=== PATIENT | female | born 1980 | race Caucasian/White ===

== ENCOUNTER 2025-02-17 16:11 | Emergency (ER) | payer SELFPAY ==
--- OUTSIDE RECORDS SUMMARY | 2023-04-16 06:55 | XMS_ITS | Continuity of Care Document ---
Author Organization [facility] Address [address] [place] [address] Phone Care Team Providers Care Salesforce Administrator Name Role Phone Gabriel Kumar MD Unavailable Unavailable Allergies, Adverse Reactions, Alerts Substance Reaction Status Criticality levofloxacin Active No Information Medications Medication Instructions Dosage Effective Dates (start - stop) Status Comments meloxicam 15 mg tablet take 1 tablet by oral route every day 15 MG - Active gabapentin 300 mg capsule - Active levothyroxine 25 mcg tablet - Active pantoprazole 40 mg tablet,delayed release - Active aspirin 81 mg tablet,delayed release - Active EMGALITY PEN (unknown strength) Not Available - Active Celexa 40 mg tablet - Active Depakote 500 mg tablet,delayed release - Active Cymbalta 30 mg capsule,delayed release - Active Seroquel 100 mg tablet - Active Procedures Procedure Date X-RAY HIP UNI W PELVIS 2-3 VIEWS 2023 RADEX SPI LUMBOSAC 2/3 VIEWS Methylprednisolone 80mg/ml inj 24 OFFICE CONSULTATION MU Reporting POSTOP FOLLOW-UP VISIT MU Reporting MU Reporting OFFICE/OUTPATIENT VISIT EST MU Reporting OFFICE CONSULTATION Advance Directives Directive Yes / No Effective Date File Name No Information Encounters Encounter Description Practice Location Reason(s) For Visit Diagnoses Date Provider Providers Copied on Encounter [facility], [address], [place], [address], [place] tel:[phone] [facility] Sacroiliac joint dysfunction of right side 4 José Rios. [address] [facility], [place], [place], [id number]. tel:[phone] OFFICE CONSULTATION [facility], [address], [address], tel:[phone] [facility] Pain, unspecifiedBo dy mass index [BMI] 39.0-39.9, adultRight hip painPrimary osteoarthriti s of right hipSacroiliac joint dysfunction of right side 4 José Gabriel. [address] [facility], [place], [place], [id number]. tel:[phone] Referring Provider: Krystal Huerta [address] [facility] [address], [place], [address]. tel:[phone] [facility], [address], [address], [place] tel:[phone] [facility] Hip labral tear 3 Boxdorfer Karla. [address], [id number]. tel:[phone] Referring Provider: Dae Serrano [address] [place] [address] [address], [place], [address] . tel:[phone] [facility], [address], [address], [place] tel:[phone] [facility] No Information 3 Box[address] Karla. [address], [id number]. tel:[phone] OFFICE/OUTPAT IENT VISIT EST [facility], [address], [address], [place] tel:[phone] [facility] hip/pelvicHyp ertension, Unspecified Nov- 3 Gilmer York. [address] [place], [place], [id number]. tel:[phone] Referring Provider: D[address], [place], [address] . tel:[phone] OFFICE CONSULTATION [facility], [address], [place], [address], [place] tel:[phone] [facility] Right hip pain (chief complaint) Hypertension, UnspecifiedHi p labral tearPain hip/pelvic Sep- [address], [place], [place], [id number]. tel:[phone] Referring Provider: D[address], [place], [address] . tel:[phone] Family History Family Member Type Diagnosis Age At Onset Mother Problem (finding) Father Problem Hypertension Mother Problem Glioblastoma Brother Problem Diabetes mellitus Father Problem Cardiovascular disease Payers Payer name Insurance type Covered libertarian ID Authornicolea lali(s) Blue Access PPO E2 OT [id number] Social History Type Description Quantity Date Captured Comments Alcohol Use Details Unknown Caffeine Use Details Unknown Tobacco Use Status No Information Smoking Status No Information Sex Female Chief Complaint And Reason For Visit No Information Reason For Referral Reason For Referral No Information Plan Of Treatment Date Type Action Status Goal Lifestyle education regardin g diet completed Referral Ordered: INJECT SACROILIAC JOINT RT sij Appointment date/timeframe: 04/23/2023 ordered Referral Ordered: X-RAY HIP UNI W PELVIS 2-3 VIEWS RT ordered Referral Ordered: FLUOROSCOPIC GUIDANCE NEEDLE PLACEMENT Appointment date/timeframe: 03/25/2023 ordered Referral Ordered: RADEX SPI LUMBOSAC BENDING 2/3 VIEWS ordered Referral Ordered: RADEX SPI LUMBOSAC 2/3 VIEWS ordered History Of Present Illness Encounter Date Complaint History Of Prese nt Illness No Information Functional Status Date Functional Assessmen t No Information Instructions Date Instruction Additional Infor mation Lifestyle education regarding di et Related to Body mass index [BMI] 39.0-39.9, adult Protective activity Discussed post-operative precaut ions Reviewed medications Assessments Type Assessment Date assessment Sacroiliac joint dysfunction of right side Patient Care Teams Name Effective Dates (start - stop) Status Members No Information
--- OUTSIDE RECORDS SUMMARY | 2025-02-16 23:59 | XMS_ITS | Continuity of Care Document ---
Author Organization [facility] Address [address] [place] [id number] Care Team Providers Care Passenger Agent Name Role Phone Krystal Huerta Primary Care Physician Encounter [facility] Financial Number [id number] Date(s): 02/16/25 - 02/16/25 [facility] [address] [place] [phone] Encounter Diagnosis Obstructive sleep apnea(Discharge Diagnosis) - 02/16/25 Encounter for adjustment and management of neurostimulator(Discharge Diagnosis) - 02/16/25 Discharge Disposition: Home or Self Care Attending Physician: Celso Peres MD Encounter Type: Clinic Allergies, Adverse Reactions, Alerts Substance Criticality Severity Reaction Reaction Severity Status Levaquin migraines Active Treatment Plan Future Appointments Appointment Date:03/25/2025 08:00:00 PM Scheduled Provider: Location:[facility] Sleep Med Appointment Type:[facility] ST[facility] Sleep Study Attended Full Appointment Date:04/07/2025 12:15:00 PM Scheduled Provider:Celso Peres MD Location:[facility] Sleep Med Appointment Type:[facility] EP Implant Medications divalproex sodium 500 mg oral tablet, extended release 750 mg, 1.5 tablet(s), Oral, daily, 30 tablet(s), Tablet CR, 0 Start Date: 09/25/24 Status: Ordered Medication Dispense Status: Completed Quantity: 30.0 Unit: Total Allowed Fills: 1 Fills Dispensed: 0 DULoxetine 60 mg oral capsule 60 mg, 1 capsule(s), Oral, daily, 30 capsule(s), Capsule(s), 0 Start Date: 09/25/24 Status: Ordered Medication Dispense Status: Completed Quantity: 30.0 Unit: Total Allowed Fills: 1 Fills Dispensed: 0 frovatriptan 2.5 mg oral tablet 2.5 mg, 1 tablet(s), Oral, as needed, 0 Start Date: 09/25/24 Status: Ordered Medication Dispense Status: Completed Total Allowed Fills: 1 Fills Dispensed: 0 levothyroxine 75 mcg (0.075 mg) oral tablet 75 mcg, 1 tablet(s), Oral, daily before breakfast, 30 tablet(s), Tablet(s), 0 Start Date: 09/25/24 Status: Ordered Medication Dispense Status: Completed Quantity: 30.0 Unit: Total Allowed Fills: 1 Fills Dispensed: 0 pantoprazole 40 mg oral delayed release tablet 40 mg, 1 tablet(s), Oral, daily before breakfast, 30 tablet(s), Tab EC, 0 Start Date: 09/25/24 Status: Ordered Medication Dispense Status: Completed Quantity: 30.0 Unit: Total Allowed Fills: 1 Fills Dispensed: 0 QUEtiapine 100 mg oral tablet 100 mg, 1 tablet(s), Oral, qhs, 180 tablet(s), Tablet(s), 0 Start Date: 09/25/24 Status: Ordered Medication Dispense Status: Completed Quantity: 180.0 Unit: Total Allowed Fills: 1 Fills Dispensed: 0 Problem List Condition Confirmation Course Effective Dates Status H ealth Status Informant Obstructive sleep apnea Confirmed Active Encounter for adjustment and management of neurostimulator Confirmed Active Procedures Procedure Date Related Diagnosis Body Site Status Appendectomy Completed Cholecystectomy Completed hysterectomy Completed nerve stimulator Complete d Vital Signs Most recent to oldest [Reference Range]: 1 Peripheral Pulse Rate [60-100 bpm] 93 bp m (02/16/25 1:54 PM) Blood Pressure [90-139/60-90 mm Hg] 118/ 70mm Hg (02/16/25 1:54 PM) Height 162.56 cm (02/16/25 1:54 PM) Weight 86.18 kg (02/16/25 1:54 PM) Social History Social History Type Response Alcohol Never alcohol user Substance Abuse Never drug user Smoking Status Never smoker;Never; Tobacco Cessation Counseling Requested N/A entered on: 09/25/24 Sex Sex Representation Female (finding) Implantable Device List Procedure Provider Procedure Date Device Type Site Hypoglossal Nerve Stimulatio n Implant In Unknown 09/25/24 Non Biological Unknown Device Identifier Serial Number Lot or Batch Number Manufacturing Date Expiration Date Distinct Identification Code MRI Safety Implantable Status Assigning Authority Unknown [id number] Unknown Unknown 03/18/27 Unknown Unknown Active Unknown Procedure Provider Procedure Date Device Type Site Hypoglossal Nerve Stimulatio n Implant In Unknown 09/25/24 Non Biological Unknown Device Identifier Serial Number Lot or Batch Number Manufacturing Date Expiration Date Distinct Identification Code MRI Safety Implantable Status Assigning Authority Unknown [id number] Unknown Unknown 04/06/27 Unknown Unknown Active Unkno wn Procedure Provider Procedure Date Device Type Site Hypoglossal Nerve Stimulatio n Implant In Unknown 09/25/24 Non Biological Unknown Device Identifier Serial Number Lot or Batch Number Manufacturing Date Expiration Date Distinct Identification Code MRI Safety Implantable Status Assigning Authority Unknown [id number] Unknown Unknown 11/03/26 Unknown Unknown Active Unkno wn Hospital Discharge Instructions Patient Education 02/16/2025 14:12:46 SLEEP APNEA, Obstructive (Adult) Obstructive??Sleep Apnea Obstructive sleep apnea is a condition caused by air passages becoming narrowed or blocked during sleep. As a result, breathing stops for short periods. Your body wakes up enough for breathing to start again.??But you don't remember it. The cycle of stopped breathing and brief awakenings can repeatdozens of times a night. This prevents the body from getting to the deeper stages of sleep that areneeded for good rest. Signs of sleep apnea include loud snoring, noisy breathing, and gasping sounds during sleep. Peoplewith sleep apnea often find they use the bathroom many times during the night. Daytime symptoms include waking up tired after a full night's sleep and??waking up with headaches. They can also includefeeling very sleepy or falling asleep during the day,??and having problems with memory or concentrat ion. Risk factors for sleep apnea include: ???Being overweight ???Being assigned male at , or being in menopause ???Smoking ???Using alcohol or sedating medicines ???Having enlarged structures in the nose or throat such as enlarged tonsils or adenoids, or extra tissue in the airway Home care Lifestyle changes that can help treat snoring and sleep apnea include: ???If you're overweight, talk with your healthcare provider about a weight-loss plan for you. ???Don't drink alcohol for 3 to 4 hours before bedtime. ???Don't take sedating medicines. Ask your healthcare provider about the medicines you take. ???If you smoke, talk to your provider about ways to quit. It's important to stay away from secondhand smoke. Don't use e-cigarettes because of their harmful side effects. ???Sleep on your side. This can help prevent gravity from pulling relaxed throat tissues into your breathing passages. ???If you have allergies or sinus problems that block your nose, ask your provider for help. ???Use positive airway pressure (PAP). Discuss with your provider the benefits of using PAP at home. And talk about the type of PAP that's best for you. Follow-up care Follow up with your healthcare provider, or as advised.??A diagnosis of sleep apnea is made with a sleep study. Your provider can tell you more about this test. When to get medical care See your healthcare provider if you have daytime symptoms of sleep apnea. These include: ???Waking up tired after a full night's sleep ???Waking up with a headache ???Feeling very sleepy or falling asleep during the day ???Having problems with memory or concentration Also talk with your provider if your partner tells you that you snore, gasp for air, or stop breathing while you sleep. Seeing your provider is important because sleep apnea can make you more likely to have certain health problems. These include high blood pressure, heart attack, stroke, and sexual dysfunction. If youhave sleep apnea, talk with your healthcare provider about the best treatments for you. ?? [id number] The [employer]. All rights reserved. This information is not intended as a substitute for professional medical care. Always follow your healthcare professional's instructions. Note * Event Display: Authorization to Treat * Event Display: Authorization to Treat Physician Outpatient Note * Celso Peres MD: PERFORM Event Display: Office/Clinic Note-Physician Authored Date: [id number] Patient Information Name:ELLA SEWELL Address: [address] [place] [phone] Sex:Female Date of :1980 Emergency Contact:JADA SEWELL Location:[facility] Registration Date and Time:02/16/2025 13:43 OXIDIZED FINISH PLATER Primary Care Physician: Krystal Huerta D.O., Attending Physician: Celso Peres MD, Chief Complaint Pt is here for an Inspire follow up. ESS: 7 History of Present Illness MANDY with PAP intolerance. Last??HSAT done 07/2023 with 4% AHI of??19.4 and an SaO2 low of??80%. She would panic with APAP and??was never??able??to tolerate??this despite??several masks??and pressure changes. She??had not tried an oral appliance.??Inspire per Dr. Belle on 09/25/2024. Activated at last visit at??range of 0.9 to 1.9??volts (A: + - +).??Using at??1.7 volts. Using??6:41 hours per??night. She??can at times fall asleep without turning this on. Pauses??at times at night but??averages 0.5??times??per night. Overall feels better. Less tired. Has not noticed snoring. Sleeps alone though.?? FOSQ and ESS Score FOSQ Ca.4 [place] Sleepiness Scale Score: 7 Vitals and Measurements Vital Signs Height: 162.56 cm Height Inches Conversion: 64 Weight: 86.18 kg Weight in Pounds (kg conversion): 189.6 Body Surface Area: 1.9727 m2 Body Mass Index: 32.61 kg/m2 Systolic Blood Pressure: 118 mm Hg Diastolic Blood Pressure: 70 mm Hg Peripheral Pulse Rate: 93 bpm Oxygen Saturation: 97 % Physical Exam CONSTITUTIONAL:??Alert and cooperative. No apparent distress.?? EARS, NOSE AND THROAT:??Nares patent.?? SKIN:??No lesions or rashes.?? EYES:??Clear conjunctivae.?? NEUROLOGY:??Alert and oriented to person, place, time. Speech clear and fluent with normal content.PERRLA. EOMI.??Face is symmetric.??Strength??5/5. Gait and station normal.?? Assessment/Plan 1.??Obstructive sleep apnea Ordered: Outpatient Visit-Level 4 Est PF, 02/16/25 14:07:00 OXIDIZED FINISH PLATER PSG - Inspire Titration, [facility], Order for Future Visit, 02/16/25 ?? 2.??Encounter for adjustment and management of neurostimulator Ordered: Outpatient Visit-Level 4 Est PF, 02/16/25 14:07:00 OXIDIZED FINISH PLATER PSG - Inspire Titration, [facility], Order for Future Visit, 02/16/25 ?? Reviewed download. Doing better with Inspire??at??0.9 to 1.9??volts (A: + - +) using at 1.7 volts. Has not tolerated further increases. Will do titration PSG with this. Follow up after PSG.??Educatedand discussed the relationship of MANDY with HTN and weight management. Discussed that the patient should not drive or engage in any other hazardous activity if excessively tired. Problem List/Past Medical History Ongoing Encounter for adjustment and management of neurostimulator Obstructive sleep apnea PatientStated Apnea, sleep Bipolar disease, chronic Chronic GERD History of insertion of nerve stimulator Hypothyroid Interstitial cystitis Migraines Historical No qualifying data Procedure/Surgical History ???Appendectomy???Cholecystectomy???hysterectomy???nerve stimulator Medications divalproex sodium 500 mg oral tablet, extended release, 750 mg= 1.5 tablet(s), Oral, daily DULoxetine 60 mg oral capsule, 60 mg= 1 capsule(s), Oral, daily frovatriptan 2.5 mg oral tablet, 2.5 mg= 1 tablet(s), Oral, as needed levothyroxine 75 mcg (0.075 mg) oral tablet, 75 mcg= 1 tablet(s), Oral, daily before breakfast pantoprazole 40 mg oral delayed release tablet, 40 mg= 1 tablet(s), Oral, daily before breakfast QUEtiapine 100 mg oral tablet, 100 mg= 1 tablet(s), Oral, qhs Allergies Levaquin??(migraines) Social History Alcohol Never alcohol user, 09/25/2024 Substance Abuse Never drug user, 09/25/2024 Tobacco Never smoker, Smokeless Tobacco use: Never. N/A Cessation Counseling., 09/25/2024 Family History ?Father ?Positive ?Hypertension ?Brother ?Positive ?Hypertension ?Mother ?Positive ?Brain cancer.. ? Voice to Text Technology Disclaimer This note may contain text inserted via Dragon or other voice to text assistive technology and campus receptionist, variances may occur. Patient Care team information Care Team Personnel Name: Krystal Huerta D.O. Position: [facility] FAX ONLY - MD NOT ON STAFF Member Role: Primary Care Physician Address: [facility] [place] [address]- Telecom: Name: Celso Peres MD Position: Physician - Sleep Medicine Med Service: Interlibrary Loan Specialist Passenger Agent Role: Attending Physician Address: [address] [place] [address] [facility] [address] Telecom: Care Team Related Persons Name: JADA SEWELL Insurance Providers Guarantor name: ELLA Anthony SEWELL Health Plan Information #: 1 Payer: [facility] [employer] [facility] Payer Identifier: [id number] Member Number: [id number] Group Number: [id number] Subscriber Identifier: [id number] Relationship to Subscriber: self Coverage Type: [employer] Managed Care Coverage Verification Date: 25 Telecom: [employer] Address: [address] [place], [place] [id number] [place]
--- OUTSIDE RECORDS SUMMARY | 2025-02-17 07:20 | XMS_ITS | Encounter Summary ---
Author Organization [facility] Address [address] [place] [address] Care Team Providers Care Solar System Designer Name Role Phone Ashley Villegas MD Unavailable [phone] Donny Mcdonough MD Unavailable [phone] Juan Daniel Mera MD Unavailable Unava ilable Randall Schrader MD Unavailable Unavailable Shaista Hathaway SPORTS COMPLEX ATTENDANT Unavailable [phone] Shaista Hathaway SPORTS COMPLEX ATTENDANT Unavailable [phone] Elda Martin MD Unavailable Krystal Huerta DO Primary Care Provider [phone] Reason for Visit * Reason Comments Follow Up Pt here for f/u on z epbound. [facility] lab Encounter Details Date Type Department Care Team (Late st Contact Info) Description 02/17/2025 7:20 AM INTERNAL SPECIALIST Office Visit [facility] Family [facility] - [place] [address], [address] [place] [address] Krystal Huerta DO [address], [place] [id number] Follow Up (Pt here for f/u on zepbound. [facility] lab ) Social History Tobacco Use Types Packs/Day Years Used Date Smoking Tobacco: Never Passive Smoke Exposure: Never Smokeless Tobacco: Never Tobacco Cessation:Counseling Given: No Comments:DO Discretion Alcohol Use Standard Drinks/Week Comments Never 0 (1 standard drink = 0.6 oz pur e alcohol) Humiliation, Afraid, Rape, and Kick questionnair e Answer Date Recorded Within the last year, have y ou been afraid of your partner or ex-partner? No 01/08/2023 Within the last year, have y ou been humiliated or emotionally abused in other ways by your partner or ex-partner? No Within the last year, have y ou been kicked, hit, slapped, or otherwise physically hurt by your partner or ex-partner? No 01/08/2023 Within the last year, have y ou been raped or forced to have any kind of sexual activity by your partner or ex-partner? No 01/08/2023 AUDIT-C Answer Date Recorded Frequency of Alcohol Consumption Never 09/04/2018 Average Number of Drinks Not on file 019 Frequency of Binge Drinking Not on file 06/2018 Overall Financial Resource Strain (CARDIA) Answe r Date Recorded How hard is it for you to pa y for the very basics like food, housing, medical care, and heating? Not hard at all 01/08/2023 PHQ-2 Answer Date Recorded Patient Health Questionnaire-2 Score 2 12/04/2024 Hunger Vital Sign Answer Date Recorded Within the past 12 months, y ou worried that your food would run out before you got the money to buy more. Never true 01/09/20 23 Within the past 12 months, t he food you bought just didn't last and you didn't have money to get more. Never true 01/08/2023 PRAPARE - Transportation Answer Date Re corded In the past 12 months, has l ack of transportation kept you from medical appointments or from getting medications? No 09/2022 In the past 12 months, has l ack of transportation kept you from meetings, work, or from getting things needed for daily living? No 01/08/2023 Housing Stability Vital Sign Answer Kevon e Recorded In the last 12 months, was t here a time when you were not able to pay the mortgage or rent on time? No 01/08/2023 In the last 12 months, how many places have you lived? 1 01/08/2023 In the last 12 months, was t here a time when you did not have a steady place to sleep or slept in a skilled nursing (including now)? 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 Not on file Not on file Not on file documented as of this encounter Last Filed Vital Signs Vital Sign Reading Time Taken Comments Blood Pressure 118/72 02/17/2025 7:18 AM INTERNAL SPECIALIST Pulse 89 02/17/2025 7:18 AM INTERNAL SPECIALIST Temperature 36.4 C (97.5 F) 02/17/2025 7:18 AM INTERNAL SPECIALIST Respiratory Rate 16 02/17/2025 7:18 AM INTERNAL SPECIALIST Oxygen Saturation 99% 02/17/2025 7:18 AM INTERNAL SPECIALIST Inhaled Oxygen Concentration - - Weight 82.3 kg (181 lb 6.4 oz) 02/17/2025 7:18 A M INTERNAL SPECIALIST Height 160 cm (5' 3) 02/17/2025 7:18 AM INTERNAL SPECIALIST Body Mass Index 32.13 02/17/2025 7:18 AM INTERNAL SPECIALIST documented in this encounter Functional Status * Are you deaf or do you have serious difficulty hearing Answer Date of Assessment Author Status No 01/08/2023 2:21 PM INTERNAL SPECIALIST Raymundo Barton RN Active * Are you blind or do you have serious difficulty seeing, even when wearing glasses? Answer Date of Assessment Author Status No 01/08/2023 2:21 PM INTERNAL SPECIALIST Raymundo Barton RN Active * Do you have serious difficulty walking or climbing stairs? Answer Date of Assessment Author Status No 01/08/2023 2:21 PM Raymundo Heck RN Active * Do you have difficulty dressing or bathing? Answer Date of Assessment Author Status No 01/08/2023 2:21 PM Raymundo Heck RN Active * Because of a physical, mental, or emotional condition, do you have difficulty doing errands alone such as visiting a doctor's office or shopping? Answer Date of Assessment Author Status No 01/08/2023 2:21 PM Raymundo Heck RN Active documented as of this encounter Mental Status * Because of a physical, mental, or emotional condition, do you have serious difficulty concentrating, remembering, or making decisions? Answer Entry Date Author Status No 01/08/2023 2:21 PM Raymundo Heck RN Active documented in this encounter Progress Notes * Krystal Huerta, DO - 02/17/2025 7:20 AM CST Follow Up (Pt here for f/u on zepbound. [facility] lab ) Assessment & Plan Obstructive sleep apnea: - She is currently on Inspire titration but has not tolerated any further titrations. - She saw her sleep doctor yesterday. - She is advised to continue with the current treatment plan. Chronic migraine: - Depakote, Vyepti, and Botox have been effective in reducing the frequency and severity of her migraines. - She should continue with her current medications. Weight management: Following reduced calorie diet Continues to exercise Denies any mood changes with the medication denies any vision changes - She has lost weight, going from 195 pounds on 01/08/2025 to 181 pounds. - Thyroid levels will be rechecked in 05/2025 due to weight changes that may affect thyroid dosing. - The dosage of Zepbound will be increased to 7.5mg . She is advised to continue her current regimen and monitor her weight. Follow up in 2-3 months If she wants a dose change will need a follow up Psychiatric issues: - She reports no changes in mood and feels that her current treatment is helping her appetite. - She is followed by a psychiatrist and a therapist, with regular appointments. - She should continue her current psychiatric care and follow up with her therapist in 2 weeks. HPI: History of Present Illness The patient is a 45-year-old female who presents for a follow-up visit. On 02/16/2025, she saw [facility] for obstructive sleep apnea and is currently on Inspire titration. However, she has not tolerated any further titrations. She saw her sleep doctor yesterday. She is currently on Zepbound 2.5 mg and reports a positive response to her medication regimen, withno adverse effects such as abdominal pain or changes in vision. Her bowel movements remain regular,and she maintains a balanced diet, including adequate protein intake. She continues to participate in CrossFit exercises. She believes the medication is beneficial for her appetite and expresses a desire to increase the dosage. She is still on folic acid 5 mg. She last consulted with her therapist on Saturday and reports no significant mood alterations. Her next therapy session is scheduled for 2 weeks from now. She is currently followed by a psychiatrist and has a history of psychiatric hospitalization, where she is regularly monitored by her psychiatristand therapist. She has a history of pancreatitis. For chronic migraine, she is on Depakote, Vyepti, Botox, and abortive agents, which are reducing the frequency and severity of her migraines. She was in the emergency room in 01/2025 for urinary retention. She is engaged in weight loss via diet and CrossFit and salima Vyvanse as well. Social History: Hobbies: CrossFit Diet: Balanced diet with adequate protein intake Relevant systems noted in HPI, all remaining systems are negative. Wt Readings from Last 3 Encounters: 02/17/25 82.3 kg (181 lb 6.4 oz) 01/19/25 84.9 kg (187 lb 3.2 oz) 01/08/25 88.5 kg (195 lb 1.7 oz) Physical Exam Constitutional: Appearance: Normal appearance. HENT: Mouth/Throat: Mucous membranes are moist. Eyes: Extraocular Movements: Extraocular movements intact. Conjunctiva/sclera: Conjunctivae normal. Pupils: Pupils are equal, round, and reactive to light. Cardiovascular: Rate and Rhythm: Normal rate and regular rhythm. Pulses: Normal pulses. Heart sounds: Normal heart sounds. Pulmonary: Effort: Pulmonary effort is normal. Breath sounds: Normal breath sounds. Musculoskeletal: Cervical back: Normal range of motion and neck supple. Neurological: Mental Status: She is alert. Psychiatric: Mood and Affect: Mood normal. Thought Content: Thought content normal. Judgment: Judgment normal. Filed Vitals: 02/17/25 0718 BP: 118/72 Pulse: 89 Resp: 16 Temp: 97.5 ??F (36.4 ??C) SpO2: 99% Weight: 82.3 kg (181 lb 6.4 oz) Height: 1.6 m (5' 3) 1. Metabolic syndrome tirzepatide (ZEPBOUND) 7.5 MG/0.5ML injection VITAMIN D, 25 OH TSH W/REFLEX HEMOGLOBIN, GLYCOSYLATED THYROXINE, FREE (FT4) COMPREHENSIVE METABOLIC PANEL 2. Morbid obesity (CMS/HCC) tirzepatide (ZEPBOUND) 7.5 MG/0.5ML injection VITAMIN D, 25 OH TSH W/REFLEX HEMOGLOBIN, GLYCOSYLATED THYROXINE, FREE (FT4) COMPREHENSIVE METABOLIC PANEL 3. MANDY (obstructive sleep apnea) tirzepatide (ZEPBOUND) 7.5 MG/0.5ML injection VITAMIN D, 25 OH TSH W/REFLEX HEMOGLOBIN, GLYCOSYLATED THYROXINE, FREE (FT4) COMPREHENSIVE METABOLIC PANEL DISCONTINUED: tirzepatide (ZEPBOUND) 5 MG/0.5ML injection 4. Dyslipidemia VITAMIN D, 25 OH TSH W/REFLEX HEMOGLOBIN, GLYCOSYLATED THYROXINE, FREE (FT4) COMPREHENSIVE METABOLIC PANEL 5. Moderate obstructive sleep apnea VITAMIN D, 25 OH TSH W/REFLEX HEMOGLOBIN, GLYCOSYLATED THYROXINE, FREE (FT4) COMPREHENSIVE METABOLIC PANEL DISCONTINUED: tirzepatide (ZEPBOUND) 5 MG/0.5ML injection This patient has a chronic medical condition that increases the inherent complexity of the evaluation and management associated with medical care services and we serve as the continuing focal point for all needed health care services pertaining to ongoing care related to the patient's single serious or complex condition. This document was created in part by using voice recognition software RNAL SPECIALIST documented in this encounter Plan of Treatment Scheduled Orders Name Type Priority Associated Diagnoses Orde r Schedule VITAMIN D, 25 OH Lab Routine Metabolic syndrome Morbid obesity (CMS/HCC) MANDY (obstructive sleep apnea) Dyslipidemia Moderate obstructive sleep apnea Expected: 05/18/2025, Expires: 05/18/2026 TSH W/REFLEX Lab Routine Metabolic syndrome Morbid obesity (CMS/HCC) MANDY (obstructive sleep apnea) Dyslipidemia Moderate obstructive sleep apnea Expected: 05/18/2025, Expires: 05/18/2026 HEMOGLOBIN, GLYCOSYLATED Lab Routine Metabolic syndrome Morbid obesity (CMS/HCC) MANDY (obstructive sleep apnea) Dyslipidemia Moderate obstructive sleep apnea Expected: 05/18/2025, Expires: 05/18/2026 THYROXINE, FREE (FT4) Lab Routine Metabolic syndrome Morbid obesity (CMS/HCC) MANDY (obstructive sleep apnea) Dyslipidemia Moderate obstructive sleep apnea Expected: 05/18/2025, Expires: 05/18/2026 COMPREHENSIVE METABOLIC PANEL Lab Routine Metabolic syndrome Morbid obesity (CMS/HCC) MANDY (obstructive sleep apnea) Dyslipidemia Moderate obstructive sleep apnea Expected: 02/17/2025, Expires: 02/17/2026 documented as of this encounter Goals Goal Patient Goal Type Associated Problems Recent Progress Patient-Stated? Author Health - patient able to perform ADLs independently Lifestyle Garcia Brown RN documented as of this encounter Visit Diagnoses Diagnosis Metabolic syndrome- Primary Dysmetabolic Syndrome X Morbid obesity (CMS/HCC) Morbid obesity MANDY (obstructive sleep apnea) Obstructive sleep apnea (adult) (pediatric) Dyslipidemia Other and unspecified hyperlipidemia Moderate obstructive sleep apnea Obstructive sleep apnea (adult) (pediatric) documented in this encounter Additional Health Concerns Assessment Noted Time PHQ-9 Depression Total Score: 14 025 11:47 AM CDT documented as of this encounter Care Teams Solar System Designer Relationship Specialty Start Date End Date Krystal Huerta DO [address] [place] [id number] PCP - General FAMILY PRACTICE 02/21/22 Ashley Villegas MD [address] [place] [id number] OBGYN 02/04/20 Donny Mcdonough MD [address] [facility] [address] [place] [address] GASTROENTEROLOGY 02/04/20 Juan Daniel Mera MD [address] [facility] [facility] [address] [place] [address] OBGYN 02/04/20 Randall Schrader MD [address] [facility] [facility] [address] [place] [address] Consulting Physician ORTHOPAEDIC SURGERY 02/04/20 Shaista Hathaway SPORTS COMPLEX ATTENDANT [address] [place] [address], [address] [place] [address] NURSE PRACTITIONER GERONTOLOGY 02/04/20 Shaista Hathaway NP [address] [place] [address], [address] [place] [address] NURSE PRACTITIONER GERONTOLOGY 04/29/20 Elda Martin MD [address] [place] [address] Psychiatry 08/31/20 documented as of this encounter
--- OUTSIDE RECORDS SUMMARY | 2025-02-17 09:30 | XMS_ITS ---
Author Organization [facility] [employer] [facility] Address [address] [facility] [address] [place] [address] Care Team Providers Care Stud Driver Name Role Phone Krystal Huerta DO Primary Care Provider Efrem Madera Unavailable [phone] Genevieve Sargent Unavailable [phone] Allergies Allergen (clinical drug ingredient) Drug/Non Drug Allergy documented on EMR Reaction Allergy Type Onset Date Status levofloxacin Levofloxacin Unknown Drug Allergy A ctive REASON FOR VISIT 2 Week Follow Up from Efrem Medications Medication SIG (Take, Route, Frequency, Duration) Notes Start Date End Date Status FLUoxetine HCl 40 MG Capsule 1 capsule Orally Once a day; Duration: 30 days 12/28/2024 Active OLANZapine 10 MG Tablet 1 tablet every night Oral Once a day; Duration: 30 days Active Pantoprazole Sodium 40 MG Tablet Delayed Release Oral; Duration: 30 Days Active Levothyroxine Sodium 75 MCG Tablet TAKE 1 TABLET BY MOUTH EVERY MORNING. Oral; Duration: 30 Days Active Frovatriptan Succinate 2.5 MG Tablet Oral; Duration: 3 Days Active Divalproex Sodium ER 250 MG Tablet Extended Release 24 Hour 1 tablet Orally daily; Duration: 30 days 02/03/2025 03/05/2025 Active Lisdexamfetamine Dimesylate 40 MG Capsule 1 capsule in the morning Orally Once a day; Duration: 7 days 02/03/2025 Active risperiDONE 3 MG Tablet 1 tablet Orally Once a day; Duration: 5 days 02/03/2025 Active Qulipta 60 MG Tablet TAKE 1 TABLET BY MOUTH DAILY Oral; Duration: 30 Days Not-Taking LORazepam 1 MG Tablet TAKE 1 TABLET BY MOUTH EVERY DAY NEEDED FOR ANXIETY Oral; Duration: 30 Days Not-Taking QUEtiapine Fumarate 200 MG Tablet 1 tablet at bedtime Oral Once a day; Duration: 30 days 12/10/2024 Not-Taking Caplyta 42 MG Capsule take 21mg x 3 days then 10.5mg x 3 days then stop Orally Once a day; Duration: 6 days 11/18/2024 Not-Taking Cholestyramine Light 4 GM/DOSE Powder Oral; Duration: 14 Days Not-Taking QUEtiapine Fumarate ER 400 MG Tablet Extended Release 24 Hour 1 tablet in the evening Orally Once a day; Duration: 30 days dose increase 12/10/2024 Not-Taking Notus Carbonate ER 300 MG Tablet Extended Release 2 tablets Orally Once a day; Duration: 30 days increase- pt has at home 12/10/2024 Not-Taking Caplyta 21 MG Capsule 2 capsules Orally Once a day; Duration: 30 days 01/20/2025 Not-Taking Lisdexamfetamine Dimesylate 40 MG Capsule 1 capsule in the morning Orally Once a day; Duration: 30 days dose increase 01/20/2025 Not-Taking Zepbound 5 MG/0.5ML Solution INJECT 2.5 MG INTO THE SKIN ONCE A WEEK Subcutaneous; Duration: 28 days Active Ondansetron HCl 4 MG Tablet Oral; Duration: 10 Days Active Social History Tobacco Use: Social History Observation Description Date Details (start date - stop date) Never Smoker NA - NA Sex Assigned At : Social History Observation Description Sex Assigned At Female Social History Social History Social Info Question Answer Notes Household: Marital Status: Single Number of Adults in household: 1 Number of Children in Household: 0 Level of Education: Finished College Drug/Alcohol: Social Info Question Answer Notes Drugs Have you used drugs other than those for medical reasons in the past 12 months? No AUDIT-C (Standard) Did you have a drink containing alcohol in the past year? No Tobacco Use: Social Info Question Answer Notes Tobacco Control (Standard) Tobacco use: Nonsmoker Section Notes: Living situation: Lives taz e Problems Problem Type SNOMED Code ICD Code Onset Dates Problem Status W/U Status Risk Notes Problem Moderate recurrent major depression (60389507) Major depressive disorder, recurrent, moderate (F33.1) Active confirmed Problem Bipolar disorder (57722740) Bipolar disorder, unspecified (F31.9) Active confirmed Problem History of psychiatric disorder (149646724) Personal history of other mental and behavioral disorders (Z86.59) Active confirmed Vital Signs Blood pressure systolic 123 mm Hg 02/18/20 25 Blood pressure diastolic 84 mm Hg 025 Heart Rate 73 /min 02/17/2025 Height 63 in 02/17/2025 Weight 183 lbs 02/17/2025 BMI 32.41 kg/m2 02/17/2025 Height-cm 160.02 cm 02/17/2025 Weight-kg 83.01 kg 02/17/2025 Encounters Encounter Location Date Provider Diagnosis [facility] [address] [place] [address] [place] [address] 02/17/2025 Genevieve Sargent Major depressive disorder, recurrent, moderate F33.1 ; Suicidal ideations R45.851 ; Bipolar disorder, unspecified F31.9 ; Generalized anxiety disorder F41.1 ; Living alone Z60.2 and Personal history of other mental and behavioral disorders Z86.59 Assessments Encounter Date Diagnosis (ICD Code) Assessment Notes Treatment Notes Treatment Clinical Notes Section Notes 02/17/2025 Major depressive disorder, recurrent, moderate (ICD-10 - F33.1) History of recurrent depression with limited response to prior treatments. Partial improvement noted with current medications. 02/17/2025 Suicidal ideations (ICD-10 - R45.851) Persistent suicidal thoughts with intent and a specific plan involving pills. Patient expressed feeling tired of living and reported ongoing ideation. Recent inpatient psychiatric stay provided only partial relief. Living alone may contribute to risk. - Admit to hospital for psychiatric evaluation and safety. 02/17/2025 Bipolar disorder, unspecified (ICD-10 - F31.9) Patient has a history of bipolar disorder. 02/17/2025 Generalized anxiety disorder (ICD-10 - F41.1) Patient has a history of generalized anxiety disorder. 02/17/2025 Living alone (ICD-10 - Z60.2) Patient lives alone, which may contribute to risk and isolation. 02/17/2025 Personal history of other mental and behavioral disorders (ICD-10 - Z86.59) Patient underwent ECT in 2013, discontinued due to anxiety and lack of benefit. Plan Of Treatment Treatment Notes Assessment Notes Major depressive disorder, r ecurrent, moderate History of recurrent depression with limited response to prior treatments. Partial improvement noted with current medications. Suicidal ideations Persistent suicidal thoughts with intent and a specific plan involving pills. Patient expressed feeling tired of living and reported ongoing ideation. Recent inpatient psychiatric stay provided only partial relief. Living alone may contribute to risk. - Admit to hospital for psychiatric evaluation and safety. Bipolar disorder, unspecified Patient hdz s a history of bipolar disorder. Generalized anxiety disorder Patient has a history of generalized anxiety disorder. Living alone Patient lives alone, which may contribute to risk and isolation. Personal history of other me ntal and behavioral disorders Patient underwent ECT in 2013, discontin ued due to anxiety and lack of benefit. Next Appt Details Follow Up: upon d/c from the hospital, Reason: Provider Name:Shannon cabrera, 03/09/2025 03:30:00 PM, [address], [place] [address], [address], Provider Name:Shannon cabrera, 03/16/2025 03:30:00 PM, [address], [place] [address] [place], [address], Provider Name:Shannon cabrera, 03/23/2025 03:30:00 PM, [address], [place] [address] [place], [address], Provider Name:Shannon cabrera, 03/30/2025 03:30:00 PM, [address], [place] [address] [place], [address], Provider Name:Shannon cabrera, 04/06/2025 03:30:00 PM, [address], [place] [address] [place], [address], Provider Name:Shannon cabrera, 04/13/2025 03:30:00 PM, [address], [place] [address] [place], [address], Provider Name:Shannon cabrera, 04/20/2025 03:30:00 PM, [address], [place] [address] [place], [address], Provider Name:Shannon cabrear, 04/27/2025 03:30:00 PM, [address], [place] [address], [place], [address], Provider Name:Shannon cabrera, 05/04/2025 03:30:00 PM, [address], [address], [address], Provider Name:Shannon cabrera, 05/11/2025 03:30:00 PM, [address], [address], [address], Provider Name:Shannon cabrera, 05/18/2025 03:30:00 PM, [address], [address], [address], Provider Name:Shannon cabrera, 05/25/2025 03:30:00 PM, [address], [address], [address], History and Physical Notes * HPI (History of Present Illness) Category Sub-Category Detail Notes Category Not es History of Presenting Problem Depression screening done Brianne Arroyo, a 45-year-old female, presented for an acute visit focused on her ongoing struggle with suicidal thoughts and intent. She described persistent suicidal ideation, with a specific plan involving pills, and shared that she feels tired of living. Despite these thoughts, she reported that she manages to make it through each day, even as she lives alone, which adds to her sense of isolation. Brianne recently had an inpatient psychiatric stay about a month ago, but the relief was only partial. In discussing her medication history, Brianne explained that she was discharged on Zyprexa and Prozac. She now takes Zyprexa as needed and Prozac daily, noting that these medications have helped her feel a little bit better, though the improvement remains limited. Her psychiatric history includes undergoing electroconvulsive therapy (ECT) in 2014, which she [facility] due to severe anxiety and lack of perceived benefit. Brianne does not recall any significant improvement from ECT and has not pursued other neuromodulation treatments. Depression screening PHQ-9 Little interest or pleasure in doing things: Nearly every day Feeling down, depressed, or hopeless: Ne siria every day Trouble falling or staying asleep, or sl eeping too much: Nearly every day Feeling tired or having little energy: N early every day Poor appetite or overeating: Nearly ever y day Feeling bad about yourself o r that you are a failure, or have let yourself or your family down: Nearly every day Trouble concentrating on thi ngs, such as reading the newspaper or watching television: Nearly every day Moving or speaking so slowly that other people could have noticed; or the opposite, being so fidgety or restless that you have been moving around a lot more than usual: Not at all Thoughts that you would be b afshan off or of hurting yourself in some way: Nearly every day (Consider Suicide Assessment Risk) Total Score: 24 Interpretation: Severe Depression Intervention Depression Screening Findings: Jayce patel Follow-Up for Depression: [facility] health care management, Psychiatric follow-up Suicide Risk Assessment Performed: 02/17 __ date Depression Screening LEA-7 (2018 Edition) Kaityin g nervous, anxious, or on edge: More than half the days Not being able to stop or control worryi ng: Nearly every day Worrying too much about different things : Nearly every day Trouble relaxing: Nearly every day Being so restless that it is hard to sit still: Several days Becoming easily annoyed or irritable: Ne siria every day Feeling afraid as if something awful richard ht happen: Not at all Total LEA-7 Score: 15 If you checked any problems, how difficult have they made it for you to do your work, take care of things at home, or get along with other people?: Extremely difficult Interpretation of Total: (15 and over) [facility] Suicide Risk (CSRS-screener) in the past one month Have you wished you were or wished you could go to sleep and not wake up?: Yes in the past one month Have y ou actually had any thoughts of killing yourself?: Yes Have you started to work out or worked out the details of how to kill yourself? Do you intend to carry out this plan?: Yes Have you had these thoughts and had some intention of acting on them?: Yes Have you been thinking about how you might do this?: Yes Progress Notes * Neo ARROYOOB:1980 ([age] yo F)Acc No.[id number]:02/17/2025 Patient: Brianne Tony Provider: Zach Sargent :1980 A ge:45 Y S ex:Female Date:02/17/2025 [facility] [id number] Pcp:Krystal Huerta DO Subjective: * Chief Complaints: * 2 Week Follow Up from [facility] * HPI: D epression Screening: LEA-7 (2018 Edition) F eeling nervous, anxious, or on edge M ore than half the days N ot being able to stop or control worrying?Nearly every day W orrying too much about different things N early every day T rouble relaxing N early every day B eing so restless that it is hard to sit still S everal days B ecoming easily annoyed or irritable N early every day F eeling afraid as if something awful might happen N ot at all T otal LEA-7 Score 1 5 I f you checked any problems, how difficult have they made it for you to do your work, take care of things at home, or get along with other people? E xtremely difficult I nterpretation of Total ( 15 and over) Severe [place]-Suicide Severity Rating Scale: Suicide Risk (CSRS-screener) i n the past one month Have you wished you were or wished you could go to sleep and not wake up? Y es i n the past one month Have you actually had any thoughts of killing yourself? Y es H ave you started to work out or worked out the details of how to kill yourself? Do you intend to carry out this plan? Y es H ave you had these thoughts and had some intention of acting on them? Y es H ave you been thinking about how you might do this? Y es D epression screening: PHQ-9 L ittle interest or pleasure in doing things?Nearly every day F eeling down, depressed, or hopeless N early every day T rouble falling or staying asleep, or sleeping too much N early every day F eeling tired or having little energy N early every day P oor appetite or overeating N early every day F eeling bad about yourself or that you are a failure, or have let yourself or your family down N early every day T rouble concentrating on things, such as reading the newspaper or watching television N early every day M oving or speaking so slowly that other people could have noticed; or the opposite, being so fidgety or restless that you have been moving around a lot more than usual N ot at all T houghts that you would be better off or of hurting yourself in some way N early every day (Consider Suicide Assessment Risk) T otal Score 2 4 I nterpretation S evere Depression Intervention D epression Screening Findings P ositve F ollow-Up for Depression M ental health care management, Psychiatric follow-up S uicide Risk Assessment Performed 1 04/20/2024 __ date H istory of Presenting Problem: Depression screening done Brianne Arroyo, a 45-year-old female, presented for an acute visit focused on her ongoing struggle with suicidal thoughts and intent. She described persistent suicidal ideation, with a specific plan involving pills, and shared that she feels tired of living. Despite these thoughts, she reported that she manages to make it through each day, even as she lives alone, which adds to her sense of isolation. Brianne recently had an inpatient psychiatric stay about a month ago, but the relief was only partial. In discussing her medication history, Brianne explained that she was discharged on Zyprexa and Prozac. She now takes Zyprexa as needed and Prozac daily, noting that these medications have helped her feel a little bit better, though the improvement remains limited. Her psychiatric history includes undergoing electroconvulsive therapy (ECT) in 2013, which she [facility] due to severe anxiety and lack of perceived benefit. Brianne does not recall any significant improvement from ECT and has not pursued other neuromodulation treatments. * Medical History: Past Psychiatric History: Anxiety Disorder,Major Depressive Episode,Bipolar Disorder abdominal aortic aneurysm: No atrial fibrillation: No chronic fatigue syndrome: No essential tremor: No hyperlipidemia: No hypertension: No Parkinson's disease: No restless leg syndrome: No stroke: No subdural hematoma: No type 1 diabetes mellitus: No type 2 diabetes mellitus: No vitamin B12 deficiency: No vitamin D deficiency: No Imported from Highlights: The patient has a history of multiple health issues including gastroesophageal reflux disease without esophagitis, left upper quadrant abdominal pain, history of cholecystectomy, history of pancreatitis, chronic insomnia, globus sensation, moderate obstructive sleep apnea, and acquired hypothyroidism. The patient has been under the care of Dr. Huerta at [facility], with multiple visits and telephone consultations. The patient also had encounters with Dr. Grimes at [facility] for pain management. The patient underwent a procedure for intractable chronic migraine without aura and without status migrainosus under the care of Shaista Hathaway NP at [facility]. The patient also had a surgery for esophageal dysphagia and gastroesophageal reflux disease under the care of Dr. Jenkins at [facility]. The patient's most recent visit was on 04/29/2024 for gastroesophageal reflux disease and left upper quadrant abdominal pain. Bipolar disorder Generalized anxiety disorder Major depressive disorder, recurrent History of ect, 2013 Medical History Verified * Surgical History: APPENDECTOMY hysterectomy nerve stimulator- inspire Cholecystectomy APPENDECTOMY hysterectomy nerve stimulator- inspire Cholecystectomy Ect (electroconvulsive therapy), [facility] due to anxiety, 2013 Surgical History verified. * Hospitalization/Major Diagno stic Procedure: Inpatient psychiatric stay, about a month ago Hospitalization Verified. * Family History: F ather: alive, None. M aternal Aunt: None. M aternal Uncle: None. P aternal Aunt: None. P aternal Uncle: None. M other: , None. P aternal Grandfather: None. P aternal Grandmother: None. M aternal Grandfather: None. M aternal Grandmother: None. B rother: None. S ister: None. S on: None. D aughter: None. 2 brother(s) . . F amily History Verified.. NO CHILDREN. * Social History: T obacco Use: T obacco Control (Standard) T obacco use: N onsmoker D rug/Alcohol: D rugs H ave you used drugs other than those for medical reasons in the past 12 months? N o AUDIT-C (Standard) D id you have a drink containing alcohol in the past year? N o S ocial History: H ousehold M arital Status: S chance N umber of Adults in household: 1 N umber of Children in Household: 0 L evel of Education: F inished College S ocial History Verified. L iving situation: Lives alone. * Medications: T akingFrovatriptan Succinate 2.5 MG Tablet Oral Levothyroxine Sodium 75 MCG Tablet TAKE 1 TABLET BY MOUTH EVERY MORNING. Oral Pantoprazole Sodium 40 MG Tablet Delayed Release Oral Ondansetron HCl 4 MG Tablet Oral Zepbound 5 MG/0.5ML Solution INJECT 2.5 MG INTO THE SKIN ONCE A WEEK Subcutaneous risperiDONE 3 MG Tablet 1 tablet Orally Once a day Lisdexamfetamine Dimesylate 40 MG Capsule 1 capsule in the morning Orally Once a day Divalproex Sodium ER 250 MG Tablet Extended Release 24 Hour 1 tablet Orally daily , stop date 03/05/2025OLANZapine 10 MG Tablet 1 tablet every night Oral Once a day FLUoxetine HCl 40 MG Capsule 1 capsule Orally Once a day Taking Frovatriptan Succinate 2.5 MG Tablet Oral Taking Levothyroxine Sodium 75 MCG Tablet TAKE 1 TABLET BY MOUTH EVERY MORNING. Oral Taking Pantoprazole Sodium 40 MG Tablet Delayed Release Oral Taking Ondansetron HCl 4 MG Tablet Oral Taking Zepbound 5 MG/0.5ML Solution INJECT 2.5 MG INTO THE SKIN ONCE A WEEK Subcutaneous Taking risperiDONE 3 MG Tablet 1 tablet Orally Once a day Taking Lisdexamfetamine Dimesylate 40 MG Capsule 1 capsule in the morning Orally Once a day Taking Divalproex Sodium ER 250 MG Tablet Extended Release 24 Hour 1 tablet Orally daily , stop date 03/05/2025Taking OLANZapine 10 MG Tablet 1 tablet every night Oral Once a day Taking FLUoxetine HCl 40 MG Capsule 1 capsule Orally Once a day Not- TakingLisdexamfetamine Dimesylate 40 MG Capsule 1 capsule in the morning Orally Once a day , Notes to Pharmacist: dose increaseCaplyta 21 MG Capsule 2 capsules Orally Once a day Cholestyramine Light 4 GM/DOSE Powder Oral Caplyta 42 MG Capsule take 21mg x 3 days then 10.5mg x 3 days then stop Orally Once a day QUEtiapine Fumarate 200 MG Tablet 1 tablet at bedtime Oral Once a day Notus Carbonate ER 300 MG Tablet Extended Release 2 tablets Orally Once a day , Notes to Pharmacist: increase- pt has at homeQUEtiapine Fumarate ER 400 MG Tablet Extended Release 24 Hour 1 tablet in the evening Orally Once a day , Notes to Pharmacist: dose increaseLORazepam 1 MG Tablet TAKE 1 TABLET BY MOUTH EVERY DAY NEEDED FOR ANXIETY Oral Qulipta 60 MG Tablet TAKE 1 TABLET BY MOUTH DAILY Oral Medication List reviewed and reconciled with the patientNot- Taking Lisdexamfetamine Dimesylate 40 MG Capsule 1 capsule in the morning Orally Once a day , Notes to Pharmacist: dose increaseNot-Taking Caplyta 21 MG Capsule 2 capsules Orally Once a day Not-Taking Cholestyramine Light 4 GM/DOSE Powder Oral Not- Taking Caplyta 42 MG Capsule take 21mg x 3 days then 10.5mg x 3 days then stop Orally Once a day Not-Taking QUEtiapine Fumarate 200 MG Tablet 1 tablet at bedtime Oral Once a day Not-Taking Notus Carbonate ER 300 MG Tablet Extended Release 2 tablets Orally Once a day , Notes to Pharmacist: increase- pt has at homeNot-Taking QUEtiapine Fumarate ER 400 MG Tablet Extended Release 24 Hour 1 tablet in the evening Orally Once a day , Notes to Pharmacist: dose increaseNot-Taking LORazepam 1 MG Tablet TAKE 1 TABLET BY MOUTH EVERY DAY NEEDED FOR ANXIETY Oral Not-Taking Qulipta 60 MG Tablet TAKE 1 TABLET BY MOUTH DAILY Oral Medication List reviewed and reconciled with the patient * Allergies: L evofloxacinyesAllergies Verified. Objective: * Vitals: B P:123/84mm Hg, HR:73/min, Wt:183lbs, Wt-k.01 kg, Ht: 63 in, Ht-cm: 160.02 cm, BMI:32.41Index, Body Surface Area: 1.92. Assessment: * Assessment: 1. M ajor depressive disorder, recurrent, moderate - F33.1 2 . S uicidal ideations - R45.851 3 . B ipolar disorder, unspecified - F31.9 4 .?Generalized anxiety disorder - F41.1 5 . L iving alone - Z60.2 6. P ersonal history of other mental and behavioral disorders - Z86.59 Plan: * Treatment: 2. S uicidal ideations Notes: Persistent suicidal thoughts with intent and a specific plan involving pills. Patient expressed feeling tired of living and reported ongoing ideation. Recent inpatient psychiatric stay provided only partial relief. Living alone may contribute to risk. - Admit to hospital for psychiatric evaluation and safety. 3. B ipolar disorder, unspecified Notes: Patient has a history of bipolar disorder. 4. G eneralized anxiety disorder Notes: Patient has a history of generalized anxiety disorder. 5. L iving alone Notes: Patient lives alone, which may contribute to risk and isolation. 6. P ersonal history of other mental and behavioral disorders Notes: Patient underwent ECT in 2013, discontinued due to anxiety and lack of benefit. * Procedure Codes: 9 6127 BEHAV ASSMT W/SCORE & DOCD/STAND [id number] TOBACCO NON-USER * Preventive Medicine: Screenings: D epression screening Have you had a recent depression screening? Y es * Follow Up: u capri d/c from the hospital Billing Information: * Visit Code: 88096 OFFICE OUTPATIENT VISIT 25 MINUTES DETAILED HISTORY AND EXAM/MODERATE MEDICAL DECISION MAKING. * Procedure Codes: 24687 BEHAV ASSMT W/SCORE & DOCD/STAND INSTRUMENT. 1036F TOBACCO NON-USER. * ALER Sign off status: Completed true * Provider: Zach Sargent Date: 04/20/2024 Generated for Anuj Barnett/Johanne on: 04/20/2024 06:15 PM ANNEALER
[2025-02-17 16:12] VITALS: BP 130/80; PULSE 82; RESP 16; TEMP 36.8; O2SAT 97
[2025-02-17 17:51] LABS: Hematocrit 40.8 % (37.0-47.0); Hemoglobin 13.9 g/dL (12.0-15.0); Immature Granulocyte Percent A 0.2 % (0-0.5); Lymphocytes Absolute Auto 3.07 K/mm3 (0.9-3.2); Mean Corpuscular HGB Conc 34.1 g/dl (32-36); Mean Corpuscular Hemoglobin 30.6 pg (26-34); Mean Corpuscular Volume 89.9 fl (80-100); Nucleated Red Blood Cells Absolute Auto 0.000 K/mm3 (0.0-0.012); Nucleated Red Blood Cells Perc 0.0 % (0.0-0.2); Platelet Count Result 374 k/mm3 (150-375); Red Blood Count 4.54 M/mm3 (4.2-5.4); White Blood Count 8.4 K/mm3 (4.5-10.0)
[2025-02-17 17:51] LABS: Alanine Aminotransferase 31 U/L (6-35); Albumin Level 4.8 g/dL (3.5-5.1); Alkaline Phosphatase 86 U/L (38-126); Anion Gap 12 mmol/L (4-12); Aspartate Amino Transferase 29 U/L (14-36); Bilirubin,Total 0.6 mg/dL (0.2-1.3); Blood Urea Nitrogen 20 mg/dL (7-17); Calcium 9.4 mg/dL (8.4-10.2); Carbon Dioxide 16 mmol/L (22-30); Chloride 109 mmol/L (98-107); Estimated CRCL calculation 86 ml/min; Estimated Glomerular Filt Rate > 60; Glucose 100 mg/dL (65-110); Potassium 3.7 mmol/L (3.4-5.0); Sodium 137 mmol/L (137-145); Total Protein 8.8 g/dL (6.3-8.2)
--- NOTE | 2025-02-17 17:55 | PC.NURSE ---
pt still unable to provide a urine sample at this time
[2025-02-17 18:02] LABS: Influenza A QL RT-PCR Negative (Negative); Influenza B QL RT-PCR Negative (Negative); RSV RNA, RT-PCR Negative (Negative); SARS-CoV-2 RNA PCR Negative (Negative)
--- OUTSIDE RECORDS SUMMARY | 2025-02-17 18:14 | XMS_ITS | Clinical Summary ---
Author Organization [facility] [employer] Address [address] [place] [address] Care Team Providers Care Lead Radiation Therapist Name Role Phone Dae Emerson DO Unavailable [phone] Krystal Huerta DO Primary Care Provider [phone] Source Comments [facility],non-owned Affiliates and Associated Physician Practices is amultiple site organization consisting of ambulatory clinics and hospital sitesin [place], [place], [place] and [place]. This disclosure is being madepursuant to the Care Everywhere program and may not contain all information available regarding this patient. Last updated 17.[facility] [employer] Allergies Active Allergy Reactions Criticality Noted Date Comments Levofloxacin Headache 07/13/2022 Medications * Be aware that medications may not be up to date on this document. Alwaysverify current medications with the patient. QUEtiapine (SEROQUEL) 100 MG tablet Take 1 (one) tablet by mouth once daily Active pantoprazole EC (PROTONIX) 40 MG tablet Take 1 (one) tablet by mouth once daily [address] (Depakote) 500 MG tablet Take 2 (two) tablets by mouth 3 Active ondansetron (Zofran) 4 MG tablet 3 Active citalopram (CeleXA) 40 MG tablet Take by mouth once daily 3 Active Aspirin Low Dose 81 MG tablet Take 1 (one) tablet by mouth once daily 3 Active acetaminophen (Tylenol) 325 MG tablet Take 3 (three) tablets by mouth every 6 hours as needed for Fever or Pain Maximum allowable Acetaminophen amount = 4 Grams (4000 mg) / 24 hours. 80 tablet 1 4 Active eptinezumab-jj mr (Vyepti) injection 300 (three hundred) mg by Intravenous route Every 90 days 4 Active DULoxetine (Cymbalta) 60 MG capsule Take 1 (one) capsule by mouth once daily 4 Active levothyroxine (Synthroid) 75 MCG tablet Take 1 (one) tablet by mouth every morning 4 Active tiZANidine (Zanaflex) 2 MG tablet TAKE 1 TABLET BY MOUTH EVERY 8 HOURS NEEDED FOR MUSCLE SPASMS 15 tablet 5 Active methocarbamol (Robaxin) 750 MG tablet TAKE 1 TABLET BY MOUTH EVERY 6 HOURS NEEDED FOR MUSCLE SPASMS 30 tablet 5 Active Active Problems Problem Noted Date Diagnosed Date Pain in joint involving pelvic region and thigh 05/31/2023 Musculoskeletal pain 05/31/2023 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 Urinary retention 08/23/2021 Nephrolithiasis 08/23/2021 Immunizations Immunization Administration Dates Next Due INFLUENZA VACCINE 02/15/2018 Family History Medical History Relation Name Comments Hypertension Brother CAD (Coronary Artery Disease) Father Hypercholesterolemia Father Hypertension Father Cancer Mother brain Hypertension Mother Relation Name Status Comments Brother Father Mother Social History Tobacco Use Types Packs/Day Years Used Date Smoking Tobacco: Never Smokeless Tobacco: Never Tobacco Cessation:Counseling Given: Not Answered Alcohol Use Standard Drinks/Week Comments No 0 (1 standard drink = 0.6 oz pur e alcohol) AUDIT-C Answer Date Recorded Q1: How often do you have a drink containing alcohol? Never 01/03/2023 Q2: How many drinks containi ng alcohol do you have on a typical day when you are drinking? Patient does not drink 3 Q3: How often do you have si x or more drinks on one occasion? Never 01/03/2023 PHQ-2 Answer Date Recorded Patient Health Questionnaire-2 Score 0 10/02/2024 Hunger Vital Sign Answer Date Recorded Within the past 12 months, y ou worried that your food would run out before you got the money to buy more. Never true 08/25/19 22 Within the past 12 months, t he food you bought just didn't last and you didn't have money to get more. Never true 08/24/2021 Comments No Sex and Gender Information Value Date Recorded Sex Assigned at Not on file Legal Sex Female 9:45 AM SYSTEM SUPPORT ADMINISTRATOR Gender Identity Not on file Sexual Orientation Not on file Last Filed Vital Signs Vital Sign Reading Time Taken Comments Blood Pressure 118/86 10/02/2024 12:07 PM CDT Pulse 88 03/24/2024 3:30 PM SYSTEM SUPPORT ADMINISTRATOR Temperature 36.2 C (97.2 F) 10/02/2024 12:07 PM CDT Respiratory Rate 16 03/24/2024 3:30 PM SYSTEM SUPPORT ADMINISTRATOR Oxygen Saturation 95% 03/24/2024 3:30 PM SYSTEM SUPPORT ADMINISTRATOR Inhaled Oxygen Concentration - - Weight 84.1 kg (185 lb 6.4 oz) 10/02/2024 12:07 PM CDT Height 160 cm (5' 3) 10/02/2024 12:07 PM CDT Body Mass Index 32.84 10/02/2024 12:07 PM CDT Plan of Treatment Health Maintenance Due Date Last Done Comments HIV SCREENING 02/05/1996 HEPATITIS C SCREENING 01/31/1999 DTAP/TDAP/TD VACCINES (1 - Tdap) 02/05/2000 HEPATITIS B VACCINE (1 of 3 - 19+ 3-dose series) 02/05/2000 PAP SMEAR 2002 HPV VACCINE (1 - 3-dose SCDM series) 02/05/2008 SCREENING FOR DIABETES 08/27/2024 , 08/26/2021, 08/25/2021, Additional history exists COVID-19 VACCINE ( season) 2024 01/04/2021, 05/22/2020, 04/26/2020 MAMMOGRAM 09/10/2026 09/10/2024, 09/01, 09/09/2023, Additional history exists LIPID TESTING 07/16/2029 07/16/2024, 08/0 03/2023, 01/09/2023, Additional history exists ZOSTER VACCINE (1 of 2) 2031 DEPRESSION SCREENING Completed 10/02/2024, 09/06/19 INFLUENZA VACCINE Completed 12/23/2024, , 12/04/2022, Additional history exists HIB VACCINE Aged Out No longer eligi ble based on patient's age to complete this topic MENINGOCOCCAL (Group B) VACCINE SHARED DECISION-MAKING Aged Out No longer eligible based on patient's age to complete this topic MENINGOCOCCAL GROUPS A/C/Y/W VACCINE Aged Out No longer eligible based on patient's age to complete this topic PNEUMOCOCCAL VACCINE Aged Out No long er eligible based on patient's age to complete this topic Medical Devices Implanted Type Area Architectural Manager Device Identifier Shelf Expiration Date Model / Serial / Lot Ld Nrstm Intstm 4.32mm Spc L28 Cm Qdpl Implanted:Qty: 1 on 06/02/2021 by Karl Gallegos MD at [facility] Left: Sacrum [employer] 12/05/2022 [id number] / / [id number] Interstim X Implanted:Qty: 1 on 06/02/2021 by Karl Gallegos MD at [facility] Right: Back [employer] 07/15/2022 [id number] / [id number] / Env Absb Med 2.7x2.5in Polyarylate Implanted:Qty: 1 on 06/02/2021 by Karl Gallegos MD at [facility] Right: Back [employer] 01/28/2022 [id number] / / [id number] Explanted Type Area Architectural Manager Device Identifier Shelf Expiration Date Model / Serial / Lot Lead Kit Implanted:Qty: 1 on 02/12/2013 by Angelina Barrios MD at [facility] Explanted:Qty: 1 on 06/02/2021 by Karl Gallegos MD at [facility] Back 12/26/2016 [id number] SNS LEAD / / [id number] Lead Nrstm 28cm Intstm Qdpl Implanted:Qty: 1 on 02/23/2016 by Juan Daniel Mera MD at [facility] Explanted:Qty: 1 on 06/02/2021 by Karl Gallegos MD at [facility] Buttocks [employer] 01/09/2020 [id number] / / [id number] Nrstm Impl 2inx1.7in Intstm Ii Thk.3in - [id number] Implanted:Qty: 1 on 04/16/2018 by Juan Daniel Mera MD at [facility] Explanted:Qty: 1 on 06/02/2021 by Karl Gallegos MD at [facility] Right: Back [employer] 06/30/2019 [id number] / [id number] / Procedures Procedure Name Priority Date/Time Associated Diagnosis Comments COMPREHENSIVE METABOLIC PANEL AM Draw 08/27/2021 4:32 AM CDT from Last 3 Months or Most Recently Relevant to Health Maintenance Results * (ABNORMAL) COMPREHENSIVE METABOLIC PANEL (08/27/2021 4:32 AM CDT) Glucose 96 70 - 105 mg/dL 08/27/2021 5:15 AM CDT [facility] Sodium 135(L) 136 - 145 mmol/L 08/27/2021 5:15 AM CDT [facility] Potassium 3.9 3.5 - 5.1 mmol/L 08/27/2021 5:15 AM CDT [facility] Chloride 107 98 - 107 mmol/L 08/27/2021 5:15 AM CDT [facility] CO2 19(L) 23 - 31 mmol/L 08/27/2021 5:15 AM CDT [facility] Calcium 8.4 8.4 - 10.4 mg/dL 08/27/2021 5:15 AM CDT [facility] Anion Gap 9 8 - 18 mmol/L 08/27/2021 5:15 AM CDT [facility] BUN 6(L) 7 - 18.7 mg/dL 08/27/2021 5:15 AM CDT [facility] Creatinine 0.75 0.57 - 1.11 mg/dL 08/27/2021 5:15 AM CDT [facility] Alkaline Phosphatase 57 40 - 150 U/L 08/27/2021 5:15 AM CDT [facility] ALT 21 0 - 61 U/L 08/27/2021 5:15 AM CDT [facility] AST 18 5 - 34 U/L 08/27/2021 5:15 AM CDT [facility] Protein Total 6.3(L) 6.4 - 8.3 gm/dL 08/27/2021 5:15 AM CDT [facility] Albumin 3.3(L) 3.5 - 5.2 gm/dL 08/27/2021 5:15 AM CDT [facility] Bilirubin Total 0.3 0.2 - 1.2 mg/dL 08/27/2021 5:15 AM CDT [facility] eGFR by CKD-EPI >90 >=90 mL/min/1.7 3 m2 08/27/2021 5:15 AM CDT [facility] Blood BLOOD SPECIMEN / Unknown Lab Venipuncture / Unknown 08/27/2021 4:32 AM CDT 08/27/2021 4:47 AM CDT Jorge A Curiel MD LAB - CHEMISTRY ORDERABLES Massiel fair Result Performing Organization Address City/State/[facility] Co de Phone Number [facility] [address] [place] [address] from Last 3 Months or Most Recently Relevant to Health Maintenance Insurance MARY Advance Directives * Full Code (Latest Code Status on File) Date Activated Date Inactivated Comments 08/24/2021 12:04 AM 08/27/2021 3:35 PM * FULL RESUSCITATION Date Activated Date Inactivated Comments 05/02/2011 6:42 AM 05/02/2011 11:18 PM Care Teams Lead Radiation Therapist Relationship Specialty Start Date End Date Krystal Huerta DO [address] [place] [address] PCP - General Family Medicine 01/03/23 Dae Emerson DO [address] [place] [phone] Family Medicine 04/22/19
--- OUTSIDE RECORDS SUMMARY | 2025-02-17 18:14 | XMS_ITS | Encounter Summary ---
Author Organization [facility] Address [address] [place] [address] Care Team Providers Care Photo Journalist Name Role Phone Dae Emerson DO Primary Care Provider + Dae Emerson DO Unavailable [phone] Dae Berrios DO Primary Care Provider [phone] Krystal Huerta DO Primary Care Provider [phone] Encounter Details Date Type Department Care Team (Late st Contact Info) Description 04/23/2019 Lab Requisition [facility] [address] [facility] [place] [address] Ratna Swift DO [address] [facility] [address] [place] [address] Social History Tobacco Use Types Packs/Day Years Used Date Smoking Tobacco: Never Smokeless Tobacco: Never Alcohol Use Standard Drinks/Week Comments No 0 (1 standard drink = 0.6 oz pur e alcohol) Comments No Sex and Gender Information Value Date Recorded Sex Assigned at Not on file Legal Sex Female 9:45 AM DIRECT MARKETING MANAGER Gender Identity Not on file Sexual Orientation Not on file documented as of this encounter Functional Status * Is person deaf or have serious hearing difficulty? Answer Date of Assessment Author No 02/23/2016 7:00 AM DIRECT MARKETING MANAGER Serena Agustin RN * Is person blind or have serious difficulty seeing? Answer Date of Assessment Author No 02/23/2016 7:00 AM DIRECT MARKETING MANAGER Serena Agustin RN * Does person have serious difficulty walking/climbing stairs? Answer Date of Assessment Author No 02/23/2016 7:00 AM DIRECT MARKETING MANAGER Serena Agustin RN * Does person have difficulty dressing/bathing? Answer Date of Assessment Author No 02/23/2016 7:00 AM Serena Redd RN * Does person have difficulty doing errands alone? Answer Date of Assessment Author No 02/23/2016 7:00 AM Serena Redd RN documented as of this encounter Mental Status * Does person have difficulty concentrating/remembering/making decisions? Answer Entry Date Author No 02/23/2016 7:00 AM Serena Redd RN documented in this encounter Plan of Treatment Not on file documented as of this encounter Procedures Procedure Name Priority Date/Time Associated Diagnosis Comments DERMATOPATHOLOGY Routine 04/22/2019 12:0 0 AM DIRECT MARKETING MANAGER documented in this encounter Results * DERMATOPATHOLOGY (04/22/2019 12:00 AM DIRECT MARKETING MANAGER) Case Report Dermatopathology Report Case: [id number] Authorizing Provider: Ratna Swift DO Collected: 04/22/2019 12:00 AM Ordering Location: [facility] Received: 04/23/2019 07:05 AM Pathologist: Johann Hutton MD Specimen: Skin, left cheek 0 11:52 AM [facility] Final Diagnosis Specimen A. 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 0 11:52 AM [facility] Gross Description Specimen A: Received is one formalin filled container labeled with the patient's name and designated left cheek. The specimen consists of a shave measuring [id number]. Jar 0. 0 11:52 AM [facility] Microscopic Description Specimen A. SKIN, left cheek: There is alternating orthokeratosis and parakeratosis. Along the undersurface of the epidermis, there are buds of atypical keratinocytes in a disorderly arrangement. There is prominent pigmentation in some of the keratinocytes. An immunostain for Mib-1 highlights increased proliferating keratinocytes confined to the lower half of the epidermis. 0 11:52 AM [facility] Disclaimer An external and internal positive and negative controls are appropriate for the histochemical, immunohistochemical and immunofluorescence stain(s) in this case (if any), except where stated explicitly. The performance characteristics of the stain(s) cited in this report were developed and its performance characteristic determined by the Dermatopathology Laboratory at [facility], directed by Dr. Aiden Hutton. These tests need not be, and therefore are not, approved by the [place] Food and Drug Administration. The tests are used for clinical purposes. Billing Codes Specimen Charges Stain Charges 87048 1 77973 1 0 11:52 AM [facility] Embedded Images 0 11:52 AM [facility] Pathology/Cytolog y TISSUE SPECIMEN FROM SKIN / Unknown 04/22/2019 04/23/2019 7:05 AM [facility] Ratna Swift DO LAB - PATHOLOGY/CYTOLOGY ORDERABLES Final Result DERMATOPATHOLOGY LABORATORY [facility] - Department of Dermatology [address] [place] [address] 5th Floor Lab [address] [phone] documented in this encounter Visit Diagnoses Not on filedocumented in this encounter Care Teams Photo Journalist Relationship Specialty Start Date End Date Dae Emerson DO [address] [place] [address] [place] [phone] PCP - General 04/22/19 06/01/21 Dae Berrios DO [address] [place] [address] [place] [phone] PCP - General Family Medicine 06/02/21 06/02/21 Krystal Huerta DO [address] [place] [address] PCP - General Family Medicine 01/03/23 Dae Emerson DO [address] [place] [phone] Family Medicine 04/22/19 documented as of this encounter
--- OUTSIDE RECORDS SUMMARY | 2025-02-17 18:14 | XMS_ITS | Encounter Summary ---
Author Organization [facility] Address [address] [place] [address] Care Team Providers Care Intern Product Marketing Manager Name Role Phone Dae Emerson Raymundo DO Unavailable [phone] Krystal Huerta DO Primary Care Provider [phone] Reason for Visit * Reason Onset Date Comments Insurance Issue/question 05/07/2022 Encounter Details Date Type Department Care Team (Late st Contact Info) Description 05/07/2022 Telephone [facility] [address] [place] [address] Subha Doan MD [address] [facility] [address] [place] [address] Insurance Issue/question Social History Tobacco Use Types Packs/Day Years Used Date Smoking Tobacco: Never Smokeless Tobacco: Never Alcohol Use Standard Drinks/Week Comments No 0 (1 standard drink = 0.6 oz pur e alcohol) AUDIT-C Answer Date Recorded Q1: How often do you have a drink containing alc ohol? Patient declined 08/24/2021 Q2: How many drinks containi ng alcohol do you have on a typical day when you are drinking? Patient declined 08/24/2021 Q3: How often do you have si x or more drinks on one occasion? Patient declined 08/24/2021 Hunger Vital Sign Answer Date Recorded Within [...] on file Legal Sex Female 9:45 AM FIBERGLASS FINISHER Gender Identity Not on file Sexual Orientation Not on file documented as of this encounter Functional Status * Is person deaf or have serious hearing difficulty? Answer Date of Assessment Author No 08/27/2021 2:27 PM CDT Jessica Green RN * Is person blind or have serious difficulty seeing? Answer Date of Assessment Author No 08/27/2021 2:27 PM CDT Jessica Green RN * Does person have serious difficulty walking/climbing stairs? Answer Date of Assessment Author No 08/27/2021 2:27 PM CDT Jessica Green RN * Does person have difficulty dressing/bathing? Answer Date of Assessment Author No 08/27/2021 2:27 PM CDT Jessica Green RN * Does person have difficulty doing errands alone? Answer Date of Assessment Author No 08/27/2021 2:27 PM CDT Jessica Green RN documented as of this encounter Mental Status * Does person have difficulty concentrating/remembering/making decisions? Answer Entry Date Author No 08/27/2021 2:27 PM CDT Jessica Green RN documented in this encounter Miscellaneous Notes * Telephone Encounter - T[place] RN - 05/15/2022 3:58 PM CDT RN called [facility] [place] for appeal update on botox appeal #[id number] that was submitted 05/04/22. RN spoke to Abebe and was told the appeal decision was upheld on 05/10/22 as the medication was considered investigational or experimental for pt condition * Telephone Encounter - Pat Sheikh - 05/07/2022 10:48 AM CST Pt's insurance called to inform the office they received the appeal and they should have a responsewithin the next few days. RGLASS FINISHER documented in this encounter Plan of Treatment Not on file documented as of this encounter Visit Diagnoses Not on filedocumented in this encounter Care Teams Intern Product Marketing Manager Relationship Specialty Start Date End Date Krystal Huerta DO [address] [place] [address] PCP - General Family Medicine 01/03/23 Dae Emerson DO [facility] [facility] [place] [phone] Family Medicine 04/22/19 documented as of this encounter
--- OUTSIDE RECORDS SUMMARY | 2025-02-17 18:14 | XMS_ITS | Encounter Summary ---
Author Organization [facility] Address [address] [facility] [place] [address] Care Team Providers Care Licensing Services Clerk Name Role Phone Dae Emerson DO Unavailable [phone] Kyrstal Huerta DO Primary Care Provider [phone] Reason for Visit * Reason Onset Date Comments Question 08/23/2021 Encounter Details Date Type Department Care Team (Late Contact Info) Description 08/23/2021 Telephone [facility] [address] [facility] [address] [place] [address] Karl Gallegos MD [address] [facility] [address] [place] [address] Question Social History Tobacco Use Types Packs/Day Years [...] on file Legal Sex Female 9:45 AM LEAD PRESS OPERATOR Gender Identity Not on file Sexual Orientation Not on file documented as of this encounter Functional Status * Question Answer Date of Assessment Author Q1: How often do you have a drink containing alcohol? Patient declined 08/24/2021 1:45 AM Jody Mccrary R N Q2: How many drinks containing alcohol do you have on a typical day when you are drinking? Patient declined 08/24/2021 1:45 AM Jody Mccrary R N Q3: How often do you have six or more drinks on one occasion? Patient declined 08/24/2021 1:45 AM Jody Mccrary R N * AUDIT-C Score Answer Date of Assessment Author -1 08/24/2021 1:45 AM Jody Mccrary RN * Is person deaf or have serious hearing difficulty? Answer Date of Assessment Author No 02/23/2016 7:00 AM Serena Redd RN * Is person blind or have serious difficulty seeing? Answer Date of Assessment Author No 02/23/2016 7:00 AM Serena Redd RN * Does person have serious difficulty walking/climbing stairs? Answer Date of Assessment Author No 02/23/2016 7:00 AM Serena Redd RN * Does person have difficulty dressing/bathing? [...] Serena Redd RN documented in this encounter Miscellaneous Notes * Telephone Encounter - Brennen Tony, RN - 08/23/2021 10:49 AM CDT C/o last time she voided was yesterday at 430p. She has been having problems for while, but thought it was indigestion problem. When she can't empty her bladder she sits in warm water and can urinate. This didn't work for her today. She is having a lot of pain. Advised: need to come to office now so we can drain your bladder or go to an urgent care. She agrees to come to office. She doesn't have her controller with her at work, but will pass by her house on the way to this office and turn it off. She has interstim replaced in June. Hasn't changed any program since then. Gave her an appt on nurse schedule now. Note: recently diagnosed w/ stones. * Telephone Encounter - Kaitlyn Bagley - 08/23/2021 9:53 AM CDT Pt would like someone to call her back, she is having unrianry retention ( she cant go to the bathroom) and want to know do next CB# [phone] documented in this encounter Plan of Treatment Not on file documented as of this encounter Visit Diagnoses Not on filedocumented in this encounter Care Teams Licensing Services Clerk Relationship Specialty Start Date End Date Krystal Huerta DO [facility] [place] [address] PCP - General Family Medicine 01/03/23 Dae Emerson DO [address] [facility] [place] [phone] Family Medicine 04/22/19 documented as of this encounter
--- OUTSIDE RECORDS SUMMARY | 2025-02-17 18:14 | XMS_ITS | Encounter Summary ---
Author Organization [facility] Address [address] [place] [address] Care Team Providers Care Plant Guard Name Role Phone Dae Emerson DO Primary Care Provider + Dae Emerson DO Primary Care Provider + Dae Emerson DO Unavailable Dae Berrios DO Primary Care Provider [phone] Krystal Huerta DO Primary Care Provider [phone] Reason for Visit * Reason Onset Date Comments Appointment 04/17/2018 Encounter Details Date Type Department Care Team (Late Contact [facility]) Description 04/17/2018 Telephone [facility] [address] [place], [place] [id number] Juan Daniel Mera MD [address] [facility] [address] [place] [address] Appointment Social History Tobacco Use Types Packs/Day Years Used Date Smoking Tobacco: Never Smokeless Tobacco: Never Alcohol Use Standard Drinks/Week Comments No 0 (1 standard drink = 0.6 oz pur e alcohol) Comments No Sex and Gender Information Value Date Recorded Sex Assigned at Not on file Legal Sex Female 9:45 AM CERTIFIED WELLNESS PROGRAM COORDINATOR Gender Identity Not on file Sexual Orientation [...] encounter Miscellaneous Notes * Telephone Encounter - Dalila Pinzon - 04/17/2018 11:37 AM CST Pt is needing to schedule a post op appt w/ Dr. Mera. Pt is to be seen between 1-2 weeks after surgery date (04/16/2018). Soonest available is 05/06/2018 which exceeds the 1-2 week window. CB#: [phone] IFIED WELLNESS PROGRAM COORDINATOR documented in this encounter Plan of Treatment Not on file documented as of this encounter Visit Diagnoses Not on filedocumented in this encounter Care Teams Plant Guard Relationship Specialty Start Date End Date Dae Emerson DO [address] [facility] [place] [address] PCP - General Family Medicine 02/11/13 04/21/19 Dae Emerson DO [address] [facility] [address] [place] [address] PCP - General 04/22/19 06/01/21 Dae Berrios DO [address] [facility] [address] [place] [address] PCP - General Family Medicine 06/02/21 06/02/21 Krystal Huerta DO [address] [place] [address] PCP - General Family Medicine 01/03/23 Dae Emerson DO [address] [facility] [place] [address] Family Medicine 04/22/19 documented as of this encounter
--- OUTSIDE RECORDS SUMMARY | 2025-02-17 18:14 | XMS_ITS | Encounter Summary ---
Author Organization [facility] Facility Care Team Providers Care Acreage Reporter Name Role Phone Dae Emerson DO Primary Care Provider + Darian Molina MD Primary Care Provider [phone] Dae Emerson DO Primary Care Provider + Darian Molina MD Primary Care Provider [phone] Kamila Craft NP Primary Care Provider [phone] Dae Berrios DO Primary Care Provider [phone] Krystal Huerta DO Primary Care Provider [phone] Efrem Blair RFID STRATEGIST Unavailable [phone] Encounter Details Date Type Department Care Team (Latest Contact Info) Description 06/06/2015 Orders Only [facility]INCON[facility] ProviderLex MD [address] [place] [address] Social History Tobacco Use Types Packs/Day Years Used Date Smoking Tobacco: Never Assessed Comments Unknown Sex and Gender Information Value Date Recorded Sex Assigned at Not on file 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 Historical Provider Final Res ult * SCAN - LABS (06/07/2015 12:00 AM CDT) Narrative 06/07/2015 12:00 AM CDT Ordered by an unspecified provider. Historical Provider Final Res ult * SCAN - LABS (06/07/2015 12:00 AM CDT) Narrative 06/07/2015 12:00 AM CDT Ordered by an unspecified provider. Historical Provider Final Res ult documented in this encounter Visit Diagnoses Not on filedocumented in this encounter Care Teams Acreage Reporter Relationship Specialty Start Date End Date Dae Emerson DO PCP - General Family Medicine 05/27/18 12/14/19 Darian Molina MD PCP - General 12/15/19 12/15/19 Dae Emerson DO PCP - General 12/16/19 12/28/19 Darian Molina MD PCP - General Family Practice 12/29/19 05/12/20 Kamila Craft NP PCP - General 05/13/20 06/10/20 Dae Berrios DO PCP - General Family Medicine 08/15/21 02/10/24 Krystal Huerta DO [facility] [place] [address] PCP - General Family Medicine 02/11/24 Efrem Blair NP [address] [place] [address] Nurse Practitioner Nurse Practitioner 12/16/24 documented as of this encounter
--- OUTSIDE RECORDS SUMMARY | 2025-02-17 18:14 | XMS_ITS | Encounter Summary ---
Author Organization [facility] Facility Care Team Providers Care Radiology Interventional Physician Name Role Phone Dae Emerson DO Primary Care Provider + Darian Molina MD Primary Care Provider [phone] Dae Emerson DO Primary Care Provider + Darian Molina MD Primary Care Provider [phone] Kamila Craft NP Primary Care Provider [phone] Dae Berrios DO Primary Care Provider [phone] Krystal Huerta DO Primary Care Provider [phone] Efrem Blair THEATER PROJECTIONIST Unavailable [phone] Encounter Details Date Type Department Care Team (Latest Contact Info) Description 07/20/2017 Orders Only [facility]INCON[facility] ProviderLex MD [address] [place] [address] Social History Tobacco Use Types Packs/Day Years Used Date Smoking Tobacco: Never Assessed Comments Unknown Sex and Gender Information Value Date Recorded Sex Assigned at Not on file 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 us Historical Provider Final Res ult documented in this encounter Visit Diagnoses Not on filedocumented in this encounter Care Teams Radiology Interventional Physician Relationship Specialty Start Date End Date Dae Emerson DO PCP - General Family Medicine 05/27/18 12/14/19 Darian Molina MD PCP - General 12/15/19 12/15/19 Dae Emerson DO PCP - General 12/16/19 12/28/19 Darian Molina MD PCP - General Family Practice 12/29/19 05/12/20 Kamila Craft NP PCP - General 05/13/20 06/10/20 Dae Berrios DO PCP - General Family Medicine 08/15/21 02/10/24 Krystal Huerta DO [address] [place] [address] PCP - General Family Medicine 02/11/24 Efrem Blair NP [address] [place] [address] [address] [place] [address] Nurse Practitioner Nurse Practitioner 12/16/24 documented as of this encounter
--- OUTSIDE RECORDS SUMMARY | 2025-02-17 18:15 | XMS_ITS | Patient Health Record ---
Author Organization [facility] As [employer] [facility] Address [address] [place] [address] Care Team Providers Care Packer Dried Beef Name Role Phone Deanna Krystal ALVARADO Primary Care Provider Efrem Madera Unavailable [phone] Genevieve Sargent Unavailable [phone] Allergies Allergen (clinical drug ingredient) Drug/Non Drug Allergy documented on EMR Reaction Allergy Type Onset Date Status levofloxacin Levofloxacin Unknown Drug Allergy A ctive Results Component Value Reference Range Flag Notes TSH+FREE T4 (54396) Reviewed date:06/30/2024 09:50:10 AM Interpretation: Performing Lab:SRINIVASAN, [facility]-[id number] Joselin Khan, [id number] Nicholas Jeffrey MD Notes/Report: FASTING:YES FASTING: YES TSH 4.49 N Reference Range > or = 20 Years 0.40-4.50 Ranges First trimester 0.26-2.66 Second trimester 0.55-2.73 Third trimester 0.43-2.91 T4, FREE 1.0 0.8-1.8 ng/dL N VALPROIC ACID, TOTAL & FREE (6651) Reviewed date:06/30/2024 09:49:58 AM Interpretation: Performing Lab:GHADA [facility]/Paulo Cash [id number] Prudence Caraballo, [id number] Rodolfo Stinson M.D.,PhD Notes/Report: FASTING:YES FASTING: YES VALPROIC ACID, FREE 7.5 4.8-17.3 mg/L Note: Non-linear drug binding properties result in the fraction of Free Valproic Acid increasing as total drug increases. The free fraction may range from 5% to 25% for the total drug range of 30-160 mg/L. VALPROIC ACID 61.8 50.0-100.0 mg/L COMPREHENSIVE METABOLIC PANE L (28487) Reviewed date:06/30/2024 09:49:47 AM Interpretation: Performing Lab:SRINIVASAN [facility]-[id number] Joselin Khan, [id number] Nicholas Jeffrey MD Notes/Report: FASTING:YES FASTING: YES GLUCOSE 73 65-99 mg/dL N Fasting reference interval UREA NITROGEN (BUN) 17 7-25 mg/dL N CREATININE 0.90 0.50-0.99 mg/dL N EGFR 81 > OR = 60 mL/min/1.73m2 N BUN/CREATININE RATIO SEE NOTE: 6-22 (calc) Not Reported: BUN and Creatinine are within reference range. SODIUM 139 135-146 mmol/L N POTASSIUM 4.4 3.5-5.3 mmol/L N CHLORIDE 106 98-110 mmol/L N CARBON DIOXIDE 22 20-32 mmol/L N CALCIUM 9.8 8.6-10.2 mg/dL N PROTEIN, TOTAL 7.2 6.1-8.1 g/dL N ALBUMIN 4.5 3.6-5.1 g/dL N GLOBULIN 2.7 1.9-3.7 g/dL (calc) N ALBUMIN/GLOBULIN RATIO 1.7 1.0-2.5 (calc) N BILIRUBIN, TOTAL 0.4 0.2-1.2 mg/dL N ALKALINE PHOSPHATASE 51 31-125 U/L N AST 20 10-30 U/L N ALT 21 6-29 U/L N CBC (INCLUDES DIFF/PLT) (639 9) Reviewed date:06/30/2024 09:50:30 AM Interpretation: Performing Lab:SRINIVASAN [employer] [facility]-[id number] Joselin Khan, [id number] Nicholas Jeffrey MD Notes/Report: FASTING:YES FASTING: YES WHITE BLOOD CELL COUNT 7.0 3.8-10.8 Thousand/uL N RED BLOOD CELL COUNT 4.62 3.80-5.10 Million/uL N HEMOGLOBIN 12.9 11.7-15.5 g/dL N HEMATOCRIT 41.1 35.0-45.0 % N MCV 89.0 80.0-100.0 fL N MCH 27.9 27.0-33.0 pg N MCHC 31.4 32.0-36.0 g/dL L For adults, a slight decrease in the calculated MCHC value (in the range of 30 to 32 g/dL) is most likely not clinically significant; however, it should be interpreted with caution in correlation with other red cell parameters and the patient's clinical condition. RDW 14.1 11.0-15.0 % N PLATELET COUNT 529 140-400 Thousand/uL H MPV 9.2 7.5-12.5 fL N ABSOLUTE NEUTROPHILS 3864 7936-8255 cells/uL N ABSOLUTE LYMPHOCYTES 2100 850-3900 cells/uL N ABSOLUTE MONOCYTES 658 200-950 cells/uL N ABSOLUTE EOSINOPHILS 287 15-500 cells/uL N ABSOLUTE BASOPHILS 91 0-200 cells/uL N NEUTROPHILS 55.2 N LYMPHOCYTES 30.0 N MONOCYTES 9.4 N EOSINOPHILS 4.1 N BASOPHILS 1.3 N VITAMIN B12/FOLATE, SERUM PA ROSALIO (7065) Reviewed date:06/30/2024 09:50:20 AM Interpretation: Performing Lab:KS, [employer] [facility]-[id number] Joselin Khan, [id number] Nicholas Jeffrey MD Notes/Report: FASTING:YES FASTING: YES VITAMIN B12 103 642-9988 pg/mL N FOLATE, SERUM 5.1 L Reference Range Low: <3.4 Borderline: 3.4-5.4 Normal: >5.4 Reason For Referral Reason IOP REFERALL FOR [facility] Diagnosis 1 Bipolar disorder, cu rrent episode depressed, moderate (F31.32) Diagnosis 2 Generalized anxiety disorder (F41.1) [facility] Referring Provider First Name Efrem Referring Provider Last Name Johnnie Referring Provider Speciality Nurse Judy giordano Referred Provider Specialty Mental healt h counseling service General Notes Efrem Blair 02:38:49 PM CDT >Pt has persistent depression symptoms, persistent suicidal ideations Referral Priority Routine Medications Medication SIG (Take, Route, Frequency, Duration) Notes Start Date End Date Status QUEtiapine Fumarate 200 MG Tablet 1 tablet at bedtime Oral Once a day; Duration: 30 days 12/10/2024 Not-Taking Caplyta 42 MG Capsule take 21mg x 3 days then 10.5mg x 3 days then stop Orally Once a day; Duration: 6 days 11/18/2024 Not-Taking Cholestyramine Light 4 GM/DOSE Powder Oral; Duration: 14 Days Not-Taking FLUoxetine HCl 40 MG Capsule 1 capsule Orally Once a day; Duration: 30 days 12/28/2024 Active Caplyta 21 MG Capsule 2 capsules Orally Once a day; Duration: 30 days 01/20/2025 Not-Taking OLANZapine 10 MG Tablet 1 tablet every night Oral Once a day; Duration: 30 days Active Divalproex Sodium ER 250 MG Tablet Extended Release 24 Hour 1 tablet Orally daily; Duration: 30 days 02/03/2025 03/05/2025 Active Lisdexamfetamine Dimesylate 40 MG Capsule 1 capsule in the morning Orally Once a day; Duration: 30 days dose increase 01/20/2025 Not-Taking Zepbound 5 MG/0.5ML Solution INJECT 2.5 MG INTO THE SKIN ONCE A WEEK Subcutaneous; Duration: 28 days Active Lisdexamfetamine Dimesylate 40 MG Capsule 1 capsule in the morning Orally Once a day; Duration: 7 days 02/03/2025 Active Ondansetron HCl 4 MG Tablet Oral; Duration: 10 Days Active risperiDONE 3 MG Tablet 1 tablet Orally Once a day; Duration: 5 days 02/03/2025 Active Pantoprazole Sodium 40 MG Tablet Delayed Release Oral; Duration: 30 Days Active Qulipta 60 MG Tablet TAKE 1 TABLET BY MOUTH DAILY Oral; Duration: 30 Days Not-Taking Levothyroxine Sodium 75 MCG Tablet TAKE 1 TABLET BY MOUTH EVERY MORNING. Oral; Duration: 30 Days Active LORazepam 1 MG Tablet TAKE 1 TABLET BY MOUTH EVERY DAY NEEDED FOR ANXIETY Oral; Duration: 30 Days Not-Taking Frovatriptan Succinate 2.5 MG Tablet Oral; Duration: 3 Days Active QUEtiapine Fumarate ER 400 MG Tablet Extended Release 24 Hour 1 tablet in the evening Orally Once a day; Duration: 30 days dose increase 12/10/2024 Not-Taking Packwaukee Carbonate ER 300 MG Tablet Extended Release 2 tablets Orally Once a day; Duration: 30 days increase- pt has at home 12/10/2024 Not-Taking Social History Tobacco Use: Social History Observation [...] Problem Status W/U Status Risk Notes Problem Bipolar affective disorder, currently depressed, moderate (811417206) Bipolar disorder, current episode depressed, moderate (F31.32) Active confirmed Problem Bipolar disorder ([id number]) Bipolar disorder, unspecified (F31.9) Active confirmed Problem Moderate recurrent major depression (95172137) Major depressive disorder, recurrent, moderate (F33.1) Active confirmed Problem Generalized anxiety disorder (54746779) Generalized anxiety disorder (F41.1) Active confirmed Problem Attention deficit hyperactivity disorder, predominantly inattentive type (disorder) (13144384) Attention and concentration deficit (R41.840) Active confirmed Problem History of psychiatric disorder (596186621) Personal history of other mental and behavioral disorders (Z86.59) Active confirmed Vital Signs Heart Rate 73 /min 02/17/2025 Height-cm 160.02 cm 02/17/2025 Blood pressure diastolic 84 mm Hg 02/17/2025 Weight-kg 83.01 kg 02/17/2025 Height 63 in 02/17/2025 Blood pressure systolic 123 mm Hg 02/17/2025 Weight 183 lbs 02/17/2025 BMI 32.41 kg/m2 02/17/2025 Encounters Encounter Location Date Provider Diagnosis [email or web address] [address] [place] [address] 06/05/2024 Efrem Blair Bipolar disorder, current episode depressed, moderate F31.32 ; Generalized anxiety disorder F41.1 ; Encounter for screening for depression Z13.31 ; Encounter for screening for cardiovascular disorders Z13.6 ; Other skilled nursing (current) drug therapy Z79.899 and Attention and concentration deficit R41.840 [email or web address] [address] [place] [address] 07/06/2024 Efrem Blair Encounter for screen ing for depression Z13.31 ; Encounter for screening for cardiovascular disorders Z13.6 ; Bipolar disorder, current episode depressed, moderate F31.32 ; Generalized anxiety disorder F41.1 ; Other skilled nursing (current) drug therapy Z79.899 and Attention and concentration deficit R41.840 [email or web address], [place] [address] [facility] [address] [place] [address] 08/10/2024 Efrem Blair Encounter for screen ing for depression Z13.31 ; Encounter for screening for cardiovascular disorders Z13.6 ; Bipolar disorder, current episode depressed, moderate F31.32 ; Generalized anxiety disorder F41.1 ; Other slotter operator helper (current) drug therapy Z79.899 and Attention and concentration deficit R41.840 [email or web address], [place] [address] [facility] [address] [facility] [address] [place] [address] 08/26/2024 Efrem Blair Encounter for screen ing for depression Z13.31 ; Encounter for screening for cardiovascular disorders Z13.6 ; Bipolar disorder, current episode depressed, moderate F31.32 ; Generalized anxiety disorder F41.1 ; Other slotter operator helper (current) drug therapy Z79.899 and Attention and concentration deficit R41.840 [email or web address], [place] [address] [place] [address] 09/17/2024 Efrem Blair Bipolar disorder, current episode depressed, moderate F31.32 ; Generalized anxiety disorder F41.1 ; Other slotter operator helper (current) drug therapy Z79.899 and Attention and concentration deficit R41.840 [email or web address], [address] [place] [address] 10/08/2024 Efrem Blair Bipolar disorder, current episode depressed, moderate F31.32 ; Generalized anxiety disorder F41.1 ; Other skilled nursing (current) drug therapy Z79.899 and Attention and concentration deficit R41.840 [email or web address], [place] [address] [facility] [address] [place] [address] 10/22/2024 Efrem Blair Bipolar disorder, current episode depressed, moderate F31.32 ; Generalized anxiety disorder F41.1 ; Other skilled nursing (current) drug therapy Z79.899 and Attention and concentration deficit R41.840 [email or web address] [address] [place] [address] 10/29/2024 Efrem Blair Bipolar disorder, current episode depressed, moderate F31.32 ; Generalized anxiety disorder F41.1 ; Other slotter operator helper (current) drug therapy Z79.899 and Attention and concentration deficit R41.840 [email or web address], [facility] [address] [place] [address] 11/05/2024 Efrem Blair Bipolar disorder, current episode depressed, moderate F31.32 ; Generalized anxiety disorder F41.1 ; Other skilled nursing (current) drug therapy Z79.899 and Attention and concentration deficit R41.840 [facility] [email or web address], [facility] [address] [place] [address] 11/12/2024 Efrem Blair Bipolar disorder, current episode depressed, moderate F31.32 ; Generalized anxiety disorder F41.1 ; Other slotter operator helper (current) drug therapy Z79.899 and Attention and concentration deficit R41.840 [facility] [email or web address], [place] [address] [place] [address] 11/18/2024 Efrem Blair Bipolar disorder, current episode depressed, moderate F31.32 ; Generalized anxiety disorder F41.1 ; Other skilled nursing (current) drug therapy Z79.899 and Attention and concentration deficit R41.840 [facility] [email or web address], [facility] [address] [place] [address] 11/25/2024 Efrem Blair Bipolar disorder, current episode depressed, moderate F31.32 ; Generalized anxiety disorder F41.1 ; Other skilled nursing (current) drug therapy Z79.899 and Attention and concentration deficit R41.840 [facility] [email or web address], [facility] [address] [place] [address] 12/10/2024 Efrem Blair Bipolar disorder, current episode depressed, moderate F31.32 ; Generalized anxiety disorder F41.1 ; Other slotter operator helper (current) drug therapy Z79.899 and Attention and concentration deficit R41.840 [facility] [email or web address], [facility] [address] [place] [address] 12/23/2024 Efrem Blair Bipolar disorder, current episode depressed, moderate F31.32 ; Generalized anxiety disorder F41.1 ; Other skilled nursing (current) drug therapy Z79.899 and Attention and concentration deficit R41.840 [facility], [facility] [address] [place] [address] 01/05/2025 Efrem Blair Bipolar disorder, current episode depressed, moderate F31.32 ; Generalized anxiety disorder F41.1 ; Other slotter operator helper (current) drug therapy Z79.899 and Attention and concentration deficit R41.840 [facility], [facility] [address] [place] [address] 01/19/2025 Efrem Blair Bipolar disorder, current episode depressed, moderate F31.32 ; Generalized anxiety disorder F41.1 ; Other skilled nursing (current) drug therapy Z79.899 and Attention and concentration deficit R41.840 [place] [address] [place] [address] 02/03/2025 Efrem Blair Bipolar disorder, current episode depressed, moderate F31.32 ; Generalized anxiety disorder F41.1 ; Other skilled nursing (current) drug therapy Z79.899 and Attention and concentration deficit R41.840 [facility], [facility] [address] [place] [address] 02/17/2025 Genevieve Sargent Major depressive disorder, recurrent, moderate F33.1 ; Suicidal ideations R45.851 ; Bipolar disorder, unspecified F31.9 ; Generalized anxiety disorder F41.1 ; Living alone Z60.2 and Personal history of other mental and behavioral disorders Z86.59 [facility], [place] [address] [place] [address] 01/20/20[facility], [place] [address] [place] [address] 10/29/2024 [facility], [facility] [address] [place] [address] 11/11/2024 [facility], [facility] [address] [place] [address] 11/26/2024 Efrem Blair [facility], [facility] [address] [place] [address] 01/05/2025 [facility] [address] [place] [address] 01/19/2025 [facility] [address] [place] [address] 06/22/2024 [facility] [address] [place] [address] 06/22/2024 [facility] [address] [place] [address] 06/29/2024 [facility] [address] [place] [address] 06/30/2024 [facility] [address] [place] [address] 07/07/2024 [facility] [address] [place] [address] 08/04/2024 [facility] [address] [place] [address] 08/04/2024 [facility] [address] [place] [address] 08/04/2024 [facility] [address] [place] [address] 08/04/2024 Efrem Blair Bipolar disorder, current episode depressed, moderate F31.32 [facility], [facility] [address] [place] [address] 08/26/2024 [facility] [address] [place] [address] 10/09/2024 [facility] [address] [place] [address] 11/05/2024 [facility] [address] [place] [address] 11/12/2024 Efrem Blair Bipolar disorder, current episode depressed, moderate F31.32 [facility], [facility] [address] [place] [address] 12/10/2024 Efrem Blair [facility], [facility] [address] [place] [address] 12/10/2024 Efremcarrillo Quinonesoza [facility] [address] [place] [address] 12/13/2024 Efremcarrillo Quinonesoza Bipolar disorder, current episode depressed, moderate F31.32 [facility] [address] [place] [address] 12/26/2024 Efermcarrillo Raineya Generalized anxiety disorder F41.1 [place] [address] [place] [address] 01/11/2025 Efrem Blair [facility] [address] [place] [address] 01/11/2025 Efremcarrillo Raineya Bipolar disorder, current episode depressed, moderate F31.32 [place] [address] [facility] [address] [place] [address] 01/19/2025 Efremcarrillo Raineya Bipolar disorder, current episode depressed, moderate F31.32 [place] [address] [place] [address] 01/25/2025 Efremcarrillo Quinonesoza [facility] [address] [place] [address] 01/25/2025 Efrem Blair Assessments Encounter Date Diagnosis (ICD Code) Assessment Notes Treatment Notes Treatment Clinical Notes Section Notes 12/13/2024 Bipolar disorder, current episode depressed, moderate (ICD-10 - F31.32) 12/26/2024 Generalized anxiety disorder (ICD-10 - F41.1) 01/11/2025 Bipolar disorder, current episode depressed, moderate (ICD-10 - F31.32) 01/19/2025 Bipolar disorder, current episode depressed, moderate (ICD-10 - F31.32) Medication considered [id number] Escitalopram (Lexapro), DUH9U28 Sertraline (Zoloft), WDG1M19, CYP2D6 Amitriptyline (Elavil), WMO7G71, CYP2D6 Doxepin (Sinequan), CYP2D5 Aripiprazole (Abilify), CYP2D6 Brexpiprazole (Rexulti ), CYP2D6 Clozapine (Clozaril ), CYP2D6 Iloperidone (Fanapt ), HLA-A3101, HLA-B1502 Carbamazepine (Tegretol ) and HLA-B*1502 Oxcarbazepine (Trileptal ) 01/05/2025 Bipolar disorder, current episode depressed, moderate (ICD-10 - F31.32) Medication considered [id number] Escitalopram (Lexapro), VNK1V80 Sertraline (Zoloft), ARC9O33, CYP2D6 Amitriptyline (Elavil), XRD5T75, CYP2D6 Doxepin (Sinequan), CYP2D5 Aripiprazole (Abilify), CYP2D6 Brexpiprazole (Rexulti ), CYP2D6 Clozapine (Clozaril ), CYP2D6 Iloperidone (Fanapt ), HLA-A3101, HLA-B1502 Carbamazepine (Tegretol ) and HLA-B*1502 Oxcarbazepine (Trileptal ) 12/23/2024 Bipolar disorder, current episode depressed, moderate (ICD-10 - F31.32) Medication considered YSA7R02 Escitalopram (Lexapro), MHE9G13 Sertraline (Zoloft), PHO6Q12, CYP2D6 Amitriptyline (Elavil), CLH4C24, CYP2D6 Doxepin (Sinequan), CYP2D5 Aripiprazole (Abilify), CYP2D6 Brexpiprazole (Rexulti ), CYP2D6 Clozapine (Clozaril ), CYP2D6 Iloperidone (Fanapt ), HLA-A3101, HLA-B1502 Carbamazepine (Tegretol ) and HLA-B*1502 Oxcarbazepine (Trileptal ) 12/23/2024 Generalized anxiety disorder (ICD-10 - F41.1) persists 12/10/2024 Bipolar disorder, current episode depressed, moderate (ICD-10 - F31.32) 10/29/2024 Bipolar disorder, current episode depressed, moderate (ICD-10 - F31.32) 11/05/2024 Bipolar disorder, current episode depressed, moderate (ICD-10 - F31.32) 11/12/2024 Bipolar disorder, current episode depressed, moderate (ICD-10 - F31.32) 11/12/2024 Bipolar disorder, current episode depressed, moderate (ICD-10 - F31.32) 11/18/2024 Bipolar disorder, current episode depressed, moderate (ICD-10 - F31.32) 11/25/2024 Bipolar disorder, current episode depressed, moderate (ICD-10 - F31.32) 06/05/2024 Bipolar disorder, current episode depressed, moderate (ICD-10 - F31.32) states if she doesn't take quetiapine she wont sleep 07/06/2024 Encounter for screening for depression (ICD-10 - Z13.31) 08/04/2024 Bipolar disorder, current episode depressed, moderate (ICD-10 - F31.32) 08/10/2024 Encounter for screening for depression (ICD-10 - Z13.31) 08/26/2024 Encounter for screening for depression (ICD-10 - Z13.31) 09/17/2024 Bipolar disorder, current episode depressed, moderate (ICD-10 - F31.32) states if she doesn't take quetiapine she wont sleep 09/17/2024 Generalized anxiety disorder (ICD-10 - F41.1) 10/08/2024 Bipolar disorder, current episode depressed, moderate (ICD-10 - F31.32) states if she doesn't take quetiapine she wont sleep Electronic Prior Authorization was requested for Caplyta 21 MG Capsule. Provider can order medication once approval received. 10/22/2024 Bipolar disorder, current episode depressed, moderate (ICD-10 - F31.32) states if she doesn't take quetiapine she wont sleep Electronic Prior Authorization was requested for Caplyta 21 MG Capsule. Provider can order medication once approval received. 01/19/2025 Bipolar disorder, current episode depressed, moderate (ICD-10 - F31.32) 02/03/2025 Bipolar disorder, current episode depressed, moderate (ICD-10 - F31.32) Medication considered [id number] Escitalopram (Lexapro), BHO8F16 Sertraline (Zoloft), MJH8C98, CYP2D6 Amitriptyline (Elavil), NFQ7U23, CYP2D6 Doxepin (Sinequan), CYP2D5 Aripiprazole (Abilify), CYP2D6 Brexpiprazole (Rexulti ), CYP2D6 Clozapine (Clozaril ), CYP2D6 Iloperidone (Fanapt ), HLA-A3101, HLA-B1502 Carbamazepine (Tegretol ) and HLA-B*1502 Oxcarbazepine (Trileptal ) 02/17/2025 Major depressive disorder, recurrent, moderate (ICD-10 [...] to hospital for psychiatric evaluation and safety. 02/03/2025 Generalized anxiety disorder (ICD-10 - F41.1) persists 12/23/2024 Other slotter operator helper (current) drug therapy (ICD-10 - Z79.899) 10/22/2024 Generalized anxiety disorder (ICD-10 - F41.1) 09/17/2024 Other skilled nursing (current) drug therapy (ICD-10 - Z79.899) 10/08/2024 Generalized anxiety disorder (ICD-10 - F41.1) 08/26/2024 Encounter for screening for cardiovascular disorders (ICD-10 - Z13.6) 07/06/2024 Encounter for screening for cardiovascular disorders (ICD-10 - Z13.6) 08/10/2024 Encounter for screening for cardiovascular disorders (ICD-10 - Z13.6) 06/05/2024 Generalized anxiety disorder (ICD-10 - F41.1) 11/25/2024 Generalized anxiety disorder (ICD-10 - F41.1) persists 11/18/2024 Generalized anxiety disorder (ICD-10 - F41.1) persists 11/12/2024 Generalized anxiety disorder (ICD-10 - F41.1) 11/05/2024 Generalized anxiety disorder (ICD-10 - F41.1) 10/29/2024 Generalized anxiety disorder (ICD-10 - F41.1) 12/10/2024 Generalized anxiety disorder (ICD-10 - F41.1) persists 01/05/2025 Generalized anxiety disorder (ICD-10 - F41.1) persists 01/19/2025 Generalized anxiety disorder (ICD-10 - F41.1) persists 11/18/2024 Other skilled nursing (current) drug therapy (ICD-10 - Z79.899) 11/25/2024 Other slotter operator helper (current) drug therapy (ICD-10 - Z79.899) 12/23/2024 Attention and concentration deficit (ICD-10 - R41.840) 10/22/2024 Other slotter operator helper (current) drug therapy (ICD-10 - Z79.899) 10/29/2024 Other skilled nursing (current) drug therapy (ICD-10 - Z79.899) 11/05/2024 Other slotter operator helper (current) drug therapy (ICD-10 - Z79.899) 11/12/2024 Other slotter operator helper (current) drug therapy (ICD-10 - Z79.899) 06/05/2024 Encounter for screening for depression (ICD-10 - Z13.31) 07/06/2024 Bipolar disorder, current episode depressed, moderate (ICD-10 - F31.32) states if she doesn't take quetiapine she wont sleep 08/10/2024 Bipolar disorder, current episode depressed, moderate (ICD-10 - F31.32) states if she doesn't take quetiapine she wont sleep 10/08/2024 Other slotter operator helper (current) drug therapy (ICD-10 - Z79.899) 09/17/2024 Attention and concentration deficit (ICD-10 - R41.840) 08/26/2024 Bipolar disorder, current episode depressed, moderate (ICD-10 - F31.32) states if she doesn't take quetiapine she wont sleep 12/10/2024 Other skilled nursing (current) drug therapy (ICD-10 - Z79.899) 01/05/2025 Other skilled nursing (current) drug therapy (ICD-10 - Z79.899) 01/19/2025 Other slotter operator helper (current) drug therapy (ICD-10 - Z79.899) 02/03/2025 Other slotter operator helper (current) drug therapy (ICD-10 - Z79.899) 02/17/2025 Bipolar disorder, unspecified (ICD-10 - F31.9) Patient has a history of bipolar disorder. 02/17/2025 Generalized anxiety disorder (ICD-10 - F41.1) Patient has a history of generalized anxiety disorder. 02/03/2025 Attention and concentration deficit (ICD-10 - R41.840) 08/26/2024 Generalized anxiety disorder (ICD-10 - F41.1) 10/22/2024 Attention and concentration deficit (ICD-10 - R41.840) 10/08/2024 Attention and concentration deficit (ICD-10 - R41.840) 08/10/2024 Generalized anxiety disorder (ICD-10 - F41.1) 07/06/2024 Generalized anxiety disorder (ICD-10 - F41.1) 06/05/2024 Encounter for screening for cardiovascular disorders (ICD-10 - Z13.6) 11/25/2024 Attention and concentration deficit (ICD-10 - R41.840) 11/18/2024 Attention and concentration deficit (ICD-10 - R41.840) 10/29/2024 Attention and concentration deficit (ICD-10 - R41.840) 11/05/2024 Attention and concentration deficit (ICD-10 - R41.840) 11/12/2024 Attention and concentration deficit (ICD-10 - R41.840) 12/10/2024 Attention and concentration deficit (ICD-10 - R41.840) 01/19/2025 Attention and concentration deficit (ICD-10 - R41.840) 01/05/2025 Attention and concentration deficit (ICD-10 - R41.840) 06/05/2024 Other skilled nursing (current) drug therapy (ICD-10 - Z79.899) 08/10/2024 Other slotter operator helper (current) drug therapy (ICD-10 - Z79.899) 07/06/2024 Other slotter operator helper (current) drug therapy (ICD-10 - Z79.899) 08/26/2024 Other skilled nursing (current) drug therapy (ICD-10 - Z79.899) 02/17/2025 Living alone (ICD-10 - Z60.2) Patient lives alone, which may contribute to risk and isolation. 02/17/2025 Personal history of other mental and behavioral disorders (ICD-10 - Z86.59) Patient underwent ECT in 2013, discontinued due to anxiety and lack of benefit. 08/26/2024 Attention and concentration deficit (ICD-10 - R41.840) 08/10/2024 Attention and concentration deficit (ICD-10 - R41.840) 06/05/2024 Attention and concentration deficit (ICD-10 - R41.840) 07/06/2024 Attention and concentration deficit (ICD-10 - R41.840) 06/05/2024 Kevin Arroyo is a female patient with a history of bipolar disorder, anxiety, and depression since high school, presenting with ongoing depressive symptoms, anxiety, and recent concentration difficulties. Bipolar Disorder Assessment: Patient has a history of bipolar disorder with depressive and hypomanic episodes. Depressive symptoms include sadness, isolation, and past suicidal ideation and attempts. Hypomanic symptoms include elevated mood, increased energy, and decreased need for sleep, lasting at least 4 days. No family history of bipolar disorder reported. Current medications include Depakote, quetiapine, Loxitane, and citalopram. Recent increase in citalopram dosage may be contributing to current symptoms. Plan: - Decrease citalopram: 20 mg PO daily for 1 week, then 10 mg PO daily for 1 week, then discontinue - Continue Depakote: 2 tablets PO at bedtime - Continue quetiapine 100 mg PO at bedtime - Start Vraylar 1.5 mg PO daily - Obtain blood work: Depakote level, thyroid function, CBC, comprehensive metabolic panel, cholesterol panel - Follow up in 1 month Depression Assessment: Patient reports ongoing depressive symptoms since high school, including sadness, isolation, and past suicidal ideation. Multiple past suicide attempts by pill overdose. History of self-harm (cutting) when angry. Currently functioning at work but experiencing social isolation and anhedonia. Plan: - Continue duloxetine 60 mg PO daily - Encourage continuation of weekly therapy sessions with [facility] - Monitor for worsening of depressive symptoms with medication changes Anxiety Assessment: Patient reports being super anxious, particularly in social situations. Past history of panic attacks, though none recent. Previous trial of lorazepam was ineffective. Plan: - Monitor anxiety symptoms with medication changes - Encourage continuation of stress-reduction techniques, such as exercise (gym) Concentration and Focus Difficulties Assessment: Patient reports concentration and focus problems for the past 4-5 months, impacting work performance. Symptoms may be related to recent increase in citalopram dosage or combination of current medications. Plan: - Monitor concentration and focus with medication changes - Reassess at follow-up appointment in 1 month History of Substance Use Assessment: Patient reports past use of pain pills and completion of rehabilitation. No recent relapses, but acknowledges cravings when stressed or depressed. Plan: - Continue to monitor for cravings and potential relapse - Encourage use of coping strategies learned in rehabilitation the note is transcribed using speech recognition software. It is a reflection of a visit with the patient. It might have some inaccuracy, including medication names and transcribing errors, though efforts have been made to correct them. 07/06/2024 Kevin Arroyo, a patient with a history of mood disorder, presents with ongoing sleep disturbances and mood instability, exacerbated by recent medication changes. Mood Disorder with Sleep Disturbance Assessment: Patient reports worsening insomnia since increasing Vraylar dose, sleeping only 1-2 hours per night. This sleep disturbance is negatively impacting mood stability. Previous medications include citalopram (being tapered), Depakote (level 61.8), quetiapine, and duloxetine. Patient denies improvement in mood with Vraylar. Recent labs showed low folate and elevated platelets, suggesting possible anemia, which was addressed by PCP with recommendation for multivitamin supplementation. Plan: - Discontinue Vraylar due to insomnia side effect - Increase quetiapine: - Add quetiapine XR 50 mg PO daily at 4-5 PM - Continue quetiapine IR 100 mg PO at bedtime - Continue Depakote (current dose) - Continue duloxetine 60 mg (current regimen) - Follow up in one month the note is transcribed using speech recognition software. It is a reflection of a visit with the patient. It might have some inaccuracy, including medication names and transcribing errors, though efforts have been made to correct them. 08/10/2024 Kevin Arroyo presents with worsening depression symptoms, including suicidal ideation with a plan for self-harm, and reports difficulty sleeping due to racing thoughts. Major Depressive Disorder with Suicidal Ideation Assessment: Patient reports feeling pretty shitty with worsening depression symptoms, including thoughts of self-harm and suicidal ideation. She has a plan for self-harm by cutting. Work-related stress, including losing animals at both jobs, has contributed to her depressed mood. Patient denies any manic-type symptoms. Current medications include duloxetine, quetiapine XR 50 mg, and Depakote, which have not provided significant relief. Sleep disturbances persist due to racing thoughts and anxiety. Plan: - Increase quetiapine XR: - 150 mg PO qhs for 3 days - Then increase to 300 mg PO qhs - Intended to address bipolar depression, anxiety, and racing thoughts - Follow-up appointment in 2 weeks - Continue current medications: - Duloxetine - Depakote Insomnia Assessment: Patient reports persistent difficulty sleeping despite current medications (Depakote and quetiapine at bedtime). She attributes this to racing thoughts and an overactive mind, stating My brain's too busy to sleep. Plan: - Increase quetiapine XR as noted above, which may also help with sleep the note is transcribed using speech recognition software. It is a reflection of a visit with the patient. It might have some inaccuracy, including medication names and transcribing errors, though efforts have been made to correct them. 08/26/2024 Kevin Arroyo, a patient with a history of depression and possible bipolar disorder, presents for follow-up after medication adjustments, reporting improvement in symptoms. Mood Disorder (Depression with possible Bipolar features) Assessment: Patient reports improvement in depressive symptoms following recent medication adjustments. Quetiapine was increased to 300 mg, which has led to better sleep and overall mood. Racing thoughts have decreased, and there are no current manic or hypomanic symptoms. The patient denies any thoughts of self-harm. Anxiety levels have also improved. The patient is tolerating work better and is more engaged in activities. Plan: - Continue current medication regimen: - Quetiapine 300 mg daily (increased dose) - Divalproex 500 mg BID - Duloxetine 60 mg daily - Quetiapine 100 mg at bedtime - Follow-up appointment in 2-3 weeks the note is transcribed using speech recognition software. It is a reflection of a visit with the patient. It might have some inaccuracy, including medication names and transcribing errors, though efforts have been made to correct them. 09/17/2024 Kevin Arroyo, a patient with a history of mood disorder, presents for follow-up with concerns about medication side effects and weight gain. Mood Disorder Assessment: Patient reports stopping quetiapine ER 300 mg due to increased appetite and weight gain concerns. Mood appears stable with no current racing thoughts or manic symptoms. Patient denies current self-harm behaviors but acknowledges presence of self-harm thoughts. Sleep pattern reported as sleeping a lot. Weight has decreased by 2 pounds since last visit. Patient appears restless during the visit and reports feeling anxious today. Functioning at home is reported as adequate. Plan: - Decrease Depakote: - Reduce to 750 mg at bedtime (250 mg + 500 mg) - Monitor for changes in mood - Continue duloxetine - Continue quetiapine 100 mg at bedtime - Refill medications: - Depakote 500 mg - Depakote 250 mg - Quetiapine 100 mg - Duloxetine - Follow-up appointment in 3 weeks Anxiety Assessment: Patient reports feeling anxious today and appears restless during the visit. This restlessness is reported to vary depending on the day. Plan: - Continue current medication regimen - Monitor anxiety symptoms at follow-up Weight Management Assessment: Patient expresses concern about weight gain, which led to discontinuation of quetiapine ER 300 mg. Current weight is down 2 pounds from the previous visit on August 26. Patient reports exercising about 5 times recently. Plan: - Encourage continuation of exercise routine - Monitor weight at follow-up appointments 10/08/2024 Other Brianne Gain presents with ongoing depression, anxiety, and occasional suicidal thoughts. Recent medication adjustments include decreasing Depakote, with concerns about weight gain and effectiveness of current regimen. Major Depressive Disorder with Anxiety Assessment: Patient reports ongoing depressive symptoms including anhedonia, anxiety without clear triggers, and occasional racing thoughts. Sleep is reported as good, likely aided by quetiapine. Patient endorses thoughts of self-harm and suicidal ideation with occasional plans, managed by inducing sleep. Recent weight loss noted (191 to 180 lbs), though unclear if related to appetite changes or recent surgery. Current medications, including Depakote and duloxetine, appear to be suboptimal in managing symptoms. Plan: - Decrease Depakote to 500 mg at bedtime - Decrease duloxetine (Cymbalta) to 30 mg daily - Start Caplyta 21 mg daily for bipolar depression - Continue quetiapine for sleep (dose not specified) - Follow up in approximately 2 weeks Suicidal Ideation Assessment: Patient reports occasional suicidal thoughts with sometimes having a plan. Current coping strategy involves inducing sleep to manage these thoughts. No immediate plan or intent expressed during the session, but ongoing monitoring is warranted given the persistent nature of these thoughts. Plan: - Continue to monitor suicidal ideation - Patient to use sleep as a coping mechanism as needed - Assess effectiveness of medication changes on mood and suicidal thoughts at follow-up Iron Deficiency Assessment: Patient reports recent iron infusions for low ferritin levels. Unclear when infusions were administered or current iron status. Plan: - Continue monitoring iron levels with primary care provider the note is transcribed using speech recognition software. It is a reflection of a visit with the patient. It might have some inaccuracy, including medication names and transcribing errors, though efforts have been made to correct them. 10/22/2024 Kevin Arroyo, a female patient with a history of suicidal ideation, presents with ongoing suicidal thoughts, irritability, and work absenteeism. Suicidal Ideation Assessment: Patient reports ongoing suicidal thoughts occurring almost daily, with plans involving taking pills and using a vacant corner. The intensity of these thoughts fluctuates, with some days being worse than others. Patient acknowledges that intention to act on these thoughts depends on the day. This represents a significant risk and requires immediate attention. Plan: - Initiate lithium extended-release 300 mg PO at bedtime - Decrease Depakote to 250 mg daily - Continue quetiapine 100 mg at bedtime - Continue duloxetine 30 mg daily - Continue Caplyta 21 mg daily - Provide additional Caplyta samples - Follow-up appointment scheduled in 1 week Mood Instability and Irritability Assessment: Patient reports getting angry quickly and experiencing difficulty dealing with people. This has led to significant work absenteeism, with the patient missing a semester of work in the last two weeks. The current medication regimen, including Caplyta, quetiapine, duloxetine, and Depakote, does not appear to be providing adequate symptom control. Plan: - Medication adjustments as noted in the Suicidal Ideation plan - Encourage continued engagement in therapy Weight Gain Assessment: Patient reports significant weight gain, which has been attributed to medications, particularly Depakote and potentially quetiapine. This side effect has prompted previous attempts to reduce Depakote dosage. Plan: - Decrease Depakote to 250 mg daily - Monitor weight and metabolic parameters the note is transcribed using speech recognition software. It is a reflection of a visit with the patient. It might have some inaccuracy, including medication names and transcribing errors, though efforts have been made to correct them. 10/29/2024 Kevin Arroyo, a patient with a history of bipolar disorder, presents with ongoing suicidal thoughts, self-harm behaviors, and irritability, while experiencing difficulty maintaining employment. Bipolar Disorder Assessment: Patient continues to experience symptoms consistent with bipolar disorder, including irritability and possible manic-type symptoms. She reports engaging in increased activities such as working in the kitchen, going to the gym, and visiting the hospital, with minimal sleep. The patient expresses concerns about weight gain and depression associated with current medication regimen, particularly Depakote. Plan: - Discontinue Depakote - Increase lithium to 600 mg PO at bedtime - Continue quetiapine 100 mg at bedtime - Continue duloxetine 30 mg - Continue cariprazine 21 mg - Follow up in one week Suicidal Ideation and Self-Harm Assessment: Patient reports ongoing suicidal thoughts and has engaged in self-harm behaviors, specifically cutting. The frequency and severity of these symptoms are not explicitly stated, but they appear to be a significant concern. Plan: - Refer to Intensive Outpatient Program (IOP) at [facility] for therapy and counseling - Continue current medication regimen as adjusted for bipolar disorder management - Monitor for changes in suicidal ideation and self-harm behaviors Occupational Functioning Assessment: Patient reports difficulty maintaining attendance at her primary job, while still managing to perform her other two jobs. This suggests a decline in occupational functioning, possibly related to her mental health symptoms. Plan: - Encourage participation in IOP to address functional impairments - Reassess occupational functioning at follow-up appointment the note is transcribed using speech recognition software. It is a reflection of a visit with the patient. It might have some inaccuracy, including medication names and transcribing errors, though efforts have been made to correct them. 11/05/2024 Kevin Arroyo, a patient with bipolar disorder, recently discharged herself against medical advice from an inpatient psychiatric facility after a suicide attempt. Bipolar Disorder with Recent Suicidal Ideation Assessment: Patient was recently hospitalized for suicidal ideation with a plan. She reports feeling better now and denies current suicidal thoughts. Medication adjustments were made during the inpatient stay, including an increase in Caplyta dosage from 21mg to 42mg, which the patient reports has been helpful. The inpatient team also restarted Seroquel (quetiapine) for sleep issues. Patient denies ever experiencing hallucinations, contrary to what was documented during her inpatient stay. Plan: - Continue Caplyta 42mg daily - Continue lithium ER 600mg at bedtime - Continue quetiapine 100mg at bedtime - Discontinue duloxetine (Cymbalta) for now - Monitor for return of suicidal ideation - Consider referral to Intensive Outpatient Program (IOP) Medication Management Assessment: Patient reports compliance with prescribed medications prior to hospitalization. Recent lithium level was reported as normal. The inpatient team made adjustments to the medication regimen, which appears to be effective in managing the patient's symptoms. Plan: - Continue current medication regimen as adjusted during inpatient stay - Assess need for medication refills (lithium and quetiapine) - Monitor for side effects and efficacy of current medication regimen the note is transcribed using speech recognition software. It is a reflection of a visit with the patient. It might have some inaccuracy, including medication names and transcribing errors, though efforts have been made to correct them. 11/12/2024 Other 11/03/24 lithium level 0.6 Brianne Gain presents with worsening suicidal ideation and depression, reporting a particularly severe episode in the past week. Suicidal Ideation and Depression Assessment: Patient reports persistent suicidal thoughts, which were particularly severe one day in the past week. The thoughts have decreased in intensity since then but are still present. Current medication regimen includes lithium ER 600 mg and cariprazine 42 mg. Patient has a history of responding well to quetiapine in the past, which was discontinued by a previous psychiatrist for unknown reasons. Recent lithium level on 11/03 was 0.6 on the current dose. Plan: - Increase quetiapine immediate release to 200 mg PO at bedtime - Informed patient this may help with anxiety, depression, and suicidal thoughts - Discussed potential for daytime improvement depending on metabolism, with possibility of adding daytime dose in the future - Continue lithium ER 600 mg - Continue cariprazine 42 mg - Advised patient on coping strategies for severe suicidal thoughts: - Engage in calming activities - Do something that makes them happy - Use grounding techniques - Redirect thoughts - Follow-up appointment scheduled in 1 week the note is transcribed using speech recognition software. It is a reflection of a visit with the patient. It might have some inaccuracy, including medication names and transcribing errors, though efforts have been made to correct them. 11/18/2024 Other Local Crisis and Support Services [facility] ([facility]24/09 Crisis Line: [facility] centerProvide s crisis intervention, mobile crisis response, and mental health support for adults and youth in [facility]. [facility]24/09 Crisis Line: [facility].orgOffers crisis intervention, counseling, and substance use services in [facility] and surrounding areas .[address] Text LineText TALK to 382201 (or HABLAR for [place])Free, anonymous support from a local mental health professional .[facility] Behavioral HealthPhone: [facility]/saleem mariano/service s/behavioral-healt h/Outpatient behavioral health services, counseling, and psychiatric care in [place], [place]. [facility] Behavioral HealthPhone: [facility] centerOutright.[facility]/se rvices/behavioral- health/Inpatient and outpatient mental health services in [place], [place]. Local Support Groups and Community ResourcesUNC Health Blue RidgePhone: [email or web address].orgFree support groups, education, and advocacy for individuals and families affected by mental illness in [facility], and surrounding counties .[facility] Health [place].[facility]/departments /mental_health_[address]/Information on local mental health providers, crisis services, and community resources. [facility] (for students)Phone: [facility] .[facility] [place]/counseling/[place] counseling and crisis support for [facility] students. Local Law Enforcement Crisis Intervention [place] [employer]: [place] [employer]: (Both departments have officers trained in crisis intervention and can assist in mental health emergencies.) Brianne Gain presents with worsening anger, suicidal thoughts, and mood instability despite current medication regimen including lithium, cariprazine, and quetiapine. Bipolar Disorder with Anger and Suicidal Ideation Assessment: Patient reports increased anger and irritability, with suicidal thoughts persisting despite medication adjustments. Current regimen includes lithium ER 600 mg, cariprazine (Caplyta) 42 mg, and quetiapine 200 mg at bedtime. Recent increase in quetiapine dose has not yielded desired improvement. Patient denies current intent to act on suicidal thoughts and acknowledges protective factors (pets). Anger is generalized and not directed at specific individuals. Sleep disturbances are noted. Previous trials of Depakote resulted in side effects of fatigue and weight gain. Patient reports difficulty managing work responsibilities and stress. Plan: - Initiate quetiapine ER 150 mg PO daily in the evening - Continue lithium ER 600 mg PO daily - Continue quetiapine 200 mg PO at bedtime - Discontinue cariprazine (Caplyta) 42 mg - Provide samples of lower doses of quetiapine ER - Follow up in 1 week to assess response to medication changes - Discussed potential for intensive outpatient program, patient expressed willingness to consider [facility] Occupational Stress Assessment: Patient reports work-related stress due to being the sole person capable of performing her job duties. Recent week-long break did not alleviate symptoms. Patient expresses concern about additional time off leading to increased workload upon return. Plan: - Encourage stress-reduction techniques - Discuss potential for additional time off work, weighing benefits against patient's concerns the note is transcribed using speech recognition software. It is a reflection of a visit with the patient. It might have some inaccuracy, including medication names and transcribing errors, though efforts have been made to correct them. 11/25/2024 Kevin Arroyo, a patient with a history of suicidal thoughts and anger issues, presents for follow-up with improved suicidal ideation but persistent sleep disturbances and anger management difficulties. Mood Disorder with Suicidal Ideation Assessment: Patient reports improvement in suicidal thoughts since last week's visit. She is currently functioning and able to attend work. The patient has signed up for an Intensive Outpatient Program (IOP) starting tomorrow, which is expected to be beneficial for her treatment. Current medication regimen includes [place] ER 600 mg daily, Seroquel XR 300 mg daily, and immediate-release Seroquel 200 mg at bedtime. Plan: - Increase Seroquel XR to 400 mg PO daily in the evening - Continue [place] ER 600 mg PO daily - Continue immediate-release Seroquel 200 mg PO at bedtime - Patient to start IOP tomorrow - Request IOP to send progress information for ongoing monitoring - Follow up after completion of IOP program Insomnia Assessment: Patient reports difficulty staying asleep despite taking immediate-release Seroquel 200 mg at bedtime. The sleep disturbances persist even with the current medication regimen. Plan: - Continue immediate-release Seroquel 200 mg PO at bedtime - Monitor sleep patterns during IOP treatment Anger Management Issues Assessment: Patient reports persistent anger issues, which have not improved with the addition of Seroquel to her medication regimen. She mentions getting really up at work due to anger. Plan: - Increase Seroquel XR to 400 mg PO daily in the evening to potentially address anger symptoms - Monitor anger management progress during IOP treatment the note is transcribed using speech recognition software. It is a reflection of a visit with the patient. It might have some inaccuracy, including medication names and transcribing errors, though efforts have been made to correct them. 12/23/2024 Kevin Arroyo presents with returning depression symptoms, anger, irritability, and sleep issues despite recent hospitalization and medication adjustments. Depression symptoms returning Patient reports depression symptoms are coming back after doing well at last visit. She was recently hospitalized approximately 2 weeks ago on the and had all previous medications discontinued during that admission. Currently experiencing anger, irritability, and sleepiness. Patient acknowledges not being successful at managing symptoms and reports snapping at people. Plan: - Consider pharmacogenetic testing (gene site test) via cheek swab to evaluate medication metabolism and guide treatment decisions - Patient expressed interest in genetic testing Sleep difficulties Patient reports ongoing sleep issues and is using multiple substances on rotating nights including Trazodone, ZQuil, and THC. She obtained Trazodone 300mg from a friend, which is higher than recommended dosing. Started at 50mg and worked up to current dose. Uses different substances on different nights to avoid tolerance. Medication management Patient was taken off all previous medications during recent hospitalization including potassium supplements. Currently on risperidone 2mg twice daily without missing doses. Risperidone appeared to help during hospitalization but patient continues to experience anger and irritability. No current hallucinations reported. Plan: - Continue risperidone 2mg twice daily - Patient not missing doses of current medication the note is transcribed using speech recognition software. It is a reflection of a visit with the patient. It might have some inaccuracy, including medication names and transcribing errors, though efforts have been made to correct them. 01/05/2025 Other patient currently on risperidone 6 mg daily with ongoing psychiatric symptoms and sleep difficulties despite multiple previous medication trials. Psychiatric condition with inadequate response Patient reports unchanged symptoms despite current treatment with risperidone 6 mg daily. Previous medication trials include lamotrigine, carbamazepine, lorazepam, and benzodiazepines without adequate response. Patient denies current thoughts of self-harm. Pharmacogenetic testing results indicate normal folic acid metabolism and [id number] category for medications. Current symptoms appear to involve racing thoughts that interfere with sleep and overall functioning. Plan: - Trial vyvanse 30 mg for one week supply to assess potential benefit for racing thoughts and sleep difficulties - Patient informed that stimulants can calm thoughts in some individuals, similar to ADHD treatment, which may improve sleep - Continue risperidone 6 mg daily - Follow-up in 2 weeks Sleep difficulties Patient reports constant sleep problems that appear related to racing thoughts. Current risperidone dose does not appear to worsen sleep issues but has not provided adequate improvement. Plan: - Trial vyvanse as above, with potential for improved sleep if thoughts are calmed the note is transcribed using speech recognition software. It is a reflection of a visit with the patient. It might have some inaccuracy, including medication names and transcribing errors, though efforts have been made to correct them. 01/19/2025 Kevin Arroyo presents with increased anger and irritability over the past few days, reporting difficulty managing symptoms despite current psychiatric medications. Anger and irritability Patient reports experiencing significant anger directed at everything over the past few days, representing a change from her baseline over the previous 2 weeks which she described as okay. She expresses feeling like she is not managing it well. The anger appears to have emerged during a vacation period when she was just chilling and spending time with family. Patient has been compliant with current medications including what appears to be an antipsychotic at 40mg and another medication at 5mg. She denies suicidal ideation, plan, or intent. Current therapy attendance is weekly but patient reports it is not okay. Previous medication trials have included Abilify, lithium, and Depakote, with Depakote previously dosed at 250mg. Plan: - Consider adding Depakote for anger management - Depakote to be started at 250mg - Referral for VNS to be sent with patient consent, as patient remains a candidate despite having an Inspire device - Follow-up appointment scheduled in 2 weeks the note is transcribed using speech recognition software. It is a reflection of a visit with the patient. It might have some inaccuracy, including medication names and transcribing errors, though efforts have been made to correct them. 02/03/2025 Kevin Arroyo is a patient with psychiatric conditions who was recently hospitalized and is currently experiencing suicidal ideation with a plan involving overdosing on pills, following a difficult week that included putting down two dogs. Suicidal ideation with plan Patient continues to experience active suicidal thoughts with a specific plan involving overdosing on pills. Recent hospitalization occurred, though duration and specific interventions during admission are unclear from the discussion. Patient reports having a particularly difficult week, which included the emotional stress of euthanizing two dogs. Current medication regimen includes risperidone, Depakote, fluoxetine, and Zyprexa as needed, with recent medication increases made during hospitalization that reportedly made the patient more aggressive. Plan: - decrease risperidone to 3mg daily x 5 days then stop at the same time increase Olanzapine to 10mg at bedtime - Continue Zyprexa as needed - Increase medication dosage as discussed - Consider IOP (Intensive Outpatient Program) - staff will contact program and have them call patient - Patient has done lithium in the past - Patient has completed IOP program previously Medication management Patient is currently on multiple psychiatric medications. Recent hospitalization resulted in medication adjustment. Patient reports the medications are helping, and specifically notes that Zyprexa is effective when used. Patient acknowledges missing doses during the recent difficult week. Plan: - decrease risperidone to 3mg daily x 5 days then stop at the same time increase Olanzapine to 10mg at bedtime - Continue Zyprexa as needed counseling given recent missed doses VNS - referral for VNS has been initiated. Pt has been contacted by [facility]. the note is transcribed using speech recognition software. It is a reflection of a visit with the patient. It might have some inaccuracy, including medication names and transcribing errors, though efforts have been made to correct them. 11/11/2024 Other Electronic Prio r Authorization was requested for Caplyta 21 MG Capsule. Provider can order medication once approval received. Plan Of Treatment Future Test Test Name Order Date TSH+FREE T4 (11524) 06/05/2024 VALPROIC ACID, TOTAL & FREE (6651) 06/05 COMPREHENSIVE METABOLIC PANEL (57504) CBC (INCLUDES DIFF/PLT) (6399) VITAMIN B12/FOLATE, SERUM PANEL (7065) 0 06/05/2024 Next Appt Details Provider Name:Shannon cabrera, 03/09/2025 03:30:00 PM, [address], [address], [address], Provider Name:Shannon cabrera, 03/16/2025 03:30:00 PM, [address], [facility] [address], [address], Provider Name:Shannon cabrera, 03/23/2025 03:30:00 PM, [address], [facility] [address], [address], Provider Name:Shannon cabrera, 03/30/2025 03:30:00 PM, [address], [address], [place], [address], Provider Name:Shannon Pettitjunior cabrera, 04/06/2025 03:30:00 PM, [address], [facility] [address], [place], [address], Provider Name:Shannontamie Pettitjunior cabrera, 04/13/2025 03:30:00 PM, [facility], [facility] [address], [place], [address], Provider Name:Shannon Lahsawn cabrera, 04/20/2025 03:30:00 PM, [facility], [place] [address], [place], [address], Provider Name:Shannon Lashawn cabrera, 04/27/2025 03:30:00 PM, [facility] [address], [address], [address], Provider Name:Shannon Lashawn cabrera, 05/04/2025 03:30:00 PM, [facility] [address], [address], [address], Provider Name:Shannontamie Pettitjunior cabrera, 05/11/2025 03:30:00 PM, [facility] [address], [address], [address], Provider Name:Shannon Lashawn cabrera, 05/18/2025 03:30:00 PM, [facility] [address], [address], [address], Provider Name:Shannontamie Pettitjunior cabrera, 05/25/2025 03:30:00 PM, [facility] [address], [address], [address], Insurance Providers Payer Name Payer Address Payer Phone Subscriber Number Group Number Insured Name Patient Relationship to Insured Coverage Start Date Coverage End Date [facility] [address] [place] [address] [id number] Brianne Arroyo Self - patient is the insured Medical (General) History Medical History History ICD Code Past Psychiatric History: An xiety Disorder,Major Depressive Episode,Bipolar Disorder abdominal aortic aneurysm: No undefined atrial fibrillation: No chronic fatigue syndrome: No essential tremor: No hyperlipidemia: No hypertension: No Parkinson's disease: No restless leg syndrome: No stroke: No subdural hematoma: No type 1 diabetes mellitus: No type 2 diabetes mellitus: No vitamin B12 deficiency: No vitamin D deficiency: No Imported from Highlights: Th e patient has a history of multiple health issues including gastroesophageal reflux disease without esophagitis, left upper quadrant abdominal pain, history of cholecystectomy, history of pancreatitis, chronic insomnia, globus sensation, moderate obstructive sleep apnea, and acquired hypothyroidism. The patient has been under the care of Dr. Huerta at [facility], with multiple visits and telephone consultations. The patient also had encounters with Dr. Grimes at [facility] for pain management. The patient underwent a procedure for intractable chronic migraine without aura and without status migrainosus under the care of Shaista Hathaway NP at [facility]. The patient also had a surgery for esophageal dysphagia and gastroesophageal reflux disease under the care of Dr. Jenkins at [facility]. The patient's most recent visit was on 04/29/2024 for gastroesophageal reflux disease and left upper quadrant abdominal pain. Bipolar disorder Generalized anxiety disorder Major depressive disorder, recurrent History of ect, 2013 Surgical History Surgery Date(Month/Year) APPENDECTOMY hysterectomy nerve stimulator- inspire Cholecystectomy APPENDECTOMY hysterectomy nerve stimulator- inspire Cholecystectomy Ect (electroconvulsive thera py), discontinued chcf due to anxiety, 2013 Hospitalization History Reason Date(Month/Year) Inpatient psychiatric stay, about a eder h ago
--- OUTSIDE RECORDS SUMMARY | 2025-02-17 18:15 | XMS_ITS | Encounter Summary ---
Author Organization [facility] Address [address] [place] [address] Phone Care Team Providers Care Distribution Tech Name Role Phone Krystal Huerta DO Primary Care Provider [phone] Encounter Details Date Type Department Care Team (Late st Contact Info) Description 12/06/2023 Telephone [facility] [address] [address] Arya Price MD [address] [address] Social History Tobacco Use Types Packs/Day Years Used Date Smoking Tobacco: Never Smokeless Tobacco: Never Alcohol Use Standard Drinks/Week Comments Never 0 (1 standard drink = 0.6 oz pur e alcohol) Comments Unknown Sex and Gender Information Value Date Recorded Sex Assigned at Female 10/23/2022 1:51 PM CDT Legal Sex Female 1:50 PM CDT Gender Identity Female 10/23/2022 1:51 PM CDT Sexual Orientation Not on file documented as of this encounter Miscellaneous Notes * Telephone Encounter - Dipika Falk - 12/06/2023 11:36 AM CDT Spoke with patient about missed appointment patient stated she will call back next week to . documented in this encounter Plan of Treatment Upcoming Encounters Date Type Department Care Team (Late st Contact Info) Description 02/19/2025 8:15 AM MANAGER OF TRAINING AND DEVELOPMENT Office Visit [facility] [address] [place] [address] Arya Price MD [address] [place] [address] documented as of this encounter Visit Diagnoses Not on filedocumented in this encounter Care Teams Distribution Tech Relationship Specialty Start Date End Date Krystal Huerta DO [address] [place] [address] PCP - General Family Medicine 10/23/22 documented as of this encounter
--- OUTSIDE RECORDS SUMMARY | 2025-02-17 18:15 | XMS_ITS | Clinical Summary ---
Author Organization [facility] Address [address], [facility] [address] [place] [address] Phone Care Team Providers Care Women Designer Name Role Phone Krystal Huerta DO Primary Care Provider [phone] Allergies Active Allergy Reactions Criticality Noted Date Comments Levofloxacin Other (see Comments) Low 07/13/2022 Medications pantoprazole (PROTONIX) 40 MG Tablet Delayed Response 10/27/2022 Active levothyroxine (SYNTHROID) 75 MCG Tablet 11/18/2024 Active QUEtiapine (SEROquel) 200 MG Tablet take 1 tablet by mouth daily at bedtime Active folic acid (FOLVITE) 1 MG Tablet Take 1,000 mcg by mouth daily. 10/20/2024 Active QUEtiapine Fumarate 300 MG TABLET SR 24 HR Take 300 mg by mouth daily. Active lithium (LITHOBID) 300 MG Tablet Controlled Release Take 600 mg by mouth daily. 11/13/2024 Active Active Problems Problem Noted Date Diagnosed Date Iron deficiency anemia 08/26/2024 Thrombocytosis 08/21/2024 Elevated d-dimer 11/23/2022 Encounters Date Type Department Care Team Description 11/20/2024 9:20 AM CDT Lab [facility] [address] [address] Lab, [facility] [place] Iron deficiency anemia, unspecified iron deficiency anemia type; Thrombocytosis 11/20/2024 8:15 AM CDT Office Visit [facility] [address] [place] [address] Gayle Thacker, TIMBER FRAMER HELPER, SALON STYLIST Iron deficiency anemia, unspecified iron deficiency anemia type (Primary Dx); Thrombocytosis 11/20/2024 Travel from Last 3 Months Family History Medical History Relation Name Comments Heart Disease Brother 2 Heart Disease Father Relation Name Status Comments Brother 1 Alive Brother 2 Alive TIA Father Alive Mother glioblastoma Social History Tobacco Use Types Packs/Day Years Used Date Smoking Tobacco: Never Smokeless Tobacco: Never Tobacco Cessation:Counseling Given: Not Answered Alcohol Use Standard Drinks/Week Comments Never 0 (1 standard drink = 0.6 oz pur e alcohol) Comments Unknown Sex and Gender Information Value Date Recorded Sex Assigned at Female 10/23/2022 1:51 PM CDT Legal Sex Female 1:50 PM CDT Gender Identity Female 10/23/2022 1:51 PM CDT Sexual Orientation Not on file Last Filed Vital Signs Vital Sign Reading Time Taken Comments Blood Pressure 110/80 11/20/2024 8:17 AM CDT Pulse 99 11/20/2024 8:17 AM CDT Temperature 36.8 C (98.2 F) 11/20/2024 8:17 AM CDT Respiratory Rate 18 11/20/2024 8:17 AM CDT Oxygen Saturation 95% 11/20/2024 8:17 AM CDT Inhaled Oxygen Concentration - - Weight 87 kg (191 lb 14.4 oz) 11/20/2024 8:17 AM CDT Height 160 cm (5' 3) 11/20/2024 8:17 AM CDT Body Mass Index 33.99 11/20/2024 8:17 AM CDT Plan of Treatment Upcoming Encounters Date Type Department Care Team (Late st Contact Info) Description 02/19/2025 8:15 AM MERCHANDISING STOCK ASSOCIATE Office Visit [facility] [address] [address] Arya Price MD [address] [place] [address] [place] [address] Health Maintenance Due Date Last Done Comments TdaP Immunization 1981 Varicella Immunization (2 of 2 - 2-dose childhood series) 12/02/1991 09/09/1991 Hepatitis B Immunization (1 of 3 - 19+ 3-dose series) 02/05/2000 Influenza Immunization (#1) 11/02/202412/02, 12/04/2022, 12/09/2021, Additional history exists SARS-COV-2 Immunization ( season) 2024 12/16/2022, 12/04/2022, 01/04/2021, Additional history exists Mammogram 09/10/2025 09/10/2024, 09/01, 09/09/2023, Additional history exists Respiratory Syncytial Virus (RSV) Immunization (Adult) (1 - 1-dose 75+ series) 02/05/2056 DTaP/Tdap/Td Immunization Discontinued 02/17/2020 Hepatitis C Virus (HCV) Screening Completed 02/13/2023 Discussion re Starting/Frequency of Mammograms Completed 09/10/2024, 09/09/2023, 08/31/2022, Additional history exists Human Papillomavirus (HPV) Immunization (No Doses Required) Completed Meningococcal Immunization (ACWY) Aged Out No longer eligible based on patient's age to complete this topic Pneumococcal Immunization Combined Aged Out No longer eligible based on patient's age to complete this topic Rotavirus Immunization Aged Out No lo nger eligible based on patient's age to complete this topic Procedures Procedure Name Priority Date/Time Associated Diagnosis Comments CBC WITH AUTO DIFF OH Routine 11/20/2024 8:58 AM CDT CMP (COMPREHENSIVE METABOLIC PANEL) Routine 11/20/2024 8:58 AM CDT Iron deficiency anemia, unspecified iron deficiency anemia type Thrombocytosis FERRITIN Routine 11/20/2024 8:58 AM CDT Iron deficiency anemia, unspecified iron deficiency anemia type Thrombocytosis IRON W/ IRON BINDING CAPACITY OH Routine 11/20/2024 8:58 AM CDT Iron deficiency anemia, unspecified iron deficiency anemia type Thrombocytosis from Last 3 Months Results * IRON W/ IRON BINDING CAPACITY OH (11/20/2024 8:58 AM CDT) IRON 95 50 - 212 ug/dL [facility] UIBC 281 155 - 355 ug/dL [facility] TIBC 376 261 - 478 ug/dl [facility] % Saturation 25 20 - 50 % [facility] 11/20/2024 8:58 AM CDT Narrative [facility] - 11/20/2024 9:42 AM CDT Release to patient->Immediate Gayle Thacker TIMBER FRAMER HELPER, SALON STYLIST LAB SEND OUTS Final Result [facility] [place] [place] [address], * (ABNORMAL) CBC WITH AUTO DIFF [place] (11/20/2024 8:58 AM CDT) WBC 8.2 4.0 - 10.0 10*3/uL [facility] HGB 13.5 11.2 - 15.7 g/dL [facility] HCT 40.5 34.1 - 44.9 % [facility] PLT 375(H) 163 - 369 10*3/uL [facility] MPV 8.5(L) 9.4 - 12.4 fL [facility] RBC 4.41 3.93 - 5.22 10*6/uL [facility] MCV 92 79 - 95 fL [facility] MCH 30.6 25.6 - 32.2 pg [facility] MCHC 33.3 32.2 - 36.5 g/dL [facility] RDW 14.3 11.6 - 14.4 % [facility] Neutrophils % 61.5 36.0 - 66.0 % [facility] Lymphocytes % 23.4 19.0 - 40.0 % [facility] Monocytes % 8.7 4.1 - 12.1 % [facility] Eosinophils % 4.9(H) 0.0 - 3.5 % [facility] Basophils % 1.1(H) 0.0 - 1.0 % [facility] Absolute Neutrophils 5.0 1.4 - 6.6 10*3/uL [facility] Absolute Lymphocytes 1.9 0.8 - 4.0 10*3/uL [facility] Absolute Monocytes 0.7 0.2 - 1.2 10*3/uL [facility] Absolute Eosinophils 0.4 0.0 - 0.4 10*3/uL [facility] Absolute Basophils 0.1 0.0 - 0.1 10*3/uL [facility] 11/20/2024 8:58 AM CDT us Gayle Thacker APRN, RADHA LAB SEND OUTS Final Result Performing Organization Address City/[facility]/ZIP Co de Phone Number [facility] [address] [place] [address], [place] [phone] * FERRITIN (11/20/2024 8:58 AM CDT) Ferritin 160 11 - 307 ng/mL [facility] Blood 11/20/2024 8:58 AM CDT Narrative [facility] - 11/20/2024 2:38 PM CDT Release to patient->Immediate us Gayle Thacker APRN, SALON STYLIST CHEMISTRY ORDERABLES Final Result Performing Organization Address City/[facility]/ZIP Co de Phone Number [facility] [address] [place] [address], [place] [phone] * (ABNORMAL) CMP (COMPREHENSIVE METABOLIC PANEL) (11/20/2024 8:58 AM CDT) Glucose 103 70 - 105 mg/dL [facility] Blood Urea Nitrogen 22 7 - 25 mg/dL [facility] Creatinine 0.8 0.6 - 1.2 mg/dL [facility] Sodium 138 136 - 145 mEq/L [facility] Potassium 4.3 3.5 - 5.1 mEq/L [facility] Chloride 104 98 - 107 mEq/L [facility] Bicarbonate 23 21 - 31 mEq/L [facility] Total Bilirubin 0.4 0.3 - 1.0 mg/dL [facility] Alk. Phosphatase 106(H) 34 - 104 U/L [facility] Aspartate Aminotransferase 18 13 - 39 U/L [facility] Alanine Aminotransferase 40 7 - 52 U/L [facility] Total Protein 7.3 6.4 - 8.9 g/dL [facility] Albumin 4.3 3.5 - 5.7 g/dL [facility] Calcium 9.9 8.6 - 10.3 mg/dL [facility] Anion Gap 15.3(H) 7.0 - 15.0 mEq/L [facility] Globulin 3.0 2.0 - 3.5 g/dL [facility] EGFR 93 >60 ml/min/1. 73m2 [facility] Comment: This eGFR is calculated using 2020 CKD-EPI Creatinine equation without race modifier based on the NKF-ASN task force recommendations Equation: kWQR=897*min(SCr/k,1)a*max(SCr/k,1)-1.200*0.9938Age*1.012 (if female), where SCr is serum creatinine, k is 0.7 for females and 0.9 for males, and a is -0.241 for females and -0.302 for males Blood 11/20/2024 8:58 AM CDT Narrative [facility] - 11/20/2024 9:42 AM CDT Release to patient->Immediate IS THE PATIENT REQUIRED TO BE FASTING FOR 8 HOURS?->No Gayle Thacker APRN, SALON STYLIST CHEMISTRY ORDERABLES Final Result [facility] [place] [address], from Last 3 Months Insurance Care Teams Women Designer Relationship Specialty Start Date End Date Krystal Huerta DO [address] [place] [id number] PCP - General Family Medicine 10/23/22
--- OUTSIDE RECORDS SUMMARY | 2025-02-17 18:15 | XMS_ITS | Encounter Summary ---
Author Organization [facility] Address [address] [place] [address] Care Team Providers Care Displayer Merchandise Name Role Phone Dea Emerson Raymundo DO Unavailable [phone] Krystal Huerta DO Primary Care Provider [phone] Reason for Visit * Reason Onset Date Comments Medication Clarification 12/13/2022 Encounter Details Date Type Department Care Team (Late st Contact Info) Description 12/13/2022 Telephone [facility] BUSINESS INTELLIGENCE DEVELOPER [address] [facility] [address] [place] [address] Subha Doan MD [address] [facility] [address] [place] [address] Medication Clarification Social History Tobacco Use Types Packs/Day Years Used Date Smoking Tobacco: Never Smokeless Tobacco: Never Alcohol Use Standard Drinks/Week Comments No 0 (1 standard drink = 0.6 oz pur e alcohol) AUDIT-C Answer Date Recorded Q1: How often do you have a drink containing alcohol? Never 10/09/2022 Q2: How many drinks containi ng alcohol do you have on a typical day when you are drinking? Patient does not drink Q3: How often do you have si x or more drinks on one occasion? Never 10/09/2022 PHQ-2 Answer Date Recorded PHQ2 TOTAL SCORE 2 08/30/2022 Hunger Vital Sign Answer Date Recorded Within [...] on file Legal Sex Female 9:45 AM ARTS EDUCATION TEACHER Gender Identity Not on file Sexual Orientation [...] Date Author No 08/27/2021 2:27 PM CDT Jesisca Green RN documented in this encounter Miscellaneous Notes * Telephone Encounter - [place] RN - 12/13/2022 12:23 PM CDT RN returned call to [facility] and spoke to Hina Santamaria spoke to pt. Botox will be shipped overnight and delivered to office tomorrow 12/14/22. * Telephone Encounter - Arely Peres - 12/13/2022 12:07 PM CDT [facility] is delivering pt's Botox. They need to verify a few things regarding Rx before sending it out. When calling back, just let agent know pt's name and when calling. documented in this encounter Plan of Treatment Not on file documented as of this encounter Visit Diagnoses Not on filedocumented in this encounter Care Teams Displayer Merchandise Relationship Specialty Start Date End Date Krystal Huerta DO [address] [place] [id number] PCP - General Family Medicine 01/03/23 Dae Emerson DO [address] [phone] Family Medicine 04/22/19 documented as of this encounter
--- OUTSIDE RECORDS SUMMARY | 2025-02-17 18:15 | XMS_ITS | Clinical Summary ---
Author Organization [facility] Office Center Address [address] [place] [address] Care Team Providers Care Heel Burnisher Name Role Phone Krystal Huerta DO Primary Care Provider [phone] Efrem Blair COLUMNIST Unavailable [phone] Allergies Active Allergy Reactions Criticality Noted Date Comments Levofloxacin Headache,Other (See comments) Low 07/[address] (PROTONIX) 40 mg EC tablet Take 1 tablet (40 mg total) by mouth daily 90 tablet 1 09/27/19 19 Active ondansetron (ZOFRAN) 4 mg tablet 02/21/20 20 Active cholecalciferol (VITAMIN D-3) 50,000 unit capsule TAKE 1 CAPSULE BY MOUTH 1 TIME A WEEK 10/06/19 21 Active QUEtiapine (SEROquel) 50 mg tablet Take 100 mg by mouth nightly 10/15/19 21 Active levothyroxine (SYNTHROID) 25 mcg tablet Take 1 tablet (25 mcg total) by mouth daily 01/12/20 21 Active cyclobenzaprine (FLEXERIL) 10 mg tablet Take 10 mg by mouth 3 (three) times a day as needed for muscle spasms Active divalproex ER (DEPAKOTE ER) 500 mg 24 hr tablet Take 2 tablets (1,000 mg total) by mouth daily 60 tablet 5 02/02/20 22 Active Additional Information Patient not taking.Reported on 12/16/2024 aspirin 81 mg enteric coated tablet Take 1 tablet (81 mg total) by mouth daily 10/13/19 23 Active cefdinir (OMNICEF) 300 mg capsule TAKE 1 CAPSULE BY MOUTH EVERY 12 HOURS FOR 10 DAYS 09/02/19 23 Active ciprofloxacin (CIPRO) 500 mg tablet Take 1 tablet (500 mg total) by mouth 2 (two) times a day 07/24/19 23 Active docusate sodium (COLACE) 100 mg capsule Take 1 capsule (100 mg total) by mouth 2 (two) times a day 10/10/[address] (CYMBALTA) 30 mg capsule Take 1 capsule (30 mg total) by mouth daily 05/30/19 23 Active ketorolac (TORADOL) 10 mg tablet Take 1 tablet (10 mg total) by mouth every 8 (eight) hours 10/10/19 23 Active meclizine (ANTIVERT) 25 mg tablet Take 1 tablet (25 mg total) by mouth 3 (three) times a day as needed 10/13/19 23 Active nitrofurantoin (MACRODANTIN) 100 mg capsule Take 1 capsule (100 mg total) by mouth daily Active nitrofurantoin monohydrate (MACROBID) 100 mg capsule Take 1 capsule (100 mg total) by mouth Active phenazopyridine (PYRIDIUM) 200 mg tablet Take 1 tablet (200 mg total) by mouth every 8 (eight) hours as needed 07/13/19 23 Active sulfamethoxazole-tr imethoprim (BACTRIM DS) 800-160 mg per tablet Take 1 tablet by mouth 2 (two) times a day 08/02/19 23 Active tiZANidine (ZANAFLEX) 2 mg tablet Take 1 tablet (2 mg total) by mouth every 8 (eight) hours as needed 02/28/20 22 Active citalopram (CeleXA) 40 mg tablet Take 1 tablet (40 mg total) by mouth daily 10/09/[address] (DEPAKOTE) 500 mg EC tablet 10/19/19 23 Active QUEtiapine (SEROquel) 100 mg tablet Take 1 tablet (100 mg total) by mouth daily 10/09/19 23 Active prochlorperazine (COMPAZINE) 10 mg tablet Take 1 tablet (10 mg total) by mouth 3 (three) times a day as needed for nausea 60 tablet 1 10/19/19 23 Active Additional Information Patient not taking.Reported on 11/28/2022 gabapentin (NEURONTIN) 100 mg capsule 02/12/20 23 Active ibuprofen (ADVIL,MOTRIN) 600 mg tablet Take by mouth every 6 (six) hours as needed 01/04/20 23 Active methocarbamoL (ROBAXIN) 500 mg tablet Take 2 tablets (1,000 mg total) by mouth every 8 (eight) hours 01/04/20 23 Active rimegepant (Nurtec ODT) tablet,disintegrati ng Take 1 tablet (75 mg total) by mouth daily as needed (migraine) 8 tablet 5 05/13/19 24 Active acetaminophen (TYLENOL) 325 mg tablet 03/29/19 24 Active meloxicam (MOBIC) 15 mg tablet Take 1 tablet (15 mg total) by mouth daily 03/25/19 24 Active metFORMIN (GLUCOPHAGE) 500 mg tablet TAKE 1 TABLET BY MOUTH DAILY FOR 1 WEEK. THEN TAKE 1 TABLET BY MOUTH TWICE DAILY FOR WEEKS 2-4 04/02/19 24 Active Rybelsus 3 mg tablet Take 1 tablet (3 mg total) by mouth daily 05/01/19 24 Active semaglutide (Wegovy) 0.25 mg/0.5 mL auto-injector Inject 0.5 mL (0.25 mg total) under the skin once a week 06/04/19 24 Active LORazepam (ATIVAN) 0.5 mg tablet Take 1 tablet (0.5 mg total) by mouth daily as needed 08/13/19 24 Active fenofibrate nanocrystallized (TRICOR) 145 mg tablet Take 1 tablet (145 mg total) by mouth daily 08/15/19 24 Active cetirizine (ZyrTEC) 10 mg tablet Take 1 tablet (10 mg total) by mouth daily 08/13/19 24 Active baclofen (LIORESAL) 5 mg tablet Take 1 tablet (5 mg total) by mouth 2 (two) times a day 08/05/19 24 Active ezetimibe (ZETIA) 10 mg tablet Take 1 tablet (10 mg total) by mouth daily 11/03/19 24 Active gabapentin (NEURONTIN) 300 mg capsule Take 1 capsule (300 mg total) by mouth 3 (three) times a day 08/19/19 24 Active levothyroxine (SYNTHROID) 75 mcg tablet Take 1 tablet (75 mcg total) by mouth 11/11/19 24 Active methylPREDNISolone (MEDROL DOSEPACK) 4 mg Dosepack FOLLOW PACKAGE DIRECTIONS 12/17/19 24 Active naloxone (NARCAN) 4 mg/actuation spray,non-aerosol Administer 1 spray into affected nostril(s) as needed 12/08/19 24 Active lidocaine 2 % solution PLACE 5ML ON COTTONBALL AND PLACE ON TOOTH NEEDED FOR PAIN 12/08/19 24 Active carBAMazepine (TEGretol) 100 mg chewable tabletIndications:I ntractable chronic migraine without aura and without status migrainosus Take 1 tablet (100 mg total) by mouth 2 (two) times a day 180 tablet 12/26/19 24 Active frovatriptan (FROVA) 2.5 mg tabletIndications:M igraine Take 1 tablet (2.5 mg total) by mouth once as needed for migraine May repeat in 2 hours if unresolved. Do not exceed 7.5 mg in 24 hours. 9 tablet 3 04/22/19 25 Active SUMAtriptan succinate 6 mg/0.5 mL syringe Inject 6 mg under the skin 2 (two) times a day as needed (migraine) May use up to 2 times per day, by 2 hours. 3 mL 1 08/11/19 25 Active FLUoxetine (PROzac) 20 mg capsule Take 1 capsule (20 mg total) by mouth daily 12/01/19 25 Active risperiDONE (RisperDAL) 2 mg tablet 12/15/19 25 Active eptinezumab-jjmr (Vyepti) Infuse 3 mL (300 mg total) IV every 3 (three) months 3 mL 3 02/17/20 25 Active eptinezumab-jjmr (Vyepti) Infuse 3 mL (300 mg total) into a venous catheter every 3 (three) months 3 mL 3 02/10/20 24 025 Discontin u([facility]) [facility], or Other Facility Administered Medication Ordered Dose Route Frequency Start Date End Date Status onabotulinumtoxin A (BOTOX) 200 unit injection 200 UnitsIndications:Intractabl e chronic migraine without aura and without status migrainosus 200 Units IM Once 02/08/2025 02/08/2025 Ended Active Problems Problem Noted Date Diagnosed Date Esophageal dysphagia 06/11/2023 Globus sensation 06/11/2023 Musculoskeletal pain 05/31/2023 Pain in joint involving pelvic region and thigh 05/31/2023 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 Chest pain in adult 01/08/2023 Acute intractable headache 10/26/2022 Dizziness and giddiness 10/18/2022 Therapeutic drug monitoring 10/18/2022 History of cholecystectomy 10/12/2022 Positive D-dimer 10/12/2022 Nephrolithiasis 08/23/2021 Urinary retention 08/23/2021 Vitamin D deficiency 02/10/2020 Overview (04/08/2020): 11; started vit d 50,000 weekly History of kidney stones 2020 Overview (04/08/2020): Passed on her own History of opioid abuse 2020 Overview (04/08/2020): Hx of pain med addiction (2015) Migraine 01/27/2020 Interstitial cystitis 10/16/2018 Pancreatitis 09/25/2018 Assessment & Plan (09/25/2018 10:52 AM CDT): resolved Acute pain of right shoulder due to trauma 06/20 Assessment & Plan (06/20/2018 11:24 AM CDT): CT unable to do mri Fatigue 06/20/2018 Assessment & Plan (06/20/2018 11:25 AM CDT): Sleep study Bipolar disorder 07/24/2017 Assessment & Plan (09/25/2018 10:53 AM CDT): Patient is well controlled. Continue current treatment. Dyslipidemia 07/24/2017 GERD (gastroesophageal reflux disease) 8 HTN (hypertension) 07/24/2017 Assessment & Plan (09/25/2018 10:53 AM CDT): Patient is well controlled. Continue current treatment. Assessment & Plan (06/20/2018 11:23 AM CDT): Patient is well controlled. Continue current treatment. Hypothyroidism 07/24/2017 Abnormal CBC 05/02/2016 Encounters Date Type Department Care Team Description 02/08/2025 2:00 PM HADOOP INFRASTRUCTURE ARCHITECT Procedure visit [facility] [address] [place] [address] [address] [place] [address] Shaista Hathaway NP Intractable chronic migraine without aura and without status migrainosus 12/16/2024 2:00 PM CDT Office Visit [facility] [address] [place] [address] [address] [place] [address] Shaista Hathaway NP Intractable chronic migraine without aura and without status migrainosus (Primary Dx); Dizziness and giddiness from Last 3 Months Immunizations Immunization Administration Dates Next Due DTaP, Unspecified 02/17/2020 Influenza, Quadrivalent, Spl it, Preservative Free, Intramuscular 12/18/2019,01/16/2019,12/10/2018 Influenza, Trivalent, IM (MDV) 11/15/2012 Influenza, Trivalent, Preser vative Free, Intramuscular 12/22/2016,12/17/2015 Influenza, Unspecified 12/18/2019,02/15/2018 MMR 09/09/1991 Surgical History Surgery Date Site/Laterality Comments APPENDECTOMY CHOLECYSTECTOMY BACK SURGERY nerve stimulator TUBAL LIGATION SHOULDER SURGERY Right HYSTERECTOMY FL FLUORO GUIDED LUMBAR PUNCTURE 06/30/2013 Right KNEE ARTHROSCOPY W/ LATERAL RELEASE Medical History Medical History Date Comments Hypertension GERD (gastroesophageal reflux disease) Hypothyroidism Dyslipidemia Bipolar disorder Fatigue Migraine Anxiety Depression Dysmenorrhea Substance abuse (HCC) Kidney stone Menstrual problem Family History Medical History Relation Name Comments Diabetes Brother 1 Richi Gain Jr Hypertension Brother 1 Richi Gain Jr Obesity Brother 1 Richi Gain Jr Stroke Brother 1 Richi Gain Jr Obesity Brother 2 Col[place] Gain Heart attack Father Richi Gain Heart disease Father Richi Gain Hypertension Father Richi Gain Obesity Father Richi Gain Cancer Mother Deirdre Gain Hypertension Mother Deirdre Gain Miscarriages / Stillbirths Mother Deirdre Gain Relation Name Status Comments Brother 1 Richi Gain Jr Brother 2 [place]ain Father Richi Gain Mother Deirdre Gain Social History Tobacco Use Types Packs/Day Years Used Date Smoking Tobacco: Never Cigarettes Smokeless Tobacco: Never Tobacco Cessation:Counseling Given: Not Answered Alcohol Use Standard Drinks/Week Comments Never 0 (1 standard drink = 0.6 oz pur e alcohol) AUDIT-C Answer Date Recorded Q1: How often do you have a drink containing alc ohol? Never 12/25/2023 Average Number of Drinks Not on file 024 Q3: How often do you have si x or more drinks on one occasion? Never 12/25/2023 PHQ-2 Answer Date Recorded PHQ-2 Score 0 10/24/2018 Comments No Sex and Gender Information Value Date Recorded Sex Assigned at Not on file Legal Sex Female 1:05 AM HADOOP INFRASTRUCTURE ARCHITECT Gender Identity Not on file Sexual Orientation Not on file Last Filed Vital Signs Vital Sign Reading Time Taken Comments Blood Pressure 114/68 12/16/2024 2:03 PM CDT Pulse 68 12/16/2024 2:03 PM CDT Temperature 36.5 C (97.7 F) 05/01/2022 3:45 PM HADOOP INFRASTRUCTURE ARCHITECT Respiratory Rate 20 05/01/2022 3:45 PM HADOOP INFRASTRUCTURE ARCHITECT Oxygen Saturation 100% 12/16/2024 2:03 PM CDT Inhaled Oxygen Concentration - - Weight 86.2 kg (190 lb) 02/08/2025 1:59 PM HADOOP INFRASTRUCTURE ARCHITECT Height 157.5 cm (5' 2) 02/08/2025 1:59 PM HADOOP INFRASTRUCTURE ARCHITECT Body Mass Index 34.75 02/08/2025 1:59 PM HADOOP INFRASTRUCTURE ARCHITECT Plan of Treatment Health Maintenance Due Date Last Done Comments Varicella Vaccines (1 of 2 - 13+ 2-dose series) 1994 Regular Well Visit/Exam 18-64 1999 HPV Vaccines (1 - 3-dose SCDM series) 02/05/2008 Depression Screening 06/21/2019 06/20/2018 Breast Cancer Screening-Mammogram 09/10/2025 09/10/2024, 09/10/2024, 09/09/2023, Additional history exists DTaP/Tdap/Td Vaccine (2 - Tdap) 02/16/2030 02/17/2020 Hepatitis B Screening Completed 05/28/2018 Hepatitis C Screening Completed 05/28/2018 Influenza Vaccine Completed 12/23/2024, , 12/04/2022, Additional history exists Pneumococcal vaccine <65 Aged Out No longer eligible based on patient's age to complete this topic Procedures Procedure Name Priority Date/Time Associated Diagnosis Comments BOTOX INJECTION Routine 02/08/2025 2:00 PM HADOOP INFRASTRUCTURE ARCHITECT Intractable chronic migraine without aura and without status migrainosus HEPATITIS PANEL, ACUTE Routine 05/28/2018 6:51 AM CDT from Last 3 Months or Most Recently Relevant to Health Maintenance Results * Botox Injection (02/08/2025 2:00 PM HADOOP INFRASTRUCTURE ARCHITECT) Narrative [place] - 02/08/2025 2:00 PM HADOOP INFRASTRUCTURE ARCHITECT [place] 02/10/2025 12:43 PM Botox Injection Performed by: Shaista Hathaway NP Authorized by: Shaista Hathaway NP [place] Protocol: Consent Given by: Patient Timeout: prior to procedure the correct patient, procedure, and site was verified Procedure Details - Botox Injection: Procedure Details: See Botox flow sheet for details on injection sites and amounts. This can be found in Media and labeled BLVLE [email or web address].[email or web address].PROCEDURE NOTES. INJECTED: 200 WASTED: 0 Procedure Note [place] - 02/08/2025 2:00 PM CST Botox Injection Performed by: Shaista Hathaway NP Authorized by: Shaista Hathaway NP [place] Protocol: Consent Given by: Patient Timeout: prior to procedure the correct patient, procedure, and site wasverified Procedure Details - Botox Injection: Procedure Details: See Botox flow sheet for details on injection sitesand amounts. This can be found in Media and labeled [email or web address].PROCEDURE NOTES. INJECTED: 200 WASTED: 0 Shaista Hathaway NP IN CLINIC/BEDSIDE ORDERABLES Final Result * Hepatitis panel, acute (05/28/2018 6:51 AM CDT) HepBsAg NONREACT NONREACTIVE Comment: Siemens [employer]XP using POWER (chemiluminescent immunoassay) technology. NONREACTIVE: IgM antibodies to Hepatitis B Surface antigen not detected. REACTIVE: IgM antibodies to Hepatitis B Surface antigen detected. Reactive results will be confirmed by neutralization testing. HBsAb qn 4.10 mIU/mL Comment: Siemens CentaurXP using POWER (chemiluminescent immunoassay) technology. 9.99 IU/L or less.....NONREACTIVE: IgM antibodies to Hepatitis B Surface antibody are not detected. 10.00 IU/L or greater..REACTIVE: IgM antibodies to Hepatitis B Surface antibody are detected. Hep B core IgM NONREACT NONREACTIVE 9 3:01 PM CDT [facility] HISTORICAL RESULTS Comment: Siemens CentaurXP using POWER (chemiluminescent immunoassay) technology. NONREACTIVE: IgM antibodies to Hepatitis B Core antigen not detected. EQUIVOCAL: IgM antibodies to Hepatitis B Core antigen may or may not be present. Obtain a new specimen and retest. REACTIVE: IgM antibodies to Hepatitis B Core antigen detected. Hep A IgM NONREACT NONREACTIVE Comment: Siemens CentaurXP using POWER (chemiluminescent immunoassay) technology. NONREACTIVE: IgM antibodies to Hepatitis A not detected. This does not exclude possibility of exposure to Hepatitis A or early acute infection. EQUIVOCAL:IgM antibodies to Hepatitis A may or may not be present. Suggest recollection and retest. REACTIVE: Antibodies to Hepatitis A detected. Hep C Ab NONREACT NONREACTIVE Comment: Siemens CentaurXP using POWER (chemiluminescent immunoassay) technology. NONREACTIVE: Antibodies to Hepatitis C not detected. This does not exclude early acute Hepatitis C infection, possibility of exposure to Hepatitis C, antibodies below detection limit, or to lack of antibody reactivity to the antigen used in this assay. EQUIVOCAL: Antibodies to Hepatitis C may or may not be present. Sample to be confirmed by real-time PCR method. REACTIVE: Antibodies to Hepatitis C detected.Sample to be confirmed by real-time PCR method. 05/28/2018 6:51 AM CDT 05/28/2018 7:05 AM CDT Dae Emerson DO LAB MICROBIOLOGY - GENER AL ORDERABLES Final Result [facility] HISTORICAL RESULTS from Last 3 Months or Most Recently Relevant to Health Maintenance Insurance [place] Care Teams Heel Burnisher Relationship Specialty Start Date End Date Krystal Huerta DO [facility] [place] [address] PCP - General Family Medicine 02/11/24 Efrem Blair NP [address] [place] [address] Nurse Practitioner Nurse Practitioner 12/16/24
--- OUTSIDE RECORDS SUMMARY | 2025-02-17 18:15 | XMS_ITS | Encounter Summary ---
Author Organization [facility] Address [address] [place] [address] Care Team Providers Care Slasher Tender Helper Name Role Phone Dae Emerson DO Primary Care Provider + Dae Emerson DO Primary Care Provider + Dae Emerson DO Unavailable [phone] Dae Berrios DO Primary Care Provider [phone] Krystal Huerta DO Primary Care Provider [phone] Reason for Visit * Reason Onset Date Comments General 03/12/2018 interstim proble ms Encounter Details Date Type Department Care Team (Late st Contact Info) Description 03/12/2018 Telephone [facility] [address] [place], [place] [id number] Juan Daniel Mera MD [address] [address] General (interstim problems) Social History Tobacco Use Types Packs/Day Years Used Date Smoking Tobacco: Never Smokeless Tobacco: Never Alcohol Use Standard Drinks/Week Comments No 0 (1 standard drink = 0.6 oz pur e alcohol) Comments No Sex and Gender Information Value Date Recorded Sex Assigned at Not on file Legal Sex Female 9:45 AM ASSISTANT SUPERINTENDENT FOR CURRICULUM Gender Identity Not on file Sexual Orientation Not on file documented as of this encounter Functional Status * Is person deaf or have serious hearing difficulty? Answer Date of Assessment Author No 02/23/2016 7:00 AM Sernea Redd RN * Is person blind or have serious difficulty seeing? Answer Date of Assessment Author No 02/23/2016 7:00 AM Serena Redd RN * Does person have serious difficulty walking/climbing stairs? Answer Date of Assessment Author No 02/23/2016 7:00 AM Serena Redd RN * Does person have difficulty dressing/bathing? Answer Date of Assessment Author No 02/23/2016 7:00 AM eSrena Redd RN * Does person have difficulty doing errands alone? Answer Date of Assessment Author No 02/23/2016 7:00 AM Serena Redd RN documented as of this encounter Mental Status * Does person have difficulty concentrating/remembering/making decisions? Answer Entry Date Author No 02/23/2016 7:00 AM Serena Redd RN documented in this encounter Miscellaneous Notes * Telephone Encounter - Angelina Duran RN - 03/15/2018 1:25 PM ASSISTANT SUPERINTENDENT FOR CURRICULUM MY Chart message to patient, sent 03/15/18: Rosa Maria Decker! Our office closed early yesterday (crazy snow!) but I wanted to let you know I did hear from Dr Mera He said an office visit with him at the [place] location ([address] [place] [address] [address], where the interstim equipment is located) would be best and he would like the [employer] rep to be there as well So we will be in touch with an appointment date and time for you when we know we can get the [employer] Rep there Thank you! STANT SUPERINTENDENT FOR CURRICULUM * Telephone Encounter - Angelina Duran RN - 03/12/2018 3:01 PM ASSISTANT SUPERINTENDENT FOR [employer]UM Patient has been experiencing changes with the interstim Might have settings she can feel ie,5.2 But when ups it 5.5 does not feel anything Then at 5.6 really feels it Will discuss with Dr Samaria oconnell. May be that patient is to be seen in office when [employer] Rep here to assess interstim unit STANT SUPERINTENDENT FOR CURRICULUM * Telephone Encounter - Padmaja Petres - 03/12/2018 2:57 PM CST Patient stated she is having with her Interstim turning off and on. STANT SUPERINTENDENT FOR [employer]UM documented in this encounter Plan of Treatment Not on file documented as of this encounter Visit Diagnoses Not on filedocumented in this encounter Care Teams Slasher Tender Helper Relationship Specialty Start Date End Date Dae Emerson DO [address] [place] [address] PCP - General Family Medicine 02/11/13 04/21/19 Dae Emerson DO [address] [place] [address] PCP - General 04/22/19 06/01/21 Dae Berrios DO [facility] [place] [address] PCP - General Family Medicine 06/02/21 06/02/21 Krystal Huerta DO [address] [place] [id number] PCP - General Family Medicine 01/03/23 Dae Emerson DO [address] [place] [address] Family Medicine 04/22/19 documented as of this encounter
[2025-02-17 18:21] LABS: Thyroid Stimulating Hormone Reflex 4.920 uIU/mL (0.465-4.68)
--- NOTE | 2025-02-17 18:29 | PC.NURSE ---
pt still unable to provide a urine sample at this time
--- NOTE | 2025-02-17 18:40 | PC.NURSE ---
pt said she could not provide a urine sample. this RN advised the pt that we would have to straight cath her. pt agreed. straight cath performed by this RN
[2025-02-17 18:47] LABS: Free T4 Free Thyroxine Reflex 0.85 ng/dL (0.78-2.19)
--- OUTSIDE RECORDS SUMMARY | 2025-02-17 18:50 | XMS_ITS | Encounter Summary ---
Author Organization [facility] Address [address] [place] [address] Care Team Providers Care Flavoring Machine Operator Name Role Phone Dae Brennan DO Primary Care Provider [phone] Darian Molina MD Primary Care Provider [phone] Kamila Craft [facility] Primary Care Provider [phone] Ashley Villegas MD Unavailable [phone] Donny Mcdonough MD Unavailable [phone] Misha Padilla DO Unavailable [phone] Juan Daniel Mera MD Unavailable Unava ilable Randall Schrader MD Unavailable Unavailable Shaista Hathaway NP Unavailable [phone] Shaista Hathaway NP Unavailable + [phone] Dae Berrios DO Primary Care Provider [phone] Elda Martin MD Unavailable Dae Berrios DO Primary Care Provider [phone] Krystal Huerta DO Primary Care Provider + [phone] Encounter Details Date Type Department Care Team (Late st Contact Info) Description 09/15/2018 Hospital Follow-up Call [facility] [place] [address] Sonja Soria Social History Tobacco Use Types Packs/Day Years Used Date Smoking Tobacco: Never Smokeless Tobacco: Never Alcohol Use Standard Drinks/Week Comments No 0 (1 standard drink = 0.6 oz pur e alcohol) AUDIT-C Answer Date Recorded Frequency of Alcohol Consumption Never 09/04/2018 Average Number of Drinks Not on file 019 Frequency of Binge Drinking Not on file 06/2018 Comments No Sex and Gender Information Value Date Recorded Sex Assigned at Female 04/27/2024 1:02 PM RECEIPT AND REPORT CLERK Legal Sex Female 10:46 PM CDT Gender Identity Female 05/07/2024 1:56 PM RECEIPT AND REPORT CLERK Sexual Orientation Not on file documented as of this encounter Functional Status * RETIRED Are you deaf or do you have serious difficulty hearing Answer Date of Assessment Author Status No 09/10/2018 8:06 AM CDT Activ e * RETIRED Are you blind or do you have serious difficulty seeing, even when wearing glasses? Answer Date of Assessment Author Status No 09/10/2018 8:06 AM CDT Activ e * Do you have serious difficulty walking or climbing stairs? Answer Date of Assessment Author Status No 09/10/2018 8:06 AM Jie Wagner RN Active * Do you have difficulty dressing or bathing? Answer Date of Assessment Author Status No 09/10/2018 8:06 AM Jie Wagner RN Active * Because of a physical, mental, or emotional condition, do you have difficulty doing errands alone such as visiting a doctor's office or shopping? Answer Date of Assessment Author Status No 09/10/2018 8:06 AM Jie Wagner RN Active documented as of this encounter Mental Status * Because of a physical, mental, or emotional condition, do you have serious difficulty concentrating, remembering, or making decisions? Answer Entry Date Author Status No 09/10/2018 8:06 AM Jie Wagner RN Active documented in this encounter Plan of Treatment Not on file documented as of this encounter Visit Diagnoses Not on filedocumented in this encounter Additional Health Concerns Infection Onset Date Last Indicated Resolved Time COVID-19 Rule Out 01/15/2020 01/15/2020 01/16/2020 10:25 PM RECEIPT AND REPORT CLERK documented as of this encounter Care Teams Flavoring Machine Operator Relationship Specialty Start Date End Date Dae Brennan DO PCP - General 11/22/15 10/14/18 Darian Molina MD PCP - General FAMILY PRACTICE 10/15/18 01/25/20 Kamila Craft [facility] PCP - General NURSE PRACTITIONER 01/26/20 07/17/20 Dae Berrios DO [address] [place] [address], [address] [place] [address] PCP - General FAMILY PRACTICE 07/18/20 08/30/20 Dae Berrios DO [address] [place] [address], [address] [place], [place] [id number] PCP - General FAMILY PRACTICE 08/31/20 02/20/22 Krystal Huerta DO [facility] [place] [address] PCP - General FAMILY PRACTICE 02/21/22 Ashley Villegas MD [facility] [place], [place] [id number] OBGYN 02/04/20 Donny Mcdonough MD [address] [facility] [address] [place], [place] [address] GASTROENTEROLOGY 02/04/20 Misha Padilla DO [address] [address] Psychiatry 02/04/20 08/30/20 Juan Daniel Mera MD [address] [facility] [address] [place] [address] OBGYN 02/04/20 Randall Schrader MD [address] [address] Consulting Physician ORTHOPAEDIC SURGERY 02/04/20 Shaista Hathaway NP [address] [place] [address], [address] [place] [address] NURSE PRACTITIONER GERONTOLOGY 02/04/20 Shaista Hathaway NP [address] [place] [address], [address] [place] [address] NURSE PRACTITIONER GERONTOLOGY 04/29/20 Elda Martin MD [address] [facility] [address] [address] Psychiatry 08/31/20 documented as of this encounter
--- OUTSIDE RECORDS SUMMARY | 2025-02-17 18:50 | XMS_ITS | Encounter Summary ---
Author Organization [facility] Address [address] [place] [address] Care Team Providers Care Director Channel Name Role Phone Ashley Villegas MD Unavailable [phone] Donny Mcdonough MD Unavailable [phone] Juan Daniel Mera MD Unavailable Unava ilable Randall Schrader MD Unavailable Unavailable Shaista Hathaway PROGRAMMING MANAGER Unavailable [phone] Shaista Hathaway PROGRAMMING MANAGER Unavailable [phone] Elda Martin MD Unavailable Krystal Huerta DO Primary Care Provider [phone] Encounter Details Date Type Department Care Team (Late st Contact Info) Description 12/03/2023 MyChart Message Enc [facility] Family Medicine - [place] [address] [facility], [address] [place] [address] Krystal Huerta DO [address] [place] [address] Choking feeling Social History Tobacco Use Types Packs/Day Years Used Date Smoking Tobacco: Never Passive Smoke Exposure: Never Smokeless Tobacco: Never Comments:DO Discretion Alcohol Use Standard Drinks/Week Comments [...] Date Recorded Patient Health Questionnaire-2 Score 0 10/31/2023 Hunger Vital Sign Answer Date Recorded Within [...] place to sleep or slept in a mcc (including now)? 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 Answer Date of Assessment Author Status No 01/08/2023 2:21 PM Raymundo Heck RN Active * Do you have serious [...] Heck RN Active documented in this encounter Plan of Treatment Not on file documented as of this encounter Goals Goal Patient Goal Type Associated Problems Recent Progress Patient-Stated? Author Health - patient able to perform ADLs independently Lifestyle No Garcia Borges RN documented as of this encounter Visit Diagnoses Not on filedocumented in this encounter Additional Health Concerns Assessment Noted Time PHQ-9 Depression Total Score: 0 10/07/19 2:49 PM CDT documented as of this encounter Care Teams Director Channel Relationship Specialty Start Date End Date Krystal Huerta DO [address] [place] [address] PCP - General FAMILY PRACTICE 02/21/22 Ashley Villegas MD [facility] [place] [address] OBGYN 02/04/20 Donny Mcdonough MD [address] [facility] [address] [place] [address] GASTROENTEROLOGY 02/04/20 Juan Daniel Mera MD [address] [facility] [address] [place] [address] OBGYN 02/04/20 Randall Schrader MD [address] [facility] [address] [place] [address] Consulting Physician ORTHOPAEDIC SURGERY 02/04/20 Shaista Hathaway NP [address] [place] [address], [address] [place] [address] NURSE PRACTITIONER GERONTOLOGY 02/04/20 Shaista Hathaway NP [address] [place] [address], [address] [place] [address] NURSE PRACTITIONER GERONTOLOGY 04/29/20 Elda Martin MD [address] [facility] [address] [address] Psychiatry 08/31/20 documented as of this encounter
--- OUTSIDE RECORDS SUMMARY | 2025-02-17 18:50 | XMS_ITS | Encounter Summary ---
Author Organization [facility] Address [address] [place] [address] Care Team Providers Care Parcel Post Order Clerk Name Role Phone Ashley Villegas MD Unavailable [phone] Donny Mcdonough MD Unavailable [phone] Juan Daniel Mera MD Unavailable Unava ilable Randall Schrader MD Unavailable Unavailable Shaista Hathaway NETWORK ENGINEER Unavailable [phone] Shaista Hathaway NETWORK ENGINEER Unavailable [phone] Elda Martin MD Unavailable Krystal Huerta DO Primary Care Provider [phone] Encounter Details Date Type Department Care Team (Latest Contact Info) Description 05/05/2024 [email or web address] Message Enc [facility] Multispecialty Care - [facility] [address] [facility], [address] [place] [id number] Macey Flores NP [address] [facility] [address] [place] [address] Pain/Appointment Social History Tobacco Use Types Packs/Day Years [...] Date Recorded Patient Health Questionnaire-2 Score 0 05/07/2024 Hunger Vital Sign Answer Date Recorded Within [...] place to sleep or slept in a penitentiary (including now)? 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 Question Answer Date of Assessment Author Status Little interest or pleasure in doing things Not at all 05/07/2024 1:55 PM Raquel Mccauley MA Active Feeling down, depressed, or hopeless Not at all 05/07/2024 1:55 PM Sarah Mccauley MA Active Patient Health Questionnaire-2 Score 0 05/07/2024 1:55 PM Emmanuelle Mccauley MA Active documented as of this encounter Mental [...] Noted Time PHQ-9 Depression Total Score: 0 12/09/19 24 10:54 AM CDT documented as of this encounter Care Teams Parcel Post Order Clerk Relationship Specialty Start Date End Date Krystal Huerta DO [address] [place] [address] PCP - General FAMILY PRACTICE 02/21/22 Ashley Villegas MD [address] [place] [address] OBGYN 02/04/20 Donny Mcdonough MD [address] [place] [address] GASTROENTEROLOGY 02/04/20 Juan Daniel Mera MD [address] [place] [address] [address] [place] [address] OBGYN 02/04/20 Randall Schrader MD [address] [place] [address] Consulting Physician ORTHOPAEDIC SURGERY 02/04/20 Shaista Hathaway NP [address] [place] [address], [address] [address] NURSE PRACTITIONER GERONTOLOGY 02/04/20 Shaista Hathaway NETWORK ENGINEER [address] [place] [address], [facility] [address] [place] [address] NURSE PRACTITIONER GERONTOLOGY 04/29/20 Elda Martin MD [address] [facility] [address] [address] Psychiatry 08/31/20 documented as of this encounter
--- OUTSIDE RECORDS SUMMARY | 2025-02-17 18:50 | XMS_ITS | Encounter Summary ---
Author Organization [facility] Address [address] [place] [address] Care Team Providers Care Banquet Cook Name Role Phone Ashley Villegas MD Unavailable [phone] Donny Mcdonough MD Unavailable [phone] Juan Daniel Mera MD Unavailable Unava ilable Randall Schrader MD Unavailable Unavailable Shaista Hathaway SOFT SUGAR OPERATOR HEAD Unavailable [phone] Shaista Hathaway SOFT SUGAR OPERATOR HEAD Unavailable [phone] Elda Martin MD Unavailable Krystal Huerta DO Primary Care Provider [phone] Encounter Details Date Type Department Care Team (Late st Contact Info) Description 05/07/2024 MyChart Message Enc [facility] Multispecialty Care - [facility] [address] [facility] [place] [id number] Macey Flores NP [address] [facility] [address] [place] [address] Sorry Social History Tobacco Use Types Packs/Day Years [...] place to sleep or slept in a prison (including now)? 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 Not on file Not [...] documented as of this encounter Care Teams Banquet Cook Relationship Specialty Start Date End Date Krystal Huerta DO [address] [place] [address] PCP - General FAMILY PRACTICE 02/21/22 Ashley Villegas MD [address] [place] [address] OBGYN 02/04/20 Donny Mcdonough MD [address] [place] [address] GASTROENTEROLOGY 02/04/20 Juan Daniel Mera MD [address] [place] [address] [address] [place] [address] OBGYN 02/04/20 Randall Schrader MD [address] [place] [address] Consulting Physician ORTHOPAEDIC SURGERY 02/04/20 Shaista Hathaway NP [address] [place] [address], [address] [address] NURSE PRACTITIONER GERONTOLOGY 02/04/20 Shaista Hathwaay SOFT SUGAR OPERATOR HEAD [address] [place] [address], [facility] [address] [place] [address] NURSE PRACTITIONER GERONTOLOGY 04/29/20 Elda Martin MD [address] [facility] [address] [address] Psychiatry 08/31/20 documented as of this encounter
--- OUTSIDE RECORDS SUMMARY | 2025-02-17 18:50 | XMS_ITS | Encounter Summary ---
Author Organization [facility] Address [address] [place] [address] Care Team Providers Care Chemical Processing Equipment Repairer Name Role Phone Ashley Villegas MD Unavailable [phone] Donny Mcdonough MD Unavailable [phone] Juan Daniel Mera MD Unavailable Unava ilable Randall Schrader MD Unavailable Unavailable Shaista Hathaway STRATEGIC PLANNING DIRECTOR Unavailable [phone] Shaista Hathaway STRATEGIC PLANNING DIRECTOR Unavailable [phone] Elda Martin MD Unavailable Krystal Huerta DO Primary Care Provider Encounter Details Date Type Department Care Team (Late st Contact Info) Description 04/27/2024 MyChart Message Enc [facility] Family Medicine - [address], [address] [place] [address] Krystal Huerta DO [address] [place] [address] Left upper abdominal pain Social History Tobacco Use Types Packs/Day Years [...] Date Recorded Patient Health Questionnaire-2 Score 0 12/09/2023 Hunger Vital Sign Answer Date Recorded Within [...] place to sleep or slept in a custodial (including now)? 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 on file [...] documented as of this encounter Care Teams Chemical Processing Equipment Repairer Relationship Specialty Start Date End Date Krystal Huerta DO [address] [place] [address] PCP - General FAMILY PRACTICE 02/21/22 Ashley Villegas MD [address] [place] [address] OBGYN 02/04/20 Donny Mcdonough MD [address] [facility] [address] [place] [address] GASTROENTEROLOGY 02/04/20 Juan Daniel Mera MD [address] [facility] [address] [place] [address] OBGYN 02/04/20 Randall Schrader MD [address] [facility] [address] [place] [address] Consulting Physician ORTHOPAEDIC SURGERY 02/04/20 Shaista Hathaway NP [address] [place] [address], [address] [place] [address] NURSE PRACTITIONER GERONTOLOGY 02/04/20 Shaista Hathaway NP [address] [place] [address], [address] [place] [address] NURSE PRACTITIONER GERONTOLOGY 04/29/20 Elda Martin MD [address] [address] Psychiatry 08/31/20 documented as of this encounter
--- OUTSIDE RECORDS SUMMARY | 2025-02-17 18:50 | XMS_ITS | Encounter Summary ---
Author Organization [facility] Address [address] [place] [address] Care Team Providers Care Air Conditioning Equipment Mechanic Name Role Phone Ashley Villegas MD Unavailable [phone] Donny Mcdonough MD Unavailable [phone] Juan Daniel Mera MD Unavailable Unava ilable Randall Schrader MD Unavailable Unavailable Shaista Hathaway SHIRRING MACHINE OPERATOR Unavailable [phone] Shaista Hathaway SHIRRING MACHINE OPERATOR Unavailable [phone] Elda Martin MD Unavailable Krystal Huerta DO Primary Care Provider [phone] Encounter Details Date Type Department Care Team (Late st Contact Info) Description 09/15/2023 MyChart Message [facility] Family Medicine - [place] [address] [place] [address] [place] [address] [address] [address] Weight loss medicine Social History Tobacco Use Types Packs/Day Years [...] Date Recorded Patient Health Questionnaire-2 Score 0 06/11/2023 Hunger Vital Sign Answer Date Recorded Within [...] place to sleep or slept in a jail (including now)? 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 Not on file Not [...] Assessment Noted Time PHQ-9 Depression Total Score: 12 024 2:38 PM BUSINESS DEVELOPMENT REPRESENTATIVE documented as of this encounter Care Teams Air Conditioning Equipment Mechanic Relationship Specialty Start Date End Date Krystal Huerta DO [address] [place] [address] PCP - General FAMILY PRACTICE 02/21/22 Ashley Villegas MD [address] [place] [address] OBGYN 02/04/20 Donny Mcdonough MD [address] [facility] [address] [place] [address] GASTROENTEROLOGY 02/04/20 Juan Daniel Mera MD [address] [facility] [address] [place] [address] OBGYN 02/04/20 Randall Schrader MD [address] [facility] [address] [place] [address] Consulting Physician ORTHOPAEDIC SURGERY 02/04/20 Shaista Hathaway NP [address] [place] [address], [address] [place] [address] NURSE PRACTITIONER GERONTOLOGY 02/04/20 Shaista Hathaway NP [address] [place] [address], [address] [place] [address] NURSE PRACTITIONER GERONTOLOGY 04/29/20 Elda Martin MD [address] [facility] [address] [address] Psychiatry 08/31/20 documented as of this encounter
--- OUTSIDE RECORDS SUMMARY | 2025-02-17 18:51 | XMS_ITS | Encounter Summary ---
Author Organization [facility] Address [address] [place] [address] Care Team Providers Care City Driver Name Role Phone Ashley Villegas MD Unavailable [phone] Donny Mcdonough MD Unavailable Juan Daniel Mera MD Unavailable Unava ilable Randall Schrader MD Unavailable Unavailable Shaista Hathaway BLOCK STACKER Unavailable [phone] Shaista Hathaway BLOCK STACKER Unavailable [phone] Elda Martin MD Unavailable Krystal Huerta DO Primary Care Provider [phone] Encounter Details Date Type Department Care Team (Late st Contact Info) Description 12/08/2024 MyChart Message Enc [facility] Family Medicine - [place] [address] [facility], [address] [place] [address] Krystal Huerta DO [address] [place] [address] Weight loss medication Social History Tobacco Use Types Packs/Day Years [...] place to sleep or slept in a [facility] (including now)? 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 on file [...] documented as of this encounter Care Teams City Driver Relationship Specialty Start [place] [address] [place] [address] PCP - General FAMILY PRACTICE 02/21/22 Ashley Villegas MD [facility] [place] [address] OBGYN 02/04/20 Donny Mcdonough MD [address] [facility] [address] [place] [address] GASTROENTEROLOGY 02/04/20 Juan Daniel Mera MD [address] [facility] [address] [place] [address] OBGYN 02/04/20 Randall Schrader MD [address] [facility] [address] [place] [address] Consulting Physician ORTHOPAEDIC SURGERY 02/04/20 Shaista Hathaway NP [address] [place] [address], [address] [place] [address] NURSE PRACTITIONER GERONTOLOGY 02/04/20 Shaista Hathaway NP [address] [place] [address], [address] [place] [address] NURSE PRACTITIONER GERONTOLOGY 04/29/20 Elda Martin MD [address] [facility] [address] [address] Psychiatry 08/31/20 documented as of this encounter
--- OUTSIDE RECORDS SUMMARY | 2025-02-17 18:51 | XMS_ITS | Encounter Summary ---
Author Organization [facility] Address [address] [place] [address] Care Team Providers Care Assistant Education Director Name Role Phone Ashley Villegas MD Unavailable [phone] Donny Mcdonough MD Unavailable Juan Daniel Mera MD Unavailable Unava ilable Randall Schrader MD Unavailable Unavailable Shaista Hathaway TOOL SETTER Unavailable [phone] Shaista Hathaway TOOL SETTER Unavailable [phone] Elda Martin MD Unavailable Krystal Huerta DO Primary Care Provider [phone] Encounter Details Date Type Department Care Team (Late st Contact Info) Description 08/22/2022 CrowdSling Message Enc [facility] [address] [place] [address] Aleksey Lara MD Three [facility] [address] [place] [address] Heart fluttering Social History Tobacco Use Types Packs/Day Years Used Date Smoking Tobacco: Never Passive Smoke Exposure: Never Smokeless Tobacco: Never Comments:DO Discretion Alcohol Use Standard Drinks/Week Comments Never 0 (1 standard drink = 0.6 oz pur e alcohol) AUDIT-C Answer Date Recorded Frequency of Alcohol Consumption Never 09/04/2018 Average Number of Drinks Not on file 019 Frequency of Binge Drinking Not on file 06/2018 PHQ-2 Answer Date Recorded Patient Health Questionnaire-2 Score 0 03/21/2022 Comments No Sex and Gender Information Value Date Recorded Sex Assigned at Female 04/27/2024 1:02 PM SERVER SECURITY ADMINISTRATOR Legal Sex Female 10:46 PM CDT Gender Identity Female 05/07/2024 1:56 PM SERVER SECURITY ADMINISTRATOR Sexual Orientation Not on file 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 No / Unsure 07/23/2022 7:09 AM CDT documented as of this encounter Functional Status [...] Author Status No 09/10/2018 8:06 AM CDT Jie Saxena RN Active * Do you have difficulty dressing or bathing? Answer Date of Assessment Author Status No 09/10/2018 8:06 AM CDT Jie Saxena RN Active * Because of a physical, mental, or emotional condition, do you have difficulty doing errands alone such as visiting a doctor's office or shopping? Answer Date of Assessment Author Status No 09/10/2018 8:06 AM CDT Jie Saxena RN Active documented as of this encounter Mental Status * Because of a physical, mental, or emotional condition, do you have serious difficulty concentrating, remembering, or making decisions? Answer Entry Date Author Status No 09/10/2018 8:06 AM Jie Wagner RN Active documented in this encounter Progress Notes * Ratna Cano RN - 08/31/2022 11:01 AM CDT . * Ratna Cano RN - 08/22/2022 12:51 PM CDT This pt will be in im hoping 3:00 for EKG. Will also need 48 hour monitor please. * Ratna Cano RN - 08/22/2022 9:40 AM CDT . documented in this encounter Plan of Treatment Not on file documented as of this encounter Visit Diagnoses Not on filedocumented in this encounter Additional Health Concerns Assessment Noted Time PHQ-9 Depression Total Score: 23 022 1:17 PM SERVER SECURITY ADMINISTRATOR documented as of this encounter Care Teams Assistant Education Director Relationship Specialty Start Date End Date Krystal Huerta DO [address] [place] [address] PCP - General FAMILY PRACTICE 02/21/22 Ashley Villegas MD [address] [place] [address] OBGYN 02/04/20 Donny Mcdonough MD [address] [place] [address] 536780 GASTROENTEROLOGY 02/04/20 Juan Daniel Mera MD [address] [place] [address] [address] [place] [address] OBGYN 02/04/20 Randall Schrader MD [address] [facility] [address] [place] [address] Consulting Physician ORTHOPAEDIC SURGERY 02/04/20 DunShaista malin NP [address] [place] [address], [address] [place] [address] NURSE PRACTITIONER GERONTOLOGY 02/04/20 Shaista Hathaway NP [address] [place] [address], [address] [place] [address] NURSE PRACTITIONER GERONTOLOGY 04/29/20 Elda Martin MD [address] [facility] [address] [address] Psychiatry 08/31/20 documented as of this encounter
--- OUTSIDE RECORDS SUMMARY | 2025-02-17 18:51 | XMS_ITS | Encounter Summary ---
Author Organization [facility] Address [address] [place] [address] Care Team Providers Care Ultrasound Spec Name Role Phone Ashley Villegas MD Unavailable [phone] Donny Mcdonough MD Unavailable [phone] Juan Daniel Mera MD Unavailable Unava ilable Randall Schrader MD Unavailable Unavailable Shaista Hathaway CUFF KNITTER Unavailable [phone] Shaista Hathaway NP Unavailable [phone] Elda Martin MD Unavailable Krystal Huerta DO Primary Care Provider [phone] Encounter Details Date Type Department Care Team (Late st Contact Info) Description 08/10/2024 SMT Research [employer] Development Message Enc [facility] Medical [facility] [address] [address] [facility] Provider pantoprazole Social History Tobacco Use Types Packs/Day Years [...] Answer Date Recorded Patient Health Questionnaire-2 Score 6 07/14/2024 Hunger Vital Sign Answer Date Recorded Within [...] place to sleep or slept in a fpc (including now)? 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 [address] [place] [address] Consulting Physician ORTHOPAEDIC SURGERY 02/04/20 Shaista Hathaway CUFF KNITTER [address] [place] [address], [address] [place] [address] NURSE PRACTITIONER GERONTOLOGY 02/04/20 Shaista Hathaway CUFF KNITTER [address] [place] [address], [address] [place] [address] NURSE PRACTITIONER GERONTOLOGY 04/29/20 Elda Martin MD [address] [facility] [place] [address] Psychiatry 08/31/20 documented as of this encounter
--- OUTSIDE RECORDS SUMMARY | 2025-02-17 18:51 | XMS_ITS | Encounter Summary ---
Author Organization [facility] Address [address] [place] [address] Care Team Providers Care Outpatient Coder Name Role Phone Ashley Villegas MD Unavailable [phone] Donny Mcdonough MD Unavailable [phone] Juan Daniel Mera MD Unavailable Unava ilable Randall Schrader MD Unavailable Unavailable Shaista Hathaway LEAD MASSAGE THERAPIST Unavailable [phone] Shaista Hathaway LEAD MASSAGE THERAPIST Unavailable [phone] Elda Martin MD Unavailable Krystal Huerta DO Primary Care Provider Encounter Details Date Type Department Care Team (Late st Contact Info) Description 12/24/2024 Ink361 Message Enc [facility] Medical Group Family Medicine - [place] [address] [facility], [address] [place] [address] Clarence, [facility] Provider Zepbound Social History Tobacco Use Types Packs/Day Years [...] place to sleep or slept in a half-way (including now)? 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 Not on file [...] documented as of this encounter Care Teams Outpatient Coder Relationship Specialty Start Date End Date Krystal Huerta DO [address] [place] [address] PCP - General FAMILY PRACTICE 02/21/22 Ashley Villegas MD [facility] [place] [address] OBGYN 02/04/20 Donny Mcdonough MD [address] [facility] [address] [place] [address] GASTROENTEROLOGY 02/04/20 Juan Daniel Mera MD [address] [facility] [address] [place] [address] OBGYN 02/04/20 Randall Schrader MD [address] [facility] [address] [place] [address] Consulting Physician ORTHOPAEDIC SURGERY 02/04/20 Shaista Hathaway NP [address] [place] [address], [address] [place] [address] NURSE PRACTITIONER GERONTOLOGY 02/04/20 Shaista Hathaway NP [address] [place] [address], [address] [place] [address] NURSE PRACTITIONER GERONTOLOGY 04/29/20 Elda Martin MD [address] [address] Psychiatry 08/31/20 documented as of this encounter
--- OUTSIDE RECORDS SUMMARY | 2025-02-17 18:51 | XMS_ITS | Encounter Summary ---
Author Organization [facility] Address [address] [place] [address] Care Team Providers Care Plant Inspector Name Role Phone Ashley Villegas MD Unavailable [phone] Donny Mcdonough MD Unavailable Juan Daniel Mera MD Unavailable Unava ilable Randall Schrader MD Unavailable Unavailable Shaista Hathaway STUDY ABROAD COORDINATOR Unavailable [phone] Shaista Hathaway STUDY ABROAD COORDINATOR Unavailable [phone] Elda Martin MD Unavailable Krystal Huerta DO Primary Care Provider [phone] Encounter Details Date Type Department Care Team (Late st Contact Info) Description 07/01/2024 MyChart Message Enc [facility] Medical Group Family Medicine - [address], [address] [place] [address] Krystal Huerta DO [address] [place] [address] Blood work Social History Tobacco Use Types Packs/Day Years [...] place to sleep or slept in a usp (including now)? 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 on file [...] documented as of this encounter Care Teams Plant Inspector Relationship Specialty Start [place] [address] [place] [address] PCP - General FAMILY PRACTICE 02/21/22 Ashley Villegas MD [facility] [place] [address] OBGYN 02/04/20 Donny Mcdonough MD [address] [facility] [address] [place] [address] GASTROENTEROLOGY 02/04/20 Juan Daniel Mera MD [address] [facility] [address] [place] [address] OBGYN 02/04/20 Randall Schrader MD [address] [facility] [address] [place] [address] Consulting Physician ORTHOPAEDIC SURGERY 02/04/20 Shaista Hathaway NP [address] [place] [address], [address] [place] [address] NURSE PRACTITIONER GERONTOLOGY 02/04/20 Shaista Hathaway NP [address] [place] [address], [address] [place] [address] NURSE PRACTITIONER GERONTOLOGY 04/29/20 Elda Martin MD [address] [facility] [address] [address] Psychiatry 08/31/20 documented as of this encounter
--- OUTSIDE RECORDS SUMMARY | 2025-02-17 18:51 | XMS_ITS | Encounter Summary ---
Author Organization [facility] Address [address] [place] [address] Care Team Providers Care Hospice Clinical Supervisor Name Role Phone Ashley Villegas MD Unavailable [phone] Donny Mcdonough MD Unavailable [phone] Juan Daniel Mera MD Unavailable Unava ilable Randall Schrader MD Unavailable Unavailable Shaista Hathaway SKINNING MACHINE FEEDER Unavailable [phone] Shaista Hathaway SKINNING MACHINE FEEDER Unavailable [phone] Elda Martin MD Unavailable Krystal Huerta DO Primary Care Provider [phone] Encounter Details Date Type Department Care Team (Late st Contact Info) Description 01/07/2025 MyChart Message Enc [facility] Medical Group Family Medicine - [address], [address] [place] [address] Krystal Huerta DO [address] [place] [address] Uti Social History Tobacco Use Types Packs/Day Years [...] place to sleep or slept in a group home (including now)? 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 Wish to be (Past 1 Month) No 01/08/2025 10:21 AM Mine Escobedo RN Ac tive 2. Non-Specific Active Suicidal Thoughts (Past 1 Month) No 01/08/2025 10:21 AM Mine Escobedo RN Ac tive 6. Suicidal Behavior (Lifetime) No 01/08/2025 10:21 AM Mine Escobedo RN Ac tidereck documented as of this encounter Mental Status * Because of a physical, mental, or emotional condition, do you have serious difficulty concentrating, remembering, or making decisions? Answer Entry Date Author Status No 01/08/2023 2:21 PM SHEET MUSIC SALESPERSON Raymundo Barton RN Active documented in this encounter Plan [...] documented as of this encounter Care Teams Hospice Clinical Supervisor Relationship Specialty Start Date End Date Krystal Huerta DO [facility] [place] [address] PCP - General FAMILY PRACTICE 02/21/22 Ashley Villegas MD [address] [place] [address] OBGYN 02/04/20 Donny Mcdonough MD [address] [place] [address] GASTROENTEROLOGY 02/04/20 Juan Daniel Mera MD [address] [place] [address] OBGYN 02/04/20 Randall Schrader MD [address] [place] [address] [address] [place] [address] Consulting Physician ORTHOPAEDIC SURGERY 02/04/20 Shaista Hathaway NP [address] [place] [address], [address] [place] [address] NURSE PRACTITIONER GERONTOLOGY 02/04/20 Shaista Hathaway SKINNING MACHINE FEEDER [address] [place] [address], [address] [place] [address] NURSE PRACTITIONER GERONTOLOGY 04/29/20 Elda Martin MD [address] [address] Psychiatry 08/31/20 documented as of this encounter
--- OUTSIDE RECORDS SUMMARY | 2025-02-17 18:51 | XMS_ITS | Encounter Summary ---
Author Organization [facility] Address [address] [place] [address] Care Team Providers Care Director Patient Accounting Name Role Phone Ashley Villegas MD Unavailable [phone] Donny Mcdonough MD Unavailable [phone] Juan Daniel Mera MD Unavailable Unava ilable Randall Schrader MD Unavailable Unavailable Shaista Hathaway NP Unavailable [phone] Shaista Hathaway NP Unavailable [phone] Elda Martin MD Unavailable Krystal Huerta DO Primary Care Provider [phone] Encounter Details Date Type Department Care Team (Latest Contact Info) Description 02/17/2025 Travel Social History Tobacco Use Types Packs/Day Years [...] place to sleep or slept in a retirement (including now)? 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 Not on file Not [...] as of this encounter Care Teams Director Patient Accounting Relationship Specialty Start Date End Date Krystal Huerta DO [facility] [place] [address] PCP - General FAMILY PRACTICE 02/21/22 Ashley Villegas MD [address] [place] [address] OBGYN 02/04/20 Donny Mcdonough MD [address] [facility] [address] [place] [address] GASTROENTEROLOGY 02/04/20 Juan Daniel Mera MD [address] [facility] [address] [place] [address] OBGYN 02/04/20 Randall Schrader MD [address] [facility] [address] [place] [address] Consulting Physician ORTHOPAEDIC SURGERY 02/04/20 Shaista Hathaway NP [address] [place] [address], [address] [address] NURSE PRACTITIONER GERONTOLOGY 02/04/20 Shaista Hathaway NP [address] [place] [address], [address] [place] [address] NURSE PRACTITIONER GERONTOLOGY 04/29/20 Elda Martin MD [address] [place] [address] Psychiatry 08/31/20 documented as of this encounter
--- OUTSIDE RECORDS SUMMARY | 2025-02-17 18:51 | XMS_ITS | Encounter Summary ---
Author Organization [facility] Address [address] [place] [address] Care Team Providers Care Automotive Machinist Apprentice Name Role Phone Ashley Villegas MD Unavailable [phone] Donny Mcdonough MD Unavailable [phone] Juan Daniel Mera MD Unavailable Unava ilable Randall Schrader MD Unavailable Unavailable Shaista Hathaway ORTHOPEDICS TEACHER Unavailable [phone] Shaista Hathaway ORTHOPEDICS TEACHER Unavailable [phone] Elda Martin MD Unavailable Krystal Huerta DO Primary Care Provider [phone] Encounter Details Date Type Department Care Team (Latest Contact Info) Description 02/13/2025 Results Follow-Up [facility] Medical Group Family Medicine - [place] [address] [facility], [address] [place] [address] Krystal Huerta DO [address] [place] [address] COMPREHENSIVE METABOLIC PANEL, LIPASE, TSH W/REFLEX Social History Tobacco Use Types Packs/Day Years [...] place to sleep or slept in a detention (including now)? 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 Not on file [...] documented as of this encounter Care Teams Automotive Machinist Apprentice Relationship Specialty Start Date End Date Krystal Huerta DO [address] [place] [address] PCP - General FAMILY PRACTICE 02/21/22 Ashley Villegas MD [address] [place] [address] OBGYN 02/04/20 Donny Mcdonough MD [address] [facility] [address] [place] [address] GASTROENTEROLOGY 02/04/20 Juan Daniel Mera MD [address] [facility] [address] [place] [address] OBGYN 02/04/20 Randall Schrader MD [address] [facility] [address] [place] [address] Consulting Physician ORTHOPAEDIC SURGERY 02/04/20 Shaista Hathaway NP [address] [place] [address], [address] [place] [address] NURSE PRACTITIONER GERONTOLOGY 02/04/20 Shaista Hathaway NP [address] [place] [address], [address] [place] [address] NURSE PRACTITIONER GERONTOLOGY 04/29/20 Elda Martin MD [address] [place] [address] [address] Psychiatry 08/31/20 documented as of this encounter
--- OUTSIDE RECORDS SUMMARY | 2025-02-17 18:51 | XMS_ITS | Encounter Summary ---
Author Organization [facility] Address [address] [place] [address] Care Team Providers Care Short Goods Drier Name Role Phone Ashley Villegas MD Unavailable [phone] Donny Mcdonough MD Unavailable [phone] Juan Daniel Mera MD Unavailable Unava ilable Randall Schrader MD Unavailable Unavailable Shaista Hathaway DIETARY ASSISTANT Unavailable [phone] Shaista Hathaway DIETARY ASSISTANT Unavailable [phone] Elda Martin MD Unavailable Krystal Huerta DO Primary Care Provider [phone] Encounter Details Date Type Department Care Team (Late st Contact Info) Description 08/05/2023 MyChart Message Enc [facility] Medical Group Family Medicine - [place] [address] [facility], [address] [place] [address] Krystal Huerta DO [address] [place] [address] Feeling in throat Social History Tobacco Use Types Packs/Day Years [...] Sex Assigned at Female 04/27/2024 1:02 PM STAFF ELECTRONIC WARFARE OFFICER Legal Sex Female 10:46 PM CDT Gender Identity Female 05/07/2024 1:56 PM STAFF ELECTRONIC WARFARE OFFICER Sexual Orientation Not on file 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 Not on file [...] Depression Total Score: 12 024 2:38 PM STAFF ELECTRONIC WARFARE OFFICER documented as of this encounter Care Teams Short Goods Drier Relationship Specialty [place] [address] [place] [address] PCP - General FAMILY PRACTICE 02/21/22 Ashley Villegas MD [facility] [place] [address] OBGYN 02/04/20 Donny Mcdonough MD [address] [facility] [address] [place] [address] GASTROENTEROLOGY 02/04/20 Juan Daniel Mera MD [address] [facility] [address] [place] [address] OBGYN 02/04/20 Randall Schrader MD [address] [facility] [address] [place] [address] Consulting Physician ORTHOPAEDIC SURGERY 02/04/20 Shaista Hathaway NP [address] [place] [address], [address] [place] [address] NURSE PRACTITIONER GERONTOLOGY 02/04/20 Shaista Hathaway NP [address] [place] [address], [address] [place] [address] NURSE PRACTITIONER GERONTOLOGY 04/29/20 Elda Martin MD [address] [facility] [address] [address] Psychiatry 08/31/20 documented as of this encounter
--- OUTSIDE RECORDS SUMMARY | 2025-02-17 18:51 | XMS_ITS | Encounter Summary ---
Author Organization [facility] Address [address] [place] [address] Care Team Providers Care Senior Account Clerk Name Role Phone Ashley Villegas MD Unavailable [phone] Donny Mcdonough MD Unavailable Juan Daniel Mera MD Unavailable Unava ilable Randall Schrader MD Unavailable Unavailable Shaista Hathaway WOMEN'S SWIM COACH Unavailable [phone] Shaista Hathaway WOMEN'S SWIM COACH Unavailable [phone] Elda Martin MD Unavailable Krystal Huerta DO Primary Care Provider [phone] Encounter Details Date Type Department Care Team (Late st Contact Info) Description 10/12/2022 MyChart Message Enc [facility] Medical Group Family Medicine - [place] [address] [facility], [address] [place] [address] Krystal Huerta DO [address] [place] [address] Todays appt Social History Tobacco Use Types Packs/Day Years [...] Sex Assigned at Female 04/27/2024 1:02 PM RAKE OPERATOR Legal Sex Female 10:46 PM CDT Gender Identity Female 05/07/2024 1:56 PM RAKE OPERATOR Sexual Orientation Not on file 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 [address] [place] [address] GASTROENTEROLOGY 02/04/20 Juan Daniel Mera MD [address] [facility] [address] [place] [address] OBGYN 02/04/20 Randall Schrader MD [address] [facility] [address] [place] [address] Consulting Physician ORTHOPAEDIC SURGERY 02/04/20 Shaista Hathaway NP [address] [place] [address], [address] [place] [address] NURSE PRACTITIONER GERONTOLOGY 02/04/20 Shaista Hathaway NP [address] [place] [address], [address] [place] [address] NURSE PRACTITIONER GERONTOLOGY 04/29/20 Elda Martin MD [address] [facility] [address] [address] Psychiatry 08/31/20 documented as of this encounter
--- OUTSIDE RECORDS SUMMARY | 2025-02-17 18:52 | XMS_ITS | Encounter Summary ---
Author Organization [facility] Address [address] [place] [address] Care Team Providers Care Mumps Developer Name Role Phone Dae Emerson DO Primary Care Provider + Dae Emerson DO Primary Care Provider + Dae Emerson DO Unavailable [phone] Dae Berrios DO Primary Care Provider [phone] Krystal Huerta DO Primary Care Provider [phone] Reason for Visit * Reason Onset Date Comments Appointment 04/17/2018 Encounter Details Date Type Department Care Team (Late Contact [facility]) Description 04/17/2018 Telephone [facility] Ob[facility]'s [facility] [address] [place], [place] [address] Juan Daniel Mera MD [address] [facility] [address] [place] [address] Appointment Social History Tobacco Use Types Packs/Day Years Used Date Smoking Tobacco: Never Smokeless Tobacco: Never Alcohol Use Standard Drinks/Week Comments No 0 (1 standard drink = 0.6 oz pur e alcohol) Comments No Sex and Gender Information Value Date Recorded Sex Assigned at Not on file Legal Sex Female 9:45 AM DIRECTOR EMPLOYEE COMMUNICATIONS Gender Identity Not on file Sexual Orientation [...] which exceeds the 1-2 week window. CB#: [phone] CTOR EMPLOYEE COMMUNICATIONS documented in this encounter Plan of Treatment Not on file documented as of this encounter Visit Diagnoses Not on filedocumented in this encounter Care Teams Mumps Developer Relationship Specialty Start Date End Date Dae Emerson DO [address] [facility] [place] [address] PCP - General Family Medicine 02/11/13 04/21/19 Dae Emerson DO [address] [facility] [place] [address] PCP - General 04/22/19 06/01/21 Dae Berrios DO [address] [facility] [place] [address] PCP - General Family Medicine 06/02/21 06/02/21 Krystal Huerta DO [address] [place] [address] PCP - General Family Medicine 01/03/23 Dae Emerson DO [address] [facility] [place] [address] Family Medicine 04/22/19 documented as of this encounter
--- OUTSIDE RECORDS SUMMARY | 2025-02-17 18:52 | XMS_ITS | Encounter Summary ---
Author Organization [facility] Address [address] [place] [address] Care Team Providers Care Panel Wirer Name Role Phone Ashley Villegas MD Unavailable [phone] Donny Mcdonough MD Unavailable [phone] Juan Daniel Mera MD Unavailable Unava ilable Randall Schrader MD Unavailable Unavailable Shaista Hathaway ENRICHMENT DIRECTOR Unavailable [phone] Shaista Hathaway ENRICHMENT DIRECTOR Unavailable [phone] Elda Martin MD Unavailable Krystal Huerta DO Primary Care Provider [phone] Reason for Visit * Reason Onset Date Comments Chest Pain 01/08/2023 Encounter Details Date Type Department Care Team (Late st Contact Info) Description 01/08/2023 [facility] Message Enc [facility] THREE [facility], [address] [place] [address] Aleksey Lara MD Three [facility], [address] [place] [address] Chest pain Social History Tobacco Use Types Packs/Day [...] Recorded Patient Health Questionnaire-2 Score 0 03/21/2022 Hunger Vital Sign Answer Date Recorded Within [...] Sex Assigned at Female 04/27/2024 1:02 PM BILLBOARD INSTALLER Legal Sex Female 10:46 PM CDT Gender Identity Female 05/07/2024 1:56 PM BILLBOARD INSTALLER Sexual Orientation Not on file 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 No 01/08/2023 2:21 PM Raymundo Heck RN Ac tive * Question Answer Date of Assessment Author Status Do you have difficulty dressing or bathing? No 01/08/2023 2:21 PM Raymundo Heck R N Active Because of a physical, mental, or emotional condition, do you have difficulty doing errands alone such as visiting a doctor's office or shopping? No 01/08/2023 2:21 PM Raymundo Heck RN Act blanquita * Are you deaf or do you [...] 2:21 PM Raymundo Heck RN Active * Question Answer Date of Assessment Author Status Are you deaf or do you have serious difficulty hearing No 01/08/2023 2:21 PM Raymundo Heck RN Act blanquita Are you blind or do you have serious difficulty seeing, even when wearing glasses? No 01/08/2023 2:21 PM Raymundo Heck RN Act blanquita * Calculated C-SSRS Risk Score (Lifetime/Recent) Answer Date of Assessment Author Status No Risk Indicated 01/08/2023 9:51 AM Lauren Chan RN Active * [place] Suicide Severity Rating Scale (Screener/Recent Self-Report) Question Answer Date of Assessment Author Status 1. Wish to be (Past 1 Month) No 01/08/2023 9:51 AM Lauren Chan RN Active 2. Non-Specific Active Suicidal Thoughts (Past 1 Month) No 01/08/2023 9:51 AM Lauren Chan RN Active 6. Suicidal Behavior (Lifetime) No 01/08/2023 9:51 AM Lauren Chan RN Active documented as of this encounter Mental Status * Question Answer Entry Date Author Status Because of a physical, mental, or emotional condition, do you have serious difficulty concentrating, remembering, or making decisions? No 01/08/2023 2:21 PM Raymundo Heck R N Active * Because of a physical, mental, or emotional condition, do you have serious difficulty concentrating, remembering, or making decisions? Answer Entry Date Author Status No 01/08/2023 2:21 PM Raymundo Heck RN Active documented in this encounter Progress Notes * Shannan Donaldson RN - 01/08/2023 9:13 AM CST I called the patient to follow up on her chest pain. The patient states that she is on her way to [facility]. Message to Dr. Lara'. BOARD INSTALLER documented in this encounter Plan of Treatment [...] Depression Total Score: 23 022 1:17 PM BILLBOARD INSTALLER documented as of this encounter Care Teams Panel Wirer Relationship Specialty Start Date End Date Krystal Huerta DO [facility] [place] [address] PCP - General FAMILY PRACTICE 02/21/22 Ashley Villegas MD [address] [place] [address] OBGYN 02/04/20 Donny Mcdonough MD [address] [facility] [address] [place] [address] GASTROENTEROLOGY 02/04/20 Juan Daniel Mera MD [address] [facility] [address] [place] [address] OBGYN 02/04/20 Randall Schrader MD [address] [facility] [address] [place] [address] Consulting Physician ORTHOPAEDIC SURGERY 02/04/20 Shaista Hathaway, ARASH [address] [place] [address], [address] [place] [address] NURSE PRACTITIONER GERONTOLOGY 02/04/20 Shaista Hathaway ENRICHMENT DIRECTOR [address] [place] [address], [address] [place] [address] NURSE PRACTITIONER GERONTOLOGY 04/29/20 Elda Martin MD [address] [address] Psychiatry 08/31/20 documented as of this encounter
--- OUTSIDE RECORDS SUMMARY | 2025-02-17 18:52 | XMS_ITS | Encounter Summary ---
Author Organization [facility] Address [address] [place] [address] Care Team Providers Care Vp Talent Management Name Role Phone Ashley Villegas MD Unavailable [phone] Donny Mcdonough MD Unavailable [phone] Juan Daniel Mera MD Unavailable Unava ilable Randall Schrader MD Unavailable Unavailable Shaista Hathaway FROZEN YOGURT MAKER Unavailable [phone] Shaista Hathaway FROZEN YOGURT MAKER Unavailable [phone] Elda Martin MD Unavailable Dae Berrios DO Primary Care Provider [phone] Krystal Huerta DO Primary Care Provider [phone] Encounter Details Date Type Department Care Team (Late st Contact Info) Description 06/30/2021 MyChart Message Enc [facility] Family Medicine - [place] [address] [facility] [address], [address] [place] [address] Dae Berrios DO [address] [facility] [address] [place] [address] Medication question Social History Tobacco Use Types Packs/Day Years Used Date Smoking Tobacco: Never Smokeless Tobacco: Never Comments:DO Discretion Alcohol Use Standard Drinks/Week Comments No 0 (1 standard drink = 0.6 oz pur e alcohol) AUDIT-C Answer Date Recorded Frequency of Alcohol Consumption Never 09/04/2018 Average Number of Drinks Not on file 019 Frequency of Binge Drinking Not on file 06/2018 PHQ-2 Answer Date Recorded PHQ-2 Score - If the patient scores above 3, please move on to questions 3-9 6 05/12/2021 Comments No Sex and Gender Information Value Date Recorded Sex Assigned at Female 04/27/2024 1:02 PM IT RISK ANALYST Legal Sex Female 10:46 PM CDT Gender Identity Female 05/07/2024 1:56 PM IT RISK ANALYST Sexual Orientation Not on file 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 Not on file [...] Depression Total Score: 23 022 1:17 PM IT RISK ANALYST documented as of this encounter Care Teams Vp Talent Management Relationship Specialty Start Date End Date Dae Berrios, DO [address] [place] [address] PCP - General FAMILY PRACTICE 08/31/20 02/20/22 Krystal Huerta DO [address] [place] [address] PCP - General FAMILY PRACTICE 02/21/22 Ashley Villegas MD [address] [place] [address] OBGYN 02/04/20 Donny Mcdonough MD [address] [facility] [address] [place] [address] GASTROENTEROLOGY 02/04/20 Juan Daniel Mera MD [address] [place] [address] [address] [place] [address] OBGYN 02/04/20 Randall Schrader MD [address] [place] [address] [address] [place] [address] Consulting Physician ORTHOPAEDIC SURGERY 02/04/20 Shaista Hathaway NP [address] [place] [address], [facility] [address] [place] [address] NURSE PRACTITIONER GERONTOLOGY 02/04/20 Shaista Hathaway FROZEN YOGURT MAKER [address] [place] [address], [facility] [address] [place] [address] NURSE PRACTITIONER GERONTOLOGY 04/29/20 Elda Martin MD [address] [place] [address] Psychiatry 08/31/20 documented as of this encounter
--- OUTSIDE RECORDS SUMMARY | 2025-02-17 18:52 | XMS_ITS | Encounter Summary ---
Author Organization [facility] Care Team Providers Care Sports Manager Name Role Phone Dae Emerson DO Primary Care Provider + Darian Molina MD Primary Care Provider [phone] Dae Emerson DO Primary Care Provider + Darian Molina MD Primary Care Provider [phone] Kamila Craft NP Primary Care Provider [phone] Dae Berrios DO Primary Care Provider [phone] Krystal Huerta DO Primary Care Provider [phone] Efrem Blair AUDIO VIDEO TECH Unavailable [phone] Encounter Details Date Type Department Care Team (Latest Contact Info) Description 07/20/2017 Orders Only [facility]IN[facility] ProviderLex MD [address] [place] [address] Social History Tobacco Use Types Packs/Day Years Used Date Smoking Tobacco: Never Assessed Comments Unknown Sex and Gender Information Value Date Recorded Sex Assigned at Not on file Legal Sex Female 1:05 AM MIDDLE SCHOOL TUTOR Gender Identity Not on file Sexual Orientation [...] on filedocumented in this encounter Care Teams Sports Manager Relationship Specialty Start Date End Date Dae [...] Medicine 08/15/21 02/10/24 Krystal Huerta DO [address] [place] [address] PCP - General Family Medicine 02/11/24 Efrem Blair NP [address] [place] [address] [address] [place] [address] Nurse Practitioner Nurse Practitioner 12/16/24 documented as of this encounter
--- OUTSIDE RECORDS SUMMARY | 2025-02-17 18:52 | XMS_ITS | Encounter Summary ---
Author Organization [facility] Address [address] [facility] [place] [address] Care Team Providers Care Assistant Superintendent Name Role Phone Dae Emerson DO Primary Care Provider + Dae Emerson DO Unavailable [phone] Dae Berrios DO Primary Care Provider [phone] Krystal Huerta DO Primary Care Provider [phone] Encounter Details Date Type Department Care Team (Late st Contact Info) Description 04/23/2019 Lab Requisition [facility] [address] [facility], [place] [address] Ratna Swift DO [address] [facility] [address]L [place] [address] Social History Tobacco Use Types Packs/Day Years Used Date Smoking Tobacco: Never Smokeless Tobacco: Never Alcohol Use Standard Drinks/Week Comments No 0 (1 standard drink = 0.6 oz pur e alcohol) Comments No Sex and Gender Information Value Date Recorded Sex Assigned at Not on file Legal Sex Female 9:45 AM PRINT PRODUCER Gender Identity Not on file Sexual Orientation Not on file documented as of this encounter Functional Status * Is person deaf or have serious hearing difficulty? Answer Date of Assessment Author No 02/23/2016 7:00 AM PRINT PRODUCER Serena Agustin RN * Is person blind or have serious difficulty seeing? Answer Date of Assessment Author No 02/23/2016 7:00 AM PRINT PRODUCER Serena Agustin RN * Does person have serious difficulty walking/climbing stairs? Answer Date of Assessment Author No 02/23/2016 7:00 AM PRINT PRODUCER Serena Agustin RN * Does person have [...] Comments DERMATOPATHOLOGY Routine 04/22/2019 12:0 0 AM PRINT PRODUCER documented in this encounter Results * DERMATOPATHOLOGY (04/22/2019 12:00 AM PRINT PRODUCER) Case Report Dermatopathology Report Case: [id number] Authorizing Provider: Ratna Swift DO Collected: 04/22/2019 12:00 AM Ordering Location: [facility] Received: 04/23/2019 07:05 AM Pathologist: Johann Hutton MD Specimen: Skin, left cheek 0 11:52 AM [facility] Final Diagnosis Specimen A. SKIN, left cheek: ACTINIC KERATOSIS, PIGMENTED (L57.0) (see microscopic description) 0 11:52 AM [facility] at [address] PRINT PRODUCER Clinical History R/O lentigo R/O LM, growing. 0 11:52 AM [facility] Gross Description Specimen A: Received is one formalin filled container labeled with the patient's name and designated left cheek. The specimen consists of a shave measuring [id number]. Jar 0. 0 11:52 AM [facility] Microscopic Description Specimen A. SKIN, left cheek: There is alternating orthokeratosis and parakeratosis. Along the undersurface of the epidermis, there are buds of atypical keratinocytes in a disorderly arrangement. There is prominent pigmentation in some of the keratinocytes. An immunostain for Mib-1 highlights increased proliferating keratinocytes confined to the lower half of the epidermis. 0 11:52 AM [facility] Disclaimer An external and internal positive and negative controls are appropriate for the histochemical, immunohistochemical and immunofluorescence stain(s) in this case (if any), except where stated explicitly. The performance characteristics of the stain(s) cited in this report were developed and its performance characteristic determined by the Dermatopathology Laboratory at [facility], directed by Dr. Aiden Hutton. These tests need not be, and therefore are not, approved by the [place] Food and Drug Administration. The tests are used for clinical purposes. Billing Codes Specimen Charges Stain Charges 83637 1 47411 1 0 11:52 AM [facility] Embedded Images 0 11:52 AM [facility] Pathology/Cytolog y TISSUE SPECIMEN FROM SKIN / Unknown 04/22/2019 04/23/2019 7:05 AM [facility] Ratna Swift DO LAB - PATHOLOGY/CYTOLOGY ORDERABLES Final Result DERMATOPATHOLOGY LABORATORY [facility] - Department of Dermatology [address] [place] [address] 5th Floor Lab [address] [phone] documented in this encounter Visit Diagnoses Not on filedocumented in this encounter Care Teams Assistant Superintendent Relationship Specialty Start Date End Date Dea Emerson DO [address] [facility] [address] [place] [address] PCP - General 04/22/19 06/01/21 Dae Berrios DO [address] [facility] [address] [place] [address] PCP - General Family Medicine 06/02/21 06/02/21 Krystal Huerta DO [address] [place] [address] PCP - General Family Medicine 01/03/23 Dae Emerson DO [address] [facility] [address] Family Medicine 04/22/19 documented as of this encounter
--- OUTSIDE RECORDS SUMMARY | 2025-02-17 18:52 | XMS_ITS | Encounter Summary ---
Author Organization [facility] Address [address] [facility] [place] [address] Care Team Providers Care Orthopedic Physician Assistant Name Role Phone Dae Emerson Raymundo DO Unavailable [phone] Krystal Huerta DO Primary Care Provider [phone] Reason for Visit * Reason Onset Date Comments Insurance Issue/question 05/07/2022 Encounter Details Date Type Department Care Team (Late st Contact Info) Description 05/07/2022 Telephone [facility] Obst[facility]s Gyne[facility] and Women's [facility] [address] [place] [address] Subha Doan MD [address] [facility] [address] [place] [address] Insurance Issue/question Social History Tobacco [...] on file Legal Sex Female 9:45 AM ELIGIBILITY SERVICES REPRESENTATIVE Gender Identity Not on file Sexual Orientation [...] - 05/15/2022 3:58 PM CDT RN called [facility] [place] for appeal update on botox appeal #[id number] that was submitted 05/04/22. RN spoke to Abebe and was told the appeal decision was upheld on 05/10/22 as the medication was considered investigational or experimental for pt condition * Telephone Encounter - Pat Sheikh - 05/07/2022 10:48 AM CST Pt's insurance called to inform the office they received the appeal and they should have a responsewithin the next few days. IBILITY SERVICES REPRESENTATIVE documented in this encounter Plan of Treatment Not on file documented as of this encounter Visit Diagnoses Not on filedocumented in this encounter Care Teams Orthopedic Physician Assistant Relationship Specialty Start Date End Date Krystal Huerta DO [address] [place] [address] PCP - General Family Medicine 01/03/23 Dae Emerson DO [facility] [facility] [place] [address] Family Medicine 04/22/19 documented as of this encounter
--- OUTSIDE RECORDS SUMMARY | 2025-02-17 18:52 | XMS_ITS | Encounter Summary ---
Author Organization [facility] Address [address] [place] [address] Care Team Providers Care Multimedia Technician Name Role Phone Ashley Villegas MD Unavailable [phone] Donny Mcdonough MD Unavailable Juan Daniel Mera MD Unavailable Unava ilable Randall Schrader MD Unavailable Unavailable Shaista Hathaway CONVEYOR MONITOR Unavailable [phone] Shaista Hathaway CONVEYOR MONITOR Unavailable [phone] Elda Martin MD Unavailable Krystal Huerta DO Primary Care Provider [phone] Encounter Details Date Type Department Care Team (Late st Contact Info) Description 06/27/2022 MyChart Message Enc [facility] Family Medicine - [address], [address] [place] [address] Krystal Huerta DO [address] [place] [address] Urinalysis Social History Tobacco Use Types Packs/Day Years [...] Sex Assigned at Female 04/27/2024 1:02 PM LEAD APPLICATIONS DEVELOPER Legal Sex Female 10:46 PM CDT Gender Identity Female 05/07/2024 1:56 PM LEAD APPLICATIONS DEVELOPER Sexual Orientation Not on file 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 No / Unsure 06/27/2022 10:44 AM CDT documented as of this encounter [...] Depression Total Score: 23 022 1:17 PM LEAD APPLICATIONS DEVELOPER documented as of this encounter Care Teams Multimedia Technician Relationship Specialty Start Date End Date Krystal Huerta DO [facility] [place] [address] PCP - General FAMILY PRACTICE 02/21/22 Ashley Villegas MD [address] [place] [address] OBGYN 02/04/20 Donny Mcdonough MD [address] [facility] [address] [place] [address] GASTROENTEROLOGY 02/04/20 Juan Daniel Mera MD [address] [facility] [address] [place] [address] OBGYN 02/04/20 Randall Schrader MD [address] [facility] [address] [place] [address] Consulting Physician ORTHOPAEDIC SURGERY 02/04/20 Shaista Hathaway NP [address] [place] [address], [address] [address] NURSE PRACTITIONER GERONTOLOGY 02/04/20 Shaista Hathaway CONVEYOR MONITOR [address] [place] [address], [address] [place] [address] NURSE PRACTITIONER GERONTOLOGY 04/29/20 Elda Martin MD [address] [facility] [address] [address] Psychiatry 08/31/20 documented as of this encounter
--- OUTSIDE RECORDS SUMMARY | 2025-02-17 18:52 | XMS_ITS | Encounter Summary ---
Author Organization [facility] Facility Care Team Providers Care Sand Screener Name Role Phone Dae Emerson DO Primary Care Provider + Darian Molina MD Primary Care Provider [phone] Dea Emerson DO Primary Care Provider + Darian Molina MD Primary Care Provider [phone] Kamila Craft NP Primary Care Provider [phone] Dae Berrios DO Primary Care Provider [phone] Krystal Huerta DO Primary Care Provider [phone] Efrem Balir CIGARETTE MAKER Unavailable [phone] Encounter Details Date Type Department Care Team (Latest Contact Info) Description 06/06/2015 Orders Only [facility] CLINCONV ProviderLex MD [address] [place] [address] Social History Tobacco Use Types Packs/Day Years Used Date Smoking Tobacco: Never Assessed Comments Unknown Sex and Gender Information Value Date Recorded Sex Assigned at Not on file Legal Sex Female 1:05 AM CASHIER CLERK Gender Identity Not on file Sexual Orientation [...] on filedocumented in this encounter Care Teams Sand Screener Relationship Specialty Start Date End Date Dae Emerson DO PCP - General Family Medicine 05/27/18 12/14/19 Darian Molina MD PCP - General 12/15/19 12/15/19 Dae Emerson DO PCP - General 12/16/19 12/28/19 Darian Molina MD PCP - General Family Practice 12/29/19 05/12/20 Kamila Craft NP PCP - General 05/13/20 06/10/20 Dae Berrios DO PCP - General Family Medicine 08/15/21 02/10/24 Krystal Huerta DO [facility] [place] [address] PCP - General Family Medicine 02/11/24 Efrem Blair NP [address] [place] [address] Nurse Practitioner Nurse Practitioner 12/16/24 documented as of this encounter
--- OUTSIDE RECORDS SUMMARY | 2025-02-17 18:52 | XMS_ITS | Encounter Summary ---
Author Organization [facility] Address [address] [place] [address] Care Team Providers Care Fleet Assistant Name Role Phone Ashley Villegas MD Unavailable [phone] Donny Mcdonough MD Unavailable [phone] Juan Daniel Mera MD Unavailable Unava ilable Randall Schrader MD Unavailable Unavailable Shaista Hathaway ACTIVITIES DIRECTOR SCOUTING Unavailable [phone] Shaista Hathaway ACTIVITIES DIRECTOR SCOUTING Unavailable [phone] Elda Martin MD Unavailable Krystal Huerta DO Primary Care Provider [phone] Encounter Details Date Type Department Care Team (Latest Contact Info) Description 06/04/2023 RollUp Mediat Message Enc [facility] Medical Group Multispecialty Care - [facility] [address] [facility] [place] [id number] Macey Flores NP [address] [facility] [address] [place] [address] Feeling in throat Social History [...] Answer Date Recorded Patient Health Questionnaire-2 Score 3 04/01/2023 Hunger Vital Sign Answer Date Recorded Within [...] Sex Assigned at Female 04/27/2024 1:02 PM POLICE WORKER Legal Sex Female 10:46 PM CDT Gender Identity Female 05/07/2024 1:56 PM POLICE WORKER Sexual Orientation Not on file 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 [place] [address] OBGYN 02/04/20 Donny Mcdonough MD [address] [facility] [address] [place] [address] GASTROENTEROLOGY 02/04/20 Juan Daniel Mera MD [address] [facility] [address] [place] [address] OBGYN 02/04/20 Randall Schrader MD [address] [facility] [address] [place] [address] Consulting Physician ORTHOPAEDIC SURGERY 02/04/20 Shaista Hathaway NP [address] [place] [address], [address] [place] [address] NURSE PRACTITIONER GERONTOLOGY 02/04/20 Shaista Hathaway ACTIVITIES DIRECTOR SCOUTING [address] [place] [address], [address] [place] [address] NURSE PRACTITIONER GERONTOLOGY 04/29/20 Elda Martin MD [address] [address] Psychiatry 08/31/20 documented as of this encounter
--- OUTSIDE RECORDS SUMMARY | 2025-02-17 18:52 | XMS_ITS | Encounter Summary ---
Author Organization [facility] Address [address] [place] [address] Care Team Providers Care Lotus Notes Administrator Name Role Phone Ashley Villegas MD Unavailable [phone] Donny Mcdonough MD Unavailable [phone] Juan Daniel Mera MD Unavailable Unava ilable Randall Schrader MD Unavailable Unavailable Shaista Hathaway BUCKLE STRINGER Unavailable [phone] Shaista Hathaway BUCKLE STRINGER Unavailable [phone] Elda Martin MD Unavailable Krystal Huerta DO Primary Care Provider [phone] Encounter Details Date Type Department Care Team (Late st Contact Info) Description 07/10/2023 MyChart Message Enc [facility] Medical Group Family Medicine - [place] [address] [facility] [address] [place] [address] [place] [address] [address] Medicine Social History Tobacco Use Types Packs/Day Years [...] place to sleep or slept in a nursing home (including now)? 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 Not on file [...] Depression Total Score: 12 024 2:38 PM ENAMEL BUFFER documented as of this encounter Care Teams Lotus Notes Administrator Relationship Specialty Start Date End Date Krystal Huerta DO [address] [place] [address] PCP - General FAMILY PRACTICE 02/21/22 Ashley Villegas MD [facility] [place] [address] OBGYN 02/04/20 Donny Mcdonough MD [address] [facility] [address] [place] [address] GASTROENTEROLOGY 02/04/20 Juan Daniel Mera MD [address] [facility] [address] [place] [address] OBGYN 02/04/20 Randall Schrader MD [address] [facility] [address] [place] [address] Consulting Physician ORTHOPAEDIC SURGERY 02/04/20 Shaista Hathaway NP [address] [place] [address], [address] [place] [address] NURSE PRACTITIONER GERONTOLOGY 02/04/20 Shaista Hathaway NP [address] [place] [address], [address] [place] [address] NURSE PRACTITIONER GERONTOLOGY 04/29/20 Elda Martin MD [address] [facility] [address] [address] Psychiatry 08/31/20 documented as of this encounter
--- OUTSIDE RECORDS SUMMARY | 2025-02-17 18:52 | XMS_ITS | Encounter Summary ---
Author Organization [facility] Address [address] [place] [address] Care Team Providers Care Commercial Shrimping Captain Name Role Phone Ashley Villegas MD Unavailable [phone] Donny Mcdonough MD Unavailable [phone] Juan Daniel Mera MD Unavailable Unava ilable Randall Schrader MD Unavailable Unavailable Shaista Hathaway SERVICES ENGINEER Unavailable [phone] Shaista Hathaway SERVICES ENGINEER Unavailable [phone] Elda Martin MD Unavailable Krystal Huerta DO Primary Care Provider [phone] Encounter Details Date Type Department Care Team (Late st Contact Info) Description 03/01/2023 MyCBlue Ant Media Message Enc [facility] Medical Group Family Medicine - [place] [address] [facility] [place] [address] Cla[place], [facility] Provider Pantoprazole Social History Tobacco Use Types Packs/Day Years [...] place to sleep or slept in a assisted (including now)? 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 Not on file [...] Depression Total Score: 23 022 1:17 PM LIBRARIAN HEAD documented as of this encounter Care Teams Commercial Shrimping Captain Relationship Specialty [place] [address] [place] [address] PCP - General FAMILY PRACTICE 02/21/22 Ashley Villegas MD [address] [place] [address] OBGYN 02/04/20 Donny Mcdonough MD [address] [facility] [address] [place] [address] GASTROENTEROLOGY 02/04/20 Juan Daniel Mera MD [address] [facility] [address] [place] [address] OBGYN 02/04/20 Randall Schrader MD [address] [facility] [address] [place] [address] Consulting Physician ORTHOPAEDIC SURGERY 02/04/20 Shaista Hathaway NP [address] [place] [address], [address] [place] [address] NURSE PRACTITIONER GERONTOLOGY 02/04/20 Shaista Hathaway NP [address] [place] [address], [address] [place] [address] NURSE PRACTITIONER GERONTOLOGY 04/29/20 Elda Martin MD [address] [address] Psychiatry 08/31/20 documented as of this encounter
--- OUTSIDE RECORDS SUMMARY | 2025-02-17 18:52 | XMS_ITS | Encounter Summary ---
Author Organization [facility] Address [address] [place] [address] Phone Care Team Providers Care Mechanical Engineering Teacher Name Role Phone Krystal Huerta DO Primary Care Provider [phone] Encounter Details Date Type Department Care Team (Late st Contact Info) Description 12/06/2023 Telephone [facility] [address] [address] Arya Price MD [address] [address] Social History Tobacco Use Types [...] st Contact Info) Description 02/19/2025 8:15 AM HISTOLOGY AIDE Office Visit [facility] [address] [place] [address] Arya Price MD [address] [place] [address] documented as of this encounter Visit Diagnoses Not on filedocumented in this encounter Care Teams Mechanical Engineering Teacher Relationship Specialty Start Date End Date Krystal Huerta DO [address] [place] [address] PCP - General Family Medicine 10/23/22 documented as of this encounter
--- OUTSIDE RECORDS SUMMARY | 2025-02-17 18:52 | XMS_ITS | Encounter Summary ---
Author Organization [facility] Address [address] [place] [address] Care Team Providers Care Arch Support Technician Name Role Phone Ashley Villegas MD Unavailable [phone] Donny Mcdonough MD Unavailable [phone] Juan Daniel Mera MD Unavailable Unava ilable Randall Schrader MD Unavailable Unavailable Shaista Hathaway CHIEF SECURITY AND SAFETY OFFICER Unavailable [phone] Shaista Hathaway CHIEF SECURITY AND SAFETY OFFICER Unavailable [phone] Elda Martin MD Unavailable Krystal Huerta DO Primary Care Provider [phone] Encounter Details Date Type Department Care Team (Late st Contact Info) Description 07/27/2022 MyChart Message Enc [facility] Medical Group Family Medicine - [address], [address] [place] [address] Krystal Huerta DO [address] [place] [address] Follow up on appt Social History Tobacco Use Types Packs/Day [...] Sex Assigned at Female 04/27/2024 1:02 PM STEEL CHECKER Legal Sex Female 10:46 PM CDT Gender Identity Female 05/07/2024 1:56 PM STEEL CHECKER Sexual Orientation Not on file 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 Not on file [...] Depression Total Score: 23 022 1:17 PM STEEL CHECKER documented as of this encounter Care Teams Arch Support Technician Relationship Specialty Start Date End Date Krystal Huerta DO [facility] [place] [address] PCP - General FAMILY PRACTICE 02/21/22 Ashley Villegas MD [address] [place] [address] OBGYN 02/04/20 Donny Mcdonough MD [address] [facility] [address] [place] [address] GASTROENTEROLOGY 02/04/20 Juan Daniel Mera MD [address] [facility] [address] [place] [address] OBGYN 02/04/20 Randall Schrader MD [address] [facility] [address] [place] [address] Consulting Physician ORTHOPAEDIC SURGERY 02/04/20 Shaista Hathaway NP [address] [place] [address], [address] [place] [address] NURSE PRACTITIONER GERONTOLOGY 02/04/20 Shaista Hathaway CHIEF SECURITY AND SAFETY OFFICER [address] [place] [address], [address] [place] [address] NURSE PRACTITIONER GERONTOLOGY 04/29/20 Elda Martin MD [address] [facility] [address] [address] Psychiatry 08/31/20 documented as of this encounter
--- OUTSIDE RECORDS SUMMARY | 2025-02-17 18:52 | XMS_ITS | Encounter Summary ---
Author Organization [facility] Address [address] [place] [address] Care Team Providers Care Studio Designer Name Role Phone Ashley Villegas MD Unavailable [phone] Donny Mcdonough MD Unavailable Juan Daniel Mera MD Unavailable Unava ilable Randall Schrader MD Unavailable Unavailable Shaista Hathaway CONTACT ACID PLANT OPERATOR HELPER Unavailable [phone] Shaista Hathaway CONTACT ACID PLANT OPERATOR HELPER Unavailable [phone] Elda Martin MD Unavailable Krystal Huerta DO Primary Care Provider [phone] Encounter Details Date Type Department Care Team (Late st Contact Info) Description 12/26/2022 MyChart Message Enc [facility] Medical Group Family Medicine - [address], [address] [place] [address] Krystal Huerta DO [address] [place] [address] Aspirin/medical marijuana Social History Tobacco Use Types Packs/Day Years [...] Sex Assigned at Female 04/27/2024 1:02 PM PRINTER SMALL PRINT SHOP Legal Sex Female 10:46 PM CDT Gender Identity Female 05/07/2024 1:56 PM PRINTER SMALL PRINT SHOP Sexual Orientation Not on file 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 Not on file Not [...] Depression Total Score: 23 022 1:17 PM PRINTER SMALL PRINT SHOP documented as of this encounter Care Teams Studio Designer Relationship Specialty Start Date End Date Krystal Huerta DO [address] [place] [address] PCP - General FAMILY PRACTICE 02/21/22 Ashley Villegas MD [facility] [place] [address] OBGYN 02/04/20 Donny Mcdonough MD [address] [facility] [address] [place] [address] GASTROENTEROLOGY 02/04/20 Juan Daniel Mera MD [address] [facility] [address] [place] [address] OBGYN 02/04/20 Randall Schrader MD [address] [facility] [address] [place] [address] Consulting Physician ORTHOPAEDIC SURGERY 02/04/20 Shaista Hathaway NP [address] [place] [address], [address] [place] [address] NURSE PRACTITIONER GERONTOLOGY 02/04/20 Shaista Hathaway NP [address] [place] [address], [address] [place] [address] NURSE PRACTITIONER GERONTOLOGY 04/29/20 Elda Martin MD [address] [facility] [address] [address] Psychiatry 08/31/20 documented as of this encounter
--- OUTSIDE RECORDS SUMMARY | 2025-02-17 18:52 | XMS_ITS | Clinical Summary ---
Author Organization [facility] Address [address] [facility] [address] [place] [address] Phone Care Team Providers Care Line Appliance Assembler Name Role Phone Krystal Huerta DO Primary Care Provider [phone] Allergies Active Allergy Reactions Criticality Noted Date [...] AM CDT Lab [facility] [address] [address] Lab, Cc [place] Iron deficiency anemia, unspecified iron deficiency anemia type; Thrombocytosis 11/20/2024 8:15 AM CDT Office Visit [facility] [address] [place] [address] Gayle Thacker, PULMONOLOGIST/INTENSIVIST, METAL DRILLING MACHINE OPERATOR Iron deficiency anemia, unspecified iron deficiency anemia [...] st Contact Info) Description 02/19/2025 8:15 AM ART LIBRARIAN Office Visit [facility] [address] [address] Arya Price MD [address] [place] [address] Health Maintenance Due Date Last [...] IRON 95 50 - 212 ug/dL CANCER FINANCIAL EXAMINER [facility] UIBC 281 155 - 355 ug/dL [facility] FINANCIAL EXAMINER OF [facility] TIBC 376 261 - 478 ug/dl [facility]CER FINANCIAL EXAMINER [facility] % Saturation 25 20 - 50 % [facility] FINANCIAL EXAMINER [facility] 11/20/2024 8:58 AM CDT Narrative [facility] FINANCIAL EXAMINER [facility] - 11/20/2024 9:42 AM CDT Release to patient->Immediate Gayle Thacker PULMONOLOGIST/INTENSIVIST, METAL DRILLING MACHINE OPERATOR LAB SEND OUTS Final Result [facility] FINANCIAL EXAMINER [facility] [place] [address], * (ABNORMAL) CBC WITH AUTO DIFF [place] (11/20/2024 8:58 AM CDT) WBC 8.2 4.0 - 10.0 10*3/uL CANCER FINANCIAL EXAMINER [facility] HGB 13.5 11.2 - 15.7 g/dL CANCER FINANCIAL EXAMINER [facility] HCT 40.5 34.1 - 44.9 % CANCER FINANCIAL EXAMINER [facility] PLT 375(H) 163 - 369 10*3/uL CANCER FINANCIAL EXAMINER [facility] MPV 8.5(L) 9.4 - 12.4 fL CANCER FINANCIAL EXAMINER [facility] RBC 4.41 3.93 - 5.22 10*6/uL CANCER FINANCIAL EXAMINER [facility] MCV 92 79 - 95 fL [facility] CE NTER SPECIALISTS [facility] MCH 30.6 25.6 - 32.2 pg CANCER FINANCIAL EXAMINER [facility] MCHC 33.3 32.2 - 36.5 g/dL CANCER FINANCIAL EXAMINER [facility] RDW 14.3 11.6 - 14.4 % CAN[facility]ER FINANCIAL EXAMINER OF [facility] Neutrophils % 61.5 36.0 - 66.0 % CANCER FINANCIAL EXAMINER OF [facility] Lymphocytes % 23.4 19.0 - 40.0 % CANCER FINANCIAL EXAMINER OF [facility] Monocytes % 8.7 4.1 - 12.1 % CAN[facility]ER FINANCIAL EXAMINER OF [facility] Eosinophils % 4.9(H) 0.0 - 3.5 % CAN[facility]ER FINANCIAL EXAMINER OF [facility] Basophils % 1.1(H) 0.0 - 1.0 % [facility] FINANCIAL EXAMINER [facility] Absolute Neutrophils 5.0 1.4 - 6.6 10*3/uL [facility] FINANCIAL EXAMINER [facility] Absolute Lymphocytes 1.9 0.8 - 4.0 10*3/uL CANCER FINANCIAL EXAMINER [facility] Absolute Monocytes 0.7 0.2 - 1.2 10*3/uL [facility] FINANCIAL EXAMINER [facility] Absolute Eosinophils 0.4 0.0 - 0.4 10*3/uL [facility] FINANCIAL EXAMINER [facility] Absolute Basophils 0.1 0.0 - 0.1 10*3/uL [facility] FINANCIAL EXAMINER [facility] 11/20/2024 8:58 AM CDT us Gayle Thacker APRN, RADHA LAB SEND OUTS Final Result Performing Organization Address City/[facility]/ZIP Co de Phone Number [facility] [address] [place] [address], [place] [phone] * FERRITIN (11/20/2024 8:58 AM CDT) Ferritin 160 11 - 307 ng/mL [facility] Blood 11/20/2024 8:58 AM CDT Narrative [facility] - 11/20/2024 2:38 PM CDT Release to patient->Immediate us Gayle Thacker APRN, METAL DRILLING MACHINE OPERATOR CHEMISTRY ORDERABLES Final Result Performing Organization Address City/[facility]/ZIP Co de Phone Number [facility] [address] [place] [address], [place] [phone] * (ABNORMAL) CMP (COMPREHENSIVE METABOLIC PANEL) (11/20/2024 8:58 AM CDT) Glucose 103 70 - 105 mg/dL [facility] Blood Urea Nitrogen 22 7 - 25 mg/dL [facility] Creatinine 0.8 0.6 - 1.2 mg/dL [facility] Sodium 138 136 - 145 mEq/L [facility] Potassium 4.3 3.5 - 5.1 mEq/L [facility] Chloride 104 98 - 107 mEq/L [facility] Bicarbonate 23 21 - 31 mEq/L [facility] Total Bilirubin 0.4 0.3 - 1.0 mg/dL [facility] Alk. Phosphatase 106(H) 34 - 104 U/L [facility] Aspartate Aminotransferase 18 13 - 39 U/L [facility] Alanine Aminotransferase 40 7 - 52 U/L [facility] Total Protein 7.3 6.4 - 8.9 g/dL [facility] Albumin 4.3 3.5 - 5.7 g/dL [facility] Calcium 9.9 8.6 - 10.3 mg/dL [facility] Anion Gap 15.3(H) 7.0 - 15.0 mEq/L [facility] Globulin 3.0 2.0 - 3.5 g/dL [facility] EGFR 93 >60 ml/min/1. 73m2 [facility] Comment: This eGFR is calculated using 2020 CKD-EPI Creatinine equation without race modifier based on the NKF-ASN task force recommendations Equation: hBRN=409*min(SCr/k,1)a*max(SCr/k,1)-1.200*0.9938Age*1.012 (if female), where SCr is serum creatinine, k is 0.7 for females and 0.9 for males, and a is -0.241 for females and -0.302 for males Blood 11/20/2024 8:58 AM CDT Narrative [facility] - 11/20/2024 9:42 AM CDT Release to patient->Immediate IS THE PATIENT REQUIRED TO BE FASTING FOR 8 HOURS?->No Gayle Thacker APRN, METAL DRILLING MACHINE OPERATOR CHEMISTRY ORDERABLES Final Result CANCER FINANCIAL EXAMINER [facility] [place] [place] [address], from Last 3 Months Insurance Care Teams Line Appliance Assembler Relationship Specialty Start Date End Date Krystal Huerta DO [address] [place] [id number] PCP - General Family Medicine 10/23/22
--- OUTSIDE RECORDS SUMMARY | 2025-02-17 18:52 | XMS_ITS | Encounter Summary ---
Author Organization [facility] Address [address] [place] [address] Care Team Providers Care Sales Representative Meats Name Role Phone Dae Emerson DO Unavailable [phone] Krystal Huerta DO Primary Care Provider [phone] Reason for Visit * Reason Onset Date Comments Question 08/23/2021 Encounter Details Date Type Department Care Team (Late Contact Info) Description 08/23/2021 Telephone [facility] [address] [facility] [address] [place] [address] Karl Gallegos MD [address] [facility] [address] [place] [address] Question Social History Tobacco Use [...] on file Legal Sex Female 9:45 AM EGG BREAKING MACHINE OPERATOR Gender Identity Not on file Sexual [...] and want to know do next CB# [phone] documented in this encounter Plan of Treatment Not on file documented as of this encounter Visit Diagnoses Not on filedocumented in this encounter Care Teams Sales Representative Meats Relationship Specialty Start Date End Date Krystal Huerta DO [facility] [place] [address] PCP - General Family Medicine 01/03/23 Dae Emerson DO [address] [facility] [place] [address] Family Medicine 04/22/19 documented as of this encounter
--- OUTSIDE RECORDS SUMMARY | 2025-02-17 18:52 | XMS_ITS | Encounter Summary ---
Author Organization [facility] Address [address] [place] [address] Care Team Providers Care Applications Engineering Manager Name Role Phone Ashley Villegas MD Unavailable [phone] Donny Mcdonough MD Unavailable [phone] Juan Daniel Mera MD Unavailable Unava ilable Randall Schrader MD Unavailable Unavailable Shaista Hathaway FAMILY DINNER SERVICE SPECIALIST Unavailable [phone] Shaista Hathaway FAMILY DINNER SERVICE SPECIALIST Unavailable [phone] Elda Martin MD Unavailable Krystal Huerta DO Primary Care Provider [phone] Encounter Details Date Type Department Care Team (Late st Contact Info) Description 06/25/2022 MyChart Message Enc [facility] Medical Group Family Medicine - [place] [id number] [facility], [address] [place] [address] Krystal Huerta DO [address] [place] [address] UTI again? 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 Not on file [...] Depression Total Score: 23 022 1:17 PM MACHINE PLATE STACKER documented as of this encounter Care Teams Applications Engineering Manager Relationship Specialty Start Date End Date Krystal Huerta DO [facility] [place] [address] PCP - General FAMILY PRACTICE 02/21/22 Ashley Villegas MD [address] [place] [address] OBGYN 02/04/20 Donny Mcdonough MD [address] [facility] [address] [place] [address] GASTROENTEROLOGY 02/04/20 Juan Daniel Mera MD [address] [facility] [address] [place] [address] OBGYN 02/04/20 Randall Schrader MD [address] [facility] [address] [place] [address] Consulting Physician ORTHOPAEDIC SURGERY 02/04/20 Shaista Hathaway NP [address] [place] [address], [address] [address] NURSE PRACTITIONER GERONTOLOGY 02/04/20 Shaista Hathaway FAMILY DINNER SERVICE SPECIALIST [address] [place] [address], [address] [place] [address] NURSE PRACTITIONER GERONTOLOGY 04/29/20 Elda Martin MD [address] [facility] [address] [address] Psychiatry 08/31/20 documented as of this encounter
--- OUTSIDE RECORDS SUMMARY | 2025-02-17 18:52 | XMS_ITS | Encounter Summary ---
Author Organization [facility] Address [address] [place] [address] Care Team Providers Care Financial Analyst Name Role Phone Ashley Villegas MD Unavailable [phone] Donny Mcdonough MD Unavailable Juan Daniel Mera MD Unavailable Unava ilable Randall Schrader MD Unavailable Unavailable Shaista Hathaway NET DEVELOPER WITH WCF Unavailable [phone] Shaista Hathaway NET DEVELOPER WITH WCF Unavailable [phone] Elda Martin MD Unavailable Krystal Huerta DO Primary Care Provider [phone] Encounter Details Date Type Department Care Team (Late st Contact Info) Description 03/26/2023 MyChart Message Enc [facility] Family Medicine - [place] [id number] [facility], [address] [place] [address] Krystal Huerta DO [address] [place] [address] Weight Loss Medicine Social History Tobacco Use Types Packs/Day [...] place to sleep or slept in a snf (including now)? 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 Not on file [...] Total Score: 23 022 1:17 PM SERVER ADMINISTRATOR documented as of this encounter Care Teams Financial Analyst Relationship Specialty [place] [address] [place] [address] PCP - General FAMILY PRACTICE 02/21/22 Ashley Villegas MD [facility] [place] [address] OBGYN 02/04/20 Donny Mcdonough MD [address] [facility] [address] [place] [address] GASTROENTEROLOGY 02/04/20 Juan Daniel Mera MD [address] [facility] [address] [place] [address] OBGYN 02/04/20 Randall Schrader MD [address] [facility] [address] [place] [address] Consulting Physician ORTHOPAEDIC SURGERY 02/04/20 Shaista Hathaway NP [address] [place] [address], [address] [place] [address] NURSE PRACTITIONER GERONTOLOGY 02/04/20 Shaista Hathaway NP [address] [place] [address], [address] [place] [address] NURSE PRACTITIONER GERONTOLOGY 04/29/20 Elda Martin MD [address] [facility] [address] [address] Psychiatry 08/31/20 documented as of this encounter
--- OUTSIDE RECORDS SUMMARY | 2025-02-17 18:54 | XMS_ITS | Clinical Summary ---
Author Organization [email or web address] Address [address] [facility] [place] [address] Care Team Providers Care Nurse Sitter Name Role Phone Dae Emerson DO Unavailable [phone] Krystal Huerta DO Primary Care Provider [phone] Source Comments [facility],non-owned Affiliates and Associated Physician Practices is amultiple site organization consisting of ambulatory clinics and hospital sitesin [place], [place], [place] and [place]. This disclosure is being madepursuant to the Care Everywhere program and may not contain all information available regarding this patient. Last updated 17.[email or web address] Allergies Active Allergy Reactions Criticality Noted Date [...] on file Legal Sex Female 9:45 AM FISHING VESSEL OPERATOR Gender Identity Not on file Sexual Orientation Not on file Last Filed Vital Signs Vital Sign Reading Time Taken Comments Blood Pressure 118/86 10/02/2024 12:07 PM CDT Pulse 88 03/24/2024 3:30 PM FISHING VESSEL OPERATOR Temperature 36.2 C (97.2 F) 10/02/2024 12:07 PM CDT Respiratory Rate 16 03/24/2024 3:30 PM FISHING VESSEL OPERATOR Oxygen Saturation 95% 03/24/2024 3:30 PM FISHING VESSEL OPERATOR Inhaled Oxygen Concentration - - Weight 84.1 [...] this topic Medical Devices Implanted Type Area Order Picker Device Identifier Shelf Expiration Date Model / Serial / Lot Ld Nrstm Intstm 4.32mm Spc L28 Cm Qdpl Implanted:Qty: 1 on 06/02/2021 by Karl Gallegos MD at [facility] Left: Sacrum [employer] Neu[employer] 12/05/2022 [id number] / / [id number] Interstim X Implanted:Qty: 1 on 06/02/2021 by Karl Gallegos MD at [facility] Right: Back [employer] Inc 07/15/2022 [id number] / [id number] / Env Absb Med 2.7x2.5in Polyarylate Implanted:Qty: 1 on 06/02/2021 by Karl Gallegos MD at [facility] Right: Back [employer] 01/28/2022 [id number] / / [id number] Explanted Type Area Order Picker Device Identifier Shelf Expiration Date Model / Serial / Lot Lead Kit Implanted:Qty: 1 on 02/12/2013 by Angelina Barrios MD at [facility] Explanted:Qty: 1 on 06/02/2021 by Karl Gallegos MD at [facility] Back 12/26/2016 [id number] SNS LEAD / / [id number] Lead Nrstm 28cm Intstm Qdpl Implanted:Qty: 1 on 02/23/2016 by Juan Daniel Mera MD at [facility] Explanted:Qty: 1 on 06/02/2021 by Karl Gallegos MD at [facility] Buttocks [employer] Neu[employer] 01/09/2020 [id number] / / [id number] Nrstm Impl 2inx1.7in Intstm Ii Thk.3in - [id number] Implanted:Qty: 1 on 04/16/2018 by Juan Daniel Mera MD at [facility] Explanted:Qty: 1 on 06/02/2021 by Karl Gallegos MD at [facility] Right: Back [employer] Neu[employer] 06/30/2019 [id number] / [id number] / Procedures Procedure Name Priority Date/Time Associated [...] - 1.11 mg/dL 08/27/2021 5:15 AM CDT [facility] Alkaline Phosphatase 57 40 - 150 U/L 08/27/2021 5:15 AM CDT [facility] ALT 21 0 - 61 U/L 08/27/2021 5:15 AM CDT [facility] AST 18 5 - 34 U/L 08/27/2021 5:15 AM CDT [facility] Protein Total 6.3(L) 6.4 - 8.3 gm/dL 08/27/2021 5:15 AM CDT [facility] Albumin 3.3(L) 3.5 - 5.2 gm/dL 08/27/2021 5:15 AM CDT [facility] Bilirubin Total 0.3 0.2 - 1.2 mg/dL 08/27/2021 5:15 AM CDT [facility] eGFR by CKD-EPI >90 >=90 mL/min/1.7 3 m2 08/27/2021 5:15 AM CDT [facility] Blood BLOOD SPECIMEN / Unknown Lab Venipuncture / Unknown 08/27/2021 4:32 AM CDT 08/27/2021 4:47 AM CDT Jorge A Curiel MD LAB - CHEMISTRY ORDERABLES Massiel fair Result Performing Organization Address City/State/[facility] Co de Phone Number [facility] [address] [place] [address] from Last 3 Months or Most Recently Relevant to Health Maintenance Insurance MARY Advance Directives * Full Code (Latest Code Status on File) Date Activated Date Inactivated Comments 08/24/2021 12:04 AM 08/27/2021 3:35 PM * FULL RESUSCITATION Date Activated Date Inactivated Comments 05/02/2011 6:42 AM 05/02/2011 11:18 PM Care Teams Nurse Sitter Relationship Specialty Start Date End Date Krystal Huerta DO [address] [place] [address] PCP - General Family Medicine 01/03/23 Dae Emerson DO [address] [facility] [place] [address] Family Medicine 04/22/19
--- OUTSIDE RECORDS SUMMARY | 2025-02-17 18:54 | XMS_ITS | Encounter Summary ---
Author Organization [facility] Address [address] [place] [address] Care Team Providers Care Category Consultant Name Role Phone Ashley Villegas MD Unavailable [phone] Donny Mcdonough MD Unavailable [phone] Juan Daniel Mera MD Unavailable Unava ilable Randall Schrader MD Unavailable Unavailable Shaista Hathaway FISHER EEL SPEAR Unavailable [phone] Shaista Hathaway FISHER EEL SPEAR Unavailable [phone] Elda Martin MD Unavailable Krystal Huerta DO Primary Care Provider [phone] Encounter Details Date Type Department Care Team (Late st Contact Info) Description 05/23/2022 MyCSmallaat Message Enc [facility] Multispecialty Care - [facility] [address] [facility], [address] [place] [id number] Macey Flores NP [address] [facility] [address] [place] [address] Medication Social History Tobacco Use Types Packs/Day Years [...] Sex Assigned at Female 04/27/2024 1:02 PM MANAGER SHOP Legal Sex Female 10:46 PM CDT Gender Identity Female 05/07/2024 1:56 PM MANAGER SHOP Sexual Orientation Not on file 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 No / Unsure 05/22/2022 8:31 AM CDT documented as of this encounter [...] Depression Total Score: 23 022 1:17 PM MANAGER SHOP documented as of this encounter Care Teams Category Consultant Relationship Specialty Start Date End Date Krystal Huerta DO [facility] [place] [address] PCP - General FAMILY PRACTICE 02/21/22 Ashley Villegas MD [address] [place] [address] OBGYN 02/04/20 Donny Mcdonough MD [address] [facility] [address] [place] [address] GASTROENTEROLOGY 02/04/20 Juan Daniel Mera MD [address] [facility] [address] [place] [address] OBGYN 02/04/20 Randall Schrader MD [address] [facility] [address] [place] [address] Consulting Physician ORTHOPAEDIC SURGERY 02/04/20 Shaista Hathaway NP [address] [place] [address], [address] [place] [address] NURSE PRACTITIONER GERONTOLOGY 02/04/20 Shaista Hathaway FISHER EEL SPEAR [address] [place] [address], [address] [place] [address] NURSE PRACTITIONER GERONTOLOGY 04/29/20 Elda Martin MD [address] [facility] [address] [address] Psychiatry 08/31/20 documented as of this encounter
--- OUTSIDE RECORDS SUMMARY | 2025-02-17 18:54 | XMS_ITS | Encounter Summary ---
Author Organization [facility] Address [address] [place] [address] Care Team Providers Care Juke Box Mechanic Name Role Phone Ashley Villegas MD Unavailable [phone] Donny Mcdonough MD Unavailable [phone] Juan Daniel Mera MD Unavailable Unava ilable Randall Schrader MD Unavailable Unavailable Shaista Hathaway PALLETIZER OPERATOR Unavailable [phone] Shaista Hathaway PALLETIZER OPERATOR Unavailable [phone] Elda Martin MD Unavailable Dae Berrios DO Primary Care Provider [phone] Krystal Huerta DO Primary Care Provider [phone] Encounter Details Date Type Department Care Team (Late st Contact Info) Description 08/23/2021 MyChart Message Enc [facility] Family Medicine - [place] [address] [place] [address] Dae Berrios DO [address] [place] [address] Follow up from phone call Social History Tobacco Use Types Packs/Day Years [...] Sex Assigned at Female 04/27/2024 1:02 PM CANE WEIGHER Legal Sex Female 10:46 PM CDT Gender Identity Female 05/07/2024 1:56 PM CANE WEIGHER Sexual Orientation Not on file 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 No / Unsure 08/22/2021 2:03 PM CDT documented as of this encounter Functional [...] Depression Total Score: 23 022 1:17 PM CANE WEIGHER documented as of this encounter Care Teams Juke Box Mechanic Relationship Specialty Start Date End Date Dae Berrios DO [address] [place] [address] PCP - General FAMILY PRACTICE 08/31/20 02/20/22 Krystal Huerta DO [address] [place], [place] [address] PCP - General FAMILY PRACTICE 02/21/22 Ashley Villegas MD [address] [place] [address] OBGYN 02/04/20 Donny Mcdonough MD [address] [facility] [address] [place] [address] GASTROENTEROLOGY 02/04/20 Juan Daniel Mera MD [address] [facility] [address] [place] [address] OBGYN 02/04/20 Randall Schrader MD [address] [facility] [address] [place] [address] Consulting Physician ORTHOPAEDIC SURGERY 02/04/20 Shaista Hathaway, PALLETIZER OPERATOR [address] [place] [address], [address] [place] [address] NURSE PRACTITIONER GERONTOLOGY 02/04/20 Shaista Hathaway, PALLETIZER OPERATOR [address] [place] [address], [address] [place] [address] NURSE PRACTITIONER GERONTOLOGY 04/29/20 Elda Martin MD [address] [place] [address] Psychiatry 08/31/20 documented as of this encounter
--- OUTSIDE RECORDS SUMMARY | 2025-02-17 18:54 | XMS_ITS | Encounter Summary ---
Author Organization [facility] Address [address] [place] [address] Care Team Providers Care Marketing Recruiter Name Role Phone Kamila Craft [facility] Primary Care Provider [phone] Ashley Villegas MD Unavailable [phone] Donny Mcdonough MD Unavailable [phone] Misha Padilla DO Unavailable [phone] Juan Daniel Mera MD Unavailable Unava ilable Randall Schrader MD Unavailable Unavailable Shaista Hathaway FLIGHT OPERATIONS SPECIALIST Unavailable [phone] Shaista Hathaway FLIGHT OPERATIONS SPECIALIST Unavailable [phone] Dae Berrios DO Primary Care Provider [phone] Elda Martin MD Unavailable Dae Berrios DO Primary Care Provider [phone] Krystal Huerta DO Primary Care Provider [phone] Encounter Details Date Type Department Care Team (Late st Contact Info) Description 06/10/2020 Integrity Trackinghart Message Enc [facility] Family Medicine [address] [address] Kamila Craft [address] [address] RE: Medication Questions Social History Tobacco Use Types Packs/Day Years [...] 3, please move on to questions 3-9 0 2020 Comments No Sex and Gender Information Value Date Recorded Sex Assigned at Female 04/27/2024 1:02 PM BAR WAITER/WAITRESS Legal Sex Female 10:46 PM CDT Gender Identity Female 05/07/2024 1:56 PM BAR WAITER/WAITRESS Sexual Orientation Not on file documented as [...] on filedocumented in this encounter Care Teams Marketing Recruiter Relationship Specialty Start Date End Date Kamila Craft, [facility] PCP - General NURSE PRACTITIONER 01/26/20 07/17/20 Dae Berrios DO [address] [place] [address], [address] [place] [address] PCP - General FAMILY PRACTICE 07/18/20 08/30/20 Dae Berrios DO [address] [place] [address], [address] [place] [address] PCP - General FAMILY PRACTICE 08/31/20 02/20/22 Krystal Huerta DO [address] [place] [id number] PCP - General FAMILY PRACTICE 02/21/22 Ashley Villegas MD [address] [place], [place] [address] OBGYN 02/04/20 Donny Mcdonough MD [address] [facility] [address] [place], [place] [address] GASTROENTEROLOGY 02/04/20 Misha Padilla DO [address] [facility] [address] [address] Psychiatry 02/04/20 08/30/20 Juan Daniel Mera MD [address] [facility] [address] [place] [address] OBGYN 02/04/20 Randall Schrader MD [address] [facility] [address] [place] [address] Consulting Physician ORTHOPAEDIC SURGERY 02/04/20 Shaista Hathaway NP [address] [place] [address], [address] [place] [address] NURSE PRACTITIONER GERONTOLOGY 02/04/20 Shaista Hathaway NP [address] [place] [address], [address] [place] [address] NURSE PRACTITIONER GERONTOLOGY 04/29/20 Elda Martin MD [address] [facility] [place] [address] Psychiatry 08/31/20 documented as of this encounter
--- OUTSIDE RECORDS SUMMARY | 2025-02-17 18:54 | XMS_ITS | Encounter Summary ---
Author Organization [facility] Address [address] [place] [address] Care Team Providers Care Oil Field Technician Name Role Phone Ashley Villegas MD Unavailable [phone] Donny Mcdonough MD Unavailable [phone] Juan Daniel Mera MD Unavailable Unava ilable Randall Schrader MD Unavailable Unavailable Shaista Hathaway ROUND BONER Unavailable [phone] Shaista Hathaway ROUND BONER Unavailable [phone] Elda Martin MD Unavailable Dae Berrios DO Primary Care Provider [phone] Krystal Huerta DO Primary Care Provider [phone] Encounter Details Date Type Department Care Team (Late st Contact Info) Description 12/27/2021 MyChart Message Enc [facility] Family Medicine - [place] [address], [address] [place] [address] Dae Berrios, DO [address] [place] [address] [place] Social History Tobacco Use Types Packs/Day Years [...] please move on to questions 3-9 0 09/22/2021 Comments No Sex and Gender Information Value Date Recorded Sex Assigned at Female 04/27/2024 1:02 PM CIVIL ENGINEER'S AIDE Legal Sex Female 10:46 PM CDT Gender Identity Female 05/07/2024 1:56 PM CIVIL ENGINEER'S AIDE Sexual Orientation Not on file 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 No / Unsure 11/30/2021 4:14 PM CDT documented as of this encounter [...] Depression Total Score: 23 022 1:17 PM CIVIL ENGINEER'S AIDE documented as of this encounter Care Teams Oil Field Technician Relationship Specialty Start Date End Date Dae Berrios DO [address] [place] [address] PCP - General FAMILY PRACTICE 08/31/20 02/20/22 Krystal Huerta DO [address] [place] [address] PCP - General FAMILY PRACTICE 02/21/22 Ashley Villegas MD [address] [place] [address] OBGYN 02/04/20 Donny Mcdonough MD [address] [facility] [address] [place] [address] GASTROENTEROLOGY 02/04/20 Juan Daniel Mera MD [address] [facility] [address] [place] [address] OBGYN 02/04/20 Randlal Schrader MD [address] [facility] [address] [place] [address] Consulting Physician ORTHOPAEDIC SURGERY 02/04/20 Shaista Hathaway, ROUND BONER [address] [place] [address], [address] [place] [address] NURSE PRACTITIONER GERONTOLOGY 02/04/20 Shaista Hathaway, ROUND BONER [address] [place] [address], [address] [place] [address] NURSE PRACTITIONER GERONTOLOGY 04/29/20 Elda Martin MD [address] [place] [address] Psychiatry 08/31/20 documented as of this encounter
--- OUTSIDE RECORDS SUMMARY | 2025-02-17 18:54 | XMS_ITS | Encounter Summary ---
Author Organization [facility] Address [address] [place] [address] Care Team Providers Care Furnace Operator And Tender Name Role Phone Kamila Craft [facility] Primary Care Provider [phone] Ashley Villegas MD Unavailable [phone] Donny Mcdonough MD Unavailable [phone] Misha Padilla DO Unavailable [phone] Juan Daniel Mera MD Unavailable Unava ilable Randall Schrader MD Unavailable Unavailable Shaista Hathaway CAR CARDER Unavailable [phone] Shaista Hathaway CAR CARDER Unavailable [phone] Dae Berrios DO Primary Care Provider [phone] Elda Martin MD Unavailable Dae Berrios DO Primary Care Provider [phone] Krystal Huerta DO Primary Care Provider [phone] Encounter Details Date Type Department Care Team (Late st Contact Info) Description 02/23/2020 [place] Message Enc [facility] Family Medicine [address] [address] Kamila Craft [address] [address] RE: Question Social History Tobacco Use Types Packs/Day [...] Sex Assigned at Female 04/27/2024 1:02 PM SOFTWARE APPLICATIONS ENGINEER Legal Sex Female 10:46 PM CDT Gender Identity Female 05/07/2024 1:56 PM SOFTWARE APPLICATIONS ENGINEER Sexual Orientation Not on file COVID-19 Exposure Response Date Recorded In the last month, have you been in contact with someone who was confirmed or suspected to have Coronavirus / COVID-19? No / Unsure 02/23/2020 2:13 PM SOFTWARE APPLICATIONS ENGINEER documented as of this encounter Functional Status [...] Date Author Status No 09/10/2018 8:06 AM CDT iJe Saxena RN Active documented in this encounter Plan of Treatment Not on file documented as of this encounter Visit Diagnoses Not on filedocumented in this encounter Care Teams Furnace Operator And Tender Relationship Specialty Start Date End Date Kamila Craft [facility] PCP - General NURSE PRACTITIONER 01/26/20 07/17/20 Dae Berrios DO [address] [place] [address], [address] [address] PCP - General FAMILY PRACTICE 07/18/20 08/30/20 Dae Berrios DO [address] [place] [address], [address] [address] PCP - General FAMILY PRACTICE 08/31/20 02/20/22 Krystal Huerta DO [address] [place] [address] PCP - General FAMILY PRACTICE 02/21/22 Ashley Villegas MD [address] [place] [address] OBGYN 02/04/20 Donny Mcdonough MD [address] [facility] [address] [place] [address] GASTROENTEROLOGY 02/04/20 Misha Padilla DO [address] [address] Psychiatry 02/04/20 08/30/20 Juan Daniel Mera MD [address] [facility] [address] [place] [address] OBGYN 02/04/20 Randall Schrader MD [address] [facility] [address] [place] [address] Consulting Physician ORTHOPAEDIC SURGERY 02/04/20 Shaista Hathaway NP [address] [place] [address], [address] [place] [address] NURSE PRACTITIONER GERONTOLOGY 02/04/20 Shaista Hathaway NP [address] [place] [address], [address] [place] [address] NURSE PRACTITIONER GERONTOLOGY 04/29/20 Elda Martin MD [address] [facility] [address] [address] Psychiatry 08/31/20 documented as of this encounter
--- OUTSIDE RECORDS SUMMARY | 2025-02-17 18:54 | XMS_ITS | Encounter Summary ---
Author Organization [facility] Address [address] [place] [address] Care Team Providers Care Publications Manager Name Role Phone Kamila Craft [facility] Primary Care Provider [phone] Ashley Villegas MD Unavailable [phone] Donny Mcdonough MD Unavailable [phone] Misha Padilla DO Unavailable [phone] Juan Daniel Mera MD Unavailable Unava ilable Randall Schrader MD Unavailable Unavailable Shaista Hathaway [employer] Unavailable [phone] Shaista Hathaway [employer] Unavailable [phone] Dae Berrios DO Primary Care Provider [phone] Elda Martin MD Unavailable Dae Berrios DO Primary Care Provider [phone] Krystal Huerta DO Primary Care Provider [phone] Encounter Details Date Type Department Care Team (Late st Contact Info) Description 02/12/2020 MyChart Message Enc [facility] Mult[facility]pec[facility] - [address], [address] [place] [address] Randall Schrader MD RE: Question Social History Tobacco Use Types [...] Sex Assigned at Female 04/27/2024 1:02 PM [employer] Legal Sex Female 10:46 PM CDT Gender Identity Female 05/07/2024 1:56 PM [employer] Sexual Orientation Not on file COVID-19 Exposure Response Date Recorded In the last month, have you been in contact with someone who was confirmed or suspected to have Coronavirus / COVID-19? No / Unsure 02/03/2020 7:16 PM [employer] documented as of this encounter Functional Status [...] on filedocumented in this encounter Care Teams Publications Manager Relationship Specialty Start Date End Date Kamila Craft [facility] PCP - General NURSE PRACTITIONER 01/26/20 07/17/20 Dae Berrios DO [address] [place] [address], [address] [place] [address] PCP - General FAMILY PRACTICE 07/18/20 08/30/20 Dae Berrios DO [address] [place] [address], [address] [place] [address] PCP - General FAMILY PRACTICE 08/31/20 02/20/22 Krystal Huerta DO [address] [place] [id number] PCP - General FAMILY PRACTICE 02/21/22 Ashley Villegas MD [address] [place] [id number] OBGYN 02/04/20 Donny Mcdonough MD [address] [facility] [address] [place] [address] GASTROENTEROLOGY 02/04/20 Misha Padilla DO [address] [facility] [address] [place] [address] Psychiatry 02/04/20 08/30/20 Juan Daniel Mera MD [address] [facility] [address] [place] [address] OBGYN 02/04/20 Randall Schrader MD [address] [facility] [address] [place] [address] Consulting Physician ORTHOPAEDIC SURGERY 02/04/20 Shaista Hathaway NP [address] [place] [address], [address] [place] [address] NURSE PRACTITIONER GERONTOLOGY 02/04/20 Shaista Hathaway NP [address] [place] [address], [address] [place] [address] NURSE PRACTITIONER GERONTOLOGY 04/29/20 Elda Martin MD [address] [facility] [address] [facility] [address] [place] [address] Psychiatry 08/31/20 documented as of this encounter
--- OUTSIDE RECORDS SUMMARY | 2025-02-17 18:54 | XMS_ITS | Clinical Summary ---
Author Organization [facility] Address [address] [place] [address] Care Team Providers Care Protective Signal Repairer Helper Name Role Phone Ashley Villegas MD Unavailable [phone] Donny Mcdonough MD Unavailable [phone] Juan Daniel Mera MD Unavailable Unava ilable Randall Schrader MD Unavailable Unavailable Shaista Hathaway NP Unavailable [phone] Shaista Hathaway NP Unavailable [phone] Elda Martin MD Unavailable Damian Duarte DO Primary Care Provider [phone] Allergies Active Allergy Reactions Criticality Noted Date Comments Levofloxacin Headache 07/13/2022 Medications eptinezumab-jjmr (VYEPTI) 100 MG/ML Solution injection Inject 3 mLs (300 mg total) into the vein every 3 (three) months. 02/10/20 24 Active levothyroxine (SYNTHROID) 75 MCG tabletIndication s:Encounter for well adult exam with abnormal findings,Elevate d platelet count,Folic acid deficiency,Acqui red hypothyroidism,S creening mammogram for breast cancer,Moderate obstructive sleep apnea,Dyslipidem ia Take 1 tablet (75 mcg total) by mouth every morning. 90 tablet 2 07/15/19 25 Active pantoprazole EC (PROTONIX) 40 MG tabletIndication s:Gastroesophage al reflux disease, unspecified whether esophagitis present Take 1 tablet (40 mg total) by mouth daily. 90 tablet 2 08/18/19 25 Active folic acid (FOLVITE) 1 MG tabletIndication s:Encounter for well adult exam with abnormal findings,Elevate d platelet count,Folic acid deficiency,Acqui red hypothyroidism,S creening mammogram for breast cancer,Moderate obstructive sleep apnea,Dyslipidem ia TAKE 1 TABLET BY MOUTH EVERY DAY 30 tablet 2 01/27/20 25 Active FLUoxetine (PROZAC) 40 MG capsule Take 1 capsule (40 mg total) by mouth daily. Active OLANZapine (ZYPREXA) 10 MG tablet daily. Active tirzepatide (ZEPBOUND) 7.5 MG/0.5ML injectionIndicat ions:Weight Loss Inject 7.5 mg into the skin once a week. Indications : Weight Loss 3 mL 1 02/18/20 25 Active ondansetron (ZOFRAN) 4 MG tabletIndication s:Chronic nausea Take 1 tablet (4 mg total) by mouth every 8 (eight) hours as needed for Nausea. 90 tablet 1 10/08/19 24 025 Discontinued( erapy completed) folic acid (FOLVITE) 1 MG tabletIndication s:Encounter for well adult exam with abnormal findings,Elevate d platelet count,Folic acid deficiency,Acqui red hypothyroidism,S creening mammogram for breast cancer,Moderate obstructive sleep apnea,Dyslipidem ia TAKE 1 TABLET BY MOUTH EVERY DAY 30 tablet 2 10/21/19 25 025 Discontinued risperiDONE (RISPERDAL) 1 MG tablet Take 1 tablet (1 mg total) by mouth 2 (two) times daily. 11/30/19 25 025 Discontinued( erapy completed) FLUoxetine (PROZAC) 20 MG capsule Take 1 capsule (20 mg total) by mouth daily. 12/01/19 025 Discontinued( erapy completed) tirzepatide (ZEPBOUND) 2.5 MG/0.5ML injectionIndicat ions:Weight Loss Inject 2.5 mg into the skin once a week. Indications : Weight Loss 3 mL 12/24/19 25 025 Discontinued(Do se adjustment) tirzepatide (ZEPBOUND) 5 MG/0.5ML injectionIndicat ions:Weight Loss Inject 5 mg into the skin once a week. Indications : Weight Loss 3 mL 1 01/20/20 25 025 Discontinued(Re order) tirzepatide (ZEPBOUND) 5 MG/0.5ML injectionIndicat ions:Weight Loss Inject 5 mg into the skin once a week. Indications : Weight Loss 3 mL 1 02/18/20 25 025 Discontinued(Do se adjustment) Active Problems Problem Noted Date Diagnosed Date Esophageal dysphagia 06/11/2023 Globus sensation 06/11/2023 Chest pain in adult 01/08/2023 Acute intractable headache, unspecified headache type 10/26/2022 History of cholecystectomy 10/12/2022 Positive D dimer 10/12/2022 Nephrolithiasis 08/23/2021 Chronic nausea 07/18/2020 Vitamin D deficiency 02/10/2020 Overview (04/29/2020): 11; started vit d 50,000 weekly History of opioid abuse 2020 Overview (2020): Hx of pain med addiction (2014) Migraine 01/27/2020 Urinary retention 10/16/2018 Interstitial cystitis 10/16/2018 Acute pain of right shoulder due to trauma 06/20 Overview (04/29/2020): Last Assessment & Plan: CT unable to do mri Fatigue 06/20/2018 Overview (04/29/2020): Last Assessment & Plan: Sleep study Bipolar disorder 07/24/2017 Overview (10/16/2018): Last Assessment & Plan: Patient is well controlled. Continue current treatment. Dyslipidemia 07/24/2017 GERD (gastroesophageal reflux disease) 8 Obesity Medication overuse headache Resolved Problems Problem Noted Date Diagnosed Date Resolved Date Ureteral stone with hydronephrosis 09/01/2021 09/22/2021 Vitamin D deficiency 02/10/2020 021 Overview (02/10/2020): 11; started vit d 50,000 weekly History of kidney stones 2020 Overview (2020): Passed on her own History of kidney stones 2020 Overview (04/29/2020): Passed on her own History of opioid abuse 02/04/202007/02 Overview (04/29/2020): Hx of pain med addiction (2014) Pancreatitis 09/25/2018 07/18/2020 Overview (04/29/2020): Last Assessment & Plan: resolved Pancreatitis 09/08/2018 07/18/2020 Overview (10/16/2018): Last Assessment & Plan: resolved HTN (hypertension) 07/24/2017 0 Overview (09/08/2018): Last Assessment & Plan: Patient is well controlled. Continue current treatment. Hypothyroidism 07/24/2017 2020 Bipolar disorder 07/24/2017 09/22/2021 Overview (04/29/2020): Last Assessment & Plan: Patient is well controlled. Continue current treatment. HTN (hypertension) 07/24/2017 1 Overview (04/29/2020): Last Assessment & Plan: Patient is well controlled. Continue current treatment. Encounters Date Type Department Care Team Description 02/17/2025 7:20 AM BUSINESS PROCESS EXPERT Office Visit [facility] Family [facility] - [place] [address], [address] [place] [phone] Damian Duarte DO Follow Up (Pt here for f/u on zepbound. [facility] lab ) 02/17/2025 Travel 02/13/2025 Results Follow-Up [facility] [address] [facility], [address] [place] [phone] Damian Duarte DO COMPREHENSIVE METABOLIC PANEL, LIPASE, TSH W/REFLEX 02/12/2025 6:47 AM BUSINESS PROCESS EXPERT - 02/12/2025 11:59 PM BUSINESS PROCESS EXPERT Hospital Encounter [facility] [place] [address] Damian Duarte DO Discharge Disposition: Home or Self Care (Routine Discharge) 02/12/2025 Travel 01/19/2025 7:20 AM BUSINESS PROCESS EXPERT Office Visit [facility] [address] [facility], [address] [place] [address] [phone] Damian Duarte DO Follow Up (Weight loss follow up ([facility] lab)) 01/19/2025 Travel 01/08/2025 10:28 AM BUSINESS PROCESS EXPERT - 01/08/2025 12:56 PM BUSINESS PROCESS EXPERT Emergency [facility] [place] [address] Rocio Moreno PA Urinary Symptoms Discharge Disposition: Home or Self Care (Routine Discharge) 01/08/2025 Travel 01/07/2025 MyChart Message Enc [facility] [address] [facility], [address] [place] [address] [phone] Damian Duarte DO Uti 12/24/2024 MyChart Message Enc [facility] [address] [facility], [address] [place] [phone] [facility] Provider Zepbound 12/23/2024 2:20 PM CDT Office Visit [facility] [address] [facility] [address], [address] [place] [address] Damian Duarte DO Medication (Pt interested in weight loss medication) 12/23/2024 Travel 12/08/2024 MyChart Message Enc [facility] [address] [facility] [address], [address] [place], [place] [phone] Damian Duarte DO Weight loss medication 12/07/2024 Results Follow-Up [facility] [address] [facility] [address], [address] [place] [address] Damian Duarte DO THYROID STIM HORMONE TSH, THYROXINE, FREE (FT4) 12/04/2024 11:20 AM CDT Office Visit [facility] [address] [facility] [address], [address] [place], [place] [phone] Damian Duarte DO TCM (Depression d/c 11/27/24 from [facility] ([facility] lab)) 12/04/2024 Travel 11/29/2024 Scan Versly INFO SRVCS Scanned, [facility] 11/27/2024 Telephone [facility] [address] [facility], [address] [place] [phone] Damian Duarte DO TCM from Last 3 Months Immunizations Immunization Administration Dates Next Due Dtap (Generic) 02/17/2020 Fluarix (IIV4) 12/18/2019,12/10/2018 Fluzone (IIV3, Trivalent, 0. 5 ML Prefilled Syringe) 12/23/2024 Fluzone 6 Months+ Quad (0.5 mL Prefilled Syringe) 01/16/2019 Influenza (Generic) 12/04/2020, 8,12/22/2016,2015,11/15/2012 Influenza Adult (Generic) 12/16/2022,05/2022,12/09/2021,2019,12/10/2018,12/22/2016,12/17/2015,0 11/15/2012 MMR 09/09/1991 MMR (Generic) 09/09/1991 PFIZER COVID-19 (12+) MRNA, LNP-S, PF, PENNIE-SUCROSE, 30 MCG/0.3 ML (COMIRNATY) 12/16/2022,12/04/2022 Family History Medical History Relation Comments Hypertension Brother 1 Diabetes Brother 2 Heart Attack Brother 2 Heart Disease Brother 2 Hypertension Brother 2 Stroke Brother 2 Heart Attack Father Heart Disease Father Hypertension Father Heart Attack Maternal Grandfather Cancer Mother Glioblastoma Miscarriages / Stillbirths Mother Heart Attack Paternal Grandfather Relation Status Comments Brother 1 Alive Brother 2 Alive Father Alive Maternal Grandfather Maternal Grandmother Mother (Age 54) of brain cancer Paternal Grandfather Paternal Grandmother Social History Tobacco Use Types Packs/Day Years [...] place to sleep or slept in a senior care (including now)? 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 on file Not on file Not on file Last Filed Vital Signs Vital Sign Reading Time Taken Comments Blood Pressure 118/72 02/17/2025 7:18 AM BUSINESS PROCESS EXPERT Pulse 89 02/17/2025 7:18 AM BUSINESS PROCESS EXPERT Temperature 36.4 C (97.5 F) 02/17/2025 7:18 AM BUSINESS PROCESS EXPERT Respiratory Rate 16 02/17/2025 7:18 AM BUSINESS PROCESS EXPERT Oxygen Saturation 99% 02/17/2025 7:18 AM BUSINESS PROCESS EXPERT Inhaled Oxygen Concentration - - Weight 82.3 kg (181 lb 6.4 oz) 02/17/2025 7:18 A M BUSINESS PROCESS EXPERT Height 160 cm (5' 3) 02/17/2025 7:18 AM BUSINESS PROCESS EXPERT Body Mass Index 32.13 02/17/2025 7:18 AM BUSINESS PROCESS EXPERT Plan of Treatment Health Maintenance Due Date Last Done Comments Hepatitis B Vaccines (1 of 3 - 19+ 3-dose series) 02/05/2000 HPV Vaccines (1 - 3-dose SCDM series) 02/05/2008 COVID-19 Vaccine (2024- season) 2024 12/16/2022, 12/04/2022, 01/04/2021, Additional history exists Annual Physical 01/19/2026 01/19/2025, 07/03, 07/21/2021, Additional history exists Mammogram Screening 09/10/2026 09/10/2024, 09/09/2023, 08/31/2022, Additional history exists DTaP, Tdap and Td Vaccines (2 - Tdap) 02/16/2030 02/17/2020 Hepatitis C Completed 02/13/2023, 2020 PHQ-2 (Physician [place]) Completed 12/04/2024 Influenza Adult Completed 12/23/2024, 12/02, 12/04/2022, Additional history exists Hepatitis A Vaccines Aged Out No long er eligible based on patient's age to complete this topic Meningococcal B Vaccine Aged Out No l onger eligible based on patient's age to complete this topic Meningococcal Vaccine Aged Out No kevin luiz eligible based on patient's age to complete this topic Pneumococcal Vaccine: Pediatrics (0 to 5 Years) and At-Risk Patients (6 to 49 Years) Aged Out No longer eligible based on patient's age to complete this topic RSV Immunizations Under 20 Months Aged Out No longer eligible based on patient's age to complete this topic Goals Goal Patient Goal Type Associated Problems Recent Progress Patient-Stated? Author Health - patient able to perform ADLs independently Lifestyle No Garcia Borges, RN Medical Devices Implanted Type Area Dental Technician Instructor Device Identifier Shelf Expiration Date Model / Serial / Lot Implant Arthrex Biocomposite Distal Biceps Repair - [id number] Implanted:Qty: 1 on 01/18/2020 by Randall Schrader MD at [facility] [employer] Screw Right: Shoulder [employer] [id number] 11/01/2021 [id number] / / [id number] Stimulator Implant-06/03/19 22 Implanted:Qty: 1 on 06/02/2021 Stimulator Implant Abdomen [employer] [id number] / [id number] / Description:MR CONDITIONAL A T 1.5 T OR 3 T, SHOULD BE FULL BODY ELIGIBLE (CHECK WITH REMOTE), NEED REMOTE TO TURN OFF STIMULATION, NORMAL DENNY Panalok [employer]c Quickanchor Plus Implanted:Qty: 1 on 01/18/2020 by Randall Schrader MD at [facility] Right: Shoulder [employer]PU[employer] [id number] 10/01/2021 212.130 / / [id number] Explanted Type Area Dental Technician Instructor Device Identifier Shelf Expiration Date Model / Serial / Lot Panalok Rc Quickanchor Plus Explanted:Qty: 2 on 01/18/2020 by Randall Schrader MD at [facility] Right: Shoulder [employer] [id number] 10/01/2021 212.130 / / [id number] Pan[employer] Quickanchor Plus Implanted:Qty: 1 Explanted:Qty: 1 on 01/18/2020 by Randall Schrader MD at [facility] Right: Shoulder DEPUY 01/01/2021 212.132 / / [id number] Procedures Procedure Name Priority Date/Time Associated Diagnosis Comments TSH W/REFLEX Routine 02/12/2025 6:54 AM BUSINESS PROCESS EXPERT MANDY (obstructive sleep apnea) Moderate obstructive sleep apnea LIPASE Routine 02/12/2025 6:54 AM BUSINESS PROCESS EXPERT MANDY (obstructive sleep apnea) Moderate obstructive sleep apnea COMPREHENSIVE METABOLIC PANEL Routine 02/12/2025 6:54 AM BUSINESS PROCESS EXPERT MANDY (obstructive sleep apnea) Moderate obstructive sleep apnea URINE BACTERIA CULTURE STAT 01/08/2025 11:16 AM BUSINESS PROCESS EXPERT URINALYSIS STAT 01/08/2025 11:16 AM BUSINESS PROCESS EXPERT BASIC METABOLIC PANEL STAT 01/08/2025 10:58 AM BUSINESS PROCESS EXPERT CBC W/DIFF AUTOMATED STAT 01/08/2025 10:[address] ABD+PEL WO CON STAT 01/08/2025 10: 38 AM BUSINESS PROCESS EXPERT COLLECTION VENOUS BLOOD VENIPUNCTURE Routine 12/04/2024 11:55 AM CDT Severe episode of recurrent major depressive disorder, without psychotic features (CMS/HCC HHS/HCC) Acquired hypothyroidism Gastroesophageal reflux disease, unspecified whether esophagitis present THYROXINE, FREE (FT4) Routine 12/04/2024 11:48 AM CDT Acquired hypothyroidism THYROID STIM HORMONE TSH Routine 12/04/2024 11:48 AM CDT Acquired hypothyroidism MG SCREENING W HANSEL CHAVA DIGI Routine 09/10/2024 2:14 PM CDT Encounter for well adult exam with abnormal findings Elevated platelet count Folic acid deficiency Acquired hypothyroidism Screening mammogram for breast cancer Moderate obstructive sleep apnea Dyslipidemia HEPATITIS PANEL,ACUTE Routine 02/13/2023 6:54 AM BUSINESS PROCESS EXPERT Positive D dimer Elevated LFTs from Last 3 Months or Most Recently Relevant to Health Maintenance Results * LIPASE (02/12/2025 6:54 AM BUSINESS PROCESS EXPERT) LIPASE 70 13 - 75 UNITS/L 02/12/2025 7:59 AM BUSINESS PROCESS EXPERT [facility] BLOOD VENOUS BLOOD SPECIMEN / Unknown 02/12/2025 6:54 AM BUSINESS PROCESS EXPERT us Damian Deanna DO LABORATORY Final Result [facility] [address] [place] [address], [place] [phone] * (ABNORMAL) COMPREHENSIVE METABOLIC PANEL (02/12/2025 6:54 AM BUSINESS PROCESS EXPERT) GLUCOSE 98 70 - 99 MG/DL 02/12/2025 7:59 AM BUSINESS PROCESS EXPERT [facility] BUN 9 7 - 18 MG/DL 02/12/2025 7:59 AM [facility] CREATININE S/P/B 0.77 0.55 - 1.02 MG/DL 02/12/2025 7:59 AM [facility] SODIUM S/P/B 139 136 - 145 MMOL/L 02/12/2025 7:59 AM [facility] POTASSIUM S/P/B 3.8 3.5 - 5.1 MMOL/L 02/12/2025 7:59 AM [facility] CHLORIDE S/P/B 108 97 - 115 MMOL/L 02/12/2025 7:59 AM [facility] CO2 24.5 21 - 32 MMOL/L 02/12/2025 7:59 AM [facility] CALCIUM S/P/B 9.3 8.5 - 10.1 MG/DL 02/12/2025 7:59 AM [facility] BILIRUBIN TOTAL S/P/B 0.5 0.2 - 1.2 MG/DL 02/12/2025 7:59 AM [facility] Comment: THIS ASSAY IS NOT RECOMMENDED FOR PATIENTS UNDERGOING TREATMENT WITH ELTROMBOPAG DUE TO THE POTENTIAL FOR FALSELY ELEVATED RESULTS. TOTAL PROTEIN S/P/B 7.4 6.4 - 8.2 G/DL 02/12/2025 7:59 AM [facility] ALBUMIN S/P/B 3.5 3.4 - 5.0 G/DL 02/12/2025 7:59 AM [facility] AST 18 15 - 37 U/L 02/12/2025 7:59 AM [facility] ALT 29 14 - 55 U/L 02/12/2025 7:59 AM [facility] ALKALINE PHOSPHATASE S/P/B 104 50 - 136 U/L 02/12/2025 7:59 AM BUSINESS PROCESS EXPERT [facility] ANION GAP 6.5 2 - 10 MMOL/L 02/12/2025 7:59 AM BUSINESS PROCESS EXPERT [facility] BUN CREATININE RATIO 11.7 6 - 26 02/12/2025 7:59 AM [facility] A/G RATIO 0.9(L) 1.0 - 2.0 RATIO 02/12/2025 7:59 AM [facility] GFR ESTIMATE >90 >90 ML/MIN/1.7 3 M2 02/12/2025 7:59 AM [facility] Comment: NOTE: eGFR is not calculated for patients <18 years of age or gender unknown. This is an estimated GFR calculation using the new CKD EPI creatinine equation without race and so does not require a correction factor for race. This estimated GFR should not be used for calculating drug doses. BLOOD VENOUS BLOOD SPECIMEN / Unknown 02/12/2025 6:54 AM BUSINESS PROCESS EXPERT us Damian Deanna DO LABORATORY Final Result [facility] [address] [place] [address], * TSH W/REFLEX (02/12/2025 6:54 AM BUSINESS PROCESS EXPERT) TSH 3.110 0.358 - 3.74 uIU/ML 02/12/2025 7:59 AM BUSINESS PROCESS EXPERT [facility] Comment: HIGH DOSES OF BIOTIN MAY INTERFERE WITH THIS TEST RESULT. CORRELATION TO CLINICAL HISTORY AND PRESENTATION RECOMMENDED. FREE T4 NOT INDICATED BLOOD VENOUS BLOOD SPECIMEN / Unknown 02/12/2025 6:54 AM BUSINESS PROCESS EXPERT us Damian Deanna DO LABORATORY Final Result [facility] [address] [place] [id number], * URINALYSIS (01/08/2025 11:16 AM BUSINESS PROCESS EXPERT) SPECIMEN TYPE URINE CLEAN CATCH 01/08/2025 11:14 AM [facility] COLOR (U) LIGHT YELLOW 01/08/2025 11:34 AM [facility] TRANSPARENCY CLEAR 01/08/2025 11:34 AM [facility] SPECIFIC GRAVITY (U) 1.014 1.001 - 1.030 01/08/2025 11:34 AM [facility] U PH 5.5 5.0 - 9.0 01/08/2025 11:34 AM [facility] LEUKOCYTES (U) NEGATIVE NEGATIVE 01/08/2025 11:34 AM [facility] NITRITES NEGATIVE NEGATIVE 01/08/2025 11:34 AM [facility] PROTEIN RANDOM (U) NEGATIVE <30 MG/DL 01/08/2025 11:34 AM [facility] GLUCOSE (U) NORMAL NORMAL MG/DL 01/08/2025 11:34 AM [facility] KETONES MG/DL (U) NEGATIVE NEGATIVE MG/DL 01/08/2025 11:34 AM [facility] UROBILINOGEN NORMAL NORMAL MG/DL 01/08/2025 11:34 AM [facility] BILIRUBIN (U) NEGATIVE NEGATIVE MG/DL 01/08/2025 11:34 AM [facility] BLOOD (U) NEGATIVE NEGATIVE 01/08/2025 11:34 AM [facility] URINE SPECIMEN OBTAINED BY CLEAN CATCH PROCEDURE / Unknown 01/08/2025 11:16 AM BUSINESS PROCESS EXPERT Rocio HERNADEZ URINE ORDERABLES Final Result Performing Organization Address [facility] [[email or web address]] Co de Phone Number [facility] [address] [place] [address], * URINE BACTERIA CULTURE (01/08/2025 11:16 AM BUSINESS PROCESS EXPERT) SPEC DESCRIPTION URINE CLEAN CATCH 01/08/2025 11:14 AM BUSINESS PROCESS EXPERT [facility] SPECIAL REQUESTS NO SPECIAL REQUEST 01/08/2025 11:14 AM BUSINESS PROCESS EXPERT [facility] CULTURE RESULT NO GROWTH 2 DAYS 01/10/2025 8:13 AM BUSINESS PROCESS EXPERT [facility] URINE SPECIMEN OBTAINED BY CLEAN CATCH PROCEDURE / Unknown 01/08/2025 11:16 AM BUSINESS PROCESS EXPERT 01/08/2025 11:21 AM BUSINESS PROCESS EXPERT Rocio HERNADEZ MICROBIOLOGY - GENERAL ORDERA BLES Final Result Performing Organization Address [facility] Co de Phone Number [facility] [address] [place] [id number], * (ABNORMAL) BASIC METABOLIC PANEL (01/08/2025 10:58 AM BUSINESS PROCESS EXPERT) GLUCOSE 85 70 - 99 MG/DL 01/08/2025 11:40 AM BUSINESS PROCESS EXPERT [facility] BUN 21(H) 7 - 18 MG/DL 01/08/2025 11:40 AM BUSINESS PROCESS EXPERT [facility] CREATININE S/P/B 0.91 0.55 - 1.02 MG/DL 01/08/2025 11:40 AM [facility] SODIUM S/P/B 135(L) 136 - 145 MMOL/L 01/08/2025 11:40 AM BUSINESS PROCESS EXPERT [facility] POTASSIUM S/P/B 4.3 3.5 - 5.1 MMOL/L 01/08/2025 11:40 AM [facility] Comment:SLIGHT HEMOLYSIS, RE SULT MAY BE AFFECTED. CHLORIDE S/P/B 104 97 - 115 MMOL/L 01/08/2025 11:40 AM [facility] CO2 26.5 21 - 32 MMOL/L 01/08/2025 11:40 AM [facility] CALCIUM S/P/B 9.6 8.5 - 10.1 MG/DL 01/08/2025 11:40 AM [facility] ANION GAP 4.5 2 - 10 MMOL/L 01/08/2025 11:40 AM [facility] BUN CREATININE RATIO 23.1 6 - 26 01/08/2025 11:40 AM [facility] GFR ESTIMATE 80(L) >90 ML/MIN/1.7 3 M2 01/08/2025 11:40 AM [facility] Comment: NOTE: eGFR is not calculated for patients <18 years of age or gender unknown. This is an estimated GFR calculation using the new CKD EPI creatinine equation without race and so does not require a correction factor for race. This estimated GFR should not be used for calculating drug doses. 01/08/2025 10:5 8 AM BUSINESS PROCESS EXPERT Rocio HERNADEZ LABORATORY Final Result [facility] [address] [place] [address], [place] [phone] * (ABNORMAL) CBC W/DIFF AUTOMATED (01/08/2025 10:58 AM BUSINESS PROCESS EXPERT) WBC 7.35 4.5 - 11.0 x10'3/uL 01/08/2025 11:09 AM BUSINESS PROCESS EXPERT [facility] RBC 4.66 4.20 - 5.40 x10'6/uL 01/08/2025 11:09 AM [facility] HGB 14.7 12.0 - 16.0 G/DL 01/08/2025 11:09 AM [facility] HCT 41.9 38.0 - 48.0 % 01/08/2025 11:09 AM [facility] MCV 89.9 81.0 - 99.0 FL 01/08/2025 11:09 AM [facility] MCH 31.5(H) 27.0 - 31.0 PG 01/08/2025 11:09 AM [facility] MCHC 35.1 32.0 - 36.0 G/DL 01/08/2025 11:09 AM [facility] RDW 12.3 11.5 - 14.5 % 01/08/2025 11:09 AM [facility] PLT 370 130 - 400 x10'3/uL 01/08/2025 11:09 AM [facility] MPV 9.9 9.3 - 12.2 FL 01/08/2025 11:09 AM [facility] DIFFERENTIAL TYPE AUTOMATED DIFFERENTIAL 01/08/2025 11:09 AM [facility] NEUTROPHILS % 60.1 % 01/08/2025 11:09 AM [facility] LYMPHOCYTES % 27.1 % 01/08/2025 11:09 AM [facility] MONOCYTES % 8.0 % 01/08/2025 11:09 AM [facility] EOSINOPHILS 3.4 % 01/08/2025 11:09 AM [facility] BASOPHILS 1.0 % 01/08/2025 11:09 AM [facility] IMMATURE GRANS % 0.4 % 01/09/20 11:09 AM BUSINESS PROCESS EXPERT [facility] ABS. NEUTROPHILS 4.42 1.80 - 7.70 x10'3/uL 01/08/2025 11:09 AM BUSINESS PROCESS EXPERT [facility] ABS. LYMPHOCYTES 1.99 1.00 - 4.80 x10'3/uL 01/08/2025 11:09 AM BUSINESS PROCESS EXPERT [facility] ABS. MONOCYTES 0.59 0.24 - 0.86 x10'3/uL 01/08/2025 11:09 AM BUSINESS PROCESS EXPERT [facility] ABS. EOSINOPHILS 0.25 0.04 - 0.36 x10'3/uL 01/08/2025 11:09 AM BUSINESS PROCESS EXPERT [facility] ABS. BASOPHILS 0.07 0.01 - 0.08 x10'3/uL 01/08/2025 11:09 AM [facility] ABS. IMMATURE GRANULOCYTES 0.03 0.00 - 0.49 x10'3/uL 01/08/2025 11:09 AM [facility] 01/08/2025 10:5 8 AM BUSINESS PROCESS EXPERT Rocio HERNADEZ LABORATORY Final Result [facility] [address] [place] [address], * CT ABD+PEL WO CON (01/08/2025 10:38 AM BUSINESS PROCESS EXPERT) Anatomical Region Laterality Modality Abdomen Computed Tomogra phy 01/08/2025 11:1 7 AM BUSINESS PROCESS EXPERT Impressions 01/08/2025 11:43 AM BUSINESS PROCESS EXPERT IMPRESSION: 1) No acute inflammatory change, abscess nor ascites. 2. No evidence of ureteral stone nor hydronephrosis on either side. 3. Nonspecific distention of urinary bladder. No focal bladder abnormality demonstrated. 4. No evidence of mechanical bowel obstruction or perforation. Ordered By: ROCIO MORENO Interpreted By: Lamonte Malik MD, 01/08/2025 11:17 AM Narrative 01/08/2025 11:43 AM BUSINESS PROCESS EXPERT [address] [address] Examination: CT ABD+PEL WO CON Exam time: 01/08/2025 10:36 AM Clinical history: Urinary retention Comparison: 08/07/2024 Technique: Axial images obtained from xiphoid process to pubic symphysis without contrast using low-dose CT technique. Sagittal and coronal reconstruction. Findings: CT ABDOMEN: Visualized portions of the lung bases demonstrate no acute abnormality. No significant hiatal hernia. The liver is normal in size. No significant focal intrahepatic lesions are demonstrated. The gallbladder has been removed. There is no evidence of choledocholithiasis. The spleen, pancreas, and the adrenal glands are unremarkable. There is no acute perirenal inflammatory stranding or fluid. 5 mm nonobstructing calcification left kidney. No evidence of ureteral stone nor hydronephrosis on either side. No evidence to suggest significant solid renal mass lesion. There is no acute inflammatory change, abscess nor ascites. No evidence of mechanical bowel obstruction or perforation. No significant lymphadenopathy. There is a normal variant retroaortic left renal vein. Abdominal aorta and IVC are unremarkable. CT PELVIS: The urinary bladder is distended. No focal bladder abnormalities are demonstrated. The uterus is surgically absent. There is no pelvic mass or adenopathy. No acute inflammatory change, abscess nor ascites. Procedure Note Lamonte Malik MD - 01/08/2025 [facility] [address] [place], [place] [address] Examination: CT ABD+PEL WO CON Exam time: 01/08/2025 10:36 AM Clinical history: Urinary retention Comparison: 08/07/2024 Technique: Axial images obtained from xiphoid process to pubic symphysiswithout contrast using low-dose CT technique. Sagittal and coronalreconstruction. Findings: CT ABDOMEN: Visualized portions of the lung bases demonstrate no acuteabnormality. No significant hiatal hernia. The liver is normal in size. No significant focal intrahepatic lesions aredemonstrated. The gallbladder has been removed. There is no evidence ofcholedocholithiasis. The spleen, pancreas, and the adrenal glands are unremarkable. There is noacute perirenal inflammatory stranding or fluid. 5 mm nonobstructingcalcification left kidney. No evidence of ureteral stone norhydronephrosis on either side. No evidence to suggest significant solidrenal mass lesion. There is no acute inflammatory change, abscess nor ascites. No evidence ofmechanical bowel obstruction or perforation. No significantlymphadenopathy. There is a normal variant retroaortic left renal vein.Abdominal aorta and IVC are unremarkable. CT PELVIS: The urinary bladder is distended. No focal bladderabnormalities are demonstrated. The uterus is surgically absent. There isno pelvic mass or adenopathy. No acute inflammatory change, abscess norascites. IMPRESSION: 1) No acute inflammatory change, abscess nor ascites. 2. No evidence of ureteral stone nor hydronephrosis on either side. 3. Nonspecific distention of urinary bladder. No focal bladder abnormalitydemonstrated. 4. No evidence of mechanical bowel obstruction or perforation. Ordered By: ROCIO MORENO Interpreted By: Lamonte Malik MD, 01/08/2025 11:17 AM Rocio Moreno [place] CT Final Result * THYROXINE, FREE (FT4) (12/04/2024 11:48 AM CDT) FREE T4 1.05 0.76 - 1.46 NG/DL 12/05/2024 10:18 AM CDT -[facility] 12/04/2024 11:4 8 AM CDT Damian Deanna DO LABORATORY Final Result -[facility] [address] [facility] [place] [address], [place] [phone] * THYROID STIM HORMONE TSH (12/04/2024 11:48 AM CDT) TSH 2.810 0.358 - 3.740 uIU/ML 12/05/2024 10:18 AM CDT -[facility] 12/04/2024 11:4 8 AM CDT Damian Duarte DO LABORATORY Final Result [facility] [address] [place] [address], * MG SCREENING W HANSEL CHAVA DIGI (09/10/2024 2:14 PM CDT) Anatomical Region Laterality Modality Breast Bilateral Mammography 09/10/2024 4:31 PM CDT Impressions 09/10/2024 4:36 PM CDT ===== IMPRESSION: ===== 1. Stable mammographic appearance with no new findings to suggest malignancy in either breast. Assessment: ACR BI-RADS 2 - BENIGN FINDING(S) Recommendation: 1:Routine Screening Bilateral Comments: Ordered By: DAMIAN DUARTE Interpreted By: Ciera Brady, 09/10/2024 4:31 PM Narrative 09/10/2024 4:36 PM CDT [facility] [address] [address] EXAMINATION: Digital bilateral screening mammogram with 3-D tomosynthesis EXAM DATE/TIME: 09/10/2024 2:05 PM REASON FOR EXAM: screening mammogram COMPARISON: 08/31/2022. 09/09/2023 Technique: Digital screening mammography of both breasts was performed in addition to 3-D Tomosynthesis technique. This study was read with the assistance of a computer-aided detection system. Tissue density: There are scattered areas of fibroglandular density. Findings: There is no new focal asymmetry, dominant mass lesion, area of skin thickening, or cluster of suspicious appearing calcifications in either breast to suggest malignancy. us Damian Deanna DO MAMMO Final Result * HEPATITIS PANEL,ACUTE (02/13/2023 6:54 AM BUSINESS PROCESS EXPERT) HEPATITIS B SURFACE AG NON-REACTI VE NON-REACTI VE 02/13/2023 9:02 AM BUSINESS PROCESS EXPERT [facility] HEP B CORE IGM NON-REACTI VE NON-REACTI VE 02/13/2023 9:10 AM BUSINESS PROCESS EXPERT [facility] HAV IGM NON-REACTI VE NON-REACTI VE 02/13/2023 9:11 AM BUSINESS PROCESS EXPERT [facility] HEPATITIS C AB NON-REACTI VE NON-REACTI VE 02/13/2023 9:09 AM BUSINESS PROCESS EXPERT [facility] 02/13/2023 6:54 AM BUSINESS PROCESS EXPERT us Damian Deanna DO LABORATORY Final Result [facility] [address] [place] [address], from Last 3 Months or Most Recently Relevant to Health Maintenance [place] [address] [place] [address] Advance Directives * Full Code (Latest Code Status on File) Date Activated Date Inactivated Comments 01/08/2023 3:51 PM 01/09/2023 4:56 PM * Full Code Date Activated Date Inactivated Comments 09/08/2018 4:58 PM 09/13/2018 1:46 PM Care Teams Protective Signal Repairer Helper Relationship Specialty Start Date End Date Damian Duarte DO [address] [place] [address] PCP - General FAMILY PRACTICE 02/21/22 Ashley Villegas MD [address] [place] [address] OBGYN 02/04/20 Donny Mcdonough MD [address] [place] [address] GASTROENTEROLOGY 02/04/20 Juan Daniel Mera MD [address] [place] [address] [address] [place] [address] OBGYN 02/04/20 Randall Schrader MD [address] [place] [address] Consulting Physician ORTHOPAEDIC SURGERY 02/04/20 Shaista Hathaway NP [address] [place] [address], [facility] [address] [place] [address] NURSE PRACTITIONER GERONTOLOGY 02/04/20 Shaista Hathaway COLOR RECEIVER [address] [place] [address], [address] [place] [address] NURSE PRACTITIONER GERONTOLOGY 04/29/20 Elda Martin MD [address] [place] [address] Psychiatry 08/31/20
--- OUTSIDE RECORDS SUMMARY | 2025-02-17 18:54 | XMS_ITS | Encounter Summary ---
Author Organization [facility] Address [address] [place] [address] Care Team Providers Care Metal Ceiling Builder Name Role Phone Kamila Craft [facility] Primary Care Provider [phone] Ashley Villegas MD Unavailable [phone] Donny Mcdonough MD Unavailable [phone] Misha Padilla DO Unavailable [phone] Juan Daniel Mera MD Unavailable Unava ilable Randall Schrader MD Unavailable Unavailable Shaista Hathaway CARE ADVOCATE Unavailable [phone] Shaista Hathaway CARE ADVOCATE Unavailable [phone] Dae Berrios DO Primary Care Provider [phone] Elda Martin MD Unavailable Dae Berrios DO Primary Care Provider [phone] Krystal Huerta DO Primary Care Provider [phone] Encounter Details Date Type Department Care Team (Late st Contact Info) Description 05/27/2020 kajeethart Message Enc [facility] Family Medicine [address] [address] Kamila Craft [address] [address] RE: ct head Social History Tobacco Use Types Packs/Day Years [...] Sex Assigned at Female 04/27/2024 1:02 PM WINE FERMENTER Legal Sex Female 10:46 PM CDT Gender Identity Female 05/07/2024 1:56 PM WINE FERMENTER Sexual Orientation Not on file COVID-19 Exposure Response Date Recorded In the last month, have you been in contact with someone who was confirmed or suspected to have Coronavirus / COVID-19? No / Unsure 04/28/2020 5:18 PM WINE FERMENTER documented as of this encounter Functional Status [...] AM CDT Jie Saxena RN Active documented in this encounter Plan of Treatment Not on file documented as of this encounter Visit Diagnoses Not on filedocumented in this encounter Care Teams Metal Ceiling Builder Relationship Specialty Start Date End Date Kamila Craft [facility] PCP - General NURSE PRACTITIONER 01/26/20 07/17/20 Dae Berrios DO [address] [place] [address], [address] [place] [address] PCP - General FAMILY PRACTICE 07/18/20 08/30/20 Dae Berrios DO [address] [place] [address], [address] [address] PCP - General FAMILY PRACTICE 08/31/20 02/20/22 Krystal Huerta DO [facility] [place] [address] PCP - General FAMILY PRACTICE 02/21/22 Ashley Villegas MD [address] [place] [address] OBGYN 02/04/20 Donny Mcdonough MD [address] [facility] [address] [place] [address] GASTROENTEROLOGY 02/04/20 Misha Padilla DO [address] [place] [address] Psychiatry 02/04/20 08/30/20 Juan Daniel Mera MD [address] [place] [address] OBGYN 02/04/20 Randall Schrader MD [address] [facility] [address] [place] [address] Consulting Physician ORTHOPAEDIC SURGERY 02/04/20 Shaista Hathaway NP [address] [place] [address], [address] [place] [address] NURSE PRACTITIONER GERONTOLOGY 02/04/20 Shaista Hathaway CARE ADVOCATE [address] [place] [address], [address] [place] [address] NURSE PRACTITIONER GERONTOLOGY 04/29/20 Elda Martin MD [address] [facility] [address] [address] Psychiatry 08/31/20 documented as of this encounter
--- OUTSIDE RECORDS SUMMARY | 2025-02-17 18:54 | XMS_ITS | Encounter Summary ---
Author Organization [facility] Address [address] [place] [address] Care Team Providers Care Journeyman Painter Name Role Phone Ashley Villegas MD Unavailable [phone] Donny Mcdonough MD Unavailable [phone] Juan Daniel Mera MD Unavailable Unava ilable Randall Schrader MD Unavailable Unavailable Shaista Hathaway VETERINARY LABORATORY DIAGNOSTICIAN Unavailable [phone] Shaista Hathaway VETERINARY LABORATORY DIAGNOSTICIAN Unavailable [phone] Elda Martin MD Unavailable Dae Berrios DO Primary Care Provider [phone] Krystal Huerta DO Primary Care Provider [phone] Encounter Details Date Type Department Care Team (Late st Contact Info) Description 09/11/2021 MyChart Message Enc [facility] Medical Group Multispecialty Care - [facility] [address] [place] [address] Demetri Mosquera MD [address] [place] [address] TYESHA ENCINAS [address] Ultrasound Social History Tobacco Use Types Packs/Day Years [...] please move on to questions 3-9 0 09/06/2021 Comments No Sex and Gender Information Value Date Recorded Sex Assigned at Female 04/27/2024 1:02 PM ACCOUNTS RECEIVABLE SUPERVISOR Legal Sex Female 10:46 PM CDT Gender Identity Female 05/07/2024 1:56 PM ACCOUNTS RECEIVABLE SUPERVISOR Sexual Orientation Not on file 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 No / Unsure 09/13/2021 6:49 AM CDT documented as of this encounter [...] documented in this encounter Progress Notes * IMTIAZ Simon 09/11/2021 12:23 PM CDT Called and advised pt to keep 10/13 appt. Pt states understanding. documented in this encounter Plan of Treatment Not on file documented as of this encounter Visit Diagnoses Not on filedocumented in this encounter Additional Health Concerns Assessment Noted Time PHQ-9 Depression Total Score: 23 022 1:17 PM ACCOUNTS RECEIVABLE SUPERVISOR documented as of this encounter Care Teams Journeyman Painter Relationship Specialty Start Date End Date Dae Berrios DO [address] [facility] [address] [facility] [address] [place] [address] PCP - General FAMILY PRACTICE 08/31/20 02/20/22 Krystal Huerta DO [facility] [place], [place] [id number] PCP - General FAMILY PRACTICE 02/21/22 Ashley Villegas MD [address] [place] [id number] OBGYN 02/04/20 Donny Mcdonough MD [address] [facility] [address] [place] [address] GASTROENTEROLOGY 02/04/20 Juan Daniel Mera MD [address] [facility] [address] [place] [address] OBGYN 02/04/20 Randall Schrader MD [address] [facility] [address] [place] [address] Consulting Physician ORTHOPAEDIC SURGERY 02/04/20 Shaista Hathaway VETERINARY LABORATORY DIAGNOSTICIAN [address] [place] [address], [address] [place] [address] NURSE PRACTITIONER GERONTOLOGY 02/04/20 Shaista Hathaway NP [address] [place] [address], [address] [place] [address] NURSE PRACTITIONER GERONTOLOGY 04/29/20 Elda Martin MD [address] [place] [address] Psychiatry 08/31/20 documented as of this encounter
--- OUTSIDE RECORDS SUMMARY | 2025-02-17 18:54 | XMS_ITS | Encounter Summary ---
Author Organization [facility] Address [address] [place] [address] Care Team Providers Care Surgery Specialist Name Role Phone Ashley Villegas MD Unavailable [phone] Donny Mcdonough MD Unavailable [phone] Juan Daniel Mera MD Unavailable Unava ilable Randall Schrader MD Unavailable Unavailable Shaista Hathaway CAUSE ANALYST Unavailable [phone] Shaista Hathaway CAUSE ANALYST Unavailable [phone] Elda Martin MD Unavailable Dae Berrios DO Primary Care Provider [phone] Krystal Huerta DO Primary Care Provider [phone] Encounter Details Date Type Department Care Team (Late st Contact Info) Description 09/20/2020 MyChart Message Enc [facility] Family Medicine - [place] [address] [place] [address] Dae Berrios DO [address] [place] [address] Question Social History Tobacco Use Types Packs/Day [...] 3, please move on to questions 3-9 5 07/18/2020 Comments No Sex and Gender Information Value Date Recorded Sex Assigned at Female 04/27/2024 1:02 PM DIE MAKER ELECTRONIC Legal Sex Female 10:46 PM CDT Gender Identity Female 05/07/2024 1:56 PM DIE MAKER ELECTRONIC Sexual Orientation Not on file COVID-19 Exposure Response Date Recorded In the last month, have you been in contact with someone who was confirmed or suspected to have Coronavirus / COVID-19? No / Unsure 08/31/2020 8:05 AM CDT documented as of this encounter [...] Assessment Author Status No 09/10/2018 8:06 AM YANIRAT Jie Saxena RN Active * Do you [...] Assessment Noted Time PHQ-9 Depression Total Score: 18 021 8:10 AM CDT documented as of this encounter Care Teams Surgery Specialist Relationship Specialty Start Date End Date Dae Berrios DO [address] [place] [address] PCP - General FAMILY PRACTICE 08/31/20 02/20/22 Krystal Huerta DO [facility] [place] [address] PCP - General FAMILY PRACTICE 02/21/22 Ashley Villegas MD [address] [place] [address] OBGYN 02/04/20 Donny Mcdonough MD [address] [facility] [address] [place] [address] GASTROENTEROLOGY 02/04/20 Juan Daniel Mera MD [address] [facility] [address] [place] [address] OBGYN 02/04/20 Randall Schrader MD [address] [facility] [address] [place] [address] Consulting Physician ORTHOPAEDIC SURGERY 02/04/20 Shaista Hathaway CAUSE ANALYST [address] [place] [address], [address] [place] [address] NURSE PRACTITIONER GERONTOLOGY 02/04/20 Shaista Hathaway CAUSE ANALYST [address] [place] [address], [address] [place] [address] NURSE PRACTITIONER GERONTOLOGY 04/29/20 Elda Martin MD [address] [facility] [address] [place] [address] Psychiatry 08/31/20 documented as of this encounter
--- OUTSIDE RECORDS SUMMARY | 2025-02-17 18:54 | XMS_ITS | Encounter Summary ---
Author Organization [facility] Address [address] [place] [address] Care Team Providers Care Graphics Manager Name Role Phone Kamila Craft [facility] Primary Care Provider [phone] Ashley Villegas MD Unavailable [phone] Donny Mcdonough MD Unavailable [phone] Misha Padilla DO Unavailable [phone] Juan Daniel Mera MD Unavailable Unava ilable Randall Schrader MD Unavailable Unavailable Shaista Hathaway SHUTTLE REPAIRER Unavailable [phone] Shaista Hathaway SHUTTLE REPAIRER Unavailable [phone] Dae Berrios DO Primary Care Provider [phone] Elda Martin MD Unavailable Dae Berrios DO Primary Care Provider [phone] Krystal Huerta DO Primary Care Provider [phone] Encounter Details Date Type Department Care Team (Late st Contact Info) Description 02/01/2020 MyChart Message Enc [facility] Medical Group Multispecialty Care - [address], [address] [place] [address] Randall Schrader MD RE: Question [...] Sex Assigned at Female 04/27/2024 1:02 PM SEISMIC INTERPRETER Legal Sex Female 10:46 PM CDT Gender Identity Female 05/07/2024 1:56 PM SEISMIC INTERPRETER Sexual Orientation Not on file COVID-19 Exposure Response Date Recorded In the last month, have you been in contact with someone who was confirmed or suspected to have Coronavirus / COVID-19? No / Unsure 02/03/2020 7:16 PM SEISMIC INTERPRETER documented as of this encounter Functional Status [...] on filedocumented in this encounter Care Teams Graphics Manager Relationship Specialty Start Date End Date Kamila Craft [facility] PCP - General NURSE PRACTITIONER 01/26/20 07/17/20 Dae Berrios DO [address] [place] [address], [address] [place] [address] PCP - General FAMILY PRACTICE 07/18/20 08/30/20 Dae Berrios DO [address] [place] [address], [address] [place] [address] PCP - General FAMILY PRACTICE 08/31/20 02/20/22 Krystal Huerta DO [address] [place] [address] PCP - General FAMILY PRACTICE 02/21/22 Ashley Villegas MD [address] [place] [address] OBGYN 02/04/20 Donny Mcdonough MD [address] [facility] [address] [place] [address] GASTROENTEROLOGY 02/04/20 Misha Padilla DO [address] [facility] [address] [place] [address] Psychiatry 02/04/20 08/30/20 Juan Daniel Mera MD [address] [facility] [address] [place] [address] OBGYN 02/04/20 Ranadll Schrader MD [address] [facility] [address] [place] [address] Consulting Physician ORTHOPAEDIC SURGERY 02/04/20 Shaista Hathaway NP [address] [place] [address], [address] [place] [address] NURSE PRACTITIONER GERONTOLOGY 02/04/20 Shaista Hathaway NP [address] [place] [address], [address] [place] [address] NURSE PRACTITIONER GERONTOLOGY 04/29/20 Elda Martin MD [address] [facility] [address] [facility] [address] [place] [address] Psychiatry 08/31/20 documented as of this encounter
--- OUTSIDE RECORDS SUMMARY | 2025-02-17 18:54 | XMS_ITS | Encounter Summary ---
Author Organization [facility] Address [address] [facility] [place] [address] Care Team Providers Care Nursing Informatics Clinical Analyst Name Role Phone Dae Emerson DO Primary Care Provider + Dae Emerson DO Primary Care Provider + Dae Emerson DO Unavailable [phone] Dae Berrios DO Primary Care Provider Krystal Huerta DO Primary Care Provider [phone] Reason for Visit * Reason Onset Date Comments General 03/12/2018 interstim proble ms Encounter Details Date Type Department Care Team (Late st Contact Info) Description 03/12/2018 Telephone [facility] [address] [place], [place] [id number] Juan Daniel Mera MD [address] [address] General (interstim problems) Social History Tobacco Use Types Packs/Day Years Used Date Smoking Tobacco: Never Smokeless Tobacco: Never Alcohol Use Standard Drinks/Week Comments No 0 (1 standard drink = 0.6 oz pur e alcohol) Comments No Sex and Gender Information Value Date Recorded Sex Assigned at Not on file Legal Sex Female 9:45 AM FILE KEEPER Gender Identity Not on file Sexual Orientation [...] Angelina Duran RN - 03/15/2018 1:25 PM FILE KEEPER MY Chart message to patient, sent 03/15/18: Rosa Maria Decker! Our office closed early yesterday (crazy snow!) but I wanted to let you know I did hear from Dr Mera He said an office visit with him at the [facility] location ([address] [place] [address] [address], where the interstim equipment is located) would be best and he would like the [employer] rep to be there as well So we will be in touch with an appointment date and time for you when we know we can get the [employer] Rep there Thank you! KEEPER * Telephone Encounter - Angelina Duran RN - 03/12/2018 3:01 PM FILE KEEPER Patient has been experiencing changes with the interstim Might have settings she can feel ie,5.2 But when ups it 5.5 does not feel anything Then at 5.6 really feels it Will discuss with Dr Samaria oconnell. May be that patient is to be seen in office when [employer] Rep here to assess interstim unit KEEPER * Telephone Encounter - Padmaja Peters - 03/12/2018 2:57 PM CST Patient stated she is having with her Interstim turning off and on. KEEPER documented in this encounter Plan of Treatment Not on file documented as of this encounter Visit Diagnoses Not on filedocumented in this encounter Care Teams Nursing Informatics Clinical Analyst Relationship Specialty Start Date End Date Dae Emerson DO [address] [facility] [place] [address] PCP - General Family Medicine 02/11/13 04/21/19 Dae Emerson DO [address] [facility] [place] [address] PCP - General 04/22/19 06/01/21 Dae Berrios DO [facility] [facility] [place] [address] PCP - General Family Medicine 06/02/21 06/02/21 Krystal Huerta DO [address] [place] [address] PCP - General Family Medicine 01/03/23 Dae Emerson DO [address] [facility] [place] [address] Family Medicine 04/22/19 documented as of this encounter
--- OUTSIDE RECORDS SUMMARY | 2025-02-17 18:54 | XMS_ITS | Encounter Summary ---
Author Organization [facility] Address [address] [place] [address] Care Team Providers Care Paper Twister Name Role Phone Ashley Villegas MD Unavailable [phone] Donny Mcdonough MD Unavailable [phone] Juan Daniel Mera MD Unavailable Unava ilable Randall Schrader MD Unavailable Unavailable Shaista Hathaway CAFE ASSISTANT Unavailable [phone] Shaista Hathaway CAFE ASSISTANT Unavailable [phone] Elda Martin MD Unavailable Dae Berrios DO Primary Care Provider [phone] Krystal Huerta DO Primary Care Provider [phone] Encounter Details Date Type Department Care Team (Late st Contact Info) Description 09/13/2021 MyChart Message Enc [facility] Medical Group Multispecialty Care - [facility] [address] [place] [address] Demetri Mosquera MD [address] [place] [address] TYESHA ENCINAS [address] Can t urinate Social History Tobacco Use Types Packs/Day Years [...] Sex Assigned at Female 04/27/2024 1:02 PM UNIFORMS SALES REPRESENTATIVE Legal Sex Female 10:46 PM CDT Gender Identity Female 05/07/2024 1:56 PM UNIFORMS SALES REPRESENTATIVE Sexual Orientation Not on file 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 Pt informed to come to the office immediately for bladder scan and straight cath. documented in this encounter Plan of Treatment Not on file documented as of this encounter Visit Diagnoses Not on filedocumented in this encounter Additional Health Concerns Assessment Noted Time PHQ-9 Depression Total Score: 23 022 1:17 PM UNIFORMS SALES REPRESENTATIVE documented as of this encounter Care Teams Paper Twister Relationship Specialty Start Date End Date Dae Berrios DO [address] [place] [address] PCP - General FAMILY PRACTICE 08/31/20 02/20/22 Krystal Huerta DO [address] [place] [address] [id number] PCP - General FAMILY PRACTICE 02/21/22 Ashley Villegas MD [address] [place] [address] [id number] OBGYN 02/04/20 Donny Mcdonough MD [address] [facility] [address] [place], [place] [address] GASTROENTEROLOGY 02/04/20 Juan Daniel Mera MD [address] [facility] [address] [place] [address] OBGYN 02/04/20 Randall Schrader MD [address] [facility] [address] [place] [address] Consulting Physician ORTHOPAEDIC SURGERY 02/04/20 Shaista Hathaway NP [address] [place] [address], [address] [place] [address] NURSE PRACTITIONER GERONTOLOGY 02/04/20 Shaista Hathaway NP [address] [place] [address], [address] [place] [address] NURSE PRACTITIONER GERONTOLOGY 04/29/20 Elda Martin MD [address] [place] [address] Psychiatry 08/31/20 documented as of this encounter
--- OUTSIDE RECORDS SUMMARY | 2025-02-17 18:54 | XMS_ITS | Encounter Summary ---
Author Organization [facility] Address [address] [place] [address] Care Team Providers Care Toe Stripper Name Role Phone Ashley Villegas MD Unavailable [phone] Donny Mcdonough MD Unavailable [phone] Juan Daniel Mera MD Unavailable Unava ilable Randall Schrader MD Unavailable Unavailable Shaista Hathaway ONLINE ADVERTISING MANAGER Unavailable [phone] Shaista Hathaway ONLINE ADVERTISING MANAGER Unavailable [phone] Elda Martin MD Unavailable Dae Berrios DO Primary Care Provider [phone] Krystal Huerta DO Primary Care Provider [phone] Encounter Details Date Type Department Care Team (Late st Contact Info) Description 10/22/2021 MyChart Message Enc [facility] Medical Group Family Medicine - [place] [address] [place] [address] Dae Berrios DO [address] [place] [address] Question Social History Tobacco Use Types [...] Sex Assigned at Female 04/27/2024 1:02 PM BUNCH MAKER HAND Legal Sex Female 10:46 PM CDT Gender Identity Female 05/07/2024 1:56 PM BUNCH MAKER HAND Sexual Orientation Not on file 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 No / Unsure 09/22/2021 9:53 AM CDT documented as of this encounter [...] Depression Total Score: 23 022 1:17 PM BUNCH MAKER HAND documented as of this encounter Care Teams Toe Stripper Relationship Specialty Start Date End Date Dae Berrios DO [address] [place] [address] PCP - General FAMILY PRACTICE 08/31/20 02/20/22 Krystal Huerta DO [address] [place] [address] PCP - General FAMILY PRACTICE 02/21/22 Ashley Villegas MD [address] [place] [address] OBGYN 02/04/20 Donny Mcdonough MD [address] [facility] [address] [place] [address] GASTROENTEROLOGY 02/04/20 Juan Daniel Mera MD [address] [facility] [address] [place] [address] OBGYN 02/04/20 Randall Schrader MD [address] [facility] [address] [place] [address] Consulting Physician ORTHOPAEDIC SURGERY 02/04/20 Shaista Hathaway, ONLINE ADVERTISING MANAGER [address] [place] [address], [address] [place] [address] NURSE PRACTITIONER GERONTOLOGY 02/04/20 Shaista Hathaway, ONLINE ADVERTISING MANAGER [address] [place] [address], [address] [place] [address] NURSE PRACTITIONER GERONTOLOGY 04/29/20 Elda Martin MD [address] [place] [address] Psychiatry 08/31/20 documented as of this encounter
--- OUTSIDE RECORDS SUMMARY | 2025-02-17 18:54 | XMS_ITS | Encounter Summary ---
Author Organization [facility] Address [address] [place] [address] Care Team Providers Care Celery Tier Name Role Phone Ashley Villegas MD Unavailable [phone] Donny Mcdonough MD Unavailable [phone] Juan Daniel Mera MD Unavailable Unava ilable Randall Schrader MD Unavailable Unavailable Shaista Hathaway MOTOR POWER CONNECTOR Unavailable [phone] Shaista Hathaway MOTOR POWER CONNECTOR Unavailable [phone] Elda Martin MD Unavailable Dae Berrios DO Primary Care Provider [phone] Krystal Huerta DO Primary Care Provider [phone] Encounter Details Date Type Department Care Team (Late st Contact Info) Description 02/18/2022 MyChart Message Enc [facility] Family Medicine - [place] [address] [place] [address] Dae Berrios DO [address] [place] [address] Question regarding CULTURE URINE Social History Tobacco Use Types Packs/Day Years [...] Sex Assigned at Female 04/27/2024 1:02 PM PATCH FINISHER Legal Sex Female 10:46 PM CDT Gender Identity Female 05/07/2024 1:56 PM PATCH FINISHER Sexual Orientation Not on file 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 No / Unsure 02/16/2022 6:46 AM PATCH FINISHER documented as of this encounter Functional Status [...] Depression Total Score: 23 022 1:17 PM PATCH FINISHER documented as of this encounter Care Teams Celery Tier Relationship Specialty Start Date End Date Dae Berrios DO [address] [place] [address] PCP - General FAMILY PRACTICE 08/31/20 02/20/22 Krystal Huerta DO [address] [place] [address] PCP - General FAMILY PRACTICE 02/21/22 Ashley Villegas MD [address] [place] [address] OBGYN 02/04/20 Donny Mcdonough MD [address] [facility] [address] [place] [address] GASTROENTEROLOGY 02/04/20 Juan Daniel Mera MD [address] [facility] [address] [place] [address] OBGYN 02/04/20 Randall Schrader MD [address] [facility] [address] [place] [address] Consulting Physician ORTHOPAEDIC SURGERY 02/04/20 Shaista Hathaway, MOTOR POWER CONNECTOR [address] [place] [address], [address] [place] [address] NURSE PRACTITIONER GERONTOLOGY 02/04/20 Shaista Hathaway, MOTOR POWER CONNECTOR [address] [place] [address], [address] [place] [address] NURSE PRACTITIONER GERONTOLOGY 04/29/20 Elda Martin MD [address] [place] [address] Psychiatry 08/31/20 documented as of this encounter
--- OUTSIDE RECORDS SUMMARY | 2025-02-17 18:54 | XMS_ITS | Encounter Summary ---
Author Organization [facility] Address [address] [place] [address] Care Team Providers Care Medical Diagnostic Radiographer Name Role Phone Ashley Villegas MD Unavailable [phone] Donny Mcdonough MD Unavailable [phone] Juan Daniel Mera MD Unavailable Unava ilable Randall Schrader MD Unavailable Unavailable Shaista Hathaway CLOTH SECONDS SORTER Unavailable [phone] Shaista Hathaway CLOTH SECONDS SORTER Unavailable [phone] Elda Martin MD Unavailable Dae Berrios DO Primary Care Provider [phone] Krystal Huerta DO Primary Care Provider [phone] Encounter Details Date Type Department Care Team (Late st Contact Info) Description 01/23/2022 MyChart Message Enc [facility] Medical Group Family Medicine - [place] [address] [place] [address] Dae Berrios, DO [address] [place] [address] Painful lump Social History Tobacco Use Types Packs/Day Years [...] Sex Assigned at Female 04/27/2024 1:02 PM FLOAT BUILDER Legal Sex Female 10:46 PM CDT Gender Identity Female 05/07/2024 1:56 PM FLOAT BUILDER Sexual Orientation Not on file 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 Not on file [...] Depression Total Score: 23 022 1:17 PM FLOAT BUILDER documented as of this encounter Care Teams Medical Diagnostic Radiographer Relationship Specialty Start Date End Date Dae Berrios DO [address] [place] [address] PCP - General FAMILY PRACTICE 08/31/20 02/20/22 Krystal Huerta DO [address] [place] [address] PCP - General FAMILY PRACTICE 02/21/22 Ashley Villegas MD [address] [place] [address] OBGYN 02/04/20 Donny Mcdonough MD [address] [facility] [place] [address] GASTROENTEROLOGY 02/04/20 Juan Daniel Mera MD [address] [place] [address] [address] [place] [address] OBGYN 02/04/20 Randall Schrader MD [address] [place] [address] [address] [place] [address] Consulting Physician ORTHOPAEDIC SURGERY 02/04/20 Shaista Hathaway NP [address] [place] [address], [address] [address] NURSE PRACTITIONER GERONTOLOGY 02/04/20 Shaista Hathaway CLOTH SECONDS SORTER [address] [place] [address], [facility] [address] [place] [address] NURSE PRACTITIONER GERONTOLOGY 04/29/20 Elda Martin MD [address] [place] [address] Psychiatry 08/31/20 documented as of this encounter
--- OUTSIDE RECORDS SUMMARY | 2025-02-17 18:54 | XMS_ITS | Encounter Summary ---
Author Organization [facility] Address [address] [place] [address] Care Team Providers Care Recreation Instructor Name Role Phone Kamila Craft [facility] Primary Care Provider [phone] Ashley Villegas MD Unavailable [phone] Donny Mcdonough MD Unavailable [phone] Misha Padilla DO Unavailable [phone] Juan Daniel Mera MD Unavailable Unava ilable Randall Schrader MD Unavailable Unavailable Shaista Hathaway DOCUMENT RESTORER Unavailable [phone] Shaista Hathaway DOCUMENT RESTORER Unavailable [phone] Dae Berrios DO Primary Care Provider [phone] Elda Martin MD Unavailable Dae Berrios DO Primary Care Provider [phone] Krystal Huerta DO Primary Care Provider [phone] Encounter Details Date Type Department Care Team (Late st Contact Info) Description 03/23/2020 MyChart Message Enc [facility] Medical Group Family Medicine [address] [address] Kamila Craft [address] [address] RE: Medication Questions Social History [...] Sex Assigned at Female 04/27/2024 1:02 PM EDUCATIONAL RESOURCE CENTER TEACHER Legal Sex Female 10:46 PM CDT Gender Identity Female 05/07/2024 1:56 PM EDUCATIONAL RESOURCE CENTER TEACHER Sexual Orientation Not on file COVID-19 Exposure Response Date Recorded In the last month, have you been in contact with someone who was confirmed or suspected to have Coronavirus / COVID-19? No / Unsure 03/10/2020 1:53 PM EDUCATIONAL RESOURCE CENTER TEACHER documented as of this encounter Functional Status [...] on filedocumented in this encounter Care Teams Recreation Instructor Relationship Specialty Start Date End Date Kamila Craft [facility] PCP - General NURSE PRACTITIONER 01/26/20 07/17/20 Dae Berrios DO [address] [place] [address], [address] [place] [address] PCP - General FAMILY PRACTICE 07/18/20 08/30/20 Dae Berrios DO [address] [place] [address], [address] [address] PCP - General FAMILY PRACTICE 08/31/20 02/20/22 Krystal Huerta DO [facility] [place] [address] PCP - General FAMILY PRACTICE 02/21/22 Ashley Villegas MD [address] [place] [address] OBGYN 02/04/20 Donny Mcdonough MD [address] [facility] [address] [place] [address] GASTROENTEROLOGY 02/04/20 Misha Padilla DO [address] [place] [address] Psychiatry 02/04/20 08/30/20 Juan Daniel Mera MD [address] [place] [address] OBGYN 02/04/20 Randall Schrader MD [address] [facility] [address] [place] [address] Consulting Physician ORTHOPAEDIC SURGERY 02/04/20 Shaista Hathaway NP [address] [place] [address], [address] [place] [address] NURSE PRACTITIONER GERONTOLOGY 02/04/20 Shaista Hathaway DOCUMENT RESTORER [address] [place] [address], [address] [place] [address] NURSE PRACTITIONER GERONTOLOGY 04/29/20 Elda Martin MD [address] [facility] [address] [address] Psychiatry 08/31/20 documented as of this encounter
--- OUTSIDE RECORDS SUMMARY | 2025-02-17 18:54 | XMS_ITS | Encounter Summary ---
Author Organization [facility] Address [address] [place] [address] Care Team Providers Care Plumbing Designer Name Role Phone Dae Emerson Raymundo DO Unavailable [phone] Krystal Huerta DO Primary Care Provider [phone] Reason for Visit * Reason Onset Date Comments Medication Clarification 12/13/2022 Encounter Details Date Type Department Care Team (Late st Contact Info) Description 12/13/2022 Telephone [facility] - TRANSPORT ENGINEER [address] [facility] [address] [place] [address] Subha Doan MD [address] [facility] [address] [place] [address] Medication Clarification Social History Tobacco [...] on file Legal Sex Female 9:45 AM MALT [employer] SALES REPRESENTATIVE Gender Identity Not on file Sexual [...] 12:23 PM CDT RN returned call to [facility] and spoke to Hina Santamaria spoke to pt. Botox will be shipped overnight and delivered to office tomorrow 12/14/22. * Telephone Encounter - Arely Peres - 12/13/2022 12:07 PM CDT [facility] is delivering pt's Botox. They need to verify a few things regarding Rx before sending it out. When calling back, just let agent know pt's name and when calling. documented in this encounter Plan of Treatment Not on file documented as of this encounter Visit Diagnoses Not on filedocumented in this encounter Care Teams Plumbing Designer Relationship Specialty Start Date End Date Krystal Huerta DO [address] [place] [address] PCP - General Family Medicine 01/03/23 Dae Emerson DO [address] [facility] [place] [id number] Family Medicine 04/22/19 documented as of this encounter
--- OUTSIDE RECORDS SUMMARY | 2025-02-17 18:54 | XMS_ITS | Encounter Summary ---
Author Organization [facility] Address [address] [place] [address] Care Team Providers Care Repair Armature Winder Helper Name Role Phone Ashley Villegas MD Unavailable [phone] Donny Mcdonough MD Unavailable [phone] Juan Daniel Mera MD Unavailable Unava ilable Randall Schrader MD Unavailable Unavailable Shaista Hathaway INSTRUCTIONAL LEADER Unavailable [phone] Shaista Hathaway INSTRUCTIONAL LEADER Unavailable [phone] Elda Martin MD Unavailable Dae Berrios DO Primary Care Provider [phone] Krystal Huerta DO Primary Care Provider [phone] Encounter Details Date Type Department Care Team (Late st Contact Info) Description 12/03/2021 MyChart Message Enc [facility] Medical Group Family Medicine - [place] [address] [place] [address] Dae Berrios DO [address] [facility] [place] [address] New prescription Social History Tobacco Use Types Packs/Day Years [...] Sex Assigned at Female 04/27/2024 1:02 PM WOOD STAINER Legal Sex Female 10:46 PM CDT Gender Identity Female 05/07/2024 1:56 PM WOOD STAINER Sexual Orientation Not on file 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 Class 1 obesity due to excess calories without serious comorbidity with body mass index (BMI) of32.0 to 32.9 in adult - phentermine 37.5 MG Cap; Take 1 capsule by mouth daily. Dispense: 30 capsule; Refill: 0 * Dae Berrios DO - 12/05/2021 10:28 PM CDTFrom: Brianne Arroyo To: Dr. Dae Berrios Sent: 12/03/2021 10:21 AM CDT Subject: New prescription Hi, My insurance is not covering the 30 mg dose of phetermine. I looked on [facility] and they cover the dosage at 37.5 mg. Thanks Brianne Arroyo documented in this encounter Plan of Treatment Not on file documented as of this encounter Visit Diagnoses Diagnosis Class 1 obesity due to excess calories without serious comorbidity with body mass index (BMI) of 32.0 to 32.9 in adult- Primary documented in this encounter Additional Health Concerns Assessment Noted Time PHQ-9 Depression Total Score: 23 022 1:17 PM WOOD STAINER documented as of this encounter Care Teams Repair Armature Winder Helper Relationship Specialty Start Date End Date Dae Berrios DO [address] [place] [address] PCP - General FAMILY PRACTICE 08/31/20 02/20/22 Krystal Huerta DO [facility] [place] [address] PCP - General FAMILY PRACTICE 02/21/22 Ashley Villegas MD [facility] [place] [address] OBGYN 02/04/20 Donny Mcdonough MD [address] [facility] [address] [place] [address] GASTROENTEROLOGY 02/04/20 Juan Daniel Mera MD [address] [facility] [address] [place] [address] OBGYN 02/04/20 Randall Schrader MD [address] [facility] [address] [place] [address] Consulting Physician ORTHOPAEDIC SURGERY 02/04/20 Shaista Hathaway NP [address] [place] [address], [address] [place] [address] NURSE PRACTITIONER GERONTOLOGY 02/04/20 Shaista Hathaway NP [address] [place] [address], [address] [place] [address] NURSE PRACTITIONER GERONTOLOGY 04/29/20 Elda Martin MD [address] [place] [address] Psychiatry 08/31/20 documented as of this encounter
--- OUTSIDE RECORDS SUMMARY | 2025-02-17 18:55 | XMS_ITS | Encounter Summary ---
Author Organization [facility] Address [address] [place] [address] Care Team Providers Care Training And Quality Manager Name Role Phone Darian Molina MD Primary Care Provider [phone] Kamila Craft [facility] Primary Care Provider [phone] Ashley Villegas MD Unavailable [phone] Donny Mcdonough MD Unavailable [phone] Misha Padilla DO Unavailable [phone] Juan Daniel Mera MD Unavailable Unava ilable Randall Schrader MD Unavailable Unavailable Shaista Hathaway BASEBALL COACH Unavailable [phone] Shaista Hathaway NP Unavailable [phone] Dae Berrios DO Primary Care Provider [phone] Elda Martin MD Unavailable Dae Berrios DO Primary Care Provider [phone] Krystal Huerta DO Primary Care Provider [phone] Encounter Details Date Type Department Care Team (Late st Contact Info) Description 01/19/2020 George Mobilet Message Enc [facility] Medical Group Multispecialty Care - [facility] [address] [facility], [address] [place] [address] Randall Schrader MD RE: Question Social History [...] 06/2018 PHQ-2 Answer Date Recorded PHQ-2 Score 0 01/05/2020 Comments No Sex and Gender Information Value Date Recorded Sex Assigned at Female 04/27/2024 1:02 PM CONE TRUCKER Legal Sex Female 10:46 PM CDT Gender Identity Female 05/07/2024 1:56 PM CONE TRUCKER Sexual Orientation Not on file COVID-19 Exposure Response Date Recorded In the last month, have you been in contact with someone who was confirmed or suspected to have Coronavirus / COVID-19? No / Unsure 01/18/2020 5:25 AM CONE TRUCKER documented as of this encounter Functional Status [...] on filedocumented in this encounter Care Teams Training And Quality Manager Relationship Specialty Start Date End Date Darian Molina MD PCP - General FAMILY PRACTICE 10/15/18 01/25/20 Kamila Craft [facility] PCP - General NURSE PRACTITIONER 01/26/20 07/17/20 Dae Berrios DO [address] [place] [address], [address] [place], [place] [id number] PCP - General FAMILY PRACTICE 07/18/20 08/30/20 Dae Berrios DO [address] [place] [address], [address] [place] [address] PCP - General FAMILY PRACTICE 08/31/20 02/20/22 Krystal Huerta DO [address] [place], [place] [id number] PCP - General FAMILY PRACTICE 02/21/22 Ashley Villegas MD [address] [place], [place] [id number] OBGYN 02/04/20 Donny Mcdonough MD [address] [facility] [address] [place], [place] [address] GASTROENTEROLOGY 02/04/20 Misha Padilla DO [address] [facility] [address] [place], [place] [address] Psychiatry 02/04/20 08/30/20 Juan Daniel Mera MD [address] [facility] [address] [place] [address] OBGYN 02/04/20 Randall Schrader MD [address] [facility] [address] [place] [address] Consulting Physician ORTHOPAEDIC SURGERY 02/04/20 Shaista Hathaway NP [address] [place] [address], [address] [place] [address] NURSE PRACTITIONER GERONTOLOGY 02/04/20 Shaista Hathaway NP [address] [place] [address], [address] [place] [address] NURSE PRACTITIONER GERONTOLOGY 04/29/20 Elda Martin MD [address] [facility] [address] [address] Psychiatry 08/31/20 documented as of this encounter
--- OUTSIDE RECORDS SUMMARY | 2025-02-17 18:55 | XMS_ITS | Encounter Summary ---
Author Organization [facility] Address [address] [place] [address] Care Team Providers Care Systems Requirements Planner Name Role Phone Kamila Craft [facility] Primary Care Provider [phone] Ashley Villegas MD Unavailable [phone] Donny Mcdonough MD Unavailable [phone] Misha Padilla DO Unavailable [phone] Juan Daniel Mera MD Unavailable Unava ilable Randall Schrader MD Unavailable Unavailable Shaista Hathaway SENIOR WEB DESIGNER Unavailable [phone] Shaista Hathaway SENIOR WEB DESIGNER Unavailable +[phone] Dae Berrios DO Primary Care Provider +[phone] Elda [place] MD Unavailable Dae Berrios DO Primary Care Provider [phone] Krystal Hureta DO Primary Care Provider [phone] Encounter Details Date Type Department Care Team (Late st Contact Info) Description 02/08/2020 Simply Easier Paymentst Message Enc [facility] Medical Group Family Medicine [address] [address] Kamila Craft [address] [address] RE: Test Results Social History Tobacco Use Types Packs/Day Years [...] Assigned at Female 04/27/2024 1:02 PM SOFTWARE MAINTENANCE ENGINEER Legal Sex Female 10:46 PM CDT Gender Identity Female 05/07/2024 1:56 PM SOFTWARE MAINTENANCE ENGINEER Sexual Orientation Not on file COVID-19 Exposure Response Date Recorded In the last month, have you been in contact with someone who was confirmed or suspected to have Coronavirus / COVID-19? No / Unsure 02/03/2020 7:16 PM SOFTWARE MAINTENANCE ENGINEER documented as of this encounter Functional [...] on filedocumented in this encounter Care Teams Systems Requirements Planner Relationship Specialty Start Date End Date Kamila Craft [facility] PCP - General NURSE PRACTITIONER 01/26/20 07/17/20 Dae Berrios DO [address] [place] [address], [address] [address] PCP - General FAMILY PRACTICE 07/18/20 08/30/20 Dae Berrios DO [address] [place] [address], [address] [address] PCP - General FAMILY PRACTICE 08/31/20 02/20/22 Krystal Huerta DO [address] [place] [address] PCP - General FAMILY PRACTICE 02/21/22 Ashley Villegas MD [address] [place] [address] OBGYN 02/04/20 Donny Mcdonough MD [address] [facility] [address] [place] [address] GASTROENTEROLOGY 02/04/20 Misha Padilla DO [address] [place] [address] Psychiatry 02/04/20 08/30/20 Juan Daniel Mera MD [address] [place] [address] OBGYN 02/04/20 Randall Schrader MD [address] [facility] [address] [place] [address] Consulting Physician ORTHOPAEDIC SURGERY 02/04/20 Shaista Hathaway NP [address] [place] [address], [address] [place] [address] NURSE PRACTITIONER GERONTOLOGY 02/04/20 Shaista Hathaway NP [address] [place] [address], [address] [place] [address] NURSE PRACTITIONER GERONTOLOGY 04/29/20 Elda [place] MD [address] [facility] [address] [address] Psychiatry 08/31/20 documented as of this encounter
--- OUTSIDE RECORDS SUMMARY | 2025-02-17 18:55 | XMS_ITS | Encounter Summary ---
Author Organization [facility] Address [address] [place] [address] Care Team Providers Care Mixer Attendant Name Role Phone Darian Molina MD Primary Care Provider [phone] Kamila Craft [facility] Primary Care Provider [phone] Ashley Villegas MD Unavailable [phone] Donny Mcdonough MD Unavailable [phone] Misha Padilla DO Unavailable [phone] Juan Daniel Mera MD Unavailable Unava ilable Randall Schrader MD Unavailable Unavailable Shaista Hathaway JEWELRY ENGRAVER Unavailable [phone] Shaista Hathaway NP Unavailable [phone] Dae Berrios DO Primary Care Provider +[phone] Elda [place] MD Unavailable Dae Berrios DO Primary Care Provider [phone] Krystal Huerta DO Primary Care Provider [phone] Encounter Details Date Type Department Care Team (Late st Contact Info) Description 01/21/2020 Theracost Message Enc [facility] Medical Group Multispecialty Care - [facility] [address] [facility], [address] [place] [address] Randall Schrader MD RE: Question Social History [...] Sex Assigned at Female 04/27/2024 1:02 PM VESSEL SPECIALIST Legal Sex Female 10:46 PM CDT Gender Identity Female 05/07/2024 1:56 PM VESSEL SPECIALIST Sexual Orientation Not on file COVID-19 Exposure Response Date Recorded In the last month, have you been in contact with someone who was confirmed or suspected to have Coronavirus / COVID-19? No / Unsure 01/18/2020 5:25 AM VESSEL SPECIALIST documented as of this encounter Functional Status [...] on filedocumented in this encounter Care Teams Mixer Attendant Relationship Specialty Start Date End Date Darian Molina MD PCP - General FAMILY PRACTICE 10/15/18 01/25/20 Kamila Craft [facility] PCP - General NURSE PRACTITIONER 01/26/20 07/17/20 Dae Berrios DO [address] [place] [address], [address] [place], [place] [id number] PCP - General FAMILY PRACTICE 07/18/20 08/30/20 Dae Berrios DO [address] [place] [address], [address] [place] [address] PCP - General FAMILY PRACTICE 08/31/20 02/20/22 Krystal Huerta DO [address] [place], [place] [id number] PCP - General FAMILY PRACTICE 02/21/22 Ashley Villegas MD [address] [place], [place] [id number] OBGYN 02/04/20 Donny Mcdonough MD [address] [facility] [address] [place], [place] [address] GASTROENTEROLOGY 02/04/20 Misha Padilla DO [address] [facility] [address] [place], [place] [id number] Psychiatry 02/04/20 08/30/20 Juan Daniel Mera MD [address] [facility] [address] [place] [address] OBGYN 02/04/20 Randall Schrader MD [address] [facility] [address] [place] [address] Consulting Physician ORTHOPAEDIC SURGERY 02/04/20 Shaista Hathaway NP [address] [place] [address], [address] [place] [address] NURSE PRACTITIONER GERONTOLOGY 02/04/20 Shaista Hathaway NP [address] [place] [address], [address] [place] [address] NURSE PRACTITIONER GERONTOLOGY 04/29/20 Elda [place] MD [address] [facility] [address] [address] Psychiatry 08/31/20 documented as of this encounter
--- OUTSIDE RECORDS SUMMARY | 2025-02-17 18:56 | XMS_ITS | Encounter Summary ---
Author Organization [facility] Address [address] [place] [address] Care Team Providers Care Fur Blowing Machine Operator Name Role Phone Darian Molina MD Primary Care Provider [phone] Kamila Craft [facility] Primary Care Provider [phone] Ashley Villegas MD Unavailable [phone] Donny Mcdonough MD Unavailable [phone] Misha Padilla DO Unavailable [phone] Juan Daniel Mera MD Unavailable Unava ilable Randall Schrader MD Unavailable Unavailable Shaista Hathaway SILVER BRAZER Unavailable +[phone] Shaista Hathaway SILVER BRAZER Unavailable [phone] Dae Berrios DO Primary Care Provider [phone] Elda [place] MD Unavailable Dae Berrios DO Primary Care Provider [phone] Krystal Huerta DO Primary Care Provider + [phone] Encounter Details Date Type Department Care Team (Latest Contact Info) Description 01/05/2020 POTATOSOFT Message Enc [facility] Medical Group Multispecialty Care - [facility] [address] [facility] [address] [place] [address] Randall Schrader MD RE: RE: Question Social History Tobacco Use Types [...] Sex Assigned at Female 04/27/2024 1:02 PM STAGECRAFT PROFESSOR Legal Sex Female 10:46 PM CDT Gender Identity Female 05/07/2024 1:56 PM STAGECRAFT PROFESSOR Sexual Orientation Not on file COVID-19 Exposure Response Date Recorded In the last month, have you been in contact with someone who was confirmed or suspected to have Coronavirus / COVID-19? No / Unsure 01/04/2020 7:59 PM STAGECRAFT PROFESSOR documented as of this encounter Functional Status [...] Rule Out 01/15/2020 01/15/2020 01/16/2020 10:25 PM STAGECRAFT PROFESSOR documented as of this encounter Care Teams Fur Blowing Machine Operator Relationship Specialty Start Date End Date Darian Molina MD PCP - General FAMILY PRACTICE 10/15/18 01/25/20 Kamila Craft [facility] PCP - General NURSE PRACTITIONER 01/26/20 07/17/20 Dae Berrios DO [address] [place] [address], [address] [address] PCP - General FAMILY PRACTICE 07/18/20 08/30/20 Dae Berrios DO [address] [place] [address], [address] [address] PCP - General FAMILY PRACTICE 08/31/20 02/20/22 Krystal Huerta DO [address] [place] [id number] PCP - General FAMILY PRACTICE 02/21/22 Ashley Villegas MD [facility] [place], [place] [address] OBGYN 02/04/20 Donny Mcdonough MD [address] [facility] [address] [place] [address] GASTROENTEROLOGY 02/04/20 Misha Padilla DO [address] [facility] [address] [place] [address] Psychiatry 02/04/20 08/30/20 Juan Daniel Mera MD [address] [address] OBGYN 02/04/20 Randall Schrader MD [address] [address] Consulting Physician ORTHOPAEDIC SURGERY 02/04/20 Shaista Hathaway NP [address] [place] [address], [address] [place] [address] NURSE PRACTITIONER GERONTOLOGY 02/04/20 Shaista Hathaway NP [address] [place] [address], [address] [place] [address] NURSE PRACTITIONER GERONTOLOGY 04/29/20 Elda [place] MD [address] [address] Psychiatry 08/31/20 documented as of this encounter
--- OUTSIDE RECORDS SUMMARY | 2025-02-17 18:56 | XMS_ITS | Encounter Summary ---
Author Organization [facility] Address [address] [place] [address] Care Team Providers Care Hog Raiser Name Role Phone Darian Molina MD Primary Care Provider [phone] Kamila Craft [facility] Primary Care Provider [phone] Ashley Villegas MD Unavailable [phone] Donny Mcdonough MD Unavailable [phone] Misha Padilla DO Unavailable [phone] Juan Daniel Mera MD Unavailable Unava ilable Randall Schrader MD Unavailable Unavailable Shaista Hathaway EXCEPTIONAL NEEDS TEACHER Unavailable [phone] Shaista Hathaway NP Unavailable [phone] Dae Berrios DO Primary Care Provider [phone] Elda [place] MD Unavailable Dae Berrios DO Primary Care Provider [phone] Krystal Huerta DO Primary Care Provider + [phone] Encounter Details Date Type Department Care Team (Late st Contact Info) Description 01/14/2020 Panelflyt Message Enc [facility] Medical Group Multispecialty Care - [facility] [address] [facility], [address] [place] [address] Randall Schrader MD RE: Question Social History [...] Sex Assigned at Female 04/27/2024 1:02 PM CLIENT PORTFOLIO MANAGER Legal Sex Female 10:46 PM CDT Gender Identity Female 05/07/2024 1:56 PM CLIENT PORTFOLIO MANAGER Sexual Orientation Not on file COVID-19 Exposure Response Date Recorded In the last month, have you been in contact with someone who was confirmed or suspected to have Coronavirus / COVID-19? No / Unsure 01/15/2020 11:12 AM CLIENT PORTFOLIO MANAGER documented as of this encounter Functional Status [...] Rule Out 01/15/2020 01/15/2020 01/16/2020 10:25 PM CLIENT PORTFOLIO MANAGER documented as of this encounter Care Teams Hog Raiser Relationship Specialty Start Date End Date Darian Molina MD PCP - General FAMILY PRACTICE 10/15/18 01/25/20 Kamila Craft [facility] PCP - General NURSE PRACTITIONER 01/26/20 07/17/20 Dae Berrios DO [address] [place] [address], [address] [address] PCP - General FAMILY PRACTICE 07/18/20 08/30/20 Dae Berrios DO [address] [place] [address], [address] [place] [address] PCP - General FAMILY PRACTICE 08/31/20 02/20/22 Krystal Huerta DO [facility] [place], [place] [id number] PCP - General FAMILY PRACTICE 02/21/22 Ashley Villegas MD [address] [place] [address] OBGYN 02/04/20 Donny Mcdonough MD [address] [facility] [address] [place] [address] GASTROENTEROLOGY 02/04/20 Misha Padilla DO [address] [facility] [address] [place] [address] Psychiatry 02/04/20 08/30/20 Juan Daniel Mera MD [address] [facility] [address] [place] [address] OBGYN 02/04/20 Randall Schrader MD [address] [address] Consulting Physician ORTHOPAEDIC SURGERY 02/04/20 Shaista Hathaway NP [address] [place] [address], [address] [address] NURSE PRACTITIONER GERONTOLOGY 02/04/20 Shaista Hathaway NP [address] [place] [address], [address] [place] [address] NURSE PRACTITIONER GERONTOLOGY 04/29/20 Elda [place] MD [address] [address] Psychiatry 08/31/20 documented as of this encounter
--- OUTSIDE RECORDS SUMMARY | 2025-02-17 18:56 | XMS_ITS | Encounter Summary ---
Author Organization [facility] Address [address] [place] [address] Care Team Providers Care Slotter Operator Name Role Phone Darian Molina MD Primary Care Provider [phone] Kamila Craft [facility] Primary Care Provider [phone] Ashley Villegas MD Unavailable [phone] Donny Mcdonough MD Unavailable [phone] Misha Padilla DO Unavailable [phone] Juan Daniel Mera MD Unavailable Unava ilable Randall Schrader MD Unavailable Unavailable Shaista Hathaway SETTER MACHINE Unavailable +[phone] Shaista Hathaway NP Unavailable [phone] Dae Berrios DO Primary Care Provider [phone] Elda [place] MD Unavailable Dae Berrios DO Primary Care Provider [phone] Krystal Huerta DO Primary Care Provider + [phone] Encounter Details Date Type Department Care Team (Late st Contact Info) Description 01/15/2020 Prep for Procedure [place] Testing [address] [place], [place] [id number] Randall Schrader MD Social History Tobacco Use Types Packs/Day Years [...] Sex Assigned at Female 04/27/2024 1:02 PM RESPOOLER Legal Sex Female 10:46 PM CDT Gender Identity Female 05/07/2024 1:56 PM RESPOOLER Sexual Orientation Not on file COVID-19 Exposure Response Date Recorded In the last month, have you been in contact with someone who was confirmed or suspected to have Coronavirus / COVID-19? No / Unsure 01/18/2020 5:25 AM RESPOOLER documented as of this encounter Functional Status [...] Assessment Author Status No 09/10/2018 8:06 AM iJe Wagner RN Active documented as of this encounter Mental Status * Because of a physical, mental, or emotional condition, do you have serious difficulty concentrating, remembering, or making decisions? Answer Entry Date Author Status No 09/10/2018 8:06 AM Jie Wagner RN Active documented in this encounter Plan of Treatment Not on file documented as of this encounter Results * PRE-SURGICAL/PRE-PROCEDURE CORONAVIRUS (COVID 19) (01/15/2020 9:02 AM RESPOOLER) CORONAVIRUS SARS COV 2 PCR (RESP) NOT DETECTED NOT DETECTED 01/16/2020 10:25 PM RESPOOLER [facility] Comment: A Not Detected (negative) test result for this test means that SARS- CoV-2 RNA was not present in the specimen above the limit of detection. A negative result does not rule out the possibility of COVID-19 and should not be used as the sole basis for treatment or patient management decisions. If COVID-19 is still suspected, based on exposure history together with other clinical findings, re-testing should be considered in consultation with public health authorities. Laboratory test results should always be considered in the context of clinical observations and epidemiological data in making a final diagnosis and patient management decisions. Please review the Fact Sheets and FDA authorized labeling available for health care providers and patients using the following websites: https://www.Moment.me.Moat/home/Covid-19/HCP/QuestIVD/fact- sheet.html https://www.Moment.me.Moat/home/Covid-19/Patients/ QuestIVD/fact-sheet.html This test has been authorized by the FDA under an Emergency Use Authorization (EUA) for use by authorized laboratories. Due to the current public health emergency, [facility] is receiving a high volume of samples from a wide variety of swabs and media for COVID-19 testing. In order to serve patients during this public health crisis, samples from appropriate clinical sources are being tested. Negative test results derived from specimens received in non-commercially manufactured viral collection and transport media, or in media and sample collection kits not yet authorized by FDA for COVID-19 testing should be cautiously evaluated and the patient potentially subjected to extra precautions such as additional clinical monitoring, including collection of an additional specimen. Methodology: Nucleic Acid Amplification Test (NAAT) includes RT-PCR or TMA Additional information about COVID-19 can be found at the [facility] website: www.TheWrap.com/Covid19. Test performed at [facility] [address] [place] [address] Director: LESLEY ALBERTO DO,MPH FIRST TEST UNKNOWN 01/15/2020 11:17 AM RESPOOLER [facility] EMPLOYED IN HEALTHCARE UNKNOWN 01/15/2020 11:17 AM RESPOOLER [facility] SYMPTOMATIC DEFINED BY CDC NO 01/15/2020 11:17 AM RESPOOLER [facility] DATE OF SYMPTOM ONSET NO 01/15/2020 11:42 AM [facility] HOSPITALIZATION STATUS NO 01/15/2020 11:17 AM RESPOOLER [facility] PATIENT IN ICU NO 01/15/2020 11:17 AM RESPOOLER [facility] RESIDENT OF [facility] NO 01/15/2020 11:17 AM RESPOOLER [facility] UNKNOWN 01/15/2020 11:17 AM [facility] PATIENT'S RACE WHITE OR 01/15/2020 11:17 AM [facility] ETHNICITY NONHISPANIC 01/15/2020 11:17 AM [facility] SOURCE (QST) NASOPHARYNGEAL SWAB 01/15/2020 11:17 AM [facility] NASOPHARYNGEAL SWAB / Unknown 01/15/2020 9:02 AM RESPOOLER us Randall Schrader MD MICROBIOLOGY - GENERAL ORDERABLE S Final Result [facility] [address] [place] [address], [facility] [id number] [place] [address], documented in this encounter Visit Diagnoses Diagnosis Preop examination- Primary Preoperative examination, unspecified documented in this encounter Additional Health Concerns Infection Onset Date Last Indicated Resolved Time COVID-19 Rule Out 01/15/2020 01/15/2020 01/16/2020 10:25 PM RESPOOLER documented as of this encounter Care Teams Slotter Operator Relationship Specialty Start Date End Date Darian Molina MD PCP - General FAMILY PRACTICE 10/15/18 01/25/20 Kamila Craft [facility] PCP - General NURSE PRACTITIONER 01/26/20 07/17/20 Dae Berrios DO [address] [place] [address], [address] [place] [address] PCP - General FAMILY PRACTICE 07/18/20 08/30/20 Dae Berrios DO [address] [place] [address], [address] [place] [address] PCP - General FAMILY PRACTICE 08/31/20 02/20/22 Krystal Huerta DO [address] [place] [id number] PCP - General FAMILY PRACTICE 02/21/22 Ashley Villegas MD [address] [place] [phone] OBGYN 02/04/20 Donny Mcdonough MD [address] [facility] [address] [place], [place] [address] GASTROENTEROLOGY 02/04/20 Misha Padilla DO [address] [facility] [address] [place] [address] Psychiatry 02/04/20 08/30/20 Juan Daniel Mera MD [address] [facility] [address] [place] [address] OBGYN 02/04/20 Randall Schrader MD [address] [facility] [address] [place] [address] Consulting Physician ORTHOPAEDIC SURGERY 02/04/20 Shaista Hathaway NP [address] [place] [address], [address] [place] [address] NURSE PRACTITIONER GERONTOLOGY 02/04/20 Shaista Hathaway NP [address] [place] [address], [address] [place] [address] NURSE PRACTITIONER GERONTOLOGY 04/29/20 Elda [place] MD [address] [facility] [address] [facility] [address] [place] [address] Psychiatry 08/31/20 documented as of this encounter
--- OUTSIDE RECORDS SUMMARY | 2025-02-17 18:57 | XMS_ITS | Encounter Summary ---
Author Organization [facility] Address [address] [place] [address] Care Team Providers Care Straddle Carrier Operator Name Role Phone Darian Molina MD Primary Care Provider [phone] Kamila Craft [facility] Primary Care Provider [phone] Ashley Villegas MD Unavailable [phone] Donny Mcdonough MD Unavailable [phone] Misha Padilla DO Unavailable [phone] Juan Daniel Mera MD Unavailable Unava ilable Randall Schrader MD Unavailable Unavailable Shaista Hathaway DRAG DOWN Unavailable [phone] Shaista Hathaway NP Unavailable [phone] Dae Berrios DO Primary Care Provider [phone] Elda [place] MD Unavailable Dae Berrios DO Primary Care Provider [phone] Krystal Huerta DO Primary Care Provider + [phone] Encounter Details Date Type Department Care Team (Late st Contact Info) Description 08/24/2019 GlobeRangert Message Enc [facility] Medical Group Family Medicine - [place] [address] [facility], [address] [place] [address] Darian Molina MD [address] [facility] [place], [place] [phone] RE: Question Social History Tobacco Use Types [...] Sex Assigned at Female 04/27/2024 1:02 PM VISUAL EFFECTS EDITOR Legal Sex Female 10:46 PM CDT Gender Identity Female 05/07/2024 1:56 PM VISUAL EFFECTS EDITOR Sexual Orientation Not on file COVID-19 Exposure Response Date Recorded In the last month, have you been in contact with someone who was confirmed or suspected to have Coronavirus / COVID-19? No / Unsure 08/26/2019 12:59 PM CDT documented as of this encounter [...] documented in this encounter Progress Notes * Darian Molina MD - 08/25/2019 8:41 AM CDT Tsh ordered documented in this encounter Plan of Treatment Not on file documented as of this encounter Visit Diagnoses Not on filedocumented in this encounter Additional Health Concerns Infection Onset Date Last Indicated Resolved Time COVID-19 Rule Out 01/15/2020 01/15/2020 01/16/2020 10:25 PM VISUAL EFFECTS EDITOR documented as of this encounter Care Teams Straddle Carrier Operator Relationship Specialty Start Date End Date Darian Molina MD PCP - General FAMILY PRACTICE 10/15/18 01/25/20 Kamila Craft [facility] PCP - General NURSE PRACTITIONER 01/26/20 07/17/20 Dae Berrios DO [address] [place] [address], [address] [place] [address] PCP - General FAMILY PRACTICE 07/18/20 08/30/20 Dae Berrios DO [address] [place] [address], [address] [place] [address] PCP - General FAMILY PRACTICE 08/31/20 02/20/22 Krystal Huerta DO [address] [place] [phone] PCP - General FAMILY PRACTICE 02/21/22 Ashley Villegas MD [address] [place] [address] OBGYN 02/04/20 Donny Mcdonough MD [address] [facility] [address] [place] [address] GASTROENTEROLOGY 02/04/20 Misha Padilla DO [address] [facility] [address] [place] [address] Psychiatry 02/04/20 08/30/20 Juan Daniel Mera MD [address] [facility] [address] [place] [address] OBGYN 02/04/20 Randall Schrader MD [address] [facility] [address] [address] [place] [address] Consulting Physician ORTHOPAEDIC SURGERY 02/04/20 Shaista Hathaway NP [address] [place] [address], [address] [place] [address] NURSE PRACTITIONER GERONTOLOGY 02/04/20 Shaista Hathaway NP [address] [place] [address], [address] [place] [address] NURSE PRACTITIONER GERONTOLOGY 04/29/20 Elda [place] MD [address] [address] Psychiatry 08/31/20 documented as of this encounter
--- OUTSIDE RECORDS SUMMARY | 2025-02-17 18:57 | XMS_ITS | Encounter Summary ---
Author Organization [facility] Address [address] [place] [address] Care Team Providers Care Line Installer Trolley Name Role Phone Darian Molina MD Primary Care Provider [phone] Kamila Craft [facility] Primary Care Provider [phone] Ashley Villegas MD Unavailable [phone] Donny Mcdonough MD Unavailable [phone] Misha Padilla DO Unavailable [phone] Juan Daniel Mera MD Unavailable Unava ilable Randall Schrader MD Unavailable Unavailable Shaista Hathaway HEMODIALYSIS PATIENT CARE SPECIALIST Unavailable [phone] Shaista Hathaway NP Unavailable [phone] Dae Berrios DO Primary Care Provider [phone] Elda Martin MD Unavailable Dae Berrios DO Primary Care Provider [phone] Krystal Huerta DO Primary Care Provider + [phone] Encounter Details Date Type Department Care Team (Late st Contact Info) Description 05/11/2019 Bitglass Message Enc [facility] Medical Group Family Medicine [address] [address] [place], [facility] Provider Medication Social History Tobacco Use Types Packs/Day [...] Sex Assigned at Female 04/27/2024 1:02 PM MID LEVEL JAVA DEVELOPER Legal Sex Female 10:46 PM CDT Gender Identity Female 05/07/2024 1:56 PM MID LEVEL JAVA DEVELOPER Sexual Orientation Not on file documented as [...] Rule Out 01/15/2020 01/15/2020 01/16/2020 10:25 PM MID LEVEL JAVA DEVELOPER documented as of this encounter Care Teams Line Installer Trolley Relationship Specialty Start Date End Date Darian Molina MD PCP - General FAMILY PRACTICE 10/15/18 01/25/20 Kamila Craft [facility] PCP - General NURSE PRACTITIONER 01/26/20 07/17/20 Dae Berrios DO [address] [place] [address], [address] [place] [address] PCP - General FAMILY PRACTICE 07/18/20 08/30/20 Dae Berrios DO [address] [place] [address], [facility] [address] [place] [address] PCP - General FAMILY PRACTICE 08/31/20 02/20/22 Krystal Huerta DO [address] [place] [address] PCP - General FAMILY PRACTICE 02/21/22 Ashley Villegas MD [address] [place] [address] [id number] OBGYN 02/04/20 Donny Mcdonough MD [address] [facility] [address] [place] [address] GASTROENTEROLOGY 02/04/20 Misha Padilla DO [address] [facility] [address] [place] [address] Psychiatry 02/04/20 08/30/20 Juan Daniel Mera MD [address] [facility] [address] [place] [address] OBGYN 02/04/20 Randall Schrader MD [address] [facility] [address] [place] [address] Consulting Physician ORTHOPAEDIC SURGERY 02/04/20 Shaista Hathaway, HEMODIALYSIS PATIENT CARE SPECIALIST [address] [place] [address], [address] [place] [address] NURSE PRACTITIONER GERONTOLOGY 02/04/20 Shaista Hathaway HEMODIALYSIS PATIENT CARE SPECIALIST [address] [place] [address], [address] [place] [address] NURSE PRACTITIONER GERONTOLOGY 04/29/20 Elad Martin MD [address] [facility] [address] [place] [address] Psychiatry 08/31/20 documented as of this encounter
--- OUTSIDE RECORDS SUMMARY | 2025-02-17 18:57 | XMS_ITS | Encounter Summary ---
Author Organization [facility] Address [address] [place] [address] Care Team Providers Care Php Lamp Developer Name Role Phone Darian Molina MD Primary Care Provider [phone] Kamila Craft [facility] Primary Care Provider [phone] Ashley Villegas MD Unavailable [phone] Donny Mcdonough MD Unavailable [phone] Misha Padilla DO Unavailable [phone] Juan Daniel Mera MD Unavailable Unava ilable Randall Schrader MD Unavailable Unavailable Shaista Hathaway DAY CARE CENTER DIRECTOR Unavailable +[phone] Shaista Hathaway NP Unavailable [phone] Dae Berrios DO Primary Care Provider [phone] Elda Martin MD Unavailable Dae Berrios DO Primary Care Provider [phone] Krystal Huerta DO Primary Care Provider + [phone] Encounter Details Date Type Department Care Team (Late st Contact Info) Description 09/10/2019 Reactivityt Message Enc [facility] Medical Group Family Medicine - [place] [address] [facility], [address] [place] [address] Darian Molina MD [address] [facility] [place] [place] [id number] RE: Question Social History Tobacco Use Types [...] Sex Assigned at Female 04/27/2024 1:02 PM BIOMEDICAL REPAIR TECHNICIAN Legal Sex Female 10:46 PM CDT Gender Identity Female 05/07/2024 1:56 PM BIOMEDICAL REPAIR TECHNICIAN Sexual Orientation Not on file COVID-19 Exposure Response Date Recorded In the last month, have you been in contact with someone who was confirmed or suspected to have Coronavirus / COVID-19? No / Unsure 09/11/2019 8:40 AM CDT documented as of this encounter [...] AM YANIRAT Jie Saxena RN Active * Because of [...] Rule Out 01/15/2020 01/15/2020 01/16/2020 10:25 PM BIOMEDICAL REPAIR TECHNICIAN documented as of this encounter Care Teams Php Lamp Developer Relationship Specialty Start Date End Date Darian Molina MD PCP - General FAMILY PRACTICE 10/15/18 01/25/20 Kamila Crfat [facility] PCP - General NURSE PRACTITIONER 01/26/20 07/17/20 Dae Berrios DO [address] [place] [address], [address] [address] PCP - General FAMILY PRACTICE 07/18/20 08/30/20 Dae Berrios DO [address] [place] [address], [address] [address] PCP - General FAMILY PRACTICE 08/31/20 02/20/22 Krystal Huerta DO [facility] [place] [address] PCP - General FAMILY PRACTICE 02/21/22 Ashley Villegas MD [address] [place] [address] 96[address] OBGYN 02/04/20 Donny Mcdonough MD [address] [facility] [address] [place] [address] GASTROENTEROLOGY 02/04/20 Misha Padilla DO [address] [facility] [address] [place] [address] Psychiatry 02/04/20 08/30/20 Juan Daniel Mera MD [address] [facility] [address] [place] [address] OBGYN 02/04/20 Randall Schrader MD [address] [facility] [address] [place] [address] Consulting Physician ORTHOPAEDIC SURGERY 02/04/20 Shaista Hathaway NP [address] [place] [address], [address] [address] NURSE PRACTITIONER GERONTOLOGY 02/04/20 Shaista Hathaway NP [address] [place] [address], [address] [place] [address] NURSE PRACTITIONER GERONTOLOGY 04/29/20 Elda Martin MD [address] [address] Psychiatry 08/31/20 documented as of this encounter
--- OUTSIDE RECORDS SUMMARY | 2025-02-17 18:57 | XMS_ITS | Encounter Summary ---
Author Organization [facility] Address [address] [place] [address] Care Team Providers Care Trade Show Manager Name Role Phone Darian Molina MD Primary Care Provider [phone] Kamila Craft [facility] Primary Care Provider [phone] Ashley Villegas MD Unavailable [phone] Donny Mcdonough MD Unavailable [phone] Misha Padilla DO Unavailable [phone] Juan Daniel Mera MD Unavailable Unava ilable Randall Schrader MD Unavailable Unavailable Shaista Hathaway PSYCH NURSE Unavailable [phone] Shaista Hathaway NP Unavailable [phone] Dae Berrios DO Primary Care Provider [phone] Elda Martin MD Unavailable Dae Berrios DO Primary Care Provider [phone] Krystal Huerta DO Primary Care Provider + [phone] Encounter Details Date Type Department Care Team (Late st Contact Info) Description 12/11/2019 The Old Reader Message Enc [facility] Medical Group Family Medicine [address] [address] [place] [address] [place], [place] [id number] RE: Referral Request Social History Tobacco Use Types Packs/Day Years [...] Sex Assigned at Female 04/27/2024 1:02 PM TITLE ABSTRACTOR Legal Sex Female 10:46 PM CDT Gender Identity Female 05/07/2024 1:56 PM TITLE ABSTRACTOR Sexual Orientation Not on file COVID-19 Exposure Response Date Recorded In the last month, have you been in contact with someone who was confirmed or suspected to have Coronavirus / COVID-19? No / Unsure 11/30/2019 7:40 PM CDT documented as of this encounter [...] documented in this encounter Progress Notes * Chery Cobb MA - 12/22/2019 1:39 PM CDT Faxing over referral to Dr. Clark's office today documented in this encounter Plan of Treatment Not on file documented as of this encounter Visit Diagnoses Not on filedocumented in this encounter Additional Health Concerns Infection Onset Date Last Indicated Resolved Time COVID-19 Rule Out 01/15/2020 01/15/2020 01/16/2020 10:25 PM TITLE ABSTRACTOR documented as of this encounter Care Teams Trade Show Manager Relationship Specialty Start Date End Date Darian Molina MD PCP - General FAMILY PRACTICE 10/15/18 01/25/20 [facility] PCP - General NURSE PRACTITIONER 01/26/20 07/17/20 Dae Berrios DO [address] [place] [address], [address] [place] [address] PCP - General FAMILY PRACTICE 07/18/20 08/30/20 Dae Berrios DO [address] [place] [address], [address] [place] [address] PCP - General FAMILY PRACTICE 08/31/20 02/20/22 Krystal Huerta DO [facility] [place] [address] PCP - General FAMILY PRACTICE 02/21/22 Ashley Villegas MD [address] [place] [address] OBGYN 02/04/20 Donny Mcdonough MD [address] [facility] [address] [place] [address] GASTROENTEROLOGY 02/04/20 Misha Padilla DO [address] [facility] [address] [place] [address] Psychiatry 02/04/20 08/30/20 Juan Daniel Mera MD [address] [facility] [address] [place] [address] OBGYN 02/04/20 Randall Schrader MD [address] [facility] [address] [place] [address] Consulting Physician ORTHOPAEDIC SURGERY 02/04/20 Shaista Hathaway NP [address] [place] [address], [address] [place] [address] NURSE PRACTITIONER GERONTOLOGY 02/04/20 Shaista Hathaway NP [address] [place] [address], [address] [place] [address] NURSE PRACTITIONER GERONTOLOGY 04/29/20 Elda Martin MD [address] [facility] [address] [address] Psychiatry 08/31/20 documented as of this encounter
--- OUTSIDE RECORDS SUMMARY | 2025-02-17 18:57 | XMS_ITS | Encounter Summary ---
Author Organization [facility] Address [address] [place] [address] Care Team Providers Care Team Supervisor Name Role Phone Darian Molina MD Primary Care Provider [phone] Kamila Craft [facility] Primary Care Provider [phone] Ashley Villegas MD Unavailable [phone] Donny Mcdonough MD Unavailable [phone] Misha Padilla DO Unavailable [phone] Juan Daniel Mera MD Unavailable Unava ilable Randall Schrader MD Unavailable Unavailable Shaista Hathaway COMMUNICATIONS TOWER CLIMBER Unavailable [phone] Shaista Hathaway NP Unavailable [phone] Dae Berrios DO Primary Care Provider [phone] Elda Martin MD Unavailable Dae Berrios DO Primary Care Provider [phone] Krystal Huerta DO Primary Care Provider + [phone] Encounter Details Date Type Department Care Team (Late st Contact Info) Description 03/11/2019 Lambert Contractst Message Enc [facility] Medical Group Family Medicine [address] [address] [place] [address] [place] [address] Test Results Social History Tobacco Use Types [...] Assigned at Female 04/27/2024 1:02 PM LEAD JAVA SOFTWARE ENGINEER Legal Sex Female 10:46 PM CDT Gender Identity Female 05/07/2024 1:56 PM LEAD JAVA SOFTWARE ENGINEER Sexual Orientation Not on file documented as [...] Rule Out 01/15/2020 01/15/2020 01/16/2020 10:25 PM LEAD JAVA SOFTWARE ENGINEER documented as of this encounter Care Teams Team Supervisor Relationship Specialty Start Date End Date Darian Molina MD PCP - General FAMILY PRACTICE 10/15/18 01/25/20 Kamila Craft [facility] PCP - General NURSE PRACTITIONER 01/26/20 07/17/20 Dae Berrios DO [address] [place] [address], [address] [place], [place] [id number] PCP - General FAMILY PRACTICE 07/18/20 08/30/20 Dae Berrios DO [address] [place] [address], [address] [place], [place] [id number] PCP - General FAMILY PRACTICE 08/31/20 02/20/22 Krystal Huerta DO [address] [place] [address] PCP - General FAMILY PRACTICE 02/21/22 Ashley Villegas MD [address] [place] [address] OBGYN 02/04/20 Donny Mcdonough MD [address] [facility] [address] [place], [place] [address] GASTROENTEROLOGY 02/04/20 Misha Padilla DO [address] [facility] [address] [place] [address] Psychiatry 02/04/20 08/30/20 Juan Daniel Mera MD [address] [facility] [address] [place] [address] OBGYN 02/04/20 Randall Schrader MD [address] [facility] [address] [place] [address] Consulting Physician ORTHOPAEDIC SURGERY 02/04/20 Shaista Hathaway NP [address] [place] [address], [address] [place] [address] NURSE PRACTITIONER GERONTOLOGY 02/04/20 Shaista Hathaway NP [address] [place] [address], [address] [place] [address] NURSE PRACTITIONER GERONTOLOGY 04/29/20 Elda Martin MD [address] [facility] [address] [address] Psychiatry 08/31/20 documented as of this encounter
--- OUTSIDE RECORDS SUMMARY | 2025-02-17 18:57 | XMS_ITS | Encounter Summary ---
Author Organization [facility] Address [address] [place] [address] Care Team Providers Care Antique Repairer Name Role Phone Darian Molina MD Primary Care Provider [phone] Kamila Craft [facility] Primary Care Provider [phone] Ashley Villegas MD Unavailable [phone] Donny Mcdonough MD Unavailable [phone] Misha Padilla DO Unavailable [phone] Juan Daniel Mera MD Unavailable Unava ilable Randall Schrader MD Unavailable Unavailable Shaista Hathaway CAR FILLER Unavailable +[phone] Shaista Hathaway NP Unavailable [phone] Dae Berrios DO Primary Care Provider [phone] Elda Martin MD Unavailable Dae Berrios DO Primary Care Provider [phone] Krystal Huerta DO Primary Care Provider + [phone] Encounter Details Date Type Department Care Team (Late st Contact Info) Description 07/20/2019 Emunamedicat Message Enc [facility] Medical Group Family Medicine [address] [address] [place] [address] [place] [address] RE: Question Social History Tobacco Use Types [...] Sex Assigned at Female 04/27/2024 1:02 PM GAMEMASTER Legal Sex Female 10:46 PM CDT Gender Identity Female 05/07/2024 1:56 PM GAMEMASTER Sexual Orientation Not on file COVID-19 Exposure Response Date Recorded In the last month, have you been in contact with someone who was confirmed or suspected to have Coronavirus / COVID-19? No / Unsure 07/22/2019 6:26 PM CDT documented as of this encounter [...] Progress Notes * Darian Molina MD - 07/21/2019 11:50 AM CDT If she is having abdominal issues again, will need to see in clinic as working it up without being seen could be missing something. documented in this encounter Plan of Treatment Not on file documented as of this encounter Visit Diagnoses Not on filedocumented in this encounter Additional Health Concerns Infection Onset Date Last Indicated Resolved Time COVID-19 Rule Out 01/15/2020 01/15/2020 01/16/2020 10:25 PM GAMEMASTER documented as of this encounter Care Teams Antique Repairer Relationship Specialty Start Date End Date Darian Molina MD PCP - General FAMILY PRACTICE 10/15/18 01/25/20 [facility] PCP - General NURSE PRACTITIONER 01/26/20 07/17/20 Dae Berrios DO [address] [place] [address], [address] [place] [address] PCP - General FAMILY PRACTICE 07/18/20 08/30/20 Dae Berrios DO [address] [place] [address], [address] [place] [address] PCP - General FAMILY PRACTICE 08/31/20 02/20/22 Krystal Huerta DO [facility] [place] [address] PCP - General FAMILY PRACTICE 02/21/22 Ashley Villegas MD [address] [place] [address] OBGYN 02/04/20 Donny Mcdonough MD [address] [facility] [address] [place] [address] GASTROENTEROLOGY 02/04/20 Misha Padilla DO [address] [facility] [facility] [address] [place] [address] Psychiatry 02/04/20 08/30/20 Juan Daniel Mera MD [address] [facility] [address] [place] [address] OBGYN 02/04/20 Randall Schrader MD [address] [facility] [address] [place] [address] Consulting Physician ORTHOPAEDIC SURGERY 02/04/20 Shaista Hathaway NP [address] [place] [address], [address] [place] [address] NURSE PRACTITIONER GERONTOLOGY 02/04/20 Shaista Hathaway NP [address] [place] [address], [address] [place] [address] NURSE PRACTITIONER GERONTOLOGY 04/29/20 Elda Martin MD [address] [facility] [address] [address] Psychiatry 08/31/20 documented as of this encounter
--- OUTSIDE RECORDS SUMMARY | 2025-02-17 18:57 | XMS_ITS | Clinical Summary ---
Author Organization [facility]3] at the [facility] Address [address] [place] [address] Care Team Providers Care Support Manager Name Role Phone Krystal Huerta DO Primary Care Provider [phone] Efrem Blair 3RD PRESSMAN Unavailable [phone] Allergies Active Allergy Reactions Criticality Noted Date [...] 3 mL 3 02/10/20 24 025 Discontin u(Formerly [facility]) [facility], or Other Facility Administered Medication Ordered [...] Department Care Team Description 02/08/2025 2:00 PM AIRCRAFT MAINTENANCE MANAGER Procedure visit [facility] [address] [place] [address] [address] [place] [address] Shaista Hathaway NP Intractable chronic migraine without aura and without status migrainosus 12/16/2024 2:00 PM CDT Office Visit [facility] [address] [place] [address] [address] [place] [address] Shaista Hathaway NP Intractable chronic migraine without [...] Mother Deirdre Gain Miscarriages / Stillbirths Mother Dierdre Gain Relation Name Status Comments Brother 1 [...] on file Legal Sex Female 1:05 AM AIRCRAFT MAINTENANCE MANAGER Gender Identity Not on file Sexual Orientation Not on file Last Filed Vital Signs Vital Sign Reading Time Taken Comments Blood Pressure 114/68 12/16/2024 2:03 PM CDT Pulse 68 12/16/2024 2:03 PM CDT Temperature 36.5 C (97.7 F) 05/01/2022 3:45 PM AIRCRAFT MAINTENANCE MANAGER Respiratory Rate 20 05/01/2022 3:45 PM AIRCRAFT MAINTENANCE MANAGER Oxygen Saturation 100% 12/16/2024 2:03 PM CDT Inhaled Oxygen Concentration - - Weight 86.2 kg (190 lb) 02/08/2025 1:59 PM AIRCRAFT MAINTENANCE MANAGER Height 157.5 cm (5' 2) 02/08/2025 1:59 PM AIRCRAFT MAINTENANCE MANAGER Body Mass Index 34.75 02/08/2025 1:59 PM AIRCRAFT MAINTENANCE MANAGER Plan of Treatment Health Maintenance Due Date [...] Comments BOTOX INJECTION Routine 02/08/2025 2:00 PM AIRCRAFT MAINTENANCE MANAGER Intractable chronic migraine without aura and without status migrainosus HEPATITIS PANEL, ACUTE Routine 05/28/2018 6:51 AM CDT from Last 3 Months or Most Recently Relevant to Health Maintenance Results * Botox Injection (02/08/2025 2:00 PM AIRCRAFT MAINTENANCE MANAGER) Narrative [place] - 02/08/2025 2:00 PM AIRCRAFT MAINTENANCE MANAGER [place] 02/10/2025 12:43 PM Botox Injection Performed by: Shaista Hathaway NP Authorized by: Shaista Hathaway NP [place] Protocol: Consent Given by: Patient Timeout: prior [...] Hathaway NP Authorized by: Shaista Hathaway NP [place] Protocol: Consent Given by: Patient Timeout: prior [...] (05/28/2018 6:51 AM CDT) HepBsAg NONREACT NONREACTIVE 05/28/2018 2:47 PM CDT [facility] HISTORICAL RESULTS Comment: Siemens Greenscreen AnimalsaurXP using POWER (chemiluminescent immunoassay) technology. NONREACTIVE: IgM antibodies to Hepatitis B Surface antigen not detected. REACTIVE: IgM antibodies to Hepatitis B Surface antigen detected. Reactive results will be confirmed by neutralization testing. HBsAb qn 4.10 mIU/mL 05/28/2018 2:43 PM T [facility] HISTORICAL RESULTS Comment: Siemens CentaurXP using POWER (chemiluminescent immunoassay) technology. 9.99 IU/L or less.....NONREACTIVE: IgM antibodies to Hepatitis B Surface antibody are not detected. 10.00 IU/L or greater..REACTIVE: IgM antibodies to Hepatitis B Surface antibody are detected. Hep B core IgM NONREACT NONREACTIVE 9 3:01 PM CDT [facility] HISTORICAL RESULTS Comment: Siemens CentaurXP using POWER (chemiluminescent immunoassay) technology. NONREACTIVE: IgM antibodies to Hepatitis B Core antigen not detected. EQUIVOCAL: IgM antibodies to Hepatitis B Core antigen may or may not be present. Obtain a new specimen and retest. REACTIVE: IgM antibodies to Hepatitis B Core antigen detected. Hep A IgM NONREACT NONREACTIVE 05/28/2018 3:04 PM T [facility] HISTORICAL RESULTS Comment: Siemens CentaurXP using POWER (chemiluminescent immunoassay) technology. NONREACTIVE: IgM antibodies to Hepatitis A not detected. This does not exclude possibility of exposure to Hepatitis A or early acute infection. EQUIVOCAL:IgM antibodies to Hepatitis A may or may not be present. Suggest recollection and retest. REACTIVE: Antibodies to Hepatitis A detected. Hep C Ab NONREACT NONREACTIVE 05/28/2018 3:01 PM T [facility] HISTORICAL RESULTS Comment: Siemens CentaurXP using [...] MICROBIOLOGY - GENER AL ORDERABLES Final Result [facility] HISTORICAL RESULTS from Last 3 Months or Most Recently Relevant to Health Maintenance Insurance [employer] [place] [employer] [place] Care Teams Support Manager Relationship Specialty Start Date End Date Krystal Huerta DO [facility] [place] [address] PCP - General Family Medicine 02/11/24 Efrem Blair NP [address] [place] [address] Nurse Practitioner Nurse Practitioner 12/16/24
--- OUTSIDE RECORDS SUMMARY | 2025-02-17 18:57 | XMS_ITS | Encounter Summary ---
Author Organization [facility] Address [address] [place] [address] Care Team Providers Care Chiller Technician Name Role Phone Darian Molina MD Primary Care Provider [phone] Kamila Craft [facility] Primary Care Provider [phone] Ashley Villegas MD Unavailable [phone] Donny Mcdonough MD Unavailable [phone] Misha Padilla DO Unavailable [phone] Juan Daniel Mera MD Unavailable Unava ilable Randall Schrader MD Unavailable Unavailable Shaista Hathaway BUSINESS SYSTEMS DEVELOPER Unavailable [phone] Shaista Hathaway NP Unavailable [phone] Dae Berrios DO Primary Care Provider [phone] lEda Martin MD Unavailable Dae Berrios DO Primary Care Provider [phone] Krystal Huerta DO Primary Care Provider [phone] Encounter Details Date Type Department Care Team (Late st Contact Info) Description 10/08/2019 Flanagan Freight Transportt Message Enc [facility] Medical Group Family Medicine - [place] [address] [facility], [address] [place] [address] Darian Molina MD [address] [email or web address] [place], [place] [id number] RE: Question Social History Tobacco Use Types [...] Sex Assigned at Female 04/27/2024 1:02 PM INTERMODAL OWNER OPERATOR TRUCK DRIVER Legal Sex Female 10:46 PM CDT Gender Identity Female 05/07/2024 1:56 PM INTERMODAL OWNER OPERATOR TRUCK DRIVER Sexual Orientation Not on file COVID-19 Exposure [...] Rule Out 01/15/2020 01/15/2020 01/16/2020 10:25 PM INTERMODAL OWNER OPERATOR TRUCK DRIVER documented as of this encounter Care Teams Chiller Technician Relationship Specialty Start Date End Date Darian Molina MD PCP - General FAMILY PRACTICE 10/15/18 01/25/20 Kamila Craft [facility] PCP - General NURSE PRACTITIONER 01/26/20 07/17/20 Dae Berrios DO [address] [place] [address], [address] [address] PCP - General FAMILY PRACTICE 07/18/20 08/30/20 Dae Berrios DO [address] [place] [address], [address] [address] PCP - General FAMILY PRACTICE 08/31/20 02/20/22 Krystal Huerta DO [facility] [place] [address] PCP - General FAMILY PRACTICE 02/21/22 Ashley Villegas MD [address] [place] [id number] OBGYN 02/04/20 Donny Mcdonough MD [address] [facility] [address] [place] [address] GASTROENTEROLOGY 02/04/20 Misha Padilla DO [address] [facility] [address] [place] [address] Psychiatry 02/04/20 08/30/20 Juan Daniel Mera MD [address] [facility] [address] [place] [address] OBGYN 02/04/20 Randall Schrader MD [address] [facility] [address] [place] [address] Consulting Physician ORTHOPAEDIC SURGERY 02/04/20 Shaista Hathaway NP [address] [place] [address], [address] [address] NURSE PRACTITIONER GERONTOLOGY 02/04/20 Shaista Hathaway NP [address] [place] [address], [address] [place] [address] NURSE PRACTITIONER GERONTOLOGY 04/29/20 Elda Martin MD [address] [address] Psychiatry 08/31/20 documented as of this encounter
--- OUTSIDE RECORDS SUMMARY | 2025-02-17 18:57 | XMS_ITS | Encounter Summary ---
Author Organization [facility] Address [address] [place] [address] Care Team Providers Care Cardio Tech Name Role Phone Dairan Molina MD Primary Care Provider [phone] Kamila Craft [facility] Primary Care Provider [phone] Ashley Villegas MD Unavailable [phone] Donny Mcdonough MD Unavailable [phone] Misha Padilla DO Unavailable [phone] Juan Daniel Mera MD Unavailable Unava ilable Randall Schrader MD Unavailable Unavailable Shaista Hathaway CASE CHECKER Unavailable [phone] Shaista Hathaway NP Unavailable [phone] Dae Berrios DO Primary Care Provider [phone] Elda Martin MD Unavailable Dae Berrios DO Primary Care Provider [phone] Krystal Huerta DO Primary Care Provider + [phone] Encounter Details Date Type Department Care Team (Late st Contact Info) Description 12/22/2019 Sponto Message Enc [facility] Medical Group Family Medicine [address] [address] Kamila Craft FNP-[address] [address] RE: Referral Request Social History Tobacco Use [...] Sex Assigned at Female 04/27/2024 1:02 PM SLAG EXPANDER Legal Sex Female 10:46 PM CDT Gender Identity Female 05/07/2024 1:56 PM SLAG EXPANDER Sexual Orientation Not on file COVID-19 Exposure [...] Rule Out 01/15/2020 01/15/2020 01/16/2020 10:25 PM SLAG EXPANDER documented as of this encounter Care Teams Cardio Tech Relationship Specialty Start Date End Date Darian Molina MD PCP - General FAMILY PRACTICE 10/15/18 01/25/20 Kamila Craft [facility] PCP - General NURSE PRACTITIONER 01/26/20 07/17/20 Dae Berrios DO [address] [place] [address], [address] [address] PCP - General FAMILY PRACTICE 07/18/20 08/30/20 Dae Berrios DO [address] [place] [address], [address] [address] PCP - General FAMILY PRACTICE 08/31/20 02/20/22 Krystal Huerta DO [facility] [place], [place] [id number] PCP - General FAMILY PRACTICE 02/21/22 Ashley Villegas MD [facility] [place], [place] [address] OBGYN 02/04/20 Donny Mcdonough MD [address] [facility] [address] [place] [address] GASTROENTEROLOGY 02/04/20 Misha Padilla DO [address] [facility] [address] [place] [address] Psychiatry 02/04/20 08/30/20 Juan Daniel Mera MD [address] [facility] [address] [place] [address] OBGYN 02/04/20 Randall Schrader MD [address] [facility] [address] [place] [address] Consulting Physician ORTHOPAEDIC SURGERY 02/04/20 Shaista Hathaway NP [address] [place] [address], [address] [place] [address] NURSE PRACTITIONER GERONTOLOGY 02/04/20 Shaista Hathaway NP [address] [place] [address], [address] [place] [address] NURSE PRACTITIONER GERONTOLOGY 04/29/20 Elda Martin MD [address] [address] Psychiatry 08/31/20 documented as of this encounter
--- OUTSIDE RECORDS SUMMARY | 2025-02-17 18:57 | XMS_ITS | Encounter Summary ---
Author Organization [facility] Address [address] [place] [address] Care Team Providers Care Shrimp Boat Captain Name Role Phone Darian Molina MD Primary Care Provider [phone] Kamila Craft [facility] Primary Care Provider [phone] Ashley Villegas MD Unavailable [phone] Donny Mcdonough MD Unavailable [phone] Misha Padilla DO Unavailable [phone] Juan Daniel Mera MD Unavailable Unava ilable Randall Schrader MD Unavailable Unavailable Shaista Hathaway ADVANCED PRACTICE NURSE Unavailable [phone] Shaista Hathaway NP Unavailable [phone] Dae Berrios DO Primary Care Provider [phone] Elda Martin MD Unavailable Dae Berrios DO Primary Care Provider [phone] Krystal Huerta DO Primary Care Provider [phone] Encounter Details Date Type Department Care Team (Late st Contact Info) Description 01/22/2019 Offerial Message Enc [facility] Medical Group Family Medicine [address] [address] [place] [address] [place] [id number] RE: RE: Question Social History Tobacco Use [...] Sex Assigned at Female 04/27/2024 1:02 PM MICROBIOLOGY TEACHER Legal Sex Female 10:46 PM CDT Gender Identity Female 05/07/2024 1:56 PM MICROBIOLOGY TEACHER Sexual Orientation Not on file documented as [...] Rule Out 01/15/2020 01/15/2020 01/16/2020 10:25 PM MICROBIOLOGY TEACHER documented as of this encounter Care Teams Shrimp Boat Captain Relationship Specialty Start Date End Date Darian Molina MD PCP - General FAMILY PRACTICE 10/15/18 01/25/20 Kamila Craft [facility] PCP - General NURSE PRACTITIONER 01/26/20 07/17/20 Dae Berrios DO [address] [place] [address], [address] [place], [place] [id number] PCP - General FAMILY PRACTICE 07/18/20 08/30/20 Dae Berrios DO [address] [place] [address], [address] [place] [address] PCP - General FAMILY PRACTICE 08/31/20 02/20/22 Krystal Huerta DO [address] [place], [place] [id number] PCP - General FAMILY PRACTICE 02/21/22 Ashley Villegas MD [address] [place], [place] [address] OBGYN 02/04/20 Donny Mcdonough MD [address] [facility] [address] [place], [place] [address] GASTROENTEROLOGY 02/04/20 Misha Padilla DO [address] [facility] [address] [place] [address] Psychiatry 02/04/20 08/30/20 Juan Daniel Mera MD [address] [facility] [address] [place] [address] OBGYN 02/04/20 Randall Schrader MD [address] [facility] [address] [place] [address] Consulting Physician ORTHOPAEDIC SURGERY 02/04/20 Shaista Hathaway NP [address] [place] [address], [address] [place] [address] NURSE PRACTITIONER GERONTOLOGY 02/04/20 Shaista Hathaway NP [address] [place] [address], [address] [place] [address] NURSE PRACTITIONER GERONTOLOGY 04/29/20 Elda Martin MD [address] [facility] [address] [address] Psychiatry 08/31/20 documented as of this encounter
[2025-02-17 19:05] LABS: Pregnancy On Board Control Positive
[2025-02-17 19:06] LABS: Cannabinoid Screen Urine Negative (Negative)
[2025-02-17 19:34] LABS: Total Triiodothyronine (T3) 0.87 NG/ML (0.82-1.58)
[2025-02-17 19:49] LABS: Add Urine Microscopic? YES; Appearance Urine Clear (Clear); Glucose Urine UA Negative (Negative); Leukocyte Esterase Ur Negative LEU/UL (Negative); Need Manual Microscopic Reviewed; Nitrate Urine Negative (Negative); Non Pathogenic Casts 0-2; Specific Grav Ur > 1.045 (1.001-1.035)
--- NOTE | 2025-02-17 20:46 | PC.NURSE ---
[facility] called @ 2040. will be sending someone our way now.
--- NOTE | 2025-02-17 21:42 | ED.GENADULT ---
HPI - General Adult General Chief complaint: Psychiatric Symptoms Stated complaint: SUICIDAL Time Seen by Provider: 02/17/25 17:05 History of Present Illness HPI narrative: 45-year-old female presenting via EMS from her psychiatrist's office with concerns for suicidal ideations. Patient states she took a couple of pills while in the parking lot including Tylenol p.m. and oxycodone. Patient states this was with some intent to kill herself. Denies HI and auditory/visual hallucinations. Reports a significant history of psychiatric hospitalizations and diagnoses of bipolar disorder, depression, and generalized anxiety disorder. She does report a good support system consisting of her dad and brother. Related Data Home Medications ?Medication ?Instructions ?Recorded ?Confirmed ?Last Taken ?Type divalproex 250 mg tablet,delayed mg PO HS 02/18/25 02/17/25 History release 250 mg fluoxetine 40 mg capsule mg PO DAILY 02/18/25 02/18/25 History 40 mg folic acid 1 mg tablet 1 mg PO DAILY 02/18/25 02/18/25 02/18/25 History 1mg frovatriptan 2.5 mg tablet mg 02/18/25 02/17/25 History levothyroxine 75 mcg tablet mcg PO DAILY 02/18/25 02/18/25 History 75 mcg olanzapine 10 mg tablet mg PO QPM 02/18/25 02/17/25 History 20 mg pantoprazole 40 mg tablet,delayed mg PO DAILY 02/18/25 02/18/25 History release 40 mg tirzepatide (weight loss) 5 mg/0.5 mg subcut WEEKLY 02/18/25 02/14/25 History mL subcutaneous pen injector 7.5 mg (Zepbound) Allergies Allergy/AdvReac Type Severity Reaction Status Date / Time No Known Allergies Allergy Verified 02/17/25 16:12 [facility] Social History Social History Substance use type: does not use Exam Narrative: GENERAL: No acute distress. Withdrawn. HEAD: Normocephalic, atraumatic. EYES: PERRLA and EOMI. ENT: Nares clear, no rhinorrhea or epistaxis. Mucous membranes moist. Oropharynx without tonsillar hypertrophy exudate or other lesions. Bilateral TMs pearly castrejon non-bulging NECK: Supple. No adenopathy or masses. No carotid bruits or JVD CHEST: Clear to auscultation. No respiratory distress. No wheezes rales or rhonchi HEART: Regular rate and rhythm. No murmur heard. Normal peripheral pulses. ABDOMEN: Soft, nontender, nondistended, normal active bowel sounds. EXTREMITIES: Normal range of motion. No edema. SKIN: Warm, dry, no rash. NEURO: A&O X3. Speech clear. Follows commands. Sensation grossly intact. Steady gait. No ataxic movements. Strength 5/5 in upper and lower extremities bilaterally. [id number] testing intact bilaterally. PSYCH: Flat mood and affect Course Vital Signs Vital signs: Vital Signs Temperature 98.2 F 02/17/25 16:12 Pulse Rate 82 02/17/25 16:12 Respiratory Rate 16 02/17/25 16:12 Blood Pressure 130/80 02/17/25 16:12 Pulse Oximetry 97 02/17/25 16:12 Temperature 98.2 F 02/17/25 16:12 Pulse Rate 82 02/17/25 16:12 Respiratory Rate 16 02/17/25 16:12 Blood Pressure 130/80 02/17/25 16:12 Pulse Oximetry 97 02/17/25 16:12 MDM MDM Narrative Medical decision making narrative: 45-year-old female presenting via EMS from her psychiatrist's office with concerns for suicidal ideations. Patient states she took a couple of pills while in the parking lot including Tylenol p.m. and oxycodone. Patient states this was with some intent to kill herself. Denies HI and auditory/visual hallucinations. Reports a significant history of psychiatric hospitalizations and diagnoses of bipolar disorder, depression, and generalized anxiety disorder. She does report a good support system consisting of her dad and brother. Given suicidal ideation, patient was placed on suicide precautions and maintained in a safe environment. Medical screening examination was performed to evaluate for underlying medical conditions contributing to psychiatric symptoms. Laboratory evaluation including CBC, CMP, ETOH level, urine drug screen, test, flu/COVID/RSV, TSH, and valproic acid levels were reviewed and did not demonstrate acute medical abnormalities requiring intervention. Vital signs remained stable throughout ED course. Patient is alert, oriented, and at baseline mental status. There is no evidence of infection, metabolic derangement, intoxication, withdrawal, or other acute medical illness that would preclude psychiatric admission. Patient is therefore medically cleared for psychiatric hospitalization. Crisis team was consulted and in agreement with need for inpatient psychiatric admission for further evaluation and management of suicidal ideation. Patient remains unsafe for discharge at this time but in agreement with the current plan. Differential Diagnosis Differential Diagnosis: Differential diagnostic considerations for mental health disturbances include substance abuse, drug overdose, self-inflicted injuries, substance withdrawal, electrolyte disturbances, endocrinologic disturbances, infection, social stressors, schizophrenia, bipolar disorder, depression, acute anxiety, suicidal ideation, medication noncompliance. Lab Data MDM Lab Attestation statement: I personally reviewed the patient's lab results. 02/17/25 17:39 02/17/25 17:17 Labs: Lab Results 02/17/25 02/17/25 02/17/25 Range/Units 17:17 17:17 17:39 WBC 8.4 (4.5-10.0) K/mm3 RBC 4.54 (4.2-5.4) M/mm3 Hgb 13.9 (12.0-15.0) g/dL Hct 40.8 (37.0-47.0) % MCV 89.9 (80-100) fl MCH 30.6 (26-34) pg MCHC 34.1 (32-36) g/dl RDW 12.4 (11.5-14.5) % Plt Count 374 (150-375) k/mm3 MPV 8.6 (7.4-10.4) fl Immature Gran % (Auto) 0.2 (0-0.5) % Neut % (Auto) 50.9 (45.5-73.1) % Lymph % (Auto) 36.8 (18.3-44.2) % Rankin % (Auto) 8.7 H (2.6-8.5) % Eos % (Auto) 2.4 (0-4.4) % Baso % (Auto) 1.0 (0.2-1.2) % Lymph # (Auto) 3.07 (0.9-3.2) K/mm3 Rankin # (Auto) 0.7 H (0.1-0.6) K/mm3 Eos # (Auto) 0.2 (0-0.3) K/mm3 Baso # (Auto) 0.1 (0.0-0.1) K/mm3 Abs Immat Gran (auto) 0.02 (0.00-0.031) K/mm3 Absolute Neuts (auto) 4.3 (1.3-6.7) K/mm3 Absolute Nucleated RBC 0.000 (0.0-0.012) K/mm3 Nucleated RBC % 0.0 (0.0-0.2) % Sodium 137 (137-145) mmol/L Potassium 3.7 (3.4-5.0) mmol/L Chloride 109 H (98-107) mmol/L Carbon Dioxide 16 L (22-30) mmol/L Anion Gap 12 (4-12) mmol/L BUN 20 H (7-17) mg/dL Creatinine 0.74 (0.7-1.0) mg/dL Estim Creat Clear Calc 86 ml/min Estimated GFR > 60 (59 - ) Glucose 100 (65-110) mg/dL Calcium 9.4 (8.4-10.2) mg/dL Total Bilirubin 0.6 (0.2-1.3) mg/dL AST 29 (14-36) U/L ALT 31 (6-35) U/L Alkaline Phosphatase 86 (38-126) U/L Total Protein 8.8 H (6.3-8.2) g/dL Albumin 4.8 (3.5-5.1) g/dL TSH (Reflex) 4.920 H (0.465-4.68) uIU/mL Free T4 Cancelled 0.85 Total T3 0.87 (0.82-1.58) NG/ML Urine Color (Yellow) Urine Appearance (Clear) Urine pH (5.0-9.0) Ur Specific [place] (1.001-1.035) Urine Protein (Negative) mg/dL Urine Glucose (UA) (Negative) mg/dL Urine Ketones (Negative) mg/dL Ur Blood (Man) (Negative) Urine Nitrate (Negative) Urine Bilirubin (Negative) Urine Urobilinogen (<2.0) mg/dL Add Ur Microanalysis Leukocyte Esterase Rfl (Negative) SHELLY/UL Urine RBC (0-2) /hpf Urine WBC (0-3) /hpf Ur Squamous Epith Cells (Few) /hpf Calcium Oxalate Crystal (None) /hpf Urine Bacteria /hpf Urine Casts Urine Test Salicylates (2-20) mg/dL Urine Opiates Screen (Negative) Urine Methadone Screen (Negative) Acetaminophen (10-30) ug/mL Ur Barbiturates Screen (Negative) Valproic Acid 23.4 L (50-120) ug/mL Ur Phencyclidine Scrn (Negative) Ur Amphetamine Screen (Negative) U Benzodiazepines Scrn (Negative) Urine Cocaine Screen (Negative) U Cannabinoids Screen (Negative) Ethyl Alcohol < 10 (<10) mg/dL Influenza A (RT-PCR) Negative (Negative) Influenza B (RT-PCR) Negative (Negative) RSV (RT-PCR) Negative (Negative) SARS-CoV-2 RNA (RT-PCR) Negative (Negative) 02/17/25 02/18/25 Range/Units 18:40 00:37 WBC (4.5-10.0) K/mm3 RBC (4.2-5.4) M/mm3 Hgb (12.0-15.0) g/dL Hct (37.0-47.0) % MCV (80-100) fl MCH (26-34) pg MCHC (32-36) g/dl RDW (11.5-14.5) % Plt Count (150-375) k/mm3 MPV (7.4-10.4) fl Immature Gran % (Auto) (0-0.5) % Neut % (Auto) (45.5-73.1) % Lymph % (Auto) (18.3-44.2) % Rankin % (Auto) (2.6-8.5) % Eos % (Auto) (0-4.4) % Baso % (Auto) (0.2-1.2) % Lymph # (Auto) (0.9-3.2) K/mm3 Rankin # (Auto) (0.1-0.6) K/mm3 Eos # (Auto) (0-0.3) K/mm3 Baso # (Auto) (0.0-0.1) K/mm3 Abs Immat Gran (auto) (0.00-0.031) K/mm3 Absolute Neuts (auto) (1.3-6.7) K/mm3 Absolute Nucleated RBC (0.0-0.012) K/mm3 Nucleated RBC % (0.0-0.2) % Sodium (137-145) mmol/L Potassium (3.4-5.0) mmol/L Chloride (98-107) mmol/L Carbon Dioxide (22-30) mmol/L Anion Gap (4-12) mmol/L BUN (7-17) mg/dL Creatinine (0.7-1.0) mg/dL Estim Creat Clear Calc ml/min Estimated GFR (59 - ) Glucose (65-110) mg/dL Calcium (8.4-10.2) mg/dL Total Bilirubin (0.2-1.3) mg/dL AST (14-36) U/L ALT (6-35) U/L Alkaline Phosphatase (38-126) U/L Total Protein (6.3-8.2) g/dL Albumin (3.5-5.1) g/dL TSH (Reflex) (0.465-4.68) uIU/mL Free T4 Total T3 (0.82-1.58) NG/ML Urine Color Yellow (Yellow) Urine Appearance Clear (Clear) Urine pH 5.0 (5.0-9.0) Ur Specific [place] > 1.045 H (1.001-1.035) Urine Protein 1+ H (Negative) mg/dL Urine Glucose (UA) Negative (Negative) mg/dL Urine Ketones Trace H (Negative) mg/dL Ur Blood (Man) Negative (Negative) Urine Nitrate Negative (Negative) Urine Bilirubin Negative (Negative) Urine Urobilinogen 1.0 (<2.0) mg/dL Add Ur Microanalysis Reviewed Leukocyte Esterase Rfl Negative (Negative) SHELLY/UL Urine RBC 0-2 (0-2) /hpf Urine WBC 0-5 (0-3) /hpf Ur Squamous Epith Cells None seen (Few) /hpf Calcium Oxalate Crystal Present (None) /hpf Urine Bacteria None seen /hpf Urine Casts 0-2 Urine Test Negative Salicylates < 1.0 L (2-20) mg/dL Urine Opiates Screen Positive A (Negative) Urine Methadone Screen Negative (Negative) Acetaminophen 14 (10-30) ug/mL Ur Barbiturates Screen Negative (Negative) Valproic Acid (50-120) ug/mL Ur Phencyclidine Scrn Negative (Negative) Ur Amphetamine Screen Negative (Negative) U Benzodiazepines Scrn Negative (Negative) Urine Cocaine Screen Negative (Negative) U Cannabinoids Screen Negative (Negative) Ethyl Alcohol (<10) mg/dL Influenza A (RT-PCR) (Negative) Influenza B (RT-PCR) (Negative) RSV (RT-PCR) (Negative) SARS-CoV-2 RNA (RT-PCR) (Negative) Discharge Plan Discharge Clinical Impression: Suicidal ideations, Bipolar disorder, Depression, Generalized anxiety disorder Patient Disposition: Psychiatric Hosp Condition: Stable Patient Language: Korean Prescriptions: No Action fluoxetine 40 mg capsule PO DAILY divalproex 250 mg tablet,delayed release (DR/EC) PO HS olanzapine 10 mg tablet PO QPM levothyroxine 75 mcg tablet PO DAILY pantoprazole 40 mg tablet,delayed release (DR/EC) PO DAILY frovatriptan 2.5 mg tablet folic acid 1 mg tablet 1 mg PO DAILY Zepbound 5 mg/0.5 mL pen injector SUBCUT WEEKLY Follow-up/Referrals: UNKNOWN,DOCTOR [Primary Care Provider]
--- NOTE | 2025-02-17 22:15 | PC.NURSE ---
Pt will be voluntary admit. [facility] attempting to find placement at this time
--- NOTE | 2025-02-17 23:03 | PC.NURSE ---
[facility] faxed paperwork to [facility], and [facility]remy
[2025-02-18 00:53] LABS: Acetaminophen 14 ug/mL (10-30); Salicylate < 1.0 mg/dL (2-20)
[2025-02-18 02:00] VITALS: BP 130/74; PULSE 78; RESP 16; O2SAT 100
--- NOTE | 2025-02-18 02:45 | PC.NURSE ---
pt labs refaxed to both [facility] and [facility].
--- NOTE | 2025-02-18 03:17 | PC.NURSE ---
nurse to nurse report given to Lauren Gaspar at [facility]. Accepting is Dr Hernandes. pt will be a direct admit to [id number]
--- NOTE | 2025-02-18 03:18 | PC.NURSE ---
[facility] accepted pt. Dr Lao is the accepting MD. nurse to nurse reports will be called at [phone]
--- NOTE | 2025-02-18 03:51 | PC.NURSE ---
[facility] informed by this rn that pt has declined their admission and instead will be going to [facility]
== END 2025-02-18 04:40 ==
PROVIDERS: Emergency Medicine
DX: T40.2X2A Poisoning by other opioids, intentional self-harm, initial encounter (principal); T39.1X2A Poisoning by 4-Aminophenol derivatives, intentional self-harm, initial encounter; F31.9 Bipolar disorder, unspecified; F41.1 Generalized anxiety disorder; Z11.52 Encounter for screening for COVID-19; Z79.899 Other long term (current) drug therapy
CPT/HCPCS: 36415; 80053; 80143; 80164; 80179; 80307; 81001; 81025; 82077; 84439; 84443; 84480; 85025; 87637; 99285